=== PATIENT | female | born 1945 | race Caucasian/White ===

== ENCOUNTER 2017-12-04 16:09 | Emergency (ER) | payer MEDICARE, SELFPAY ==
[2017-12-04] VITALS (23 sets, daily range): BP systolic 139–156; BP diastolic 75–78; PULSE 90–109; RESP 12–30; TEMP 37–37.4; O2SAT 91–100
--- NOTE | 2017-12-04 16:24 | DI.RAD_ITS ---
SYMPTOM/DIAGNOSIS: DECREASED BREATH SOUNDS, SOB FRONTAL AND LATERAL CHEST: Comparison is made with 09/12/17. Heart size and pulmonary vasculature are within normal limits. No infiltrates or effusions are seen. The lungs are hyperinflated suggesting underlying COPD. There is a question of a 1 cm. nodule overlying the anterior aspect of the right sixth rib. This may be a superimposition of shadows or possibly represent the nipple. A pulmonary nodule cannot be excluded. Degenerative changes are seen in the spine. IMPRESSION; 1. No acute pulmonary process. 2. Question of a 1 cm. nodule in the right lower lung field. Pulmonary nodule cannot be excluded. A non emergency CT scan of the chest should be considered for further evaluation.
--- NOTE | 2017-12-04 18:06 | DI.VRAD_ITS ---
EXAM: XR Chest, 2 Views EXAM DATE/TIME: 12/04/2017 4:26 PM CLINICAL HISTORY: 72 years old, female; Pain; Chest pain and other: Dec. Breath sounds, SOB TECHNIQUE: XR of the chest, 2 views. COMPARISON: CR PORTABLE CHEST ONE VIEW 09/12/2017 1:20 PM FINDINGS: Lungs: Hyperaerated an appearance consistent with the patient's history of COPD. No focal consolidation. Image 1 demonstrates a 9 mm nodular density overlying the right sixth anterior rib. The pulmonary nodule is not excluded. Pleural space: Unremarkable. No pleural effusion. No pneumothorax. Heart/Mediastinum: Unchanged. Bones/joints: Skeletal degenerative changes. Other: Surgical clips in the upper abdomen. IMPRESSION: 1. No focal consolidation or pneumothorax. 2. 9 mm nodular density overlying the right anterior sixth rib. Pulmonary nodule is not excluded. If indicated, this can be further evaluated with nonemergent CT scan of the chest. Other findings as above. Dictated and Authenticated by: Verona Figueroa MD. Ordering:FRANCHESKA GODFREY MD
[2017-12-04 18:51] LABS: HCO3 (Venous) 30 mmol/L (22-28); O2 Sat (Venous) 76 % (70-80); TCO2 (Venous) 27 mmol/L (22-29); pCO2 (Venous) 45 mm/Hg (34-47); pH (Venous) 7.43 (7.32-7.43); pO2 (Venous) 40 mm/Hg (28-44)
[2017-12-04 18:53] LABS: ALT 21 U/L (12-78); AST 26 U/L (15-37); Albumin 3.3 g/dL (3.4-5.0); Alkaline Phosphatase 66 U/L (46-116); Anion Gap 8.4 mmol/L (3-11); BUN 9 mg/dL (7-18); Bilirubin, Total 0.4 mg/dL (0.2-1.0); CO2 31.6 mmol/L (21.0-32.0); CREATININE 0.99 mg/dL (0.55-1.02); Calcium 9.3 mg/dL (8.5-10.1); Chloride 105 mmol/L (98-107); Estimated GFR 54.98 (mL/min/1.73m2); Glucose 101 mg/dL (70-100); Potassium 4.1 mmol/L (3.5-5.1); Sodium 145 mmol/L (136-145); Total Protein 7.4 g/dL (6.4-8.2)
[2017-12-04 19:00] LABS: Troponin I < 0.02 ng/mL (0.00-0.06)
[2017-12-04 19:06] LABS: Absolute Basophil Count 0.04 k/cumm (0.0-0.2); Absolute Eosinophil Count 0.21 k/cumm (0.0-0.7); Absolute Lymphocyte Count 0.86 k/cumm (1.2-3.4); Absolute Monocyte Count 0.36 k/cumm (0.11-0.7); Absolute Neutrophil Count 4.17 k/cumm (1.2-6.7); Basophils % 0.7; Eosinophils % 3.7; HGB 14.2 g/dL (12.0-15.5); Lymphocytes % 15.2; Mean Corpuscular Hemoglobin 29.6 pg (27.0-33.0); Mean Corpuscular Volume 89.8 fL (80-95); Mean Platelet Volume 11.3 fL (8.0-11.0); Monocytes % 6.4; Platelet Count 274 x1000/uL (130-400); RBC 4.79 m/cumm (4.00-5.20); RBC Distribution Width 13.1 % (11.7-14.6); White Blood Cell Count 5.64 k/cumm (4.4-10.8)
[2017-12-04] MEDS: methylPREDNISolone SUCC 125 MG VIAL IVP (19:27)
[2017-12-04] MEDS: Albuterol/Ipratropium 3 ML UPD VIAL 9 ML UPD (19:31)
[2017-12-04 20:52] LABS: Troponin I < 0.02 ng/mL (0.00-0.06)
--- NOTE | 2017-12-05 10:21 | W.ED.GENAD ---
Discharge Plan Disposition Patient Disposition: HOME Condition: Good Discharge Details Chief Complaint: RespSymp Clinical Impression: COPD with exacerbation, Incidental pulmonary nodule Primary Care Provider: Adria Ellis ED Provider: Lev Mendiola Home Meds and New Rx's Prescriptions: New prednisone 50 MG tablet 50 mg PO DAILY Qty: 5 RF: 0 No Action prednisone 20 mg tablet 40 mg PO DAILY Qty: 20 RF: 0 ipratropium-albuterol [Combivent Respimat] 4 GM mist 1 puff Inhalation QID Qty: 3 RF: 3 fluticasone-salmeterol [Advair Diskus] 1 EACH blister with device 1 puff Inhalation BID Qty: 3 RF: 4 amlodipine 5 MG tablet 5 mg PO DAILY Qty: 90 RF: 3 furosemide [Lasix] 20 MG tablet 20 mg PO DAILY Qty: 90 RF: 3 Metoprolol Succinate 50 MG TAB.ER.24H 50 mg PO DAILY Qty: 90 RF: 3 albuterol sulfate 2.5 MG/3 ML solution for nebulization 1 ea Inhalation Q4H PRN30 Days Qty: 200 RF: 5 lorazepam 0.5 MG tablet 0.5 - 1 tab PO BID PRN 30 Days Qty: 60 RF: 11 lidocain-me.kjhxwjr-ipzh-sugrb [Terocin (with lidocaine)] 120 ML lotion 120 ml Topical Q12H Qty: 1 RF: 0 Discharge Instructions Instructions: Chronic Bronchitis (ED) Additional Instructions: Please take the steroid as directed. Please continue to take your albuterol nebulize solution every 4-6 hours. Please follow-up with your primary care provider about the pulmonary nodule noted on the x-ray. If you notice any worsening of your symptoms, or any new symptoms such as vomiting, diarrhea, fever, chills, shortness of breath, chest pain, numbness, weakness, or fainting , please return immediately to the emergency department for reevaluation. Please follow up with your primary care provider as soon as possible for reassessment and reevaluation. As always, it was a pleasure participating in your medical care today. Referrals: Adria Ellis [Primary Care Provider] - Discharge Data Discharge Date/Time-TO BE ENTERED AT DEPARTURE: 12/04/17 21:51 Medical Decision Making This is a 72-year-old female with a past medical history of COPD, as well as mild anxiety who presents today for shortness of breath, as well as concern for a slightly elevated heart rate. Oximetry in the 90s. On initial evaluation the patient did demonstrate mild wheezes throughout. She states that her symptoms have been improved with her nebulizer treatments at home. She denies any significant cough. She denies any shoulder or arm or neck pain. She denies any pleuritic chest pain. She denies any recent fevers or chills. She denies any history of blood clot or pulmonary embolism. The patient shows no signs of significant hypoxemia but as noted she does have the wheezes that are present. She is slightly increased in her respiratory rate. Heart rate oscillates between mid 90s, to low 100s. No other significant abnormalities were noted on physical exam. Laboratory workup demonstrated normal white count, VBG demonstrates no evidence of CO2 retention. PH is normal, electrolytes, creatinine, and troponin are normal. Per virtual radiology chest x-ray demonstrated no focal consolidation or pneumothorax. 9 mm nodular density overlying the right anterior sixth rib. Pulmonary nodules not excluded. EKG showed no significant abnormality. There was a notable delay in getting the patient's initial blood work secondary to search that was occurring in the emergency department. Patient was given breathing treatments and steroids here in the ED. After breathing treatments the patient was feeling much better. We did get her up and ambulate her around the emergency department and pulse oximetry remained above 92% during the entire episode. No significant tachycardia with ambulation. With notable wheezes that were improved with breathing treatments, no signs of hypoxemia, normal VBG, and improvement of symptomatology after breathing treatments I feel that her signs and symptoms are consistent with COPD exacerbation at this time. With a resolution of her tachycardia, no history of pulmonary embolism, no history of chest pain or significant cardiac disease, in conjunction with her known COPD I do feel that she can be safely discharged with close PCP follow-up. Diagnosis COPD exacerbation. We will give steroids for home use, encourage use of her home nebulizer for which she states she still has plenty of medications and refills, and encourage close follow-up. We discussed red flags which to return the patient understands. I have extensively reviewed the treatment plan and discharge instructions with the patient. I have addressed all patient concerns at this time. The patient was made aware of what symptoms to monitor for that would warrant a return to the emergency department. Discussed the plan with the patient, they demonstrate verbal understanding and agreement with our assessment and plan at this time. Additionally the patient's chest x-ray did show evidence of pulmonary nodule. I discussed these findings with the patient and recommended close follow-up with her PCP in regards to this. EKG 16: 20 rate 115, TX 192, QTc 437, QRS 82, sinus tachycardia, no significant ST depressions or elevations, inverted T waves in V1. Occasional PVC. No other significant abnormalities. HPI General Date/Time Provider Initiated Documentation: 12/04/17 16:24. HPI Narrative: This is a 72-year-old female with a past medical history of COPD, hypertension, anxiety who presents today for shortness of breath, and an increased heart rate in the 90s at home on her home pulse oximetry. She was concerned about this, states that she became very nervous, became more short of breath then came in for evaluation. The patient does have a home nebulizer, and she states that she has been using this regularly and it has significantly helped with her shortness of breath, but because of the increased heart rate in the 90s she was concerned and came in for evaluation. The patient denies any pleuritic chest pain, cough, fever, chills, arm pain neck pain or shoulder pain. She denies any swelling or tenderness in her calves. She denies any recent long trips, surgeries or procedures. She denies any exogenous estrogen use. She denies any history of pulmonary embolism. She denies any significant previous cardiac disease. Of note she was treated for bronchitis and COPD exacerbation roughly 1 month ago. She was given steroids at that time. She has no other complaints at this time. Related Data Home Medications Medication Instructions Recorded Confirmed ipratropium-albuterol [Combivent 1 puff INHALATION QID #3 inhaler 12/06/16 11/23/17 Respimat] fluticasone-salmeterol [Advair 1 puff INHALATION BID #3 puff 04/10/17 11/23/17 Diskus] lidocain-me.ujvqnsu-kmru-ajvtn 120 ml TOPICAL Q12H #1 lotion 06/07/17 11/23/17 [Terocin (with lidocaine)] amlodipine 5 mg PO DAILY #90 tab-cap 08/08/17 11/23/17 furosemide [Lasix] 20 mg PO DAILY #90 tab-cap 08/08/17 11/23/17 albuterol sulfate 1 ea INHALATION Q4H PRN 30 Days 09/26/17 11/23/17 #200 inhaler lorazepam 0.5 - 1 tab PO BID PRN 30 Days #60 10/26/17 11/23/17 tab-cap prednisone 20 mg tablet 40 mg PO DAILY #20 tab 11/16/17 11/23/17 prednisone 50 mg PO DAILY #5 tab 12/04/17 Previous Rx's Medication Instructions Recorded ipratropium-albuterol [Combivent 1 puff INHALATION QID #3 inhaler 12/06/16 Respimat] fluticasone-salmeterol [Advair 1 puff INHALATION BID #3 puff 04/10/17 Diskus] lidocain-me.hiokdpo-oheb-txrzh 120 ml TOPICAL Q12H #1 lotion 06/07/17 [Terocin (with lidocaine)] amlodipine 5 mg PO DAILY #90 tab-cap 08/08/17 furosemide [Lasix] 20 mg PO DAILY #90 tab-cap 08/08/17 lorazepam 0.5 - 1 tab PO BID PRN 30 Days #60 10/26/17 tab-cap prednisone 20 mg tablet 40 mg PO DAILY #20 tab 11/16/17 prednisone 50 mg PO DAILY #5 tab 12/04/17 Allergies Allergy/AdvReac Type Severity Reaction Status Date / Time lisinopril Allergy CAN'T Unverified 11/23/17 13:50 REMEMBER Sulfa (Sulfonamide Allergy ? RASH Unverified 11/19/17 13:33 Antibiotics) tiotropium bromide AdvReac Intermediate Chest Unverified 11/23/17 13:50 [From Spiriva with tightness HandiHaler] and shakiness anastrozole AdvReac COUGH Unverified 11/23/17 13:50 losartan AdvReac TACHYCARDIA Unverified 11/23/17 13:50 Penicillins AdvReac Unverified 11/23/17 13:50 General Stated Complaint: RespSymp FELIBERTO: 3 Review of Systems Review of Systems All systems reviewed & are unremarkable except as noted in HPI and below PFSH Medical History Anxiety COPD (chronic obstructive pulmonary disease) Essential hypertension Neoplasm of breast Oxygen dependent Social History Smoking/Tobacco Use Status: Former Tobacco Use Surgical History Biopsy of breast Breast, Lumpectomy Cholecystectomy (~05/2010) Colonoscopy - MAC (11/05/12) Colonoscopy - MAC (02/07/17) Colonoscopy - MAC (04/11/17) Exam Narrative Exam Narrative: 1.Const: Well-nourished, Well-developed, appearing stated age 2.Eyes: PERRL, no conjunctival injection, and symmetrical lids. 3.ENT: Atraumatic external nose and ears. Moist MM. Neck: Symmetric, trachea midline, No thyromegaly. 4.CVS: +S1/S2, No murmurs or gallops. Peripheral pulses 2+ and equal in all extremities. Brisk capillary refill in all extremities. 5.RESP: Unlabored respiratory effort. Mild wheezes throughout, no rales or rhonchi. No accessory muscle use. No signs of significant respiratory distress. 6.GI: Soft, Nontender/Nondistended, No hepatosplenomegaly. No guarding or rebound. 7.MSK: Normocephalic/Atraumatic, Extremities w/o deformity or ttp No cyanosis or clubbing, Normal movement of all extremities, no unilateral calf swelling or tenderness. Minimal reproducible musculoskeletal tenderness on palpation of the right upper paraspinal muscles just medial to the scapula. No other abnormalities. 8.Skin: Warm, Dry. No rashes or lesions. 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 Sensation grossly intact, no focal neurologic deficits. 10.Psych: (AAO) x3. Appropriate mood and affect Course Vital Signs Temperature 37.4 C 12/04/17 16:23 Pulse 109 H 12/04/17 16:23 Respiratory Rate 30 H 12/04/17 16:23 Blood Pressure 139/77 12/04/17 16:23 Pulse Oximetry 96 12/04/17 16:23 Temperature 37 C 12/04/17 21:46 Temperature Source Temporal Artery Scan 12/04/17 16:23 Pulse 98 H 12/04/17 21:34 Pulse 96 H 12/04/17 17:20 Respiratory Rate 17 12/04/17 17:20 Respiratory Effort 12/04/17 20:29 Respiratory Depth Normal 12/04/17 20:29 Blood Pressure 155/78 H 12/04/17 21:34 Blood Pressure Mean 97 10/09/18 21:34 Pulse Oximetry 93 L 12/04/17 21:30 Oxygen Delivery Method Nasal Cannula 12/04/17 16:23 Oxygen Flow Rate 2 12/04/17 16:23 Pain Level 2 12/04/17 16:23 Lab/Test Results Lab/Test Results: Laboratory Tests Range/Units 12/04/17 12/04/17 12/04/17 17:53 17:53 17:53 WBC (4.4-10.8) k/cumm 5.64 RBC (4.00-5.20) m/cumm 4.79 Hgb (12.0-15.5) g/dL 14.2 Hct (36.0-46.0) % 43.0 MCV (80-95) fL 89.8 MCH (27.0-33.0) pg 29.6 MCHC (32.0-36.0) g/dL 33.0 RDW (11.7-14.6) % 13.1 Plt Count (130-400) x1000/uL 274 MPV (8.0-11.0) fL 11.3 H Immature Gran % 0.0 Neutrophils % 74.0 Lymphocytes % 15.2 Monocytes % 6.4 Eosinophils % 3.7 Basophils % 0.7 Absolute Neutrophils (1.2-6.7) k/cumm 4.17 Absolute Lymphocytes (1.2-3.4) k/cumm 0.86 L Absolute Monocytes (0.11-0.7) k/cumm 0.36 Absolute Eosinophils (0.0-0.7) k/cumm 0.21 Absolute Basophils (0.0-0.2) k/cumm 0.04 VBG pH (7.32-7.43) VBG pCO2 (34-47) mm/Hg VBG pO2 (28-44) mm/Hg VBG HCO3 (22-28) mmol/L VBG Total CO2 (22-29) mmol/L VBG O2 Saturation (70-80) % VBG Base Excess (-3-3) mmol/L Sodium (136-145) mmol/L 145 Potassium (3.5-5.1) mmol/L 4.1 Chloride (98-107) mmol/L 105 Carbon Dioxide (21.0-32.0) mmol/L 31.6 Anion Gap (3-11) mmol/L 8.4 BUN (7-18) mg/dL 9 Creatinine (0.55-1.02) mg/dL 0.99 Estimated GFR/1.73 m2 (mL/min/1.73m2) 54.98 Glucose (70-100) mg/dL 101 H Calcium (8.5-10.1) mg/dL 9.3 Total Bilirubin (0.2-1.0) mg/dL 0.4 AST (15-37) U/L 26 ALT (12-78) U/L 21 Alkaline Phosphatase (46-116) U/L 66 Troponin I (0.00-0.06) ng/mL < 0.02 Total Protein (6.4-8.2) g/dL 7.4 Albumin (3.4-5.0) g/dL 3.3 L Range/Units 12/04/17 12/04/17 18:50 20:00 WBC (4.4-10.8) k/cumm RBC (4.00-5.20) m/cumm Hgb (12.0-15.5) g/dL Hct (36.0-46.0) % MCV (80-95) fL MCH (27.0-33.0) pg MCHC (32.0-36.0) g/dL RDW (11.7-14.6) % Plt Count (130-400) x1000/uL MPV (8.0-11.0) fL Immature Gran % Neutrophils % Lymphocytes % Monocytes % Eosinophils % Basophils % Absolute Neutrophils (1.2-6.7) k/cumm Absolute Lymphocytes (1.2-3.4) k/cumm Absolute Monocytes (0.11-0.7) k/cumm Absolute Eosinophils (0.0-0.7) k/cumm Absolute Basophils (0.0-0.2) k/cumm VBG pH (7.32-7.43) 7.43 VBG pCO2 (34-47) mm/Hg 45 VBG pO2 (28-44) mm/Hg 40 VBG HCO3 (22-28) mmol/L 30 H VBG Total CO2 (22-29) mmol/L 27 VBG O2 Saturation (70-80) % 76 VBG Base Excess (-3-3) mmol/L 6.0 H Sodium (136-145) mmol/L Potassium (3.5-5.1) mmol/L Chloride (98-107) mmol/L Carbon Dioxide (21.0-32.0) mmol/L Anion Gap (3-11) mmol/L BUN (7-18) mg/dL Creatinine (0.55-1.02) mg/dL Estimated GFR/1.73 m2 (mL/min/1.73m2) Glucose (70-100) mg/dL Calcium (8.5-10.1) mg/dL Total Bilirubin (0.2-1.0) mg/dL AST (15-37) U/L ALT (12-78) U/L Alkaline Phosphatase (46-116) U/L Troponin I (0.00-0.06) ng/mL < 0.02 Total Protein (6.4-8.2) g/dL Albumin (3.4-5.0) g/dL
== END 2017-12-04 21:51 | disposition home or self-care (01) ==
PROVIDERS: Emergency Provider Student in an Organized Health Care Education/Training Program; PCP Family Medicine
DX: J44.1 Chronic obstructive pulmonary disease with (acute) exacerbation (principal); Z87.891 Personal history of nicotine dependence; R91.1 Solitary pulmonary nodule; I10 Essential (primary) hypertension
CPT/HCPCS: 36415; 80053; 82805; 93005; 94640; 96374; 99285; 71046; 84484; 85025; 93010; J2930; J7620

== ENCOUNTER 2017-12-10 00:59 | Outpatient (CLI) | payer MEDICARE, SELFPAY ==
--- NOTE | 2017-12-10 12:52 | DI.CT_ITS ---
SYMPTOMS/DIAGNOSIS: SOLITARY PULMONARY NODULE, R91.[address]: CT examination of the chest was performed with a bolus infusion of 100 cc's of Omnipaque 350. Images obtained through the upper abdomen show unremarkable appearance of the spleen and the right and left adrenal glands as well as visualized portions of the pancreas. There is an apparent large left renal cyst which is incompletely imaged. There is hepatic steatosis and there has been a prior cholecystectomy. There is an apparent hiatal hernia. The lungs are clear with no pulmonary nodule identified. There are diffuse emphysematous changes most prominent in the lung apices but involving all pulmonary lobes. No mediastinal or hilar adenopathy seen. No pleural effusion or pleural based mass. No evidence of pulmonary embolic disease. No thoracic aortic aneurysm or dissection. The tracheobronchial tree appears intact. CONCLUSION: Marked pulmonary emphysematous changes. No intrapulmonary nodule identified.
[2017-12-10] MEDS: Omnipaque 350 MG/ML 100 ML BTL IV (13:48)
== END 2017-12-10 01:19 ==
PROVIDERS: PCP Family Medicine; Visit Provider Family Medicine
DX: R91.1 Solitary pulmonary nodule (principal); J43.9 Emphysema, unspecified; K76.0 Fatty (change of) liver, not elsewhere classified; Z90.49 Acquired absence of other specified parts of digestive tract
CPT/HCPCS: 71260; J3490

== ENCOUNTER 2018-08-18 09:42 | Emergency (ER) | payer MEDICARE, SELFPAY ==
[2018-08-18] VITALS (30 sets, daily range): BP systolic 117–160; BP diastolic 52–82; PULSE 99–133; RESP 4–34; TEMP 37; O2SAT 86–99
--- NOTE | 2018-08-18 09:47 | DI.RAD_ITS ---
SYMPTOM/DIAGNOSIS: SHORTNESS OF BREATH PORTABLE CHEST: Comparison is made with 04 December 2017. The heart size is normal. Oxygen tubing and leads overlie the chest. There is prominent calcified costal cartilage. No infiltrate, effusion or pulmonary edema is seen. IMPRESSION: No acute abnormality.
[2018-08-18] MEDS: Albuterol/Ipratropium 3 ML UPD VIAL UPD ×3 (10:07→10:14)
[2018-08-18] MEDS: Normal Saline Flush 10 ML SYR IVP (10:10)
[2018-08-18] MEDS: methylPREDNISolone SUCC 125 MG VIAL IVP (10:10)
--- NOTE | 2018-08-18 10:12 | ED.GENADUL_ITS ---
Discharge Plan Disposition Patient Disposition: HOME Discharge Details Chief Complaint: RespSymp Clinical Impression: COPD with acute exacerbation, Hypokalemia Primary Care Provider: Adria Ellis ED Provider: Nahum Aparicio Home Meds and New Rx's Prescriptions: New prednisone 20 mg tablet 40 mg PO DAILY Qty: 8 RF: 0 doxycycline hyclate 100 mg tablet 100 mg PO BID Qty: 13 RF: 0 Continued mometasone 0.1 % cream 1 applic TP DAILY PRN (Reason: rash) Qty: 45 RF: 1 lorazepam 0.5 MG tablet 0.5 - 1 tab PO BID PRN 30 Days Qty: 60 RF: 11 Combivent Respimat 20-100 mcg/actuation mist 1 puff Inhalation QID Qty: 4 RF: 11 albuterol sulfate [Ventolin HFA] 90 mcg/actuation HFA aerosol inhaler 2 puff IH Q4H PRN (Reason: shortness of breath or wheezing) Qty: 8.5 RF: 11 fluticasone propion-salmeterol [Advair Diskus] 250-50 mcg/dose blister with device 1 inh Inhalation BID Qty: 60 RF: 11 albuterol sulfate 2.5 mg /3 mL (0.083 %) solution for nebulization 2.5 mg Inhalation Q4H PRN (Reason: shortness of breath or wheezing) 30 Days Qty: 200 RF: 3 amlodipine 5 mg tablet 5 mg PO DAILY Qty: 90 RF: 3 furosemide [Lasix] 20 mg tablet 20 mg PO DAILY Qty: 90 RF: 3 prednisone 20 mg tablet 40 mg PO DAILY Qty: 10 RF: 1 metoprolol succinate 50 mg tablet extended release 24 hr 50 mg PO DAILY Qty: 90 RF: 3 Discharge Instructions Instructions: Hypokalemia (ED), COPD (Chronic Obstructive Pulmonary Disease) (ED) Additional Instructions: Please take full course of antibiotic as prescribed. Your next dose is tonight. Use your albuterol neb treatments as prescribed. Take full course of prednisone - your next dose is tomorrow. Follow-up with your doctor. Call tomorrow. Return to the ER for any worsening or new concerning symptoms. Referrals: Adria Ellis [Primary Care Provider] - Discharge Data Discharge Date/Time-TO BE ENTERED AT DEPARTURE: 08/18/18 12:23 Medical Decision Making 9:55--patient was seen immediately on arrival. Patient arrives in critical condition. 73-year-old female with history of COPD, here with increased shortness of breath and difficulty breathing over the past 2 days. Suspect acute COPD exacerbation. ECG was reviewed and interpreted by me: Sinus tachycardia 125 bpm, normal axis, some artifact, no STEMI, nondiagnostic. Respiratory therapy consulted. Plan to obtain chest x-ray. I will give Solu- Medrol 125 mg IV and initiate DuoNeb treatment. 10:20 -- Patient being seen by respiratory therapy. Patient is on her third DuoNeb treatment. Respiratory therapy notes that patient coughed up a large sputum plug and is now feeling better. -- labs reviewed and nondiagnostic. Patient given NS 500mL IVF bolus. cxr interpreted by radiology: IMPRESSION: 1. COPD. 2. Bibasilar opacities, likely atelectasis, and/or scar. A basilar pneumonia cannot be excluded. Correlate clinically. Plan to cover with doxycycline. 11:58 -- Patient reassessed: feels much better. requesting discharge. HR elevated 2/2 albuterol. Patient will need close outpatient followup this week. Usual gastric discharge instructions were provided. HPI General Mode of arrival: ambulatory . Date/Time Provider Initiated Documentation: 08/18/18 09:47 . Limitations to Documentation: no limitations . Information obtained by: patient . HPI Narrative: 73-year-old female with history of COPD, here with chief complaint of shortness of breath. Patient notes over the past 2 days she has had progressively worsening shortness of breath. Symptoms are worse with exertion. Patient is prescribed oxygen which he uses intermittently and has had increased oxygen requirement over the past couple days. Patient states she is been using her neb treatments as prescribed. She is not currently on prednisone but was treated with prednisone earlier this month, last dose was on 08/11/2018. Symptoms are currently severe. Patient notes chronic cough that is unchanged. No fever. No chest pain. No leg swelling or calf pain. Related Data Home Medications Medication Instructions Recorded Confirmed lorazepam 0.5 - 1 tab PO BID PRN 30 Days #60 10/26/17 08/18/18 tab-cap mometasone 0.1 % topical cream 1 applic TP DAILY PRN #45 gm 12/28/17 08/18/18 ipratropium 20 mcg-albuterol 100 1 puff INHALATION QID #4 gm 02/27/18 08/18/18 mcg/actuation mist for inhalation albuterol sulfate HFA 90 2 puff IH Q4H PRN #8.5 gm 03/19/18 08/18/18 mcg/actuation aerosol inhaler fluticasone 250 mcg-salmeterol 50 1 inh INHALATION BID #60 puff 04/25/18 08/18/18 mcg/dose blistr powdr for inhalation albuterol sulfate 2.5 mg/3 mL 2.5 mg INHALATION Q4H PRN 30 Days 05/30/18 08/18/18 (0.083 %) solution for nebulization #200 ml amlodipine 5 mg tablet 5 mg PO DAILY #90 tab-cap 07/25/18 08/18/18 furosemide 20 mg tablet 20 mg PO DAILY #90 tab-cap 07/25/18 08/18/18 prednisone 20 mg tablet 40 mg PO DAILY #10 tab 07/25/18 metoprolol succinate ER 50 mg 50 mg PO DAILY #90 tab 07/29/18 08/18/18 tablet,extended release 24 hr doxycycline hyclate 100 mg PO BID #13 tab 08/18/18 prednisone 40 mg PO DAILY #8 tab 08/18/18 Previous Rx's Medication Instructions Recorded lorazepam 0.5 - 1 tab PO BID PRN 30 Days #60 10/26/17 tab-cap mometasone 0.1 % topical cream 1 applic TP DAILY PRN #45 gm 12/28/17 ipratropium 20 mcg-albuterol 100 1 puff INHALATION QID #4 gm 02/27/18 mcg/actuation mist for inhalation albuterol sulfate HFA 90 2 puff IH Q4H PRN #8.5 gm 03/19/18 mcg/actuation aerosol inhaler fluticasone 250 mcg-salmeterol 50 1 inh INHALATION BID #60 puff 04/25/18 mcg/dose blistr powdr for inhalation albuterol sulfate 2.5 mg/3 mL 2.5 mg INHALATION Q4H PRN 30 Days 05/30/18 (0.083 %) solution for nebulization #200 ml amlodipine 5 mg tablet 5 mg PO DAILY #90 tab-cap 07/25/18 furosemide 20 mg tablet 20 mg PO DAILY #90 tab-cap 07/25/18 prednisone 20 mg tablet 40 mg PO DAILY #10 tab 07/25/18 metoprolol succinate ER 50 mg 50 mg PO DAILY #90 tab 07/29/18 tablet,extended release 24 hr doxycycline hyclate 100 mg PO BID #13 tab 08/18/18 prednisone 40 mg PO DAILY #8 tab 08/18/18 Allergies Allergy/AdvReac Type Severity Reaction Status Date / Time lisinopril Allergy CAN'T Verified 08/18/18 10:28 REMEMBER Sulfa (Sulfonamide Allergy ? RASH Verified 08/18/18 10:28 Antibiotics) tiotropium bromide AdvReac Intermediate Chest Verified 08/18/18 10:28 [From Spiriva with tightness HandiHaler] and shakiness anastrozole AdvReac COUGH Verified 08/18/18 10:28 losartan AdvReac TACHYCARDIA Verified 08/18/18 10:28 Penicillins AdvReac Verified 08/18/18 10:28 General Stated Complaint: RespSymp FELIBERTO: 3 Review of Systems Review of Systems All systems reviewed & are unremarkable except as noted in HPI and below Cardiovascular Denies chest pain, Denies edema and Reports dyspnea Respiratory Reports as per HPI, Reports cough and Reports dyspnea PFSH Medical History Anxiety COPD (chronic obstructive pulmonary disease) Essential hypertension Neoplasm of breast Oxygen dependent Surgical History Biopsy of breast Breast, Lumpectomy Cholecystectomy (~05/2010) Colonoscopy - MAC (11/05/12) Colonoscopy - MAC (02/07/17) Colonoscopy - MAC (04/11/17) Social History Smoking/Tobacco Use Status: Former Tobacco Use Alcohol Intake: never Drug use: Never Substance use type: does not use Do you feel safe at home: Yes Do you feel safe in your relationship?: Yes Exam Const General: cooperative and no acute distress HENMT Head: normocephalic and atraumatic Mouth: moist mucous membranes Eyes Conjunctivae: normal conjunctivae Sclera: normal sclerae Neck Neck: trachea midline and supple Resp Effort & Inspection: not able to speak in complete sentences, labored, respiratory distress, no stridor, tachypneic, uses accessory muscles and prolonged expiratory phase Auscultation: diminished lung sounds bilaterally, no rales, no rhonchi and wheezes expiratory wheezes Cardio Jugular venous pressure: no JVD Rate: tachycardic Rhythm: regular rhythm GI Palpation: soft, not firm, no guarding, no masses, not rigid and nontender Skin General skin exam: no rashes or lesions noted Neuro General: alert, awake and tone normal Extrem General: no calf tenderness bilaterally and no edema Psych Appearance: grossly normal Course Vital Signs Temperature 37.0 C 08/18/18 09:52 Pulse 125 H 08/18/18 09:52 Respiratory Rate 22 08/18/18 09:52 Blood Pressure 148/72 H 08/18/18 09:52 Pulse Oximetry 93 L 08/18/18 09:52 Temperature 37.0 C 08/18/18 09:52 Temperature Source Temporal Artery Scan 08/18/18 09:52 Pulse 125 H 08/18/18 09:52 Respiratory Rate 22 08/18/18 09:52 Respiratory Effort Non-Labored 08/18/18 09:56 Respiratory Depth Normal 08/18/18 09:56 Blood Pressure 148/72 H 08/18/18 09:52 Blood Pressure Position Sitting 08/18/18 09:52 Pulse Oximetry 93 L 08/18/18 09:52 Oxygen Delivery Method Nasal Cannula 08/18/18 09:52 Oxygen Flow Rate 5 08/18/18 09:52 Pain Level 0 08/18/18 09:52
[2018-08-18 10:18] LABS: Abs Immature Grans 0.04 k/cumm (0.0-0.09); Absolute Basophil Count 0.06 k/cumm (0.0-0.2); Absolute Monocyte Count 0.91 k/cumm (0.11-0.7); Absolute Neutrophil Count 8.21 k/cumm (1.2-6.7); Basophils % 0.6; HGB 14.1 g/dL (12.0-15.5); Immature Grans % 0.4; Lymphocytes % 9.7; Mean Corp. HGB Concentration 33.6 g/dL (32.0-36.0); Mean Corpuscular Hemoglobin 29.6 pg (27.0-33.0); Mean Corpuscular Volume 88.2 fL (80-95); Monocytes % 8.8; Neutrophils % 79.5; Platelet Count 275 x1000/uL (130-400); RBC 4.76 m/cumm (4.00-5.20); RBC Distribution Width 13.2 % (11.7-14.6); White Blood Cell Count 10.32 k/cumm (4.4-10.8)
[2018-08-18 10:39] LABS: ALT 17 U/L (12-78); AST 20 U/L (15-37); Alkaline Phosphatase 69 U/L (46-116); Anion Gap 10.6 mmol/L (3-11); BUN 12 mg/dL (7-18); CO2 28.4 mmol/L (21.0-32.0); CREATININE 1.11 mg/dL (0.55-1.02); Chloride 99 mmol/L (98-107); Estimated GFR 48.05 (mL/min/1.73m2); Glucose 106 mg/dL (70-100); Magnesium 2.1 mg/dL (1.8-2.4); NT-proBNP 112 pg/mL; Potassium 3.3 mmol/L (3.5-5.1); Sodium 138 mmol/L (136-145); Total Protein 7.4 g/dL (6.4-8.2)
[2018-08-18 10:41] LABS: Troponin I < 0.05 ng/mL (0.00-0.06)
--- NOTE | 2018-08-18 10:48 | DI.VRAD_ITS ---
EXAM: XR Chest, 1 View EXAM DATE/TIME: 08/18/2018 10:30 AM CLINICAL HISTORY: 73 years old, female; Shortness of breath TECHNIQUE: Imaging protocol: XR of the chest, 1 view. COMPARISON: SC XR CHEST 2V PA LATERAL 12/04/2017 5:22 PM FINDINGS: Lungs: There are changes of COPD. There are minimal bibasilar opacities, likely atelectasis, and/or scar. A small basilar pneumonia cannot be excluded. Pleural space: No pleural effusion or pneumothorax. Heart/Mediastinum: The cardiomediastinal silhouette and pulmonary vessels are within normal limits. Bones/joints: Unremarkable. IMPRESSION: 1. COPD. 2. Bibasilar opacities, likely atelectasis, and/or scar. A basilar pneumonia cannot be excluded. Correlate clinically. Dictated and Authenticated by: Luke Pineda MD. Ordering:MARISSA Sidhu MD
[2018-08-18] MEDS: Potassium Chloride 10 MEQ TABCR 20 MEQ PO (10:53)
[2018-08-18] MEDS: Doxycycline Hyclate 100 MG CAP PO (11:36)
--- NOTE | 2018-08-18 12:13 | NUR.NOTE ---
Nursing Note: MD Aparicio aware of heart rate. Clears patient for discharge
== END 2018-08-18 12:23 | disposition home or self-care (01) ==
PROVIDERS: Emergency Provider Student in an Organized Health Care Education/Training Program; PCP Family Medicine
DX: J44.1 Chronic obstructive pulmonary disease with (acute) exacerbation (principal); E87.6 Hypokalemia; R00.0 Tachycardia, unspecified; I10 Essential (primary) hypertension; F17.210 Nicotine dependence, cigarettes, uncomplicated
CPT/HCPCS: 36415; 80053; 93005; 96374; 99285; 71045; 83735; 83880; 84484; 85025; 93010; J2930; J7620

== ENCOUNTER 2018-10-16 18:22 | Emergency (ER) | payer MEDICARE, SELFPAY ==
[2018-10-16 18:25] VITALS: BP 175/89; PULSE 100; RESP 24; TEMP 36.8; O2SAT 92
[2018-10-16 18:30] VITALS: O2SAT 92
[2018-10-16 18:33] VITALS: RESP 22
--- NOTE | 2018-10-16 18:54 | ED.GENADUL_ITS ---
Discharge Plan Disposition Patient Disposition: HOME Discharge Details Chief Complaint: SOB Clinical Impression: Asthma exacerbation in COPD Primary Care Provider: Adria Ellis ED Provider: Nahum Aparicio Home Meds and New Rx's Prescriptions: New prednisone 20 mg tablet 40 mg PO DAILY Qty: 8 RF: 0 doxycycline hyclate 100 mg tablet 100 mg PO BID Qty: 13 RF: 0 Continued mometasone 0.1 % cream 1 applic TP DAILY PRN (Reason: rash) Qty: 45 RF: 1 lorazepam 0.5 mg tablet 0.5 - 1 mg PO BID PRN 30 Days Qty: 60 RF: 5 Combivent Respimat 20-100 mcg/actuation mist 1 puff Inhalation QID Qty: 4 RF: 11 albuterol sulfate [Ventolin HFA] 90 mcg/actuation HFA aerosol inhaler 2 puff IH Q4H PRN (Reason: shortness of breath or wheezing) Qty: 8.5 RF: 11 amlodipine 5 mg tablet 5 mg PO DAILY Qty: 90 RF: 3 furosemide [Lasix] 20 mg tablet 20 mg PO DAILY Qty: 90 RF: 3 metoprolol succinate 50 mg tablet extended release 24 hr 50 mg PO DAILY Qty: 90 RF: 3 albuterol sulfate 2.5 mg /3 mL (0.083 %) solution for nebulization 2.5 mg Inhalation Q4H PRN (Reason: shortness of breath or wheezing) 30 Days Qty: 200 RF: 3 fluticasone propion-salmeterol [Advair Diskus] 250-50 mcg/dose Blister With Device 1 inh INHALATION BID RF: 0 Discharge Instructions Instructions: COPD (Chronic Obstructive Pulmonary Disease) (ED) Additional Instructions: Please take antibiotic as prescribed. Take prednisone as prescribed. Take albuterol as prescribed. Please follow-up with respiratory therapy, pulmonology, and your primary care physician. Return to the ER for any worsening or new concerning symptoms. Referrals: Adria Ellis [Primary Care Provider] - Debra Dc MD [ NON-[facility] STAFF PHYSICIAN] - Medical Decision Making 18:55 --73-year-old female with history of COPD here with severe shortness of breath and nonproductive cough. Patient is saturating well on nasal cannula oxygen. ECG reviewed and interpreted by me: Sinus tachycardia 102 bpm, normal axis, great combined atrial enlargement, nondiagnostic. Suspect acute COPD exacerbation. Plan to give duo nebs, Solu-Medrol. Consider PNA. Will check labs and cxr. --Labs reviewed and nondiagnostic. Patient has no leukocytosis. She has normal troponin and BNP. Chest x-ray reviewed and interpreted by radiology: No acute findings. COPD. Patient was given 2 DuoNeb's and Solu-Medrol and was seen by respiratory therapy. On reassessment, she noted significant improvement, saturating well in no respiratory distress. Plan will be to discharge on prednisone burst, doxycycline, and follow-up with respiratory therapy COPD clinic as well as with pulmonology. Disposition decision was made weighing the risks and benefits of hospitalization versus outpatient treatment, the risk for further decompensation, and the patient's wishes. The patient was stable and requested discharge. Prior to discharge, my usual and customary return precautions were reviewed with her - this included follow- up instructions and reason to return to the emergency department if condition worsens, does not improve as expected, or other new concerns arise. HPI General Mode of arrival: ambulatory . Date/Time Provider Initiated Documentation: 10/16/18 18:28 . Limitations to Documentation: no limitations . Information obtained by: patient . HPI Narrative: 73-year-old female with history of COPD and hypertension, intermittently uses oxygen, here with chief complaint of shortness of breath. Patient notes worsening shortness of breath over the past couple days. Symptoms are now severe. She last used albuterol around 310 this afternoon. She last had a course of prednisone about 10 days ago. She has no associated chest pain. She does have associated cough that is not productive. No fever. Patient is depressed about recent of her daughter. Related Data Home Medications Medication Instructions Recorded Confirmed mometasone 0.1 % topical cream 1 applic TP DAILY PRN #45 gm 12/28/17 10/09/18 ipratropium 20 mcg-albuterol 100 1 puff INHALATION QID #4 gm 02/27/18 10/16/18 mcg/actuation mist for inhalation albuterol sulfate 90 mcg/actuation 2 puff IH Q4H PRN #8.5 gm 03/19/18 10/16/18 aerosol inhaler amlodipine 5 mg tablet 5 mg PO DAILY #90 tab-cap 07/25/18 10/16/18 furosemide 20 mg tablet 20 mg PO DAILY #90 tab-cap 07/25/18 10/16/18 metoprolol succinate 50 mg 50 mg PO DAILY #90 tab 07/29/18 10/16/18 tablet,extended release 24 hr lorazepam 0.5 mg tablet 0.5 - 1 mg PO BID PRN 30 Days #60 08/28/18 10/16/18 tab-cap albuterol sulfate 2.5 mg INHALATION Q4H PRN 30 Days 09/19/18 10/16/18 #200 ml doxycycline hyclate 100 mg PO BID #13 tab 10/16/18 fluticasone propion-salmeterol 1 inh INHALATION BID 10/16/18 10/16/18 [Advair Diskus] prednisone 40 mg PO DAILY #8 tab 10/16/18 Previous Rx's Medication Instructions Recorded mometasone 0.1 % topical cream 1 applic TP DAILY PRN #45 gm 12/28/17 ipratropium 20 mcg-albuterol 100 1 puff INHALATION QID #4 gm 02/27/18 mcg/actuation mist for inhalation albuterol sulfate 90 mcg/actuation 2 puff IH Q4H PRN #8.5 gm 03/19/18 aerosol inhaler amlodipine 5 mg tablet 5 mg PO DAILY #90 tab-cap 07/25/18 furosemide 20 mg tablet 20 mg PO DAILY #90 tab-cap 07/25/18 metoprolol succinate 50 mg 50 mg PO DAILY #90 tab 07/29/18 tablet,extended release 24 hr lorazepam 0.5 mg tablet 0.5 - 1 mg PO BID PRN 30 Days #60 08/28/18 tab-cap albuterol sulfate 2.5 mg INHALATION Q4H PRN 30 Days 09/19/18 #200 ml doxycycline hyclate 100 mg PO BID #13 tab 10/16/18 prednisone 40 mg PO DAILY #8 tab 10/16/18 Allergies Allergy/AdvReac Type Severity Reaction Status Date / Time lisinopril Allergy CAN'T Verified 10/16/18 19:03 REMEMBER Sulfa (Sulfonamide Allergy ? RASH Verified 10/16/18 19:03 Antibiotics) tiotropium bromide AdvReac Intermediate Chest Verified 10/16/18 19:03 [From Spiriva with tightness HandiHaler] and shakiness anastrozole AdvReac COUGH Verified 10/16/18 19:03 losartan AdvReac TACHYCARDIA Verified 10/16/18 19:03 Penicillins AdvReac Verified 10/16/18 19:03 General Stated Complaint: SOB FELIBERTO: 2 Review of Systems Review of Systems All systems reviewed & are unremarkable except as noted in HPI and below Constitutional Denies fever(s) Cardiovascular Denies chest pain and Reports dyspnea Respiratory Reports as per HPI, Reports cough and Reports dyspnea PFSH Medical History Anxiety COPD (chronic obstructive pulmonary disease) Essential hypertension Neoplasm of breast Oxygen dependent Surgical History Biopsy of breast Breast, Lumpectomy Cholecystectomy (~05/2010) Colonoscopy - MAC (11/05/12) Colonoscopy - MAC (02/07/17) Colonoscopy - MAC (04/11/17) Social History Smoking/Tobacco Use Status: Former Tobacco Use Alcohol Intake: never Drug use: Never Substance use type: does not use Do you feel safe at home: Yes Do you feel safe in your relationship?: Yes Exam Const General: cooperative and no acute distress HENMT Mouth: moist mucous membranes Eyes Conjunctivae: normal conjunctivae Sclera: normal sclerae Neck Neck: trachea midline, supple and no JVD Resp Effort & Inspection: cough and labored Auscultation: diminished lung sounds bilaterally and no rhonchi Cardio Jugular venous pressure: no JVD Rate: regular rate and not tachycardic Rhythm: regular rhythm GI Palpation: soft, not firm, no guarding, no masses, not rigid and nontender Skin General skin exam: no rashes or lesions noted Neuro General: alert, awake, oriented x3 and tone normal Extrem General: no calf tenderness and no edema Psych Appearance: grossly normal Mental Status: mental status grossly normal Mood: dysthymic mood Course Vital Signs Temperature 36.8 C 10/16/18 18:25 Pulse 100 H 10/16/18 18:25 Respiratory Rate 24 10/16/18 18:25 Blood Pressure 175/89 H 10/16/18 18:25 Pulse Oximetry 92 L 10/16/18 18:25 Temperature 36.8 C 10/16/18 18:25 Temperature Source Temporal Artery Scan 10/16/18 18:25 Pulse 100 H 10/16/18 18:25 Respiratory Rate 22 10/16/18 18:33 Respiratory Effort 10/16/18 18:33 Respiratory Depth Normal 10/16/18 18:33 Blood Pressure 175/89 H 10/16/18 18:25 Pulse Oximetry 92 L 10/16/18 18:25 Oxygen Delivery Method Nasal Cannula 10/16/18 18:25 Oxygen Flow Rate 2 10/16/18 18:25
[2018-10-16] MEDS: methylPREDNISolone SUCC 125 MG VIAL IVP (19:03)
[2018-10-16] MEDS: Albuterol/Ipratropium 3 ML UPD VIAL UPD ×2 (19:03→19:14)
[2018-10-16 19:23] LABS: Abs Immature Grans 0.04 k/cumm (0.0-0.09); Absolute Basophil Count 0.04 k/cumm (0.0-0.2); Absolute Eosinophil Count 0.16 k/cumm (0.0-0.7); Absolute Lymphocyte Count 1.25 k/cumm (1.2-3.4); Absolute Monocyte Count 0.45 k/cumm (0.11-0.7); Absolute Neutrophil Count 5.17 k/cumm (1.2-6.7); Basophils % 0.6; Eosinophils % 2.3; HCT 48.3 % (36.0-46.0); HGB 15.7 g/dL (12.0-15.5); Immature Grans % 0.6; Lymphocytes % 17.6; Mean Corp. HGB Concentration 32.5 g/dL (32.0-36.0); Mean Corpuscular Hemoglobin 28.6 pg (27.0-33.0); Mean Corpuscular Volume 88.1 fL (80-95); Mean Platelet Volume 11.2 fL (8.0-11.0); Monocytes % 6.3; Neutrophils % 72.6; Platelet Count 314 x1000/uL (130-400); RBC 5.48 m/cumm (4.00-5.20); RBC Distribution Width 13.6 % (11.7-14.6); White Blood Cell Count 7.11 k/cumm (4.4-10.8)
[2018-10-16 19:33] VITALS: RESP 1
[2018-10-16 19:39] LABS: ALT 22 U/L (12-78); AST 21 U/L (15-37); Alkaline Phosphatase 73 U/L (46-116); Anion Gap 12.3 mmol/L (3-11); BUN 12 mg/dL (7-18); Bilirubin, Total 0.6 mg/dL (0.2-1.0); CO2 27.7 mmol/L (21.0-32.0); Calcium 9.4 mg/dL (8.5-10.1); Chloride 105 mmol/L (98-107); Estimated GFR 48.55 (mL/min/1.73m2); Glucose 109 mg/dL (70-100); Magnesium 2.1 mg/dL (1.8-2.4); NT-proBNP 104 pg/mL; Potassium 3.8 mmol/L (3.5-5.1); Sodium 145 mmol/L (136-145)
[2018-10-16 19:41] LABS: Troponin I < 0.05 ng/mL (0.00-0.06)
--- NOTE | 2018-10-16 19:43 | DI.RAD_ITS ---
SYMPTOM/DIAGNOSIS: COUGH, COPD EXACERBATION, SOB CHEST X-RAY: PA and lateral. Comparison 08/18/18 Heart size and pulmonary vasculature are within normal limits. The lungs are hyperinflated with flattened diaphragms suggesting underlying COPD. No focal infiltrates, effusions or pneumothoraces are identified. Age appropriate degenerative changes are seen in the spine. IMPRESSION: No acute pulmonary process.
[2018-10-16 19:44] VITALS: RESP 1
--- NOTE | 2018-10-16 20:10 | DI.VRAD_ITS ---
EXAM: XR Chest, 2 Views EXAM DATE/TIME: 10/16/2018 6:54 PM CLINICAL HISTORY: 73 years old, female; Cough and other: Copd, exacerbation, SOB TECHNIQUE: Imaging protocol: XR of the chest, 2 views. COMPARISON: SC XR PORTABLE CHEST AP 18/08/2018 10:22 FINDINGS: Lungs: Large lung volumes with flattening of the hemidiaphragms consistent with COPD. Pleural space: Unremarkable. No pleural effusion. No pneumothorax. Heart/Mediastinum: Unremarkable. No cardiomegaly. Bones/joints: Multilevel degenerative changes of the thoracic spine. IMPRESSION: No acute findings. COPD. Dictated and Authenticated by: Maryan Head MD. Ordering:MARISSA Sidhu MD
[2018-10-16 20:11] VITALS: BP 164/94; PULSE 100; RESP 16; O2SAT 95
[2018-10-16] MEDS: Doxycycline Hyclate 100 MG CAP PO (21:00)
--- NOTE | 2018-10-18 13:49 | RESPIRATORY ---
10/16/18-Went over Pt's home MDI and UPD's regimen. Pt states she has an Advair 250 and an Advair 500 at home and has not initiated the 500 as she's too nervous that she may experience side effects from usage.I reassured Pt this is a safe advancement per Dr. Gracai's recommendation. I wrote down MDI and UPD regimen to help ease the pt with her anxiety f when to take her meds. I was able to acquire Pulm Rehab and PFT referrals from Dr. Aparicio. I will f/u with pt. tomorrow am via phone.
--- NOTE | 2018-10-18 14:02 | RESPIRATORY ---
10/17/18- Reached out to Pt via phone for a check in. Pt was confused about her MDI/UPD regimen. I reiterated what I wrote down for her the previous night She also was able to take the Advair 500 while I was on the phone with her. I contacted Dorene (Dr. Gracia's RN)at [facility] to go over the UPD/MDI regimen. We also discussed the possibility of usage f a duoneb instead of albuterol.
--- NOTE | 2018-10-18 14:06 | RESPIRATORY ---
10/18/18-Contacted Pt to book her PFT for 10/22/18 1300. Pt is anxious about not being able to take her bronchodilators 4 hours before test as it's protocol . I areassured Pt I would be here for test and she could bring her home meds and could take them as soon as test is complete. Pt seemed reassured by this.
== END 2018-10-16 21:36 | disposition home or self-care (01) ==
PROVIDERS: Emergency Provider Student in an Organized Health Care Education/Training Program; PCP Family Medicine
DX: J44.1 Chronic obstructive pulmonary disease with (acute) exacerbation (principal); J45.909 Unspecified asthma, uncomplicated; Z99.81 Dependence on supplemental oxygen; I10 Essential (primary) hypertension; Z87.891 Personal history of nicotine dependence
CPT/HCPCS: 36415; 80053; 93005; 94640; 96374; 99285; 71046; 83735; 83880; 84484; 85025; 93010; J2930; J7620

== ENCOUNTER 2018-10-22 01:28 | Outpatient (CLI) | payer MEDICARE, SELFPAY ==
--- NOTE | 2018-10-22 | PFT_ITS ---
PULMONARY FUNCTION TEST REPORT Patient - Daily Pineda DATE OF SERVICE October 22, 2018 REQUESTING PROVIDER Adria Ellis M.D. INTERPRETATION OF STUDY Spirometry shows very severe obstructive airways disease with no significant bronchodilator response. LUNG VOLUMES - Lung volumes show no evidence of restriction. There is moderate hyperinflation and air trapping. DIFFUSION CAPACITY- Slightly suboptimal patient effort, but shows severe diffusion defect, which is moderately severe when corrected to alveolar volume. AIRWAY RESISTANCE - Markedly elevated IMPRESSION Very severe obstructive airways disease with no significant bronchodilator response. This is associated with moderate hyperinflation and air trapping and severe diffusion defect, as well as markedly elevated airways resistance. Clinical correlation recommended. When this study was compared to previous one from 11/29/07, the patient has a total of 260 cc decline in FVC, FEV1 has declined by 230 cc. Debra Dc M.D. [place]/ T-10/24/2018
[2018-10-22] MEDS: Inhaler, Assist Device 1 EACH MC (13:27)
[2018-10-22] MEDS: Albuterol HFA 18 GM 200 PUFF INH IH (13:27)
== END 2018-10-22 01:48 ==
PROVIDERS: PCP Family Medicine; Visit Provider Family Medicine
DX: J44.9 Chronic obstructive pulmonary disease, unspecified (principal); R06.09 Other forms of dyspnea; Z87.891 Personal history of nicotine dependence
CPT/HCPCS: 94060; 94150; 94726; 94729

== ENCOUNTER 2018-10-31 13:16 | Outpatient (RCR) | payer MEDICARE, SELFPAY | END 2018-11-25 23:59 | disposition home or self-care (01) | LOC: PRC 13:16 | PROVIDERS: PCP Family Medicine; Visit Provider Family Medicine | DX: Z51.89 Encounter for other specified aftercare (principal) ==

== ENCOUNTER 2018-11-14 13:34 | Outpatient (RCR) | payer MEDICARE, SELFPAY | END 2018-11-25 23:59 | disposition home or self-care (01) | LOC: PRC 13:34 | PROVIDERS: PCP Family Medicine; Visit Provider Family Medicine | DX: J44.9 Chronic obstructive pulmonary disease, unspecified (principal); Z51.89 Encounter for other specified aftercare ==

== ENCOUNTER 2018-12-04 00:43 | Outpatient (CLI) | payer MEDICARE, SELFPAY ==
--- NOTE | 2018-12-04 14:38 | DI.CTLCSR_ITS ---
EXAM: CT CHEST LUNG CANCER SCREEN CLINICAL HISTORY: Z87.891 PERSONAL HX NICOTINE DEPENDENCE. TECHNIQUE: Examination was carried out according to the usual protocol. COMPARISON: No exams were available for comparison FINDINGS: Central lobular emphysematous changes are most pronounced in the upper lobes. No pulmonary nodules a re identified; however, there is a soft area of increased density adjacent to the posterior pleura in the right lower lobe, which could represent a small lesion. There is no pleural effusion. There is, allowing for the absence of contrast material, no evidence of hilar or mediastinal adenopathy. The heart is not enlarged. There is no evidence of an aortic aneurysm. IMPRESSION: COPD, small region of pleural-based abnormality in the right lower lobe. Follow-up chest CT in 6 igor hs is suggested for further review. Lung RADS Cat 3 - Probably Benign: Probably benign finding(s) - short term follow-up suggested; inclu de nodules with a low likelihood of becoming a clinically active cancer.
== END 2018-12-04 01:03 ==
PROVIDERS: PCP Family Medicine; Visit Provider Internal Medicine
DX: Z12.2 Encounter for screening for malignant neoplasm of respiratory organs (principal); J44.9 Chronic obstructive pulmonary disease, unspecified; J98.4 Other disorders of lung; Z87.891 Personal history of nicotine dependence
CPT/HCPCS: G0297

== ENCOUNTER 2019-08-22 03:20 | Outpatient (CLI) | payer MEDICARE, SELFPAY ==
--- NOTE | 2019-08-22 | DI.CT_ITS ---
EXAM: CT CHEST WO CLINICAL HISTORY: CHRONIC OBSTRUCTIVE PULMONARY DISEASE,J44.9,F/U RLL DENSITY TECHNIQUE: COMPARISON: CT CT chest w from 12/10/[address] CHEST LUNG CANCER SCREEN from 12/04/2018 FINDINGS: CT examination chest was performed contrast administration. Images obtained through the upper abdome n show hepatic steatosis, grossly unremarkable appearance of the spleen. No mediastinal or hilar adenopathy seen. There are diffuse predominantly central lobular pulmonary e mphysematous changes most marked in the lung apices. Previously described region of poorly defined g round-glass and reticular opacity the posterior aspect of the right lower lobe is again noted, this c ontains a 2 millimeter nodule which was not present on prior study. There is been overall some mild progressive increase in radiopacity in this region since the prior studies of November 2018 and 2017. the areas of ground-glass opacity now measure up to about 3 cm in diameter but are poorly def ined and irregular. Overall mild increase in radiodensity also noted, minimal consolidative or nodul ar components may be present. No additional significant change seen in the pulmonary parenchyma of either lung. A 2-3 millimeter p leural-based nodular density is noted at the left lung base, unchanged from prior studies. IMPRESSION: Severe emphysema, predominantly central lobular, Indeterminate predominantly ground-glass radiodensities with slight consolidative and/or nodular comp onent, right lower lobe posteriorly. Findings are nonspecific, no gross mass seen but neoplastic dis ease including adenocarcinoma is not excluded. Appropriate follow-up imaging recommended, lung biops y could be considered.
== END 2019-08-22 03:40 ==
PROVIDERS: PCP Family Medicine; Visit Provider Internal Medicine
DX: J44.9 Chronic obstructive pulmonary disease, unspecified (principal); J43.8 Other emphysema; J98.4 Other disorders of lung
CPT/HCPCS: 71250

== ENCOUNTER 2019-10-31 11:08 | Outpatient (CLI) | payer MEDICARE, SELFPAY ==
[2019-10-31 12:53] LABS: HCT 47.1 % (36.0-46.0); HGB 15.5 g/dL (11.2-15.7); MCH 29.1 pg (27.0-33.0); MCHC 32.9 % (32.0-36.0); MCV 88.4 fL (80-95); MPV 11.2 fL (8.0-11.0); Platelet Count 345 10^3/uL (130-400); RBC 5.33 10^6/uL (3.93-5.22); WBC 5.36 10^3/uL (4.4-10.8)
[2019-10-31 13:11] LABS: ALT 25 U/L (14-59); AST 25 U/L (15-37); Albumin 4.2 g/dL (3.4-5.0); Alkaline Phosphatase 77 U/L (46-116); Anion Gap 7.7 mmol/L (3-11); BUN 11 mg/dL (7-18); Bilirubin, Total 0.7 mg/dL (0.2-1.0); CO2 31.3 mmol/L (21.0-32.0); Calcium 9.6 mg/dL (8.5-10.1); Chloride 105 mmol/L (98-107); Estimated GFR 48.42 (mL/min/1.73m2); Glucose 100 mg/dL (74-106); Potassium 3.7 mmol/L (3.5-5.1); Sodium 144 mmol/L (136-145); Total Protein 7.5 g/dL (6.4-8.2)
== END 2019-10-31 11:28 ==
PROVIDERS: PCP Family Medicine; Visit Provider Family Medicine
DX: I10 Essential (primary) hypertension (principal)
CPT/HCPCS: 36415; 80053; 85027

== ENCOUNTER 2020-05-13 16:14 | Outpatient (REF) | payer MEDICARE, SELFPAY ==
[2020-05-14 13:11] LABS: COVID-19 RT-PCR UVMMC Result Negative (Negative)
== END 2020-05-13 16:15 | disposition home or self-care (01) ==
LOC: LBN 16:14
PROVIDERS: PCP Family Medicine; Visit Provider Family Medicine
DX: Z20.822 Contact with and (suspected) exposure to COVID-19 (principal); J20.9 Acute bronchitis, unspecified
CPT/HCPCS: U0003; U0005

== ENCOUNTER 2020-06-30 12:27 | Emergency (ER) | payer MEDICARE, SELFPAY ==
[2020-06-30] VITALS (15 sets, daily range): BP systolic 134–181; BP diastolic 67–84; PULSE 82–109; RESP 17–27; TEMP 36.6–37.1; O2SAT 96–100
--- NOTE | 2020-06-30 13:00 | RT.EKG_ITS ---
APPROVED REPORT Exam: Resting ECG Reason for Exam: SOB Patient Location: E HR:82 bpm ECG Measurements Heart Rate 82 AXIS TN 173 P 77 QRSd 77 QRS 58 QT 367 T 71 QTc 429 Conclusion Sinus rhythm...normal P axis, V-rate 60- 99
--- NOTE | 2020-06-30 13:05 | ED.GENADUL_ITS ---
Discharge Plan Disposition Patient Disposition: HOME Condition: Improving Discharge Details Clinical Impression: Acute bronchitis with bronchospasm Primary Care Provider: Adria Ellis ED Provider: Ganesh Gifford Home Meds and New Rx's Prescriptions: New doxycycline hyclate 100 mg capsule 100 mg PO BID 9 Days Qty: 18 RF: 0 prednisone 10 mg tablet 10 mg PO DAILY Qty: 45 RF: 0 Continued furosemide [Lasix] 20 mg tablet 20 mg PO DAILY Qty: 90 RF: 3 mometasone 0.1 % cream 1 applic TP DAILY PRN (Reason: rash) Qty: 45 RF: 1 lorazepam 0.5 mg tablet 0.5 - 1 mg PO BID PRN 30 Days Qty: 60 RF: 5 fluticasone propion-salmeterol [Advair Diskus] 250-50 mcg/dose blister with device 1 inh INHALATION BID Qty: 60 RF: 11 metoprolol succinate 50 mg tablet extended release 24 hr 50 mg PO DAILY Qty: 90 RF: 3 Combivent Respimat 20-100 mcg/actuation mist 1 puff IH QID PRN (Reason: COPD) Qty: 4 RF: 3 ipratropium-albuterol 0.5 mg-3 mg(2.5 mg base)/3 mL solution for nebulization 3 ml IH QID Qty: 720 RF: 5 amlodipine 5 mg tablet 5 mg PO DAILY RF: 0 Discharge Instructions Instructions: Acute Bronchitis (ED) Additional Instructions: Home to rest today. Begin prednisone tomorrow. Take as instructed until finished. Doxycycline as prescribed twice daily until finished. Follow-up with regular doctor if not improving in 5 days time. Return to the ER for any acute concerns. Please followup your COVID-19 test that was performed at the urgent care prior to being seen in the ER Medical Decision Making 74-year-old female referred from urgent care visit. She has had 2 weeks of shortness of breath, chronic cough with production of white sputum. She was treated with a steroid taper 60 mg tapering to 20 mg every 3 days which she finished 2 days ago. No recent antibiotics. She arrives to the ER on home level 2 L oxygen, pulse approximately 100, slight hypertension, oxygenating 98% on 2 L while at rest. Differential diagnosis includes pneumonia, bronchitis, COPD exacerbation, pneumonitis. Patient had a COVID-19 test at the referring urgent care prior to arrival. She had IV access established, screening labs obtained, referred for chest x-ray. Patient was given parenteral steroids, DuoNeb updraft. Labs: White count 10, hematocrit 48, platelets 218. Chemistries reassuring, troponin negative, BNP 117. Chest x-ray without acute disease. Patient improved with above interventions. Most consistent with acute bronchitis with a component of bronchospasm. She will require further steroid and I will place her on a taper and as well place her on a course of doxycycline for atypical microorganisms. She is stable and improved, appropriate discharge to home. Do not feel she requires repeat troponin. HPI General Mode of arrival: ambulatory . Date/Time Provider Initiated Documentation: 06/30/20 12:29 . Limitations to Documentation: no limitations . Information obtained by: patient . History of Present Illness 74 year old F presents to the emergency department with the chief complaint of Shortness of breath, described as moderate and similar to prior episodes, and is localized to the chest. Patient reports no radiation. Patient started experiencing this day(s) and it has been intermittent. No relieving factors improve symptom(s), and Rest improves symptom(s), Movement worsens symptoms . Patient notes cough and shortness of breath; denies chest pain and fever/chills. Patient did receive the following treatments prior to arrival, other (Finished steroid taper) Related Data Home Medications Medication Instructions Recorded Confirmed mometasone 0.1 % topical cream 1 applic TP DAILY PRN #45 gm 12/28/17 06/30/20 furosemide 20 mg tablet 20 mg PO DAILY #90 tab-cap 06/25/19 06/30/20 lorazepam 0.5 mg tablet 0.5 - 1 mg PO BID PRN 30 Days #60 01/14/20 06/30/20 tab-cap fluticasone 250 mcg-salmeterol 50 1 inh INHALATION BID #60 each 02/09/20 06/30/20 mcg/dose blistr powdr for inhalation metoprolol succinate 50 mg 50 mg PO DAILY #90 tab 03/31/20 06/30/20 tablet,extended release 24 hr ipratropium 20 mcg-albuterol 100 1 puff IH QID PRN #4 g 05/19/20 06/30/20 mcg/actuation mist for inhalation ipratropium 0.5 mg-albuterol 3 mg 3 ml IH QID #720 ml 06/14/20 06/30/20 (2.5 mg base)/3 mL nebulization soln amlodipine 5 mg PO DAILY 06/30/20 06/30/20 doxycycline hyclate 100 mg PO BID 9 Days #18 cap 06/30/20 prednisone 10 mg PO DAILY #45 tab 06/30/20 Previous Rx's Medication Instructions Recorded mometasone 0.1 % topical cream 1 applic TP DAILY PRN #45 gm 12/28/17 furosemide 20 mg tablet 20 mg PO DAILY #90 tab-cap 06/25/19 lorazepam 0.5 mg tablet 0.5 - 1 mg PO BID PRN 30 Days #60 01/14/20 tab-cap fluticasone 250 mcg-salmeterol 50 1 inh INHALATION BID #60 each 02/09/20 mcg/dose blistr powdr for inhalation metoprolol succinate 50 mg 50 mg PO DAILY #90 tab 03/31/20 tablet,extended release 24 hr ipratropium 20 mcg-albuterol 100 1 puff IH QID PRN #4 g 05/19/20 mcg/actuation mist for inhalation ipratropium 0.5 mg-albuterol 3 mg 3 ml IH QID #720 ml 06/14/20 (2.5 mg base)/3 mL nebulization soln doxycycline hyclate 100 mg PO BID 9 Days #18 cap 06/30/20 prednisone 10 mg PO DAILY #45 tab 06/30/20 Allergies Allergy/AdvReac Type Severity Reaction Status Date / Time lisinopril Allergy CAN'T Verified 06/30/20 12:49 REMEMBER Sulfa (Sulfonamide Allergy ? RASH Verified 06/30/20 12:49 Antibiotics) tiotropium bromide AdvReac Intermediate Chest Verified 06/30/20 12:49 [From Spiriva with tightness HandiHaler] and shakiness anastrozole AdvReac COUGH Verified 06/30/20 12:49 losartan AdvReac TACHYCARDIA Verified 06/30/20 12:49 Penicillins AdvReac Verified 06/30/20 12:49 General Stated Complaint: RespSymp FELIBERTO: 2 Review of Systems Narrative: 6 systems reviewed and otherwise negative. Had Covid test prior to hospital. No known sick contacts. No chest pain. [facility] Medical History (Updated 06/30/20 @ 14:36 by Ganesh Gifford MD) Anxiety COPD (chronic obstructive pulmonary disease) Essential hypertension Neoplasm of breast Oxygen dependent Surgical History Biopsy of breast RIGHT X 2 Breast, Lumpectomy left breast lumpectomy and radiation Cholecystectomy (~05/2010) Colonoscopy - MAC (11/05/12) Colonoscopy - MAC (02/07/17) Colonoscopy - MAC (04/11/17) Social History Smoking/Tobacco Use Status: Former Tobacco Use Smoking risk assessment performed?: Yes Alcohol Intake: never Drug use: Never Substance use type: does not use Do you feel safe at home: Yes Do you feel safe in your relationship?: Yes Exam Narrative Exam Narrative: GEN: awake, alert, oriented 3. Pleasant, well groomed, interactive. HEAD: Normocephalic, atraumatic ENT: Mucous membranes moist, External ear exam unremarkable EYES: PERRL, EOMI NECK: Full ROM, no LISET, no menigismus CHEST/RESP: Nontender, diminished throughout CARDIOVASCULAR: RRR, no murmur, rub parag. 2+ Rad pulse bilateral ABDOMEN: Soft, nontender, no mass. +Bowel sounds EXT: Full ROM, 2+ edema, no rash Neuro: Grossly normal neurologic exam, conversant, interactive. Psych: Speech fluent, thoughts congruent, affect normal Course Vital Signs Vital signs: Vital Signs Temperature 37.1 C 06/30/20 12:45 Pulse 105 H 06/30/20 12:45 Respiratory Rate 24 06/30/20 12:45 Blood Pressure 181/84 H 06/30/20 12:45 Pulse Oximetry 98 06/30/20 12:45 Temperature 37.1 C 06/30/20 12:45 Temperature Source Skin 06/30/20 12:45 Pulse 109 H 06/30/20 12:46 Respiratory Rate 24 06/30/20 12:45 Respiratory Effort Labored 06/30/20 12:52 Respiratory Depth Deep 06/30/20 12:52 Blood Pressure 181/84 H 06/30/20 12:46 Blood Pressure Mean 107 06/30/20 12:46 Blood Pressure Position Sitting 06/30/20 12:45 Pulse Oximetry 99 06/30/20 12:50 Oxygen Delivery Method Nasal Cannula 06/30/20 12:45 Oxygen Flow Rate 2 06/30/20 12:45 Pain Level 0 06/30/20 12:45
[2020-06-30 13:17] LABS: Abs Immature Grans 0.12 10^3/uL (0.0-0.06); Absolute Basophil Count 0.07 10^3/uL (0.0-0.2); Absolute Eosinophil Count 0.24 10^3/uL (0.0-0.7); Absolute Lymphocyte Count 1.34 10^3/uL (1.2-3.4); Absolute Monocyte Count 0.63 10^3/uL (0.1-0.8); Absolute Neutrophil Count 7.99 10^3/uL (1.2-6.7); Basophils % 0.7; Eosinophils % 2.3; HCT 48.1 % (36.0-46.0); HGB 15.9 g/dL (11.2-15.7); Immature Grans % 1.2; Lymphocytes % 12.9; MCH 29.8 pg (27.0-33.0); MCHC 33.1 % (32.0-36.0); MCV 90.2 fL (80-95); MPV 10.6 fL (8.0-11.0); Monocytes % 6.1; Neutrophils % 76.8; Nucleated RBC 0 %; Platelet Count 218 10^3/uL (130-400); RBC 5.33 10^6/uL (3.93-5.22); RDW 13.1 % (11.7-14.6); RDW-SD 43.2 fL; WBC 10.39 10^3/uL (4.4-10.8)
[2020-06-30] MEDS: methylPREDNISolone SUCC 125 MG VIAL IVP (13:28)
--- NOTE | 2020-06-30 13:35 | DI.RAD_ITS ---
Exam(s) XR PORTABLE CHEST AP EXAM: XR PORTABLE CHEST AP CLINICAL HISTORY: SOB TECHNIQUE: 2D digital imaging was performed. COMPARISON: CR XR PORTABLE CHEST AP from 08/18/2018 FINDINGS: MEDIASTINUM: Normal. HEART: Normal. PULMONARY VASCULATURE: Normal. LUNGS: Clear. The lungs appear hyperinflated suspicious for underlying COPD. No focal consolidating infiltrates. PLEURAL SPACE: No pleural effusion or pneumothorax. BONE:Within normal limits for the patient's age. OTHER FINDINGS:Normal. IMPRESSION: No acute pulmonary findings. DATA REPOSITORY: RADIATION DOSE DELIVERED:
[2020-06-30 13:36] LABS: ALT 32 U/L (14-59); AST 26 U/L (15-37); Albumin 4.1 g/dL (3.4-5.0); Alkaline Phosphatase 69 U/L (46-116); BUN 14 mg/dL (7-18); Bilirubin, Total 0.7 mg/dL (0.2-1.0); Calcium 9.4 mg/dL (8.5-10.1); Chloride 102 mmol/L (98-107); Estimated GFR 54.05 (mL/min/1.73m2); Glucose 113 mg/dL (74-106); Potassium 3.5 mmol/L (3.5-5.1); Sodium 142 mmol/L (136-145); Total Protein 7.7 g/dL (6.4-8.2)
[2020-06-30 13:39] LABS: NT-proBNP 117 pg/mL (<300)
[2020-06-30 13:40] LABS: Troponin I < 0.05 ng/mL (<0.06)
[2020-06-30] MEDS: Albuterol/Ipratropium 3 ML UPD VIAL UPD (13:47)
[2020-06-30] MEDS: Doxycycline Hyclate 100 MG CAP PO (14:48)
[2020-07-01 11:51] LABS: COVID-19 RT-PCR UVMMC Result Negative (Negative)
--- NOTE | 2020-07-01 13:08 | NUR.NOTE ---
talked to pt via phone, informed that covid test is negative.Nursing Note:
== END 2020-06-30 15:05 | disposition home or self-care (01) ==
PROVIDERS: Nurse Practitioner Family; Emergency Provider Emergency Medicine; PCP Family Medicine
DX: J20.9 Acute bronchitis, unspecified; R06.02 Shortness of breath; J02.9 Acute pharyngitis, unspecified
CPT/HCPCS: 80053; 93005; 94640; 96374; 99284; U0003; U0005; 71045; 83880; 84484; 85025; 93010; 99283; J2930; J7620

== ENCOUNTER 2020-08-04 10:59 | Emergency (ER) | payer MEDICARE, SELFPAY ==
--- OUTSIDE RECORDS SUMMARY | 2020-08-04 11:06 | XMS_ITS ---
:1945 Author Care Team Providers Name Role Phone YOMI GARRISON MD Primary Care Provider [phone] [facility] MEDICAL RECORDS Primary Care Provider [phone] Allergies Code Code System Name Reaction Severity Status Onset 00098 RxNorm Anastrozole ? ? Active ? 30021 RxNorm Lisinopril ? ? Active ? 88063 RxNorm Losartan ? ? Active ? Penicillins ? ? Active ? Sulfa ? ? Active ? (Sulfonamide Antibiotics) 17107 RxNorm Tiotropium ? ? Active ? Medications Name Status Start Date Stop Date ? ? Advair Diskus 250 mcg-50 mcg/dose Active ? Not available powder for inhalation Advair Diskus 500 mcg-50 mcg/dose Completed ? 01/10/2019 powder for inhalation albuterol sulfate 2.5 mg/3 mL (0.083 %) solution for nebulizatio n Completed ? 08/27/2019 Inhale 3 mL every 4 hours by nebulization route as needed. amlodipine 5 mg tablet Active ? Not avail able Combivent Respimat Active ? Not available 1 puff four times day Combivent Respimat 20 mcg-100 Active ? No t available mcg/actuation solution for inhalation Daliresp 500 mcg tablet Completed ? 02/16/20 18 doxycycline hyclate 100 mg capsule Completed ? 02/15/2018 doxycycline hyclate 100 mg tablet Completed ? 08/27/2019 doxycycline monohydrate 100 mg tablet Completed ? 02/15/2018 furosemide 20 mg tablet Active ? Not avai lable lorazepam 0.5 mg tablet Active ? Not avai lable metoprolol succinate ER 50 mg capsule sprinkle, ext. release 24 hr Completed ? 02/15/2018 Take 1 capsule every day by oral route. metoprolol succinate ER 50 mg Active ? No t available tablet,extended release 24 hr mometasone 0.1 % topical cream Active ? N ot available polyethylene glycol 3350 17 gram/dose Completed ? 08/27/2019 oral powder prednisone 20 mg tablet Active ? Not avai lable prednisone 50 mg tablet Completed ? 02/16/20 18 Terocin (lidocaine-menthol) Completed ? 02/2019 1 thin layer Q12hrs PRN Trelegy Ellipta 100 mcg-62.5 mcg-25 mcg powder for inhalation Co mpleted ? 01/10/2019 Inhale 1 puff every day by inhalation route. Ventolin HFA 90 mcg/actuation aerosol Completed ? 01/10/2019 inhaler Zithromax Z-Remy 250 mg tablet Completed ? TAKE 2 TABLETS (500 MG) BY ORAL ROUTE O NCE DAILY FOR 1 DAY THEN 1 TABLET (250 MG) BY ORAL ROUTE ONCE DAILY FOR 4 DAYS Problems Name Status Onset Date Source ? Malignant Neoplasm of Female Breast Active 02/12/2018 ? Polyp of Colon Active 02/12/2018 ? Tubular Adenoma Active 02/12/2018 ? Anxiety Active 02/12/2018 ? Smoker Active 02/12/2018 ? Depressive Disorder Active 02/12/2018 ? Essential Hypertension Active 02/12/2018 ? Chronic Obstructive Lung Disease Active 02/12/2018 ? Gastroesophageal Reflux Disease Active 02/12/2018 ? 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 Family History of Cancer of Colon Active 02/12/2018 ? Social Isolation Active 02/12/2018 ? 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 Procedures Date Name Performed by ? 02/15/2018 LDCT, Chest, for Lung Cancer Xray [facility] [address] [place], [place] [address] ([address]) 01/10/2019 CT, Chest, W/o Contrast Xray [facility] [place], [place] [address] (Work [address]) 08/27/2019 LDCT, Chest, for Lung Cancer Xray [facility] [address] [place], [place] [address] (Work [address]) Results Lab Results None recorded. Past Encounters 08/27/2019 Chronic Obstructive Lung Disease; Ex-smo kristi Dc MD: [address] [place] [address] [address], [place] [address], Ph. Social History Tobacco Smoking Status Former Smoker Notes: june Vaccine List Vaccine Type influenza, intradermal, quadrivalent, pr eservative free 12/27/2016 pneumococcal polysaccharide PPV23 02/13/2012 Plan of Care Reminders Provider Appointments None ? ? recorded. Lab None ? ? recorded. Referral None ? ? recorded. Procedures None ? ? recorded. Surgeries None ? ? recorded. Imaging None ? ? recorded. Vitals 08/27/2019 09:45AM Office 15 Height Weight BMI Blood Pressure 160.02 cm 62.4 kg 24.4 kg/m2 138/72 mm[Hg] 01/10/2019 11:30AM Office 30 Height Weight BMI Blood Pressure 160.02 cm 60.45 kg 23.6 kg/m2 140/78 mm[Hg] 02/15/2018 02:00PM New Patient 45 Height Weight BMI Blood Pressure 160.02 cm 63.2 kg 24.7 kg/m2 142/80 mm[Hg]
[2020-08-04 11:23] VITALS: BP 158/79; PULSE 101; RESP 20; TEMP 37; O2SAT 97
[2020-08-04 11:25] VITALS: BP 158/79; PULSE 101; PULSE 99; RESP 20; O2SAT 97
[2020-08-04 11:30] VITALS: BP 128/71; PULSE 97; RESP 22; O2SAT 97
--- NOTE | 2020-08-04 11:30 | DI.RAD_ITS ---
Exam(s) XR CHEST 2V PA LATERAL EXAM: XR CHEST 2V PA LATERAL CLINICAL HISTORY: SOB TECHNIQUE: 2D digital imaging was performed. COMPARISON: CR XR PORTABLE CHEST AP from 08/18/2018 CR XR PORTABLE CHEST AP from 08/18/2018 CR XR CHEST 2V PA LATERAL from 10/16/[address] CHEST WO from 08/22/[address] CHEST WO from 08/22/2019 CR XR PORTABLE CHEST AP from 06/30/2020 CR XR PORTABLE CHEST AP from 06/30/2020 FINDINGS: MEDIASTINUM: Normal. HEART: Normal. PULMONARY VASCULATURE: Normal. LUNGS: COPD. No focal consolidating infiltrates. PLEURAL SPACE: No pleural effusion or pneumothorax. BONE:Within normal limits for the patient's age. OTHER FINDINGS:Normal. IMPRESSION: No acute pulmonary findings. DATA REPOSITORY: RADIATION DOSE DELIVERED:
--- NOTE | 2020-08-04 11:44 | ED.GENADUL_ITS ---
Discharge Plan Disposition Patient Disposition: HOME Condition: Stable Discharge Details Clinical Impression: COPD with exacerbation Primary Care Provider: Sapna Jackson ED Provider: Anna Brown Home Meds and New Rx's Prescriptions: New prednisone 20 mg tablet 20 mg PO DAILY 7 Days Qty: 7 RF: 0 No Action mometasone 0.1 % cream 1 applic TP DAILY PRN (Reason: rash) Qty: 45 RF: 1 lorazepam 0.5 mg tablet 0.5 - 1 mg PO BID PRN 30 Days Qty: 60 RF: 5 fluticasone propion-salmeterol [Advair Diskus] 250-50 mcg/dose blister with device 1 inh INHALATION BID Qty: 60 RF: 11 metoprolol succinate 50 mg tablet extended release 24 hr 50 mg PO DAILY Qty: 90 RF: 3 Combivent Respimat 20-100 mcg/actuation mist 1 puff IH QID PRN (Reason: COPD) Qty: 4 RF: 3 ipratropium-albuterol 0.5 mg-3 mg(2.5 mg base)/3 mL solution for nebulization 3 ml IH QID Qty: 720 RF: 5 furosemide [Lasix] 20 mg tablet 20 mg PO DAILY Qty: 90 RF: 3 amlodipine 5 mg tablet 5 mg PO DAILY RF: 0 Discharge Instructions Instructions: COPD (Chronic Obstructive Pulmonary Disease) (ED) Additional Instructions: Follow up with primary care provider in 3-5 days. Return to ED sooner if any worsening or concerns. Increase oral fluids. Take the prednisone as prescribed. Return to the ED for any worsening shortness of breath not relieved by inhalers., Fever, chest pain or any concerns. Referrals: Sapna Jackson MD, [place] [Primary Care Provider] - 5 days Discharge Data Discharge Date/Time-TO BE ENTERED AT DEPARTURE: 08/04/20 14:34 Medical Decision Making 75-year-old female presents to the ER with COPD exacerbation. States prior to arrival she did 2 [id number] duo nebs which did little to nothing to help her symptoms. She reports recently being on doxycycline and a tapered steroid pack which she finished on 14 July. At this time DuoNeb Solu-Medrol chest x-ray ordered rule out pneumonia. High suspicion for COPD exacerbation. Labs are largely within normal limits creatinine is 1.1, this is patient's baseline, BNP is 101 troponin within normal limits. 1408: Patient is resting in bed, breathing eupneic and in no acute distress. She states that she feels better after the nebulizer treatment and volume Medrol. She is ambulatory up to the bathroom without difficulty. Discussed follow-up care with PCP Dr. Jackson. Discussed x-ray results and lab results patient verbalized understanding. No evidence of pneumonia at this time. Plan to discharge home on a prednisone taper with strict return instructions. Patient remained hemodynamically stable throughout stay discharged with strict return instructions and follow-up care. This text was generated using Entigoation system, please disregard any oddities of phrase or misspellings. HPI General Mode of arrival: wheelchair . Date/Time Provider Initiated Documentation: 08/04/20 11:30 . Limitations to Documentation: no limitations . Information obtained by: patient, RN notes reviewed and old records reviewed . HPI Narrative: 75 year old female presents to ED with Chief c/o SOB, worsening over the last few days, Hx Copd. She reports cough congested unable to produce any sputum. Denies any fever. She prednisone taper and doxycycline at the end of June. She does have a history of left breast cancer. She is a former smoker, quit 3 to 4 years ago. Upon initial exam she is satting 97% on room air begin full sentences, she is diminished on lung sounds. Denies any chest pain. Related Data Home Medications Medication Instructions Recorded Confirmed mometasone 0.1 % topical cream 1 applic TP DAILY PRN #45 gm 12/28/17 08/04/20 lorazepam 0.5 mg tablet 0.5 - 1 mg PO BID PRN 30 Days #60 01/14/20 08/04/20 tab-cap fluticasone 250 mcg-salmeterol 50 1 inh INHALATION BID #60 each 02/09/20 08/04/20 mcg/dose blistr powdr for inhalation metoprolol succinate 50 mg 50 mg PO DAILY #90 tab 03/31/20 08/04/20 tablet,extended release 24 hr ipratropium 20 mcg-albuterol 100 1 puff IH QID PRN #4 g 05/19/20 08/04/20 mcg/actuation mist for inhalation ipratropium 0.5 mg-albuterol 3 mg 3 ml IH QID #720 ml 06/14/20 08/04/20 (2.5 mg base)/3 mL nebulization soln amlodipine 5 mg PO DAILY 06/30/20 08/04/20 furosemide 20 mg tablet 20 mg PO DAILY #90 tab-cap 07/09/20 08/04/20 prednisone 20 mg PO DAILY 7 Days #7 tab 08/04/20 Previous Rx's Medication Instructions Recorded mometasone 0.1 % topical cream 1 applic TP DAILY PRN #45 gm 12/28/17 lorazepam 0.5 mg tablet 0.5 - 1 mg PO BID PRN 30 Days #60 01/14/20 tab-cap fluticasone 250 mcg-salmeterol 50 1 inh INHALATION BID #60 each 02/09/20 mcg/dose blistr powdr for inhalation metoprolol succinate 50 mg 50 mg PO DAILY #90 tab 03/31/20 tablet,extended release 24 hr ipratropium 20 mcg-albuterol 100 1 puff IH QID PRN #4 g 05/19/20 mcg/actuation mist for inhalation ipratropium 0.5 mg-albuterol 3 mg 3 ml IH QID #720 ml 06/14/20 (2.5 mg base)/3 mL nebulization soln furosemide 20 mg tablet 20 mg PO DAILY #90 tab-cap 07/09/20 prednisone 20 mg PO DAILY 7 Days #7 tab 08/04/20 Allergies Allergy/AdvReac Type Severity Reaction Status Date / Time lisinopril Allergy CAN'T Verified 08/04/20 11:42 REMEMBER Sulfa (Sulfonamide Allergy ? RASH Verified 08/04/20 11:42 Antibiotics) tiotropium bromide AdvReac Intermediate Chest Verified 08/04/20 11:42 [From Spiriva with tightness HandiHaler] and shakiness anastrozole AdvReac COUGH Verified 08/04/20 11:42 losartan AdvReac TACHYCARDIA Verified 08/04/20 11:42 Penicillins AdvReac Verified 08/04/20 11:42 General Stated Complaint: SOB FELIBERTO: 3 Review of Systems Narrative: Mobile prescribed constitutional: Negative for weight loss, alert and oriented, well groomed, normal body habitus, appears comfortable. HEENT: Denies trauma, headaches, blurry vision, nasal discharge, sore throat, trouble swallowing. Chest: Denies chest pain, palpitations, irregular rhythm, hypertension. Respiratory: positive shortness of breath, cough, denies hemoptysis. GI: Denies abdominal pain, nausea, vomiting, diarrhea, constipation. : Denies dysuria, hematuria, flank pain, rectal bleeding. Neuro: Denies dizziness, blurry vision, weakness, syncope, headache or facial numbness. Hematologic: Denies easy bruising, intolerance to heat or cold, hair loss. [facility] Medical History (Updated 08/04/20 @ 14:16 by Anna Brown) Anxiety COPD (chronic obstructive pulmonary disease) Essential hypertension Neoplasm of breast Oxygen dependent Surgical History Biopsy of breast RIGHT X 2 Breast, Lumpectomy left breast lumpectomy and radiation Cholecystectomy (~05/2010) Colonoscopy - MAC (11/05/12) Colonoscopy - MAC (02/07/17) Colonoscopy - MAC (04/11/17) Social History Smoking/Tobacco Use Status: Former Tobacco Use Smoking risk assessment performed?: Yes Alcohol Intake: never Drug use: Never Substance use type: does not use Do you feel safe at home: Yes Do you feel safe in your relationship?: Yes Exam Narrative Exam Narrative: Constitutional: Alert and oriented x3. Appears frail. thin body habitus. Head: Normocephalic, no trauma. Eyes: Pupils PERRLA, Red reflex noted, EOM's intact. Eyelids symmetrical without lesions, discharge, or swelling. ENT: Bilateral TM's WNL, External ear normal to inspection, no mastoid TTP, swelling, or erythema, Nasal turbinates WNL, no nasal discharge. Normal dentition, Posterior pharynx WNL, no exudate. Chest: RRR, Normal S1, S2, distal pulses intact. Resp: Diminished to auscultation lower lobes. Reports increased shortness of breath. Musculoskeletal: Normal gait, 5/5 strength to all four extremities. 2+ pitting edema worse on the left than the right. Skin: No suspicious rashes or lesions. Capillary refill less than 2 sec. Neurologic: Cranial nerves II-XII intact. Alert and oriented x 3. DTR's intact. Hematologic/Lymphatic: No ecchymosis, no lymphadenopathy. Course Vital Signs Vital signs: Vital Signs Temperature 37.0 C 08/04/20 11:23 Pulse 101 H 08/04/20 11:23 Respiratory Rate 20 08/04/20 11:23 Blood Pressure 158/79 H 08/04/20 11:23 Pulse Oximetry 97 08/04/20 11:23 Temperature 37.0 C 08/04/20 11:23 Temperature Source Skin 08/04/20 11:23 Pulse 101 H 08/04/20 11:23 Respiratory Rate 20 08/04/20 11:23 Blood Pressure 158/79 H 08/04/20 11:23 Pulse Oximetry 97 08/04/20 11:23 Oxygen Delivery Method Nasal Cannula 08/04/20 11:23 Oxygen Flow Rate 2 08/04/20 11:23 Pain Level 0 08/04/20 11:23
[2020-08-04 11:52] LABS: Abs Immature Grans 0.05 10^3/uL (0.0-0.06); Absolute Basophil Count 0.06 10^3/uL (0.0-0.2); Absolute Eosinophil Count 0.12 10^3/uL (0.0-0.7); Absolute Lymphocyte Count 1.23 10^3/uL (1.2-3.4); Absolute Monocyte Count 0.63 10^3/uL (0.1-0.8); Absolute Neutrophil Count 4.99 10^3/uL (1.2-6.7); Basophils % 0.8; Eosinophils % 1.7; HCT 44.9 % (36.0-46.0); Immature Grans % 0.7; Lymphocytes % 17.4; MCH 29.5 pg (27.0-33.0); MCHC 33.4 % (32.0-36.0); MCV 88.4 fL (80-95); MPV 10.7 fL (8.0-11.0); Monocytes % 8.9; Neutrophils % 70.5; Nucleated RBC 0 %; Platelet Count 333 10^3/uL (130-400); RBC 5.08 10^6/uL (3.93-5.22); RDW 12.6 % (11.7-14.6); RDW-SD 40.8 fL; WBC 7.08 10^3/uL (4.4-10.8)
[2020-08-04] MEDS: methylPREDNISolone SUCC 125 MG VIAL IVP (11:56)
[2020-08-04] MEDS: Albuterol/Ipratropium 3 ML UPD VIAL UPD (11:57)
[2020-08-04 12:00] VITALS: BP 128/61; PULSE 90; RESP 14; RESP 16; O2SAT 99
[2020-08-04 12:50] LABS: ALT 20 U/L (14-59); AST 23 U/L (15-37); Alkaline Phosphatase 83 U/L (46-116); Anion Gap 7.7 mmol/L (3-11); BUN 15 mg/dL (7-18); Bilirubin, Total 0.7 mg/dL (0.2-1.0); CO2 30.3 mmol/L (21.0-32.0); CREATININE 1.1 mg/dL (0.55-1.02); Calcium 9.7 mg/dL (8.5-10.1); Chloride 105 mmol/L (98-107); Estimated GFR 48.29 (mL/min/1.73m2); Glucose 116 mg/dL (74-106); Magnesium 2.3 mg/dL (1.8-2.4); NT-proBNP 101 pg/mL (<300); Potassium 3.7 mmol/L (3.5-5.1); Sodium 143 mmol/L (136-145); Total Protein 7.8 g/dL (6.4-8.2); Troponin I < 0.05 ng/mL (<0.06)
[2020-08-04 13:28] LABS: COVID-19 PCR Negative (Negative)
== END 2020-08-04 14:34 | disposition home or self-care (01) ==
PROVIDERS: Emergency Provider Registered Nurse Emergency; PCP Family Medicine
DX: J44.1 Chronic obstructive pulmonary disease with (acute) exacerbation (principal)
CPT/HCPCS: 36415; 80053; 87635; 94640; 96374; 99283; 71046; 83735; 83880; 84484; 85025; J2930; J7620

== ENCOUNTER 2020-08-19 09:28 | Emergency (ER) | payer MEDICARE, SELFPAY ==
[2020-08-19] VITALS (45 sets, daily range): BP systolic 119–185; BP diastolic 68–90; PULSE 82–123; RESP 15–29; TEMP 36.8; O2SAT 93–99
--- NOTE | 2020-08-19 09:30 | RT.EKG_ITS ---
APPROVED REPORT Exam: Resting ECG Reason for Exam: SOB Patient Location: E HR:118 bpm ECG Measurements Heart Rate 118 AXIS MD 192 P 85 QRSd 75 QRS 73 QT 307 T 59 QTc 431 Conclusion Sinus tachycardia...rate> 99 Ventricular premature complex...V complex w/ short R-R interval Probable left atrial enlargement...P >50mS, <-0.10mV V1 Repol abnrm, prob ischemia, anterolateral lds...ST dep, T neg, I aVL V2-V6. Artifact. PVCs. No STEMI. I have reviewed and interpreted ECG and agree with software generated interpretation.
--- NOTE | 2020-08-19 09:40 | W.ED.GENAD ---
Discharge Plan Disposition Patient Disposition: HOME Condition: Stable Discharge Details Clinical Impression: COPD (chronic obstructive pulmonary disease), Right lower lobe pulmonary infiltrate Primary Care Provider: Sapna Jackson ED Provider: Anna Brown Home Meds and New Rx's Prescriptions: New doxycycline hyclate 100 mg capsule 100 mg PO BID 7 Days Qty: 14 RF: 0 prednisone 20 mg tablet 60 mg PO DAILY 5 Days Qty: 15 RF: 0 No Action mometasone 0.1 % cream 1 applic TP DAILY PRN (Reason: rash) Qty: 45 RF: 1 lorazepam 0.5 mg tablet 0.5 - 1 mg PO BID PRN 30 Days Qty: 60 RF: 5 fluticasone propion-salmeterol [Advair Diskus] 250-50 mcg/dose blister with device 1 inh INHALATION BID Qty: 60 RF: 11 metoprolol succinate 50 mg tablet extended release 24 hr 50 mg PO DAILY Qty: 90 RF: 3 Combivent Respimat 20-100 mcg/actuation mist 1 puff IH QID PRN (Reason: COPD) Qty: 4 RF: 3 ipratropium-albuterol 0.5 mg-3 mg(2.5 mg base)/3 mL solution for nebulization 3 ml IH QID Qty: 720 RF: 5 furosemide [Lasix] 20 mg tablet 20 mg PO DAILY Qty: 90 RF: 3 amlodipine 5 mg tablet 5 mg PO DAILY RF: 0 Discharge Instructions Instructions: COPD (Chronic Obstructive Pulmonary Disease) (ED), Pneumonia (ED) Additional Instructions: Follow up with primary care provider in 3-5 days. Return to ED sooner if any worsening or concerns. Increase oral fluids. Use your inhalers as directed by your PCP. Take the prednisone 3 tablets a day x5 days.. Use oxygen at home if needed. You may take the lorazepam half tablet twice daily as needed for anxiety and trouble breathing. Take the rest of your daily medications as Referrals: Sapna Jackson MD, [place] [Primary Care Provider] - Discharge Data Discharge Date/Time-TO BE ENTERED AT DEPARTURE: 08/19/20 14:58 Medical Decision Making 75-year-old female presents to the ER with chief complaint of shortness of breath which has worsened over the last 2 to 3 days. She did take all her normal daily medications today. She reports sleeping on the couch for pillows, wet cough nonproductive. She reports being able to walk approximately 20 feet with a personal pneumonia. She has been wearing 2 L nasal cannula at home not normally on oxygen. Patient has a history of COPD CHF breast cancer. She did use her Combivent handheld inhaler and a DuoNeb this morning prior to arrival. At this time she is satting 93 to 94% on nasal cannula, dyspneic with pursed lip breathing. She does have 1+ pitting edema noted to her bilateral lower extremities with patient states she is at her baseline. Denies any chest pain, no fever chills, no nausea vomiting diarrhea, no problems urinating. EKG was reviewed by Yulissa Lugo DO ER attending, please see her official review and report. Sinus tachycardia at a rate of 118 with some artifact noted, At this time will make patient PUI due to no vaccination status and high risk, cardiac work-up ordered including serial troponin, chest CT rule out pneumonia versus CHF versus COPD exacerbation. Solu-Medrol 125 mg ordered, Covid swab, 1100: Patient on way to CT appears anxious about exam, offered vaccination for COVID-19 patient declined at this time. CT chest shows no PE, chronic appearing right lower lobe infiltrate. Presumed pneumonia will prescribe doxycycline twice daily x7 days and prednisone 60 mg tablets x5 days. Patient reevaluation, she is sleeping O2 sat is 96% on 2 L nasal cannula, breathing eupneic appears improved and in no acute distress. Patient has on her med list lorazepam as needed anxiety. Will instruct patient to take that if needed Patient discharged home remained hemodynamically stable. Did discuss care with her son Scotty. He verbalizes understanding and is in agreement with plan for discharge. HPI General Mode of arrival: wheelchair. Date/Time Provider Initiated Documentation: 08/19/20 09:32. Limitations to Documentation: no limitations. Information obtained by: patient, RN notes reviewed and old records reviewed. HPI Narrative: 75-year-old female presents to the ER with chief complaint of shortness of breath which has worsened over the last 2 to 3 days. She did take all her normal daily medications today. She reports sleeping on the couch for pillows, wet cough nonproductive. She reports being able to walk approximately 20 feet with a personal pneumonia. She has been wearing 2 L nasal cannula at home not normally on oxygen. Patient has a history of COPD CHF breast cancer. She did use her Combivent handheld inhaler and a DuoNeb this morning prior to arrival. At this time she is satting 93 to 94% on nasal cannula, dyspneic with pursed lip breathing. She does have 1+ pitting edema noted to her bilateral lower extremities with patient states she is at her baseline. Denies any chest pain, no fever chills, no nausea vomiting diarrhea, no problems urinating. Related Data Home Medications Medication Instructions Recorded Confirmed mometasone 0.1 % topical cream 1 applic TP DAILY PRN #45 gm 12/28/17 08/19/20 lorazepam 0.5 mg tablet 0.5 - 1 mg PO BID PRN 30 Days #60 01/14/20 08/19/20 tab-cap fluticasone 250 mcg-salmeterol 50 1 inh INHALATION BID #60 each 02/09/20 08/19/20 mcg/dose blistr powdr for inhalation metoprolol succinate 50 mg 50 mg PO DAILY #90 tab 03/31/20 08/19/20 tablet,extended release 24 hr ipratropium 20 mcg-albuterol 100 1 puff IH QID PRN #4 g 05/19/20 08/19/20 mcg/actuation mist for inhalation ipratropium 0.5 mg-albuterol 3 mg 3 ml IH QID #720 ml 06/14/20 08/19/20 (2.5 mg base)/3 mL nebulization soln amlodipine 5 mg PO DAILY 06/30/20 08/19/20 furosemide 20 mg tablet 20 mg PO DAILY #90 tab-cap 07/09/20 08/19/20 doxycycline hyclate 100 mg PO BID 7 Days #14 cap 08/19/20 prednisone 60 mg PO DAILY 5 Days #15 tab 08/19/20 Previous Rx's Medication Instructions Recorded mometasone 0.1 % topical cream 1 applic TP DAILY PRN #45 gm 12/28/17 lorazepam 0.5 mg tablet 0.5 - 1 mg PO BID PRN 30 Days #60 01/14/20 tab-cap fluticasone 250 mcg-salmeterol 50 1 inh INHALATION BID #60 each 02/09/20 mcg/dose blistr powdr for inhalation metoprolol succinate 50 mg 50 mg PO DAILY #90 tab 03/31/20 tablet,extended release 24 hr ipratropium 20 mcg-albuterol 100 1 puff IH QID PRN #4 g 05/19/20 mcg/actuation mist for inhalation ipratropium 0.5 mg-albuterol 3 mg 3 ml IH QID #720 ml 06/14/20 (2.5 mg base)/3 mL nebulization soln furosemide 20 mg tablet 20 mg PO DAILY #90 tab-cap 07/09/20 doxycycline hyclate 100 mg PO BID 7 Days #14 cap 08/19/20 prednisone 60 mg PO DAILY 5 Days #15 tab 08/19/20 Allergies Allergy/AdvReac Type Severity Reaction Status Date / Time lisinopril Allergy CAN'T Verified 08/19/20 09:43 REMEMBER Sulfa (Sulfonamide Allergy ? RASH Verified 08/19/20 09:43 Antibiotics) tiotropium bromide AdvReac Intermediate Chest Verified 08/19/20 09:43 [From Spiriva with tightness HandiHaler] and shakiness anastrozole AdvReac COUGH Verified 08/19/20 09:43 losartan AdvReac TACHYCARDIA Verified 08/19/20 09:43 Penicillins AdvReac Verified 08/19/20 09:43 General FELIBERTO: 3 Review of Systems Narrative: Constitutional: Negative for weight loss, alert and oriented, well groomed, normal body habitus, appears uncomfortable, increased work of breathing, pursed lip breathing.. HEENT: Denies trauma, headaches, blurry vision, nasal discharge, sore throat, trouble swallowing. Chest: Denies chest pain, palpitations, irregular rhythm, hypertension. Respiratory: Denies hemoptysis. Positive shortness of breath. slight congested cough. GI: Denies abdominal pain, nausea, vomiting, diarrhea, constipation. : Denies dysuria, hematuria, flank pain, rectal bleeding. Neuro: Denies dizziness, blurry vision, weakness, syncope, headache or facial numbness. Hematologic: Denies easy bruising, intolerance to heat or cold, hair loss. [facility] Medical History Anxiety COPD (chronic obstructive pulmonary disease) COPD with exacerbation Dermatitis, unspecified (11/17/15) Essential hypertension Family history of colon cancer sister-in her 60's Neoplasm of breast Oxygen dependent Surgical History Biopsy of breast RIGHT X 2 Breast, Lumpectomy left breast lumpectomy and radiation Cholecystectomy (~05/2010) Colonoscopy - MAC (11/05/12) Colonoscopy - MAC (02/07/17) Colonoscopy - MAC (04/11/17) Status post breast biopsy Status post breast lumpectomy Status post cholecystectomy Social History Smoking/Tobacco Use Status: Former Tobacco Use Smoking risk assessment performed?: Yes Alcohol Intake: never Drug use: Never Substance use type: does not use Do you feel safe at home: Yes Do you feel safe in your relationship?: Yes Exam Narrative Exam Narrative: Constitutional: Alert and oriented x3. Appears stated age. Normal body habitus. Head: Normocephalic, no trauma. Eyes: Pupils PERRLA, Red reflex noted, EOM's intact. Eyelids symmetrical without lesions, discharge, or swelling. ENT: Bilateral TM's WNL, External ear normal to inspection, no mastoid TTP, swelling, or erythema, Nasal turbinates WNL, no nasal discharge. Normal dentition, Posterior pharynx WNL, no exudate. Chest: Sinus tachycardic at 110?120. normal S1, S2, distal pulses intact. Resp: Lungs expiratory wheezes noted on the right, diminished on the left and in the bases, no rales, or rhonchi auscultated. Abdomen: Soft, nondistended nontender to palpation all 4 quadrants. Musculoskeletal: Unable to assess gait 5/5 strength to all four extremities. Trace edema noted to bilateral lower extremities no erythema no warmth. Skin: No suspicious rashes or lesions. Capillary refill less than 2 sec. Neurologic: Cranial nerves II-XII intact. Alert and oriented x 3. DTR's intact. Hematologic/Lymphatic: No ecchymosis, no lymphadenopathy.
[2020-08-19] MEDS: methylPREDNISolone SUCC 125 MG VIAL IVP (10:14)
[2020-08-19] MEDS: Normal Saline Flush 10 ML SYR IVP (10:15)
[2020-08-19 10:17] LABS: Abs Immature Grans 0.03 10^3/uL (0.0-0.06); Absolute Basophil Count 0.09 10^3/uL (0.0-0.2); Absolute Eosinophil Count 0.48 10^3/uL (0.0-0.7); Absolute Lymphocyte Count 1.19 10^3/uL (1.2-3.4); Absolute Monocyte Count 0.55 10^3/uL (0.1-0.8); Absolute Neutrophil Count 6.05 10^3/uL (1.2-6.7); Basophils % 1.1; Eosinophils % 5.7; HCT 45.7 % (36.0-46.0); HGB 15.4 g/dL (11.2-15.7); Immature Grans % 0.4; Lymphocytes % 14.2; MCH 30.4 pg (27.0-33.0); MCHC 33.7 % (32.0-36.0); MCV 90.1 fL (80-95); MPV 11.5 fL (8.0-11.0); Monocytes % 6.6; Nucleated RBC 0 %; RBC 5.07 10^6/uL (3.93-5.22); RDW 12.8 % (11.7-14.6); RDW-SD 41.6 fL; WBC 8.39 10^3/uL (4.4-10.8)
[2020-08-19 10:26] LABS: Source Nasal/Nares
[2020-08-19 10:33] LABS: ALT 28 U/L (14-59); AST 39 U/L (15-37); Albumin 3.8 g/dL (3.4-5.0); Alkaline Phosphatase 64 U/L (46-116); Anion Gap 9.4 mmol/L (3-11); BUN 9 mg/dL (7-18); Bilirubin, Total 0.8 mg/dL (0.2-1.0); CO2 29.6 mmol/L (21.0-32.0); Calcium 9.9 mg/dL (8.5-10.1); Chloride 105 mmol/L (98-107); Estimated GFR 53.91 (mL/min/1.73m2); Glucose 118 mg/dL (74-106); Sodium 144 mmol/L (136-145)
[2020-08-19 10:39] LABS: Magnesium 2.2 mg/dL (1.8-2.4); NT-proBNP 128 pg/mL (<300)
[2020-08-19 10:40] LABS: Troponin I < 0.05 ng/mL (<0.06)
--- NOTE | 2020-08-19 10:45 | RT.EKG_ITS ---
APPROVED REPORT Exam: Resting ECG Reason for Exam: Chest Pain, Repeat Patient Location: E HR:102 bpm ECG Measurements Heart Rate 102 AXIS WY 226 P 0 QRSd 74 QRS 65 QT 340 T 83 QTc 443 Conclusion Sinus tachycardia...rate> 99 Ventricular premature complex...V complex w/ short R-R interval Prolonged WY interval...WY >215, V-rate 91-120 Probable left atrial enlargement...P >50mS, <-0.10mV V1 Nonspecific repol abnormality, lateral leads...ST dep, T neg, I aVL V5 V6 Sinus. PVCs. No STEMI. I have reviewed and interpreted ECG and agree with software generated interpretation.
[2020-08-19 10:51] LABS: Platelet Count 231 10^3/uL (130-400)
[2020-08-19] MEDS: Normal Saline - Diluent 50 ML VIAL IV (11:06)
[2020-08-19] MEDS: Omnipaque 350 MG/ML 100 ML BTL IJ (11:07)
[2020-08-19] MEDS: LORazepam 2 MG/ML VIAL 0.5 MG IVP (11:12)
--- NOTE | 2020-08-19 11:20 | DI.CT_ITS ---
Exam(s) CT CHEST PE CTA EXAM: CT CHEST PE CTA CLINICAL HISTORY: SOB, COPD. TECHNIQUE: Imaging Protocol: CT angiography of the chest was performed using pulmonary embolus ruy col. Multi planar reconstructions were performed. CONTRAST MATERIAL: Intravenous: Omnipaque 350 Contrast volume: 100 cc COMPARISON: CT CT CHEST WO from 08/22/[address] CHEST WO from 08/22/2019 CR XR CHEST 2V PA LATERAL from 08/04/2020 CR XR CHEST 2V PA LATERAL from 08/04/2020 FINDINGS: CHEST: PULMONARY ARTERIES: There are no intraluminal filling defects to suggest acute pulmonary emboli. LUNGS: There is infiltrate in the right lower lobe posterior basal segment which is slightly more pre prominent than prior CT scan 1 year ago. No other infiltrates. There is also pleural-based 5 walker meter nodule posterior in the left lower lobe more evident than previous. Another small nodule media lly in the left lower lobe is unchanged. No pleural effusions on either side. No obvious findings i n the trachea and mainstem bronchi. Findings above are superimposed upon COPD findings in both lung swanson.. There are no pleural effusions. MEDIASTINUM: There is no hilar nor mediastinal adenopathy. Visualized thyroid unremarkable. CARDIAC: Heart size is upper normal. There is no pericardial effusion.Caliber of the thoracic aorta is within normal limits. Coronary artery calcification is noted. There is no significant shift of th e interventricular septum. PARTIALLY VISUALIZED UPPERMOST ABDOMEN: Hepatic steatosis. Gallbladder surgically absent. No adrena l masses. No splenomegaly. OSSEOUS: No significant osseous lesions.. IMPRESSION: 1. No evidence of acute pulmonary emboli. No evidence of pulmonary infarction.No pleural effusions. 2. However, there is significant infiltrate in the right lower lobe which has slightly increased when compared to the CT scan 1 year ago. No obvious adenopathy. This requires CT scan follow-up to reso lution rule out underlying malignancy, despite absence of pleural effusion and despite absence of shila nopathy. 3. Recommend follow-up CT scan in 3 months. RADIATION DOSE DELIVERED: 282.96mGy.cm Total DLP DATA REPOSITORY: All CT scans at this facility are submitted to the National Radiology Data Registry (NRDR) Dose Index Registry (DIR) with the [employer] (ACR). RADIATION OPTIMIZATION: All CT scans at this facility use at least one of these dose optimization te chniques: automated exposure control; mA and/or kV adjustment per patient size (includes targeted exa ms where dose is matched to clinical indication); or iterative reconstruction.
[2020-08-19 11:32] LABS: COVID-19 PCR Negative (Negative)
[2020-08-19 11:52] LABS: BE (Venous) 4 mmol/L (-2-3); HCO3 (Venous) 30 mmol/L (23-28); O2 Sat (Venous) 81 %; TCO2 (Venous) 27 mmol/L (24-29); pCO2 (Venous) 56 mmHg (41-51); pH (Venous) 7.34 (7.31-7.41); pO2 (Venous) 48 mmHg
[2020-08-19] MEDS: Normal Saline 500 ML IV (12:30)
[2020-08-19 13:02] LABS: Troponin I < 0.05 ng/mL (<0.06)
== END 2020-08-19 14:58 | disposition home or self-care (01) ==
PROVIDERS: Emergency Provider Registered Nurse Emergency; PCP Family Medicine
DX: J44.9 Chronic obstructive pulmonary disease, unspecified (principal); R91.8 Other nonspecific abnormal finding of lung field; Z20.822 Contact with and (suspected) exposure to COVID-19
CPT/HCPCS: 36415; 71275; 80053; 82805; 87635; 93005; 96361; 96374; 96375; 99285; 83735; 83880; 84484; 85025; 93010; 99284; J2060; J2930; J3490

== ENCOUNTER 2021-03-01 18:49 | Outpatient (REF) | payer MEDICARE, SELFPAY ==
[2021-03-03 13:19] LABS: COVID-19 RT-PCR UVMMC Result Negative (Negative)
== END 2021-03-01 18:50 | disposition home or self-care (01) ==
LOC: LBN 18:49
PROVIDERS: PCP Family Medicine; Visit Provider Family Medicine
DX: J02.9 Acute pharyngitis, unspecified (principal); Z20.822 Contact with and (suspected) exposure to COVID-19
CPT/HCPCS: U0003; U0005; 87070

== ENCOUNTER → 2021-06-03 00:40 | Outpatient (CLI) | payer MEDICARE, SELFPAY ==
--- NOTE | 2021-06-03 10:46 | DI.US_ITS ---
APPROVED REPORT EXAM: Comprehensive 2D, Doppler, and color-flow Echocardiogram Patient Location: Out-Patient Medical Biller: Eleanor Pop RDCS (AE) Indications: Recurrent leg edema, orthopnea, HTN Other Information Study Quality: Adequate Conclusion Normal left ventricular wall thickness and chamber size. Estimated ejection fraction is 55 to 60%. Wall motion is normal Normal right ventricular size and systolic function Both atria are normal in size There is no structural or hemodynamically significant valvular disease Wall motion Left Ventricle The left ventricle is normal size. The left ventricular systolic function is normal. The left ventric ular ejection fraction is within the normal range. There is normal left ventricular wall thickness. T here is normal LV segmental wall motion. There is no ventricular septal defect visualized. LVEF is 55 -60%. Right Ventricle The right ventricle is normal size. The right ventricular systolic function is normal. The RVSP is 30 .9mmHg. Atria The left atrium size is normal. The right atrium size is normal. The interatrial septum is intact wit h no evidence for an atrial septal defect. Aortic Valve The aortic valve is normal in structure. Aortic valve is trileaflet. There is no aortic valvular sten osis. No aortic regurgitation is present. Mitral Valve The mitral valve is normal in structure. No evidence of mitral valve stenosis. Trace mitral regurgita tion. Tricuspid Valve The tricuspid valve is normal in structure. There is no tricuspid valve stenosis. Mild tricuspid regu rgitation. Pulmonic Valve Pulmonic valve is not well visualized. There is no pulmonic valvular stenosis. There is no pulmonic v alvular regurgitation. Great Vessels The aortic root is normal in size. Ascending aorta is not well visualized. IVC is normal in size and collapses >50% with inspiration. Pericardium There is no pericardial effusion. 2D Dimensions IVSD d PLAX 0.87 cm F: 0.6-1.0 LV Vol A2C d MOD 56.4 mL LVPW d PLAX 0.88 cm F: 0.6 - 1.0 LV Vol A4C d MOD 60.9 mL LVID d PLAX 4.00 cm F: 3.8 - 5.2 LA vol/ BSA A2C s A-L 14.3 mL/m2 LVDs 2.75 cm F: 2.2 - 3.5 LA vol/ BSA A4C s A-L 14.7 mL/m2 Ao Root d 2.99 cm F: 2.7 - 3.3 LA Vol/ BSA Biplane s A-L 15.0 mL/m2 RA Area A4C 8.42 cm2 LA Area A4C s MOD 10.66 cm2 RA Vol/ BSA A4C s A-L 10.8 mL/m2 LA Area A2C s MOD 10.17 cm2 LV EF Teichholz 59.3 % LV EF A4C MOD 55.7 % LVEF (Asntiago's) 53.90 % F: 54 - 74 LV EF A2C MOD 55.4 % LV Volume 48.18 mL F: 46 - 106 LV EF Biplane MOD 53.9 % LV Volume Index 30.11 mL/m2 F: 29 - 61 SV 32.00 mL LV Vol Biplane MOD 59.4 mL SV Index 19.94 mL/m2 FS 31.00 % M-Mode TAPSE 1.79 cm (M/F) >1.7 LV Diastology MV E' medial 0.077 (>0.07 m/s) E/A Ratio 0.7 LV E/e MED 8.95 (<14) MV E Vmax 0.69 (0.4-1.3 m/s) MV E' lateral 0.114 (>0.1 m/s) MV A Vmax 1.05 (0.4-1.3 m/s) LV E/e LAT 6.00 (<14) MV E/A Ratio 0.64 MV E/E' medial 8.95 MV E/E' lateral 6.04 Aortic Valve LVOT Area 2.90 cm2 AoV Area Vmax 2.63 cm2 LVOT Vmax 0.95 m/s AoV Area/ BSA (Vmax) 1.64 cm2/m2 LVOT Mean Driss. 0.66 m/s [place] Mean Driss. 2.34 cm2 LVOT Peak Grad 3.6 mmHg [place] Mean Driss. Index 1.46 cm2/m2 LVOT Mean Grad 1.9 mmHg LVOT VTI 0.190 m LVOT Diam s 1.90 cm AoV Vmax 1.04 m/s Velocity Ratio 0.91 AoV Mean Driss. 0.82 m/s AoV Peak Grad 4.4 mmHg LVOT SV 55.06 mL AoV Mean Grad 2.8 mmHg AoV VTI 0.208 m AoV Area VTI 2.65 cm2 AoV Area/ BSA (VTI) 1.65 cm/m2 Mitral Valve MV DT 543 (160-240 msec) MV PHT 157 msec MV Area PHT 1.40 cm2 MV VTI 0.232 m MV Area VTI 2.37 (4.0-6.0 cm2) Pulmonary Valve PV Vmax 1.00 (0.5-1.5 m/s) RVOT Peak Gr. 2.92 mmHg PV Peak Grad 4.0 mmHg RVOT Mean Gr. 1.30 mmHg PV Mean Grad 2.0 mmHg RVOT VTI 0.157 m PV VTI 0.177 m RVOT Vmax 0.85 m/s Tricuspid Valve TR Peak Grad 27.8 mmHg TR Vmax 2.64 m/s RA Pressure 3.00 mmHg RVSP (TR) 30.9 mmHg
== END ==
PROVIDERS: PCP Family Medicine; Visit Provider Family Medicine
DX: I10 Essential (primary) hypertension (principal); R60.0 Localized edema; R06.01 Orthopnea
CPT/HCPCS: 93306

== ENCOUNTER 2021-11-08 03:55 | Outpatient (CLI) | payer MEDICARE, SELFPAY ==
[2021-11-08 12:52] LABS: Hemoglobin A1C 5.8 % (<5.7)
[2021-11-08 12:55] LABS: ALT 21 U/L (14-59); AST 33 U/L (15-37); Alkaline Phosphatase 75 U/L (46-116); Anion Gap 10.5 mmol/L (3-11); BUN 11 mg/dL (7-18); Bilirubin, Total 0.7 mg/dL (0.2-1.0); CO2 26.5 mmol/L (21.0-32.0); CREATININE 1.1 mg/dL (0.55-1.02); Calcium 9.6 mg/dL (8.5-10.1); Calculated LDL 86 mg/dL (<100); Chloride 103 mmol/L (98-107); Cholesterol 156 mg/dL (<200); Estimated GFR 51.75 (mL/min/1.73m2); Glucose 99 mg/dL (74-106); HDL Cholesterol 50 mg/dL (40-60); Potassium 3.6 mmol/L (3.5-5.1); Sodium 140 mmol/L (136-145); Total Protein 8.4 g/dL (6.4-8.2); Triglyceride 104 mg/dL (<150)
== END 2021-11-08 03:56 | disposition home or self-care (01) ==
LOC: LOS 03:56
PROVIDERS: PCP Family Medicine; Visit Provider Family Medicine
DX: I10 Essential (primary) hypertension (principal); R60.0 Localized edema; R73.9 Hyperglycemia, unspecified
CPT/HCPCS: 36415; 80053; 80061; 83036

== ENCOUNTER 2021-11-14 11:13 | Outpatient (REF) | payer MEDICARE, SELFPAY ==
--- NOTE | 2021-11-14 11:35 | BOWEL_PTH ---
PATIENT: Daily Pineda LOC: [facility] U#:[id number] AGE/SX: 76/F ROOM: RE11/14/[address]: Kelsea Rios : 1945 BED: DIS: 11/14/2021 SPEC #: [id number] RECD: 11/14/21 17:00 STATUS: PATRICIA FLORIAN #: [id number] DEEPTHI: 11/14/21 11:[address]: Kelsea Rios DEPT: Surgical Specimen RECD BY: Gwen Tolentino ENTERED: 11/14/21 17:01 SP TYPE: Bowel OTHR DR: Roverto Ashby MD Tissues: 1 - BIOPSY BOWEL Procedures: GROSS AND MICRO LEVEL 4 IMMUNOPEROXIDASE STAIN Comments: [id number]
== END 2021-11-14 11:14 | disposition home or self-care (01) ==
LOC: LBN 11:13
PROVIDERS: PCP Family Medicine; Visit Provider Surgery
DX: D37.5 Neoplasm of uncertain behavior of rectum; Z86.010 Personal history of colon polyps
CPT/HCPCS: 88305; 88361

== ENCOUNTER 2021-11-14 12:33 | Outpatient (CLI) | payer MEDICARE, SELFPAY ==
[2021-11-14 12:46] LABS: Abs Immature Grans 0.01 10^3/uL (0.0-0.06); Absolute Basophil Count 0.08 10^3/uL (0.0-0.2); Absolute Eosinophil Count 0.62 10^3/uL (0.0-0.7); Absolute Lymphocyte Count 1.28 10^3/uL (1.2-3.4); Absolute Monocyte Count 0.49 10^3/uL (0.1-0.8); Absolute Neutrophil Count 5.62 10^3/uL (1.2-6.7); Eosinophils % 7.7; HCT 47.3 % (36.0-46.0); HGB 15.8 g/dL (11.2-15.7); Immature Grans % 0.1; Lymphocytes % 15.8; MCH 29.5 pg (27.0-33.0); MCHC 33.4 % (32.0-36.0); MCV 88 fL (80-95); MPV 10.6 fL (8.0-11.0); Neutrophils % 69.4; Platelet Count 323 10^3/uL (130-400); RBC 5.36 10^6/uL (3.93-5.22); RDW 12.7 % (11.7-14.6)
[2021-11-14 22:45] LABS: CEA 3.3 ng/mL (See Note)
== END 2021-11-14 12:34 | disposition home or self-care (01) ==
LOC: LBO 12:34
PROVIDERS: PCP Family Medicine; Visit Provider Surgery
DX: C50.912 Malignant neoplasm of unspecified site of left female breast (principal); F17.200 Nicotine dependence, unspecified, uncomplicated; I10 Essential (primary) hypertension; J44.9 Chronic obstructive pulmonary disease, unspecified; K62.5 Hemorrhage of anus and rectum; K63.5 Polyp of colon; K64.4 Residual hemorrhoidal skin tags; C20 Malignant neoplasm of rectum
CPT/HCPCS: 99215; 82378; 85025

== ENCOUNTER → 2021-11-24 11:32 | Outpatient (BNVA) | payer MEDICARE, SELFPAY | PROVIDERS: PCP Family Medicine; Referring Provider Family Medicine; Visit Provider Surgery | DX: K62.89 Other specified diseases of anus and rectum (principal); C20 Malignant neoplasm of rectum; K63.5 Polyp of colon; I10 Essential (primary) hypertension; J44.9 Chronic obstructive pulmonary disease, unspecified | CPT/HCPCS: 99213 ==

== ENCOUNTER 2021-11-25 12:03 | Day surgery (SDC) | payer MEDICARE, SELFPAY ==
[2021-11-25 12:23] VITALS: BP 153/80; PULSE 98; RESP 20; TEMP 36.6; O2SAT 96
--- NOTE | 2021-11-25 12:47 | ANES.PREOP_ITS ---
General Info Date of Service Date Performed: 11/25/21 Height: 5 ft 4 in Weight: 60.2 kg Body Mass Index (BMI): 22.8 Surgical Procedure: Operation Date: 11/25/21 12:10 Proposed Procedure Side Surgeon p Anal Exam & Biopsy possible Flexible Sigmoidoscope Kelsea Rios, DO Meds Allergies and Home Medications Allergies Allergy/AdvReac Type Severity Reaction Status Date / Time lisinopril Allergy CAN'T Verified 11/25/21 12:17 REMEMBER Sulfa (Sulfonamide Allergy ? RASH Verified 11/25/21 12:17 Antibiotics) tiotropium bromide AdvReac Intermediate Chest Verified 11/25/21 12:17 [From Spiriva with tightness HandiHaler] and shakiness anastrozole AdvReac COUGH Verified 11/25/21 12:17 losartan AdvReac TACHYCARDIA Verified 11/25/21 12:17 Penicillins AdvReac Verified 11/25/21 12:17 Home Medication Medication Instructions Recorded furosemide 20 mg tablet (Lasix) 20 mg PO DAILY #90 tab-caps 03/28/21 amlodipine 10 mg tablet 10 mg PO DAILY #90 tabs 04/05/21 metoprolol succinate 50 mg 50 mg PO DAILY #90 tabs 04/15/21 tablet,extended release 24 hr ipratropium 20 mcg-albuterol 100 1 puff inhalation QID PRN COPD #4 05/19/21 mcg/actuation mist for inhalation grams (Combivent Respimat) lorazepam 0.5 mg tablet 0.5 mg PO BID PRN 30 days #60 05/19/21 tab-caps ipratropium 0.5 mg-albuterol 3 mg 3 ml inhalation QID wheezing/ 06/15/21 (2.5 mg base)/3 mL nebulization J44.9 #720 mL soln fluticasone 500 mcg-salmeterol 50 1 inh inhalation BID #180 ea 11/08/21 mcg/dose blistr powdr for inhalation (Advair Diskus) Oxygen 11/14/21 emol.53-ewater 96.53 %-sodmagfls 3 See Rx Instructions topical 11/24/21 %-s.ph 0.4 %-sod chlor top .COMPLEX PRN gel,foam (HPR Plus-MB HydroGel) Current Visit Medications: Current Medications Generic Name Dose Route Start Last Admin Trade Name Freq PRN Reason Stop Dose Admin Hyoscyamine Sulfate 0.125 mg 11/24/21 22:53 Hyoscyamine 0.125 Mg Sl/Oral/Chew SL DIRECTED PRN Ondansetron HCl 4 mg 11/24/21 22:53 Ondansetron 4 Mg/2 Ml Vial IVP Q4H PRN PRN Nausea / Vomiting Sodium Biphosphate/Sodium Phosphate 133 ml 11/25/21 06:00 Na Phosphate Enema 133 Ml Btl [place] 11/25/21 16:00 PREOP [facility] PFS Active Problems Active Problems: Problem Status Onset Code Rectal mass K62.89 Rectal cancer C20 Polyp of colon K63.5 Essential hypertension 12/26/12 I10 Chronic obstructive lung disease J44.9 Medical History Medical History Abnormal CT scan, chest 2018, persistent right lower lobe infiltrate 2020-persistent infiltrate nodule in right lower lobe. 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 Patient advised not to drive Surgical History Surgical History Biopsy of breast RIGHT X 2 Breast, Lumpectomy left breast lumpectomy and radiation Cholecystectomy (~05/2010) Colonoscopy - MAC (11/05/12) Colonoscopy - MAC (02/07/17) Colonoscopy - MAC (04/11/17) Status post breast biopsy Status post breast lumpectomy Status post cholecystectomy Tobacco Smoking/Tobacco Use Status: Former Tobacco Use Passive smoking exposure: No Alcohol Alcohol Intake: never Substance Use Substance use: Never Substance use type: does not use Vital Signs and Lab Results Vital Signs Most Recent Vital Signs in EMR: Most Recent Vital Signs Temp Pulse Resp BP Pulse Ox 36.6 C 98 H 20 153/80 H 96 11/25/21 12:23 11/25/21 12:23 11/25/21 12:23 11/25/21 12:23 11/25/21 12:23 Lab Results Blood Type / Crossmatch: No Data to Display Complete Blood Count: White Blood Count 8.10 10^3/uL (4.4-10.8) 11/14/21 12:32 Red Blood Count 5.36 10^6/uL (3.93-5.22) H 11/14/21 12:32 Hemoglobin 15.8 g/dL (11.2-15.7) H 11/14/21 12:32 Hematocrit 47.3 % (36.0-46.0) H 11/14/21 12:32 Platelet Count 323 10^3/uL (130-400) 11/14/21 12:32 Complete Metabolic Panel: Sodium Level 140 mmol/L (136-145) 11/08/21 10:28 Potassium Level 3.6 mmol/L (3.5-5.1) 11/08/21 10:28 Chloride Level 103 mmol/L (98-107) 11/08/21 10:28 Carbon Dioxide Level 26.5 mmol/L (21.0-32.0) 11/08/21 10:28 Blood Urea Nitrogen 11 mg/dL (7-18) 11/08/21 10:28 Creatinine 1.1 mg/dL (0.55-1.02) H 11/08/21 10:28 Calcium Level 9.6 mg/dL (8.5-10.1) 11/08/21 10:28 Albumin 4.0 g/dL (3.4-5.0) 11/08/21 10:28 Glucose Level 99 mg/dL (74-106) 11/08/21 10:28 Hemoglobin A1c 5.8 % (<5.7) H 11/08/21 10:28 Liver Function Panel: Alanine Aminotransferase (ALT/SGPT) 21 U/L (14-59) 11/08/21 10: 28 Aspartate Amino Transf (AST/SGOT) 33 U/L (15-37) 09/13/22 10:28 Coagulation Panel: No Data to Display Cardiac Panel: No Data to Display Arterial Blood Gas: No Data to Display Venous Blood Gas: No Data to Display Pancreas Panel: No Data to Display Thyroid Panel: No Data to Display Infectious Disease: No Data to Display Blood Cultures: No Data to Display Toxicology Panel: No Data to Display Anesthesia Assessment and Plan Anesthesia History Personal History: No History of Anesthesia Complications Family History: No Family History of Anesthesia Complications Exercise Tolerance Exercise Tolerance: Metabolic Equivalents<4 Pertinent Negatives Pertinent Negatives: No Symptoms of GERD Cardiac & Pulmonary Exam Cardiac Exam: Normal S1/S2 Heart Sounds Pulmonary Exam: Other (Diminished) Cardiac and Pulmonary Comment:: Diminished Implantable Cardiac Device Does patient have a Pacemaker or an ICD?: No Airway Exam Known Difficult Airway: No Mallampati Class: 2 Mouth Opening: Normal (> 3cm) Thyromental Distance: Greater than 3 cm Neck Range of Motion: Full ROM Neck Circumference: Normal Teeth Condition: Removable Dentures/Plates Upper ASA Classification ASA Score: ASA 3 Emergency Case?: No NPO Status NPO Status: NPO Clears >2 hours, Solids >8 hours Anesthesia Plan Resuscitation Status: Full Code Anesthesia Technique: MAC Anesthesia Airway Planned: Natural Airway Monitors Used: Standard Monitors Preoperative Comments:: Plan forMKO for anxiolysis only.
[2021-11-25 12:49] VITALS: BMI 22.8
--- NOTE | 2021-11-25 14:00 | BOWEL_PTH ---
PATIENT: Daily Pineda LOC: [facility] U#:[id number] AGE/SX: 76/F ROOM: RE11/25/[address]: Kelsea Rios : 1945 BED: DIS: 11/25/2021 SPEC #: [id number] RECD: 11/25/21 17:26 STATUS: PATRICIA REQ #: [id number] DEEPTHI: 11/25/21 14:[address]: Kelsea Rios DEPT: Surgical Specimen RECD BY: Gwen Tolentino ENTERED: 11/25/21 17:27 SP TYPE: Bowel OTHR DR: Roverto Ashby MD Tissues: 1 - BIOPSY BOWEL Procedures: GROSS AND MICRO LEVEL 4 IMMUNOPEROXIDASE STAIN Comments: [id number]
[2021-11-25 14:11] VITALS: BP 97/56; PULSE 87; RESP 16; TEMP 36.8; O2SAT 97
--- NOTE | 2021-11-25 14:19 | W.ANESPOSTOP ---
Postoperative Evaluation Date, Time and Location Date Performed: 11/25/21 Time Performed: 14:20 Patient Location: Day Surgery Unit Vital Signs Most Recent Imported Vital Signs: Most Recent Vital Signs Temp Pulse Resp BP Pulse Ox 36.8 C 87 16 97/56 L 97 11/25/21 14:11 11/25/21 14:11 11/25/21 14:11 11/25/21 14:11 11/25/21 14:11 Pain Score Most Recent Pain Score: Most Recent Pain Score Pain Level 0 11/25/21 14:11 Assessment Mental Status: Awake (Alert & Oriented to Patient Baseline) Airway and Respiratory Function: Patent airway with normal (patient baseline) respiratory exam Cardiovascular Function: Hemodynamically Stable Hydration Status: Adequately Hydrated Nausea & Vomiting: No Nausea or Vomiting Pain: Pt. Denies Any Pain Peripheral Nerve Block: Patient did not receive a nerve block
--- NOTE | 2021-11-25 14:31 | PDOC.DSDIS_ITS ---
Discharge Plan Disposition Patient Disposition: HOME Other Facility: rectal cancer Condition: Good Discharge Details Attending Provider: Kelsea Rios Primary Care Provider: Roverto Ashby Home Meds and New Rx's Prescriptions: No Action (DME) Oxygen Tank See Rx Instructions .Route Rx Instructions: As directed fluticasone propion-salmeterol [Advair Diskus] 500-50 mcg/dose blister with device 1 inh inhalation BID Qty: 180 3RF furosemide [Lasix] 20 mg tablet 20 mg PO DAILY Qty: 90 3RF amlodipine 10 mg tablet 10 mg PO DAILY Qty: 90 3RF metoprolol succinate 50 mg tablet extended release 24 hr 50 mg PO DAILY Qty: 90 3RF Combivent Respimat 20-100 mcg/actuation mist 1 puff IH QID PRN (Reason: COPD) Qty: 4 3RF lorazepam 0.5 mg tablet 0.5 mg PO BID PRN 30 Days Qty: 60 2RF ipratropium-albuterol 0.5 mg-3 mg(2.5 mg base)/3 mL solution for nebulization 3 ml IH QID Qty: 720 5RF HPR Plus-MB HydroGel 96.53-3-0.4 -0.066 % combo pack,gel and foam See Rx Instructions topical .COMPLEX PRN Rx Instructions: topically; Discharge Instructions Additional Instructions: DSU Colonoscopy Post- Op Instructions Instructions for Everyone who is given Anesthesia: For your safety, please do the following for the next twenty-four (24) hours: *Do Not operate a motor vehicle (car, truck, motorcycle, etc.) *Do Not drink alcoholic beverages or use any recreational drugs for the first 24 hours or while taking pain medications. The medications in your body may have a reaction that can be dangerous. *Do Not make any important decisions or sign any important papers. Findings: rectal mass no asa/nsaid's. Tylenol is OK. Use dibucaine ointment as needed for pain. Expect to have rectal bleeding w/ BM and some drianage. Follow up: Dr. Rios in office 12/01 at 9:30am 1. No lifting over 20 pounds or strenuous activity for the first 24 hours after your procedure. After 24 hours there are no restrictions on your activity but you may feel fatigued for a few days. 2. After you arrive home you may have a light meal and return to your normal diet as you can tolerate it without feeling sick to your stomach. 3. You may have a bloated, gaseous feeling in your belly (abdomen) after a colonoscopy. Passing gas and belching will help. Walking or lying down on your left side with your knees flexed may relieve the discomfort. Call the office at [phone] (Office) or [phone] (Hospital) right away if you notice any of the following: a.Vomiting of blood or ?coffee ground stools?. b.Rectal bleeding 1Tbsp, blood clots or continuous bleeding. c.Severe belly (abdominal) pain. d.A hard distended belly (abdomen) and an inability to pass gas. 4. Please don?t expect to have a normal BM (bowel movement) for 2-3 days after your procedure. 5. If there are questions regarding the findings of your procedure, please contact your doctor 6. If you are unable to contact your doctor with a problem, contact the hospital at [phone]. 7. Continue all your regular medications unless directed otherwise. I understand the above instructions and have no questions. Signature of Patient or Adult Escort Name of Responsible Adult Escort Signature of Nurse Date/Time Discharge Orders Discharge Orders: Discharge Order (Routine); Ordered 11/24/21 Ordered By: Kelsea Rios
[2021-11-25 14:43] VITALS: BP 118/69; PULSE 81; RESP 16; TEMP 36.8; O2SAT 96
--- NOTE | 2021-11-25 22:03 | W.COLOREPORT ---
Colonoscopy Report Date of procedure: 11/25/21 Pre-op diagnosis general: bleeding rectal mass Post-op diagnosis procedure note: same Procedure: flexible anoscopy and bx Surgeon: Kelsea Rios Anesthesia Type: MAC Estimated blood loss (mL): 3 Pathology: other Complications: None Disposition: no change Prep: Other (none) Procedure Description: After informed consent was obtained the patient was taken to the procedure room and placed in a left decubitous position. Monitors were applied and a time out was done. The patients name, date of , procedure, allergies to medications and metal in their body was reviewed. The patient was then sedated. Once sedated and comfortable a rectal exam was done. External exam was normal. Internal exam revealed a normal sphincter tone and palpable masses. The scope was then introduced and retrofelexed. the mass is about 4x2 cm. Mult. Bx are taken. The scope is removed. gel foam impregnated w/ dibucaine is palced in the rectum. The patient was taken back to Same day surgery in stable condition. The patient tolerated the procedure well and there were no immediate complications. Follow up: The patient should follow up in clinic in 1 wks time.
== END 2021-11-25 15:08 | disposition home or self-care (01) ==
PROVIDERS: PCP Family Medicine; Visit Provider Surgery
PROC: (CPT 45380; principal; 2021-11-25 12:00)
DX: K62.89 Other specified diseases of anus and rectum (principal); K62.5 Hemorrhage of anus and rectum; C20 Malignant neoplasm of rectum
CPT/HCPCS: 45380; 88305; 88361

== ENCOUNTER → 2021-12-01 09:26 | Outpatient (BNVA) | payer MEDICARE, SELFPAY | PROVIDERS: PCP Family Medicine; Referring Provider Family Medicine; Visit Provider Surgery | DX: Z48.815 Encounter for surgical aftercare following surgery on the digestive system (principal) | CPT/HCPCS: 99213 ==

== ENCOUNTER 2022-02-03 01:33 | Outpatient (CLI) | payer MEDICARE, SELFPAY ==
[2022-02-03 09:40] LABS: Abs Immature Grans 0.03 10^3/uL (0.0-0.06); Absolute Basophil Count 0.04 10^3/uL (0.0-0.2); Absolute Lymphocyte Count 0.71 10^3/uL (1.2-3.4); Absolute Monocyte Count 0.43 10^3/uL (0.1-0.8); Absolute Neutrophil Count 2.91 10^3/uL (1.2-6.7); Basophils % 0.9; Eosinophils % 8.8; HCT 38.5 % (36.0-46.0); HGB 13.2 g/dL (11.2-15.7); Immature Grans % 0.7; Lymphocytes % 15.7; MCH 29.5 pg (27.0-33.0); MCHC 34.3 % (32.0-36.0); MCV 86 fL (80-95); MPV 10.4 fL (8.0-11.0); Monocytes % 9.5; Neutrophils % 64.4; Platelet Count 295 10^3/uL (130-400); RBC 4.47 10^6/uL (3.93-5.22); RDW 12.4 % (11.7-14.6); RDW-SD 38.8 fL; WBC 4.52 10^3/uL (4.4-10.8)
[2022-02-03 10:09] LABS: ALT 11 U/L (14-59); AST 15 U/L (15-37); Albumin 3.3 g/dL (3.4-5.0); Alkaline Phosphatase 61 U/L (46-116); Anion Gap 7.2 mmol/L (3-11); BUN 17 mg/dL (7-18); Bilirubin, Total 0.5 mg/dL (0.2-1.0); CO2 30.8 mmol/L (21.0-32.0); CREATININE 1.1 mg/dL (0.55-1.02); Calcium 9.2 mg/dL (8.5-10.1); Chloride 99 mmol/L (98-107); Estimated GFR 51.75 (mL/min/1.73m2); Glucose 128 mg/dL (74-106); Sodium 137 mmol/L (136-145); Total Protein 7.5 g/dL (6.4-8.2)
== END 2022-02-03 01:34 | disposition home or self-care (01) ==
LOC: LBO 01:34
PROVIDERS: PCP Family Medicine; Visit Provider Internal Medicine Hematology & Oncology
DX: C20 Malignant neoplasm of rectum (principal)
CPT/HCPCS: 36415; 80053; 85025

== ENCOUNTER 2022-02-10 01:04 | Outpatient (CLI) | payer MEDICARE, SELFPAY ==
[2022-02-10 12:54] LABS: Abs Immature Grans 0.02 10^3/uL (0.0-0.06); Absolute Basophil Count 0.01 10^3/uL (0.0-0.2); Absolute Eosinophil Count 0.01 10^3/uL (0.0-0.7); Absolute Lymphocyte Count 0.18 10^3/uL (1.2-3.4); Absolute Monocyte Count 0.16 10^3/uL (0.1-0.8); Absolute Neutrophil Count 2.83 10^3/uL (1.2-6.7); Basophils % 0.3; Eosinophils % 0.3; HCT 43.5 % (36.0-46.0); HGB 14.3 g/dL (11.2-15.7); Immature Grans % 0.6; Lymphocytes % 5.6; MCH 29.1 pg (27.0-33.0); MCHC 32.9 % (32.0-36.0); MCV 88 fL (80-95); MPV 10.4 fL (8.0-11.0); Neutrophils % 88.2; Platelet Count 405 10^3/uL (130-400); RBC 4.92 10^6/uL (3.93-5.22); RDW 12.9 % (11.7-14.6); RDW-SD 40.5 fL; WBC 3.21 10^3/uL (4.4-10.8)
[2022-02-10 13:10] LABS: ALT 19 U/L (14-59); AST 28 U/L (15-37); Albumin 3.7 g/dL (3.4-5.0); Alkaline Phosphatase 61 U/L (46-116); Anion Gap 7.4 mmol/L (3-11); BUN 36 mg/dL (7-18); Bilirubin, Total 0.5 mg/dL (0.2-1.0); CO2 30.6 mmol/L (21.0-32.0); CREATININE 1.3 mg/dL (0.55-1.02); Calcium 9.5 mg/dL (8.5-10.1); Chloride 100 mmol/L (98-107); Estimated GFR 42.35 (mL/min/1.73m2); Glucose 147 mg/dL (74-106); Potassium 3.7 mmol/L (3.5-5.1); Sodium 138 mmol/L (136-145); Total Protein 7.7 g/dL (6.4-8.2)
== END 2022-02-10 01:05 | disposition home or self-care (01) ==
LOC: LBO 01:05
PROVIDERS: PCP Family Medicine; Visit Provider Internal Medicine Hematology & Oncology
DX: C20 Malignant neoplasm of rectum (principal)
CPT/HCPCS: 36415; 80053; 85025

== ENCOUNTER 2022-02-17 01:35 | Outpatient (CLI) | payer MEDICARE, SELFPAY ==
[2022-02-17 15:11] LABS: Abs Immature Grans 0.04 10^3/uL (0.0-0.06); Absolute Basophil Count 0.03 10^3/uL (0.0-0.2); Absolute Eosinophil Count 0.39 10^3/uL (0.0-0.7); Absolute Lymphocyte Count 0.22 10^3/uL (1.2-3.4); Absolute Monocyte Count 0.65 10^3/uL (0.1-0.8); Absolute Neutrophil Count 3.66 10^3/uL (1.2-6.7); Basophils % 0.6; Eosinophils % 7.8; HCT 37.5 % (36.0-46.0); HGB 12.7 g/dL (11.2-15.7); Immature Grans % 0.8; Lymphocytes % 4.4; MCH 29.6 pg (27.0-33.0); MCHC 33.9 % (32.0-36.0); MCV 87 fL (80-95); MPV 10.8 fL (8.0-11.0); Neutrophils % 73.4; Platelet Count 140 10^3/uL (130-400); RBC 4.29 10^6/uL (3.93-5.22); RDW 13.4 % (11.7-14.6); RDW-SD 40.2 fL; WBC 4.99 10^3/uL (4.4-10.8)
[2022-02-17 15:24] LABS: ALT 18 U/L (14-59); AST 21 U/L (15-37); Albumin 2.9 g/dL (3.4-5.0); Alkaline Phosphatase 60 U/L (46-116); Anion Gap 8.7 mmol/L (3-11); BUN 13 mg/dL (7-18); Bilirubin, Total 1.2 mg/dL (0.2-1.0); CO2 29.3 mmol/L (21.0-32.0); Calcium 8.7 mg/dL (8.5-10.1); Chloride 95 mmol/L (98-107); Estimated GFR 58.02 (mL/min/1.73m2); Glucose 95 mg/dL (74-106); Sodium 133 mmol/L (136-145); Total Protein 6.9 g/dL (6.4-8.2)
== END 2022-02-17 01:36 | disposition home or self-care (01) ==
LOC: LBO 01:36
PROVIDERS: PCP Family Medicine; Visit Provider Internal Medicine Hematology & Oncology
DX: C20 Malignant neoplasm of rectum (principal)
CPT/HCPCS: 36415; 80053; 85025

== ENCOUNTER 2022-02-23 02:24 | Outpatient (CLI) | payer MEDICARE, SELFPAY ==
[2022-02-23 16:12] LABS: Abs Immature Grans 0.04 10^3/uL (0.0-0.06); Absolute Basophil Count 0.02 10^3/uL (0.0-0.2); Absolute Eosinophil Count 0.63 10^3/uL (0.0-0.7); Absolute Lymphocyte Count 0.19 10^3/uL (1.2-3.4); Absolute Monocyte Count 0.29 10^3/uL (0.1-0.8); Absolute Neutrophil Count 3.97 10^3/uL (1.2-6.7); Basophils % 0.4; Eosinophils % 12.3; HCT 39.1 % (36.0-46.0); HGB 13.2 g/dL (11.2-15.7); Immature Grans % 0.8; Lymphocytes % 3.7; MCH 29.4 pg (27.0-33.0); MCHC 33.8 % (32.0-36.0); MCV 87 fL (80-95); MPV 10.6 fL (8.0-11.0); Monocytes % 5.6; Neutrophils % 77.2; Platelet Count 228 10^3/uL (130-400); RBC 4.49 10^6/uL (3.93-5.22); RDW 14.4 % (11.7-14.6); RDW-SD 43.1 fL; WBC 5.14 10^3/uL (4.4-10.8)
[2022-02-23 16:28] LABS: ALT 20 U/L (14-59); AST 35 U/L (15-37); Alkaline Phosphatase 67 U/L (46-116); Anion Gap 9.4 mmol/L (3-11); BUN 11 mg/dL (7-18); Bilirubin, Total 1.2 mg/dL (0.2-1.0); CO2 29.6 mmol/L (21.0-32.0); CREATININE 0.9 mg/dL (0.55-1.02); Chloride 91 mmol/L (98-107); Estimated GFR 65.84 (mL/min/1.73m2); Glucose 99 mg/dL (74-106); Potassium 3.2 mmol/L (3.5-5.1); Sodium 130 mmol/L (136-145); Total Protein 7.4 g/dL (6.4-8.2)
== END 2022-02-23 02:25 | disposition home or self-care (01) ==
LOC: LBO 02:24
PROVIDERS: PCP Family Medicine; Visit Provider Internal Medicine Hematology & Oncology
DX: C20 Malignant neoplasm of rectum (principal)
CPT/HCPCS: 36415; 80053; 85025

== ENCOUNTER 2022-03-02 02:34 | Outpatient (CLI) | payer MEDICARE, SELFPAY ==
[2022-03-02 15:37] LABS: Abs Immature Grans 0.05 10^3/uL (0.0-0.06); Absolute Basophil Count 0.03 10^3/uL (0.0-0.2); Absolute Eosinophil Count 0.47 10^3/uL (0.0-0.7); Absolute Lymphocyte Count 0.22 10^3/uL (1.2-3.4); Absolute Monocyte Count 0.69 10^3/uL (0.1-0.8); Absolute Neutrophil Count 2.29 10^3/uL (1.2-6.7); Basophils % 0.8; Eosinophils % 12.5; HCT 41.7 % (36.0-46.0); HGB 13.7 g/dL (11.2-15.7); Immature Grans % 1.3; Lymphocytes % 5.9; MCH 29.5 pg (27.0-33.0); MCHC 32.9 % (32.0-36.0); MCV 90 fL (80-95); MPV 10.2 fL (8.0-11.0); Monocytes % 18.4; Neutrophils % 61.1; Platelet Count 330 10^3/uL (130-400); RBC 4.65 10^6/uL (3.93-5.22); RDW 15.9 % (11.7-14.6); RDW-SD 50.2 fL; WBC 3.75 10^3/uL (4.4-10.8)
[2022-03-02 16:47] LABS: ALT 13 U/L (14-59); AST 23 U/L (15-37); Alkaline Phosphatase 81 U/L (46-116); Anion Gap 9.7 mmol/L (3-11); BUN 12 mg/dL (7-18); Bilirubin, Total 1.1 mg/dL (0.2-1.0); CO2 28.3 mmol/L (21.0-32.0); Calcium 9.2 mg/dL (8.5-10.1); Chloride 97 mmol/L (98-107); Estimated GFR 58.02 (mL/min/1.73m2); Glucose 112 mg/dL (74-106); Sodium 135 mmol/L (136-145); Total Protein 7.1 g/dL (6.4-8.2)
== END 2022-03-02 02:35 | disposition home or self-care (01) ==
LOC: LBO 02:34
PROVIDERS: PCP Family Medicine; Visit Provider Internal Medicine Hematology & Oncology
DX: C20 Malignant neoplasm of rectum (principal)
CPT/HCPCS: 36415; 80053; 85025

== ENCOUNTER 2022-03-10 01:22 | Outpatient (CLI) | payer MEDICARE, SELFPAY ==
[2022-03-10 12:13] LABS: Abs Immature Grans 0.03 10^3/uL (0.0-0.06); Absolute Basophil Count 0.04 10^3/uL (0.0-0.2); Absolute Eosinophil Count 0.39 10^3/uL (0.0-0.7); Absolute Lymphocyte Count 0.37 10^3/uL (1.2-3.4); Absolute Monocyte Count 0.54 10^3/uL (0.1-0.8); Absolute Neutrophil Count 2.55 10^3/uL (1.2-6.7); Eosinophils % 9.9; HCT 38.6 % (36.0-46.0); HGB 12.8 g/dL (11.2-15.7); Immature Grans % 0.8; Lymphocytes % 9.4; MCH 30.2 pg (27.0-33.0); MCHC 33.2 % (32.0-36.0); MCV 91 fL (80-95); MPV 9.9 fL (8.0-11.0); Monocytes % 13.8; Neutrophils % 65.1; Platelet Count 299 10^3/uL (130-400); RBC 4.24 10^6/uL (3.93-5.22); RDW 16.2 % (11.7-14.6); RDW-SD 53.6 fL; WBC 3.92 10^3/uL (4.4-10.8)
[2022-03-10 12:31] LABS: ALT 10 U/L (14-59); AST 17 U/L (15-37); Albumin 2.9 g/dL (3.4-5.0); Alkaline Phosphatase 83 U/L (46-116); Anion Gap 6.2 mmol/L (3-11); BUN 9 mg/dL (7-18); CO2 30.8 mmol/L (21.0-32.0); CREATININE 0.9 mg/dL (0.55-1.02); Calcium 9.3 mg/dL (8.5-10.1); Chloride 101 mmol/L (98-107); Estimated GFR 65.84 (mL/min/1.73m2); Glucose 112 mg/dL (74-106); Potassium 3.6 mmol/L (3.5-5.1); Sodium 138 mmol/L (136-145); Total Protein 7.1 g/dL (6.4-8.2)
== END 2022-03-10 01:23 | disposition home or self-care (01) ==
LOC: LBO 01:23
PROVIDERS: PCP Family Medicine; Visit Provider Internal Medicine Hematology & Oncology
DX: C20 Malignant neoplasm of rectum (principal)
CPT/HCPCS: 36415; 80053; 85025

== ENCOUNTER 2022-04-06 00:56 | Outpatient (CLI) | payer MEDICARE, SELFPAY ==
--- NOTE | 2022-04-06 13:00 | DI.CT_ITS ---
Exam(s) CT CHEST WO EXAM: CT CHEST WO CLINICAL HISTORY: COPD,J44.9,F/U ABNL CHEST CT,R93.89. TECHNIQUE: Multi planar reconstructions were performed. CONTRAST MATERIAL: None COMPARISON: CT CT CHEST PE CTA from 08/19/2020 FINDINGS: CHEST: LUNGS: Again noted is bilateral hyperinflation and COPD changes. The previously described infiltrate in the right lower lobe has increased in size from July 2020. It now also involves the medial basal segment of the left lower lobe as well as the posterior basal segment. There is no associated pleur al effusion. There is no overlying rib destruction. No infiltrate evident in the right upper lobe b ut there are mild increased markings now evident in the right middle lobe, not previously present. I n the opposite-left lung there are no significant focal findings in the lower lobe. However, there i s now some mild infiltrate evident in the lingular segment of the left lung. No pleural effusion. MEDIASTINUM: There is no obvious hilar nor mediastinal adenopathy. No subcarinal adenopathy evident.N o obvious axillary adenopathy. No supraclavicular adenopathy. Visualized thyroid unremarkable. CARDIAC: Heart size is normal. There is no pericardial effusion.Caliber of the thoracic aorta is wit hin normal limits. VISUALIZED UPPER ABDOMEN:Gallbladder surgically absent. No adrenal masses seen. There is a partiall y included large cyst evident in the left kidney which measures approximately 6 x 6 cm. The entire k idneys not included in the field of view. OSSEOUS: No significant osseous lesions.No fractures. IMPRESSION: 1. Compared to the prior CT scan of 08/19/2020 the size of the previously described right lower lobe infiltrate has significantly further increased, as described above. Although there is no obvious lym phadenopathy in the ipsilateral hilum and subcarinal region, cannot exclude element of malignancy her e. There is no overlying rib destruction. There is no pleural effusion. 2. There is also some increasing infiltrate in the right middle lobe as well as in the lingular segme nt of the opposite-left lung. RADIATION DOSE DELIVERED: 450.18mGy.cm Total DLP DATA REPOSITORY: All CT scans at this facility are submitted to the National Radiology Data Registry (NRDR) Dose Index Registry (DIR) with the [employer] (ACR). RADIATION OPTIMIZATION: All CT scans at this facility use at least one of these dose optimization te chniques: automated exposure control; mA and/or kV adjustment per patient size (includes targeted exa ms where dose is matched to clinical indication); or iterative reconstruction.
== END 2022-04-06 01:16 ==
PROVIDERS: PCP Family Medicine; Visit Provider Internal Medicine Critical Care Medicine
DX: R93.89 Abnormal findings on diagnostic imaging of other specified body structures (principal); J44.9 Chronic obstructive pulmonary disease, unspecified; R91.8 Other nonspecific abnormal finding of lung field
CPT/HCPCS: 71250

== ENCOUNTER 2022-04-06 12:19 | Emergency (ER) | payer MEDICARE, SELFPAY ==
[2022-04-06 12:24] VITALS: BP 132/68; PULSE 99; RESP 20; TEMP 36.5; O2SAT 95
--- NOTE | 2022-04-06 12:30 | DI.RAD_ITS ---
Exam(s) XR ANKLE RT COMPLETE EXAM: XR ANKLE RT COMPLETE CLINICAL HISTORY: pain. TECHNIQUE: 2D digital imaging was performed. COMPARISON: No exams were available for comparison FINDINGS: 3 views There is abundant soft tissue swelling. No evidence of acute fracture or widening of the ankle morti se. Talar dome unremarkable. Base of the 5th metatarsal unremarkable. Anterior process calcaneus u nremarkable. IMPRESSION: Soft tissue swelling but no fractures evident. DATA REPOSITORY: RADIATION DOSE DELIVERED:
--- NOTE | 2022-04-06 12:30 | DI.RAD_ITS ---
Exam(s) XR FOOT RT COMPLETE EXAM: XR FOOT RT COMPLETE CLINICAL HISTORY: pain. TECHNIQUE: 2D digital imaging was performed. COMPARISON: No exams were available for comparison FINDINGS: 3 views There is no evidence of acute fracture or diastasis of the Sherri daquan joint. Hallux valgus is noted. The metatarsal - phalangeal joint of the great toe does not exhibit significant narrowing nor osteop hytes. Bone density is age-appropriate. No osseous lesions. No pes planus. IMPRESSION: No fractures. Hallux valgus noted. DATA REPOSITORY: RADIATION DOSE DELIVERED:
--- NOTE | 2022-04-06 12:42 | W.ED.GENAD ---
Discharge Plan Disposition Patient Disposition: Home Discharge Details Clinical Impression: Right ankle sprain, Right foot sprain Primary Care Provider: Roverto Ashby ED Provider: Дмитрий Ortega Home Meds and New Rx's Prescriptions: Continued (DME) Oxygen Tank See Rx Instructions .Route Rx Instructions: As directed budesonide 0.5 mg/2 mL suspension for nebulization 0.5 mg inhalation QAM Yupelri 175 mcg/3 mL solution for nebulization 175 mcg inhalation QAM arformoterol 15 mcg/2 mL solution for nebulization 2 ml inhalation QAM amlodipine 10 mg tablet 10 mg PO DAILY Qty: 90 3RF metoprolol succinate 50 mg tablet extended release 24 hr 50 mg PO DAILY Qty: 90 3RF furosemide [Lasix] 20 mg tablet 20 mg PO DAILY Qty: 90 3RF lorazepam [Ativan] 1 mg tablet 1 mg PO BID PRN (Reason: anxiety) Qty: 30 0RF Combivent Respimat 20-100 mcg/actuation mist 1 puff IH QID PRN (Reason: COPD) Qty: 4 3RF ipratropium-albuterol 0.5 mg-3 mg(2.5 mg base)/3 mL solution for nebulization 3 ml IH QID Qty: 720 5RF fluticasone propion-salmeterol [Advair Diskus] 250-50 mcg/dose blister with device 1 inh INHALATION BID Qty: 180 3RF Discharge Instructions Instructions: Ankle Sprain (ED) Additional Instructions: your xrays did not show a broken bone follow up with your primary care provider within 1 week if pain is not improving if you feel more ill, have severe worsening pain return to the emergency department Medical Decision Making 76 yo female comes in with right ankle and foot pain since Sunday when she got out of bed and stepped on her foot and twisted the ankle. denies falling or other injuries, has been able to walk but with some pain so came here, denies fevers, chills or rashes. She arrives stable and in no distress. She localizes the pain to the right lateral ankle and lateral mid foot. Mild swelling of the lateral malleolus and has intact sensation and pulses, is tender to palpation to the lateral malleolus and right mid foot without palpable deformity. Full rom of the ankle. Suspect sprain but will obtain xrays to evaluate for fracture. No findings on exam to suggest infectious etiology. No pain or swelling of the rest of her leg. imaging unremarkable for fracture, has soft tissue swelling, suspect sprain of the ankle, exam unchanged. Will provide short walking boot to use and advised to f/u with pcp if not improving in a week to see pcp, return precautions given Differential Diagnosis Differential Diagnosis: sprain, strain, arthritis Medical Records Medical records reviewed: Yes I reviewed the patient's medical records. Imaging Data Radiologic Study: Attestation: I personally reviewed and interpreted this imaging study as follows: Imaging: X-Ray Radiologist's impression: no acute findings foot xray Radiologic Study #2: Attestation: I personally reviewed and interpreted this imaging study as follows: Imaging: X-Ray Radiologist's impression: no acute findings ankle xray HPI General Mode of arrival: ambulatory. Date/Time Provider Initiated Documentation: 04/06/22 12:20. Limitations to Documentation: no limitations. Information obtained by: patient. History of Present Illness 76 year old F presents to the emergency department with the chief complaint of right ankle/foot pain, described as mild, Quality is described as aching, and is localized to the right and lower extremity. Patient reports no radiation. Patient started experiencing this day(s) (4) and it has been constant. Rest improves symptom(s), Movement worsens symptoms . Patient notes no other symptoms.. Patient did receive the following treatments prior to arrival, none Related Data Home Medications Medication Instructions Recorded Confirmed ipratropium 20 mcg-albuterol 100 1 puff inhalation QID PRN COPD #4 05/19/21 04/06/22 mcg/actuation mist for inhalation grams (Combivent Respimat) ipratropium 0.5 mg-albuterol 3 mg 3 ml inhalation QID wheezing/ 06/15/21 04/06/22 (2.5 mg base)/3 mL nebulization J44.9 #720 mL soln Oxygen 11/14/21 04/06/22 fluticasone 250 mcg-salmeterol 50 1 inh inhalation BID #180 ea 12/05/21 04/06/22 mcg/dose blistr powdr for inhalation (Advair Diskus) amlodipine 10 mg tablet 10 mg PO DAILY #90 tabs 03/22/22 04/06/22 arformoterol 15 mcg/2 mL solution 2 ml inhalation QAM 03/22/22 04/06/22 for nebulization budesonide 0.5 mg/2 mL suspension 0.5 mg inhalation QAM 03/22/22 04/06/22 for nebulization furosemide 20 mg tablet (Lasix) 20 mg PO DAILY #90 tab-caps 03/22/22 04/06/22 lorazepam 1 mg tablet (Ativan) 1 mg PO BID PRN anxiety #30 tabs 03/22/22 04/06/22 metoprolol succinate 50 mg 50 mg PO DAILY #90 tabs 03/22/22 04/06/22 tablet,extended release 24 hr revefenacin 175 mcg/3 mL solution 175 mcg inhalation QAM 03/22/22 04/06/22 for nebulization ([place]) Previous Rx's Medication Instructions Recorded ipratropium 20 mcg-albuterol 100 1 puff inhalation QID PRN COPD #4 05/19/21 mcg/actuation mist for inhalation grams (Combivent Respimat) ipratropium 0.5 mg-albuterol 3 mg 3 ml inhalation QID wheezing/ 06/15/21 (2.5 mg base)/3 mL nebulization J44.9 #720 mL soln fluticasone 250 mcg-salmeterol 50 1 inh inhalation BID #180 ea 12/05/21 mcg/dose blistr powdr for inhalation (Advair Diskus) amlodipine 10 mg tablet 10 mg PO DAILY #90 tabs 03/22/22 furosemide 20 mg tablet (Lasix) 20 mg PO DAILY #90 tab-caps 03/22/22 lorazepam 1 mg tablet (Ativan) 1 mg PO BID PRN anxiety #30 tabs 03/22/22 metoprolol succinate 50 mg 50 mg PO DAILY #90 tabs 03/22/22 tablet,extended release 24 hr Allergies Allergy/AdvReac Type Severity Reaction Status Date / Time lisinopril Allergy CAN'T Verified 04/06/22 12:28 REMEMBER Sulfa (Sulfonamide Allergy ? RASH Verified 04/06/22 12:28 Antibiotics) tiotropium bromide AdvReac Intermediate Chest Verified 04/06/22 12:28 [From Spiriva with tightness HandiHaler] and shakiness anastrozole AdvReac COUGH Verified 04/06/22 12:28 losartan AdvReac TACHYCARDIA Verified 04/06/22 12:28 Penicillins AdvReac Verified 04/06/22 12:28 General Stated Complaint: Orthopedic FELIBERTO: 4 Review of Systems All systems reviewed & are unremarkable except as noted in HPI and below Constitutional Constitutional: Denies chills, Denies fever(s) and Denies weakness Cardiovascular Cardiovascular: Denies chest pain and Denies dyspnea Respiratory Respiratory: Denies cough and Denies dyspnea Gastrointestinal Gastrointestinal: Denies abdominal pain, Denies nausea and Denies vomiting Integumentary/Breasts Skin/Breast: Denies rash Neurologic Neurologic: Denies weakness PFSH All Active Problems (Updated 04/06/22 @ 13:40 by Дмитрий Ortega MD) Right ankle sprain (Acute) Right foot sprain (Acute) Abnormal weight loss (Acute) Tremor (Acute) Hearing decreased (Acute) Rectal mass (Acute) Rectal cancer (Acute) Polyp of colon (Acute) 11/05/12 tubovillous 10/04; adenoma 11/0802/07/17: 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 As of 01/2021 patient declines follow-up or repeat CT Anxiety Anxiety and depression Calcific tendinitis of shoulder (12/23/12) COPD with exacerbation Depressive disorder Dermatitis, unspecified (11/17/15) Essential hypertension Family history of colon cancer sister-in her 60's Gastroesophageal reflux disease Hyperglycemia Malignant neoplasm of female breast (07/26/11) Stage 1 left breast: invasive ductal cancer ([facility] [place] [place]) S/P lumpectomy and radiation, no hormonal tx Neoplasm of breast Oxygen dependent Pedal edema Smoker Quit about 2014, about a 47-dfoo-utew history of smoking Social isolation (07/13/16) Tubular adenoma (04/11/17) Vision loss 12/2020, poor vision both eyes-20-200 bilaterally MyChart. Patient advised not to drive Surgical History Biopsy of breast RIGHT X 2 Breast, Lumpectomy left breast lumpectomy and radiation Cholecystectomy (~05/2010) Colonoscopy - MAC (11/05/12) Colonoscopy - MAC (02/07/17) Colonoscopy - MAC (04/11/17) Status post breast biopsy Status post breast lumpectomy Status post cholecystectomy Social History Smoking/Tobacco Use Status: Former Tobacco Use Smoking risk assessment performed?: Yes Alcohol Intake: never Drug use: Never Substance use type: does not use Do you feel safe at home: Yes Do you feel safe in your relationship?: Yes Additional Social history: lives alone Exam Const General: no acute distress Orientation: alert HENMT Head: normal to inspection Ears: external ears normal General nose exam: external nose normal Mouth: moist mucous membranes Eyes General: appearance normal, both eyes and all related structures Neck Neck: normal visual inspection Resp Effort & Inspection: normal respiratory effort and able to speak in complete sentences Cardio Rate: regular rate Skin General skin exam: no rashes or lesions noted Neuro General: patient alert and patient oriented x3 Extrem General: full ROM and capillary refill normal Psych Mental Status: mental status grossly normal Course Vital Signs Vital signs: Vital Signs Temperature 36.5 C 04/06/22 12:24 Pulse 99 H 04/06/22 12:24 Respiratory Rate 20 04/06/22 12:24 Blood Pressure 132/68 04/06/22 12:24 Pulse Oximetry 95 04/06/22 12:24 Temperature 36.5 C 04/06/22 12:24 Temperature Source Temporal Artery Scan 04/06/22 12:24 Pulse 99 H 04/06/22 12:24 Respiratory Rate 20 04/06/22 12:24 Respiratory Effort Normal, Non-Labored 04/06/22 12:28 Blood Pressure 132/68 04/06/22 12:24 Blood Pressure Position Supine 04/06/22 12:24 Pulse Oximetry 95 04/06/22 12:24 Oxygen Delivery Method Room Air 04/06/22 12:24 Oxygen Flow Rate 0 04/06/22 12:24
[2022-04-06 13:15] VITALS: BP 114/67; PULSE 86; RESP 19; TEMP 37; O2SAT 92
--- NOTE | 2022-04-13 07:36 | NUR.NOTE ---
Nursing Note: Accessed chart for [facility] billing purposes.
== END 2022-04-06 14:08 | disposition home or self-care (01) ==
PROVIDERS: Emergency Provider Emergency Medicine; PCP Family Medicine
DX: S93.401A Sprain of unspecified ligament of right ankle, initial encounter (principal); S93.601A Unspecified sprain of right foot, initial encounter; I10 Essential (primary) hypertension; J45.901 Unspecified asthma with (acute) exacerbation; Z79.51 Long term (current) use of inhaled steroids; X50.1XXA Overexertion from prolonged static or awkward postures, initial encounter; Y93.89 Activity, other specified
CPT/HCPCS: 71250; 99284; 73610; 73630; 99282

== ENCOUNTER 2022-04-12 00:09 | Outpatient (CLI) | payer MEDICARE, SELFPAY ==
--- NOTE | 2022-04-12 | DI.CT_ITS ---
Exam(s) CT ABDOMEN PELVIS W EXAM: CT ABDOMEN PELVIS W CLINICAL HISTORY: RECTA CEDRICK,S/P RX,RESTAGING EXAM,C20. TECHNIQUE: Imaging Protocol: Axial computed tomography images with coronal and sagittal reformatted images were created and reviewed CONTRAST MATERIAL: Intravenous: Omnipaque 350 Contrast volume:100 ml Oral: yes / no COMPARISON: CT CT CHEST PE CTA from 08/19/[address] CHEST ABDOMEN PELVIS W CONTRAST (GENERIC) from 12/26/[address] CHEST WO from 04/06/2022 FINDINGS: ABDOMEN: Lung Bases: No change in dense area of consolidation at the right lung base. Liver: Fatty infiltration of the liver. No measurable mass. Gallbladder and biliary tract: Status post cholecystectomy. No radiodense calculus or dilation. Pancreas: Normal density, no abnormal calcifications or inflammatory process. Spleen: Normal. Kidneys: Normal size, contour and axis. No radiodense stones or obstructive uropathy. Left renal cys t no suspicious masses seen. Adrenal glands: No masses seen. 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 Small amou nt of mural thrombus. Stable from prior. Iliac arteries show severe atherosclerotic changes with some luminal narrowing. PELVIS: Bladder: No gross wall thickening. No calculi.No focal mass. Bowel: No visible rectal mass. No obstruction . Minimal diverticulosis. Appendix normal. No gastric o r small bowel dilatation or wall thickening. Peritoneal cavity: No ascites, collection or mesenteric inflammatory response. Bones: Stable small sclerotic foci in the sacrum, left ilium and left side of the L5 vertebral body, likely bone islands. Reproductive organs: Within normal limits. Lymph nodes: Unremarkable. Impression: No evidence metastatic disease in the abdomen or pelvis. No visible rectal mass on the current exam. Stable appearance of right lower lobe infiltrate. RADIATION DOSE DELIVERED: 400.82 mGy.cm Total DLP DATA REPOSITORY: All CT scans at this facility are submitted to the National Radiology Data Registry (NRDR) Dose Index Registry (DIR) with the [employer] (ACR). RADIATION OPTIMIZATION: All CT scans at this facility use at least one of these dose optimization te chniques: automated exposure control; mA and/or kV adjustment per patient size (includes targeted exa ms where dose is matched to clinical indication); or iterative reconstruction.
[2022-04-12] MEDS: Barium Sulfate 2% W/V-Berry Smoothie 450 ML BTL 900 ML PO (11:06)
[2022-04-12 11:37] LABS: Abs Immature Grans 0.03 10^3/uL (0.0-0.06); Absolute Basophil Count 0.05 10^3/uL (0.0-0.2); Absolute Eosinophil Count 0.42 10^3/uL (0.0-0.7); Absolute Lymphocyte Count 0.57 10^3/uL (1.2-3.4); Absolute Monocyte Count 0.47 10^3/uL (0.1-0.8); Absolute Neutrophil Count 3.32 10^3/uL (1.2-6.7); Eosinophils % 8.6; HCT 41.4 % (36.0-46.0); HGB 13.4 g/dL (11.2-15.7); Immature Grans % 0.6; Lymphocytes % 11.7; MCH 29.6 pg (27.0-33.0); MCHC 32.4 % (32.0-36.0); MCV 91 fL (80-95); MPV 10.1 fL (8.0-11.0); Monocytes % 9.7; Neutrophils % 68.4; Platelet Count 323 10^3/uL (130-400); RBC 4.53 10^6/uL (3.93-5.22); RDW 15.4 % (11.7-14.6); RDW-SD 52.2 fL; WBC 4.86 10^3/uL (4.4-10.8)
[2022-04-12 11:52] LABS: ALT 12 U/L (14-59); AST 22 U/L (15-37); Albumin 3.5 g/dL (3.4-5.0); Alkaline Phosphatase 80 U/L (46-116); BUN 12 mg/dL (7-18); Bilirubin, Total 0.7 mg/dL (0.2-1.0); CREATININE 0.9 mg/dL (0.55-1.02); Calcium 9.7 mg/dL (8.5-10.1); Chloride 102 mmol/L (98-107); Estimated GFR 65.84 (mL/min/1.73m2); Glucose 105 mg/dL (74-106); Potassium 3.3 mmol/L (3.5-5.1); Sodium 142 mmol/L (136-145); Total Protein 7.3 g/dL (6.4-8.2)
[2022-04-12] MEDS: Omnipaque 350 MG/ML 100 ML BTL IJ (14:15)
== END 2022-04-12 00:29 ==
PROVIDERS: PCP Family Medicine; Visit Provider Internal Medicine Hematology & Oncology
DX: C20 Malignant neoplasm of rectum (principal)
CPT/HCPCS: 80053; 74177; 85025; J3490

== ENCOUNTER 2022-05-19 02:43 | Outpatient (CLI) | payer MEDICARE, SELFPAY ==
[2022-05-19 13:49] LABS: Abs Immature Grans 0.02 10^3/uL (0.0-0.06); Absolute Basophil Count 0.08 10^3/uL (0.0-0.2); Absolute Eosinophil Count 0.57 10^3/uL (0.0-0.7); Absolute Lymphocyte Count 0.76 10^3/uL (1.2-3.4); Absolute Monocyte Count 0.51 10^3/uL (0.1-0.8); Basophils % 1.2; Eosinophils % 8.5; HCT 48.1 % (36.0-46.0); HGB 15.8 g/dL (11.2-15.7); Immature Grans % 0.3; Lymphocytes % 11.3; MCH 29.9 pg (27.0-33.0); MCHC 32.8 % (32.0-36.0); MCV 91 fL (80-95); Monocytes % 7.6; Neutrophils % 71.1; Platelet Count 293 10^3/uL (130-400); RBC 5.29 10^6/uL (3.93-5.22); RDW 13.1 % (11.7-14.6); RDW-SD 43.9 fL; WBC 6.74 10^3/uL (4.4-10.8)
[2022-05-19 14:10] LABS: ALT 15 U/L (14-59); AST 20 U/L (15-37); Albumin 4.1 g/dL (3.4-5.0); Alkaline Phosphatase 94 U/L (46-116); Anion Gap 9.6 mmol/L (3-11); BUN 15 mg/dL (7-18); Bilirubin, Total 0.6 mg/dL (0.2-1.0); CO2 32.4 mmol/L (21.0-32.0); Chloride 103 mmol/L (98-107); Estimated GFR 58.02 (mL/min/1.73m2); Glucose 104 mg/dL (74-106); Potassium 3.6 mmol/L (3.5-5.1); Sodium 145 mmol/L (136-145); Total Protein 8.4 g/dL (6.4-8.2)
== END 2022-05-19 02:44 | disposition home or self-care (01) ==
LOC: LBO 02:43
PROVIDERS: PCP Family Medicine; Visit Provider Internal Medicine Hematology & Oncology
DX: C20 Malignant neoplasm of rectum (principal)
CPT/HCPCS: 36415; 80053; 85025

== ENCOUNTER 2022-06-13 02:04 | Outpatient (RCR) | payer MEDICARE, SELFPAY ==
[2022-06-13] MEDS: Normal Saline Flush 10 ML SYR IVP (09:37)
[2022-06-13 09:55] LABS: Abs Immature Grans 0.08 10^3/uL (0.0-0.06); Absolute Basophil Count 0.06 10^3/uL (0.0-0.2); Absolute Eosinophil Count 0.09 10^3/uL (0.0-0.7); Absolute Lymphocyte Count 1.17 10^3/uL (1.2-3.4); Absolute Monocyte Count 0.77 10^3/uL (0.1-0.8); Basophils % 0.7; Eosinophils % 1.1; HCT 42.8 % (36.0-46.0); HGB 14.7 g/dL (11.2-15.7); Immature Grans % 0.9; Lymphocytes % 13.8; MCH 30.4 pg (27.0-33.0); MCHC 34.3 % (32.0-36.0); MCV 88 fL (80-95); MPV 10.6 fL (8.0-11.0); Monocytes % 9.1; Neutrophils % 74.4; Platelet Count 295 10^3/uL (130-400); RBC 4.84 10^6/uL (3.93-5.22); RDW 12.7 % (11.7-14.6); RDW-SD 40.7 fL; WBC 8.47 10^3/uL (4.4-10.8)
[2022-06-13 10:08] LABS: ALT 14 U/L (14-59); AST 13 U/L (15-37); Albumin 3.8 g/dL (3.4-5.0); Alkaline Phosphatase 75 U/L (46-116); Anion Gap 6.7 mmol/L (3-11); BUN 29 mg/dL (7-18); Bilirubin, Total 0.4 mg/dL (0.2-1.0); CO2 30.3 mmol/L (21.0-32.0); CREATININE 1.1 mg/dL (0.55-1.02); Calcium 9.7 mg/dL (8.5-10.1); Chloride 103 mmol/L (98-107); Estimated GFR 51.75 (mL/min/1.73m2); Glucose 95 mg/dL (74-106); Potassium 3.4 mmol/L (3.5-5.1); Sodium 140 mmol/L (136-145); Total Protein 7.8 g/dL (6.4-8.2)
== END 2022-06-25 23:59 | disposition home or self-care (01) ==
LOC: INF 02:04
PROVIDERS: PCP Family Medicine; Visit Provider Internal Medicine Hematology & Oncology
DX: C20 Malignant neoplasm of rectum (principal); Z45.2 Encounter for adjustment and management of vascular access device
CPT/HCPCS: 36591; 80053; 82378; 85025

== ENCOUNTER 2022-07-16 00:50 | Outpatient (RCR) | payer MEDICARE, SELFPAY ==
[2022-06-30] MEDS: Normal Saline Flush 10 ML SYR IVP (07:59)
[2022-06-30 08:51] LABS: Abs Immature Grans 0.01 10^3/uL (0.0-0.06); Absolute Basophil Count 0.05 10^3/uL (0.0-0.2); Absolute Eosinophil Count 0.36 10^3/uL (0.0-0.7); Absolute Lymphocyte Count 0.82 10^3/uL (1.2-3.4); Basophils % 1.3; Eosinophils % 9.1; HCT 42.4 % (36.0-46.0); HGB 14.4 g/dL (11.2-15.7); Immature Grans % 0.3; Lymphocytes % 20.7; MCH 30.3 pg (27.0-33.0); MCV 89 fL (80-95); MPV 11.4 fL (8.0-11.0); Monocytes % 12.6; Platelet Count 253 10^3/uL (130-400); RBC 4.75 10^6/uL (3.93-5.22); RDW-SD 42.1 fL; WBC 3.97 10^3/uL (4.4-10.8)
[2022-06-30 08:53] LABS: Absolute Neutrophil Count 2.22 10^3/uL (1.2-6.7)
[2022-06-30 09:03] LABS: ALT 13 U/L (14-59); AST 16 U/L (15-37); Albumin 3.7 g/dL (3.4-5.0); Alkaline Phosphatase 80 U/L (46-116); Anion Gap 8.6 mmol/L (3-11); BUN 12 mg/dL (7-18); Bilirubin, Total 0.6 mg/dL (0.2-1.0); CO2 28.4 mmol/L (21.0-32.0); Calcium 9.8 mg/dL (8.5-10.1); Chloride 105 mmol/L (98-107); Estimated GFR 58.02 (mL/min/1.73m2); Glucose 110 mg/dL (74-106); Potassium 3.3 mmol/L (3.5-5.1); Sodium 142 mmol/L (136-145); Total Protein 7.6 g/dL (6.4-8.2)
[2022-06-30 21:05] LABS: CEA 1.7 ng/mL (See Note)
[2022-07-02] MEDS: Heparin 500 UNITS/5 ML SYRINGE IV (09:58)
[2022-07-02] MEDS: Normal Saline Flush 10 ML SYR IVP (09:59)
[2022-07-14] MEDS: Normal Saline Flush 10 ML SYR IVP (08:49)
[2022-07-14 08:57] LABS: Abs Immature Grans 0.03 10^3/uL (0.0-0.06); Absolute Basophil Count 0.08 10^3/uL (0.0-0.2); Absolute Eosinophil Count 0.36 10^3/uL (0.0-0.7); Absolute Lymphocyte Count 0.96 10^3/uL (1.2-3.4); Absolute Neutrophil Count 4.37 10^3/uL (1.2-6.7); Basophils % 1.2; Eosinophils % 5.5; HGB 13.8 g/dL (11.2-15.7); Immature Grans % 0.5; Lymphocytes % 14.8; MCH 29.8 pg (27.0-33.0); MCHC 33.7 % (32.0-36.0); MCV 89 fL (80-95); MPV 9.9 fL (8.0-11.0); Monocytes % 10.8; Neutrophils % 67.2; Platelet Count 223 10^3/uL (130-400); RBC 4.63 10^6/uL (3.93-5.22); RDW 13.2 % (11.7-14.6); RDW-SD 42.1 fL
[2022-07-14 09:11] LABS: ALT 10 U/L (14-59); AST 16 U/L (15-37); Albumin 3.6 g/dL (3.4-5.0); Alkaline Phosphatase 80 U/L (46-116); BUN 17 mg/dL (7-18); Bilirubin, Total 0.4 mg/dL (0.2-1.0); CREATININE 1.1 mg/dL (0.55-1.02); Calcium 9.5 mg/dL (8.5-10.1); Chloride 104 mmol/L (98-107); Estimated GFR 51.43 (mL/min/1.73m2); Glucose 103 mg/dL (74-106); Potassium 3.3 mmol/L (3.5-5.1); Sodium 144 mmol/L (136-145); Total Protein 7.6 g/dL (6.4-8.2)
[2022-07-14 19:17] LABS: CEA 2.4 ng/mL (See Note)
[2022-07-16 11:34] VITALS: BP 138/71; PULSE 79; RESP 20; TEMP 36.7; O2SAT 95
[2022-07-16] MEDS: Normal Saline Flush 10 ML SYR IVP (11:34)
[2022-07-16] MEDS: Heparin 500 UNITS/5 ML SYRINGE IV (11:34)
== END 2022-07-26 23:59 | disposition home or self-care (01) ==
LOC: INF 00:50
PROVIDERS: PCP Family Medicine; Visit Provider Internal Medicine Hematology & Oncology
DX: C20 Malignant neoplasm of rectum (principal); Z45.2 Encounter for adjustment and management of vascular access device
CPT/HCPCS: 36591; 80053; 96523; 82378; 85025

== ENCOUNTER 2022-08-23 02:20 | Outpatient (RCR) | payer MEDICARE, SELFPAY ==
[2022-07-27 00:06] VITALS: BP 138/71; PULSE 79; RESP 20; TEMP 36.7
[2022-07-27] MEDS: Normal Saline Flush 10 ML SYR IVP (08:42)
[2022-07-27 08:51] LABS: Abs Immature Grans 0.02 10^3/uL (0.0-0.06); Absolute Basophil Count 0.05 10^3/uL (0.0-0.2); Absolute Eosinophil Count 0.03 10^3/uL (0.0-0.7); Absolute Monocyte Count 0.59 10^3/uL (0.1-0.8); Absolute Neutrophil Count 5.09 10^3/uL (1.2-6.7); Basophils % 0.8; Eosinophils % 0.5; HCT 39.6 % (36.0-46.0); HGB 13.7 g/dL (11.2-15.7); Immature Grans % 0.3; Lymphocytes % 10.8; MCH 30.5 pg (27.0-33.0); MCHC 34.6 % (32.0-36.0); MCV 88 fL (80-95); MPV 10.7 fL (8.0-11.0); Monocytes % 9.1; Neutrophils % 78.5; Platelet Count 180 10^3/uL (130-400); RBC 4.49 10^6/uL (3.93-5.22); RDW 14.4 % (11.7-14.6); RDW-SD 43.8 fL; WBC 6.48 10^3/uL (4.4-10.8)
[2022-07-27 09:08] LABS: ALT 15 U/L (14-59); AST 15 U/L (15-37); Albumin 3.6 g/dL (3.4-5.0); Alkaline Phosphatase 79 U/L (46-116); BUN 14 mg/dL (7-18); Bilirubin, Total 0.9 mg/dL (0.2-1.0); CREATININE 1.1 mg/dL (0.55-1.02); Calcium 9.4 mg/dL (8.5-10.1); Chloride 104 mmol/L (98-107); Estimated GFR 51.43 (mL/min/1.73m2); Glucose 157 mg/dL (74-106); Potassium 3.5 mmol/L (3.5-5.1); Sodium 140 mmol/L (136-145); Total Protein 7.4 g/dL (6.4-8.2)
[2022-08-08] MEDS: Normal Saline Flush 10 ML SYR IVP (08:40)
[2022-08-08 09:26] LABS: Abs Immature Grans 0.08 10^3/uL (0.0-0.06); Absolute Basophil Count 0.06 10^3/uL (0.0-0.2); Absolute Eosinophil Count 0.34 10^3/uL (0.0-0.7); Absolute Lymphocyte Count 0.84 10^3/uL (1.2-3.4); Absolute Monocyte Count 0.85 10^3/uL (0.1-0.8); Basophils % 0.9; Eosinophils % 5.3; HCT 40.1 % (36.0-46.0); HGB 13.6 g/dL (11.2-15.7); Immature Grans % 1.2; MCH 30.8 pg (27.0-33.0); MCHC 33.9 % (32.0-36.0); MCV 91 fL (80-95); MPV 11.1 fL (8.0-11.0); Monocytes % 13.1; Neutrophils % 66.5; Platelet Count 153 10^3/uL (130-400); RBC 4.41 10^6/uL (3.93-5.22); RDW 14.9 % (11.7-14.6); RDW-SD 49.8 fL; WBC 6.47 10^3/uL (4.4-10.8)
[2022-08-08 09:48] LABS: ALT 14 U/L (14-59); AST 15 U/L (15-37); Albumin 3.6 g/dL (3.4-5.0); Alkaline Phosphatase 73 U/L (46-116); Anion Gap 5.1 mmol/L (3-11); BUN 12 mg/dL (7-18); Bilirubin, Total 0.7 mg/dL (0.2-1.0); CO2 32.9 mmol/L (21.0-32.0); Calcium 9.6 mg/dL (8.5-10.1); Chloride 104 mmol/L (98-107); Estimated GFR 57.66 (mL/min/1.73m2); Glucose 105 mg/dL (74-106); Sodium 142 mmol/L (136-145); Total Protein 7.2 g/dL (6.4-8.2)
[2022-08-08 09:59] LABS: Potassium 2.9 mmol/L (3.5-5.1)
[2022-08-23] MEDS: Normal Saline Flush 10 ML SYR IVP (10:01)
[2022-08-23 10:27] LABS: Abs Immature Grans 0.02 10^3/uL (0.0-0.06); Absolute Basophil Count 0.04 10^3/uL (0.0-0.2); Absolute Eosinophil Count 0.26 10^3/uL (0.0-0.7); Absolute Lymphocyte Count 0.67 10^3/uL (1.2-3.4); Absolute Monocyte Count 0.48 10^3/uL (0.1-0.8); Absolute Neutrophil Count 1.92 10^3/uL (1.2-6.7); Basophils % 1.2; Eosinophils % 7.7; HCT 40.2 % (36.0-46.0); HGB 13.7 g/dL (11.2-15.7); Immature Grans % 0.6; Lymphocytes % 19.8; MCH 31.2 pg (27.0-33.0); MCHC 34.1 % (32.0-36.0); MCV 92 fL (80-95); MPV 10.4 fL (8.0-11.0); Monocytes % 14.2; Neutrophils % 56.5; Platelet Count 270 10^3/uL (130-400); RBC 4.39 10^6/uL (3.93-5.22); RDW 14.4 % (11.7-14.6); RDW-SD 47.7 fL; WBC 3.39 10^3/uL (4.4-10.8)
[2022-08-23 10:48] LABS: ALT 13 U/L (14-59); AST 17 U/L (15-37); Albumin 3.7 g/dL (3.4-5.0); Alkaline Phosphatase 82 U/L (46-116); Anion Gap 10.4 mmol/L (3-11); BUN 14 mg/dL (7-18); Bilirubin, Total 0.5 mg/dL (0.2-1.0); CO2 28.6 mmol/L (21.0-32.0); CREATININE 0.9 mg/dL (0.55-1.02); Calcium 9.6 mg/dL (8.5-10.1); Chloride 103 mmol/L (98-107); Estimated GFR 65.44 (mL/min/1.73m2); Glucose 102 mg/dL (74-106); Potassium 3.5 mmol/L (3.5-5.1); Sodium 142 mmol/L (136-145); Total Protein 7.8 g/dL (6.4-8.2)
[2022-08-23 18:50] LABS: CEA 2.5 ng/mL (See Note)
== END 2022-08-25 23:59 | disposition home or self-care (01) ==
LOC: INF 02:20
PROVIDERS: PCP Family Medicine; Visit Provider Internal Medicine Hematology & Oncology
DX: C20 Malignant neoplasm of rectum (principal); Z45.2 Encounter for adjustment and management of vascular access device
CPT/HCPCS: 36591; 80053; 82378; 83874; 85025

== ENCOUNTER 2022-09-17 00:11 | Outpatient (RCR) | payer MEDICARE, SELFPAY ==
[2022-08-26 00:04] VITALS: BP 138/71; PULSE 79; RESP 20; TEMP 36.7
[2022-09-05] MEDS: Normal Saline Flush 10 ML SYR IVP (08:34)
[2022-09-05 09:01] LABS: Abs Immature Grans 0.02 10^3/uL (0.0-0.06); Absolute Basophil Count 0.05 10^3/uL (0.0-0.2); Absolute Eosinophil Count 0.27 10^3/uL (0.0-0.7); Absolute Lymphocyte Count 0.63 10^3/uL (1.2-3.4); Absolute Monocyte Count 0.48 10^3/uL (0.1-0.8); Absolute Neutrophil Count 4.15 10^3/uL (1.2-6.7); Basophils % 0.9; Eosinophils % 4.8; HCT 38.7 % (36.0-46.0); HGB 13.1 g/dL (11.2-15.7); Immature Grans % 0.4; Lymphocytes % 11.3; MCH 31.1 pg (27.0-33.0); MCHC 33.9 % (32.0-36.0); MCV 92 fL (80-95); MPV 10.5 fL (8.0-11.0); Monocytes % 8.6; Platelet Count 147 10^3/uL (130-400); RBC 4.21 10^6/uL (3.93-5.22); RDW 15.1 % (11.7-14.6); RDW-SD 49.5 fL
[2022-09-05 09:16] LABS: ALT 14 U/L (14-59); AST 23 U/L (15-37); Albumin 3.6 g/dL (3.4-5.0); Alkaline Phosphatase 88 U/L (46-116); Anion Gap 8.1 mmol/L (3-11); BUN 11 mg/dL (7-18); Bilirubin, Total 0.8 mg/dL (0.2-1.0); CO2 30.9 mmol/L (21.0-32.0); Calcium 9.5 mg/dL (8.5-10.1); Chloride 105 mmol/L (98-107); Estimated GFR 57.66 (mL/min/1.73m2); Glucose 123 mg/dL (74-106); Potassium 3.3 mmol/L (3.5-5.1); Sodium 144 mmol/L (136-145); Total Protein 7.1 g/dL (6.4-8.2)
[2022-09-06 10:01] LABS: CEA 2.3 ng/mL (See Note)
[2022-09-15] MEDS: Normal Saline Flush 10 ML SYR IVP (10:40)
[2022-09-15 11:23] LABS: Absolute Basophil Count 0.06 10^3/uL (0.0-0.2); Absolute Eosinophil Count 0.23 10^3/uL (0.0-0.7); Absolute Lymphocyte Count 0.71 10^3/uL (1.2-3.4); Absolute Monocyte Count 0.73 10^3/uL (0.1-0.8); Absolute Neutrophil Count 3.42 10^3/uL (1.2-6.7); Basophils % 1.1; Eosinophils % 4.4; HCT 40.9 % (36.0-46.0); Immature Grans % 1.9; Lymphocytes % 13.5; MCH 31.7 pg (27.0-33.0); MCHC 34.2 % (32.0-36.0); MCV 93 fL (80-95); MPV 11.3 fL (8.0-11.0); Monocytes % 13.9; Neutrophils % 65.2; Platelet Count 193 10^3/uL (130-400); RBC 4.41 10^6/uL (3.93-5.22); RDW 15.1 % (11.7-14.6); RDW-SD 52.4 fL; WBC 5.25 10^3/uL (4.4-10.8)
[2022-09-15 11:36] LABS: ALT 13 U/L (14-59); AST 17 U/L (15-37); Albumin 3.7 g/dL (3.4-5.0); Alkaline Phosphatase 79 U/L (46-116); Anion Gap 6.9 mmol/L (3-11); BUN 13 mg/dL (7-18); Bilirubin, Total 0.7 mg/dL (0.2-1.0); CO2 32.1 mmol/L (21.0-32.0); CREATININE 0.9 mg/dL (0.55-1.02); Calcium 9.3 mg/dL (8.5-10.1); Chloride 105 mmol/L (98-107); Estimated GFR 65.44 (mL/min/1.73m2); Glucose 106 mg/dL (74-106); Potassium 3.1 mmol/L (3.5-5.1); Sodium 144 mmol/L (136-145); Total Protein 7.1 g/dL (6.4-8.2)
[2022-09-15 23:25] LABS: CEA 2.2 ng/mL (See Note)
[2022-09-17] MEDS: Normal Saline Flush 10 ML SYR IVP (12:55)
[2022-09-17] MEDS: Heparin 500 UNITS/5 ML SYRINGE IV (12:55)
== END 2022-09-25 23:59 | disposition home or self-care (01) ==
LOC: INF 00:11
PROVIDERS: PCP Family Medicine; Visit Provider Internal Medicine Hematology & Oncology
DX: C20 Malignant neoplasm of rectum (principal); Z45.2 Encounter for adjustment and management of vascular access device
CPT/HCPCS: 36591; 80053; 96523; 82378; 85025

== ENCOUNTER 2022-10-24 02:32 | Outpatient (RCR) | payer MEDICARE, SELFPAY ==
[2022-09-26 00:11] VITALS: BP 138/71; PULSE 79; RESP 20; TEMP 36.7
[2022-10-04] MEDS: Normal Saline Flush 10 ML SYR IVP (08:22)
[2022-10-04 08:37] LABS: Abs Immature Grans 0.01 10^3/uL (0.0-0.06); Absolute Basophil Count 0.05 10^3/uL (0.0-0.2); Absolute Eosinophil Count 0.29 10^3/uL (0.0-0.7); Absolute Lymphocyte Count 0.71 10^3/uL (1.2-3.4); Absolute Monocyte Count 0.58 10^3/uL (0.1-0.8); Absolute Neutrophil Count 0.74 10^3/uL (1.2-6.7); Basophils % 2.1; Eosinophils % 12.2; HCT 39.2 % (36.0-46.0); HGB 13.4 g/dL (11.2-15.7); Immature Grans % 0.4; Lymphocytes % 29.8; MCHC 34.2 % (32.0-36.0); MCV 94 fL (80-95); MPV 10.5 fL (8.0-11.0); Monocytes % 24.4; Neutrophils % 31.1; Platelet Count 200 10^3/uL (130-400); RBC 4.19 10^6/uL (3.93-5.22); RDW 14.3 % (11.7-14.6); WBC 2.38 10^3/uL (4.4-10.8)
[2022-10-04 08:52] LABS: ALT 15 U/L (14-59); AST 22 U/L (15-37); Albumin 3.6 g/dL (3.4-5.0); Alkaline Phosphatase 83 U/L (46-116); Anion Gap 7.8 mmol/L (3-11); BUN 12 mg/dL (7-18); Bilirubin, Total 0.4 mg/dL (0.2-1.0); CO2 28.2 mmol/L (21.0-32.0); Calcium 9.4 mg/dL (8.5-10.1); Chloride 110 mmol/L (98-107); Estimated GFR 57.66 (mL/min/1.73m2); Glucose 117 mg/dL (74-106); Potassium 3.4 mmol/L (3.5-5.1); Sodium 146 mmol/L (136-145); Total Protein 6.9 g/dL (6.4-8.2)
[2022-10-04 08:54] LABS: Diff Comment Diff Reviewed; RBC Morphology Normal
[2022-10-11] MEDS: Normal Saline Flush 10 ML SYR IVP (07:35)
[2022-10-11 08:16] LABS: Abs Immature Grans 0.03 10^3/uL (0.0-0.06); Absolute Basophil Count 0.05 10^3/uL (0.0-0.2); Absolute Eosinophil Count 0.17 10^3/uL (0.0-0.7); Absolute Lymphocyte Count 0.92 10^3/uL (1.2-3.4); Absolute Monocyte Count 0.64 10^3/uL (0.1-0.8); Absolute Neutrophil Count 2.05 10^3/uL (1.2-6.7); Basophils % 1.3; Eosinophils % 4.4; HCT 40.8 % (36.0-46.0); HGB 13.7 g/dL (11.2-15.7); Immature Grans % 0.8; Lymphocytes % 23.8; MCH 31.6 pg (27.0-33.0); MCHC 33.6 % (32.0-36.0); MCV 94 fL (80-95); MPV 11.1 fL (8.0-11.0); Monocytes % 16.6; Neutrophils % 53.1; Platelet Count 197 10^3/uL (130-400); RBC 4.34 10^6/uL (3.93-5.22); RDW 13.5 % (11.7-14.6); RDW-SD 47.3 fL; WBC 3.86 10^3/uL (4.4-10.8)
[2022-10-11 08:39] LABS: ALT 12 U/L (14-59); AST 19 U/L (15-37); Albumin 3.8 g/dL (3.4-5.0); Alkaline Phosphatase 84 U/L (46-116); Anion Gap 11.1 mmol/L (3-11); BUN 16 mg/dL (7-18); Bilirubin, Total 0.5 mg/dL (0.2-1.0); CO2 26.9 mmol/L (21.0-32.0); CREATININE 1.1 mg/dL (0.55-1.02); Chloride 105 mmol/L (98-107); Estimated GFR 51.43 (mL/min/1.73m2); Glucose 126 mg/dL (74-106); Potassium 3.6 mmol/L (3.5-5.1); Sodium 143 mmol/L (136-145); Total Protein 7.2 g/dL (6.4-8.2)
[2022-10-11 19:12] LABS: CEA 1.9 ng/mL (See Note)
[2022-10-24] MEDS: Normal Saline Flush 10 ML SYR IVP (07:44)
[2022-10-24 08:03] LABS: Abs Immature Grans 0.01 10^3/uL (0.0-0.06); Absolute Basophil Count 0.03 10^3/uL (0.0-0.2); Absolute Eosinophil Count 0.26 10^3/uL (0.0-0.7); Absolute Lymphocyte Count 0.69 10^3/uL (1.2-3.4); Absolute Monocyte Count 0.43 10^3/uL (0.1-0.8); Absolute Neutrophil Count 3.14 10^3/uL (1.2-6.7); Basophils % 0.7; Eosinophils % 5.7; HCT 37.8 % (36.0-46.0); HGB 12.8 g/dL (11.2-15.7); Immature Grans % 0.2; Lymphocytes % 15.1; MCH 31.4 pg (27.0-33.0); MCHC 33.9 % (32.0-36.0); MCV 93 fL (80-95); MPV 10.8 fL (8.0-11.0); Monocytes % 9.4; Neutrophils % 68.9; Platelet Count 150 10^3/uL (130-400); RBC 4.07 10^6/uL (3.93-5.22); RDW 13.5 % (11.7-14.6); WBC 4.56 10^3/uL (4.4-10.8)
[2022-10-24 08:22] LABS: ALT 11 U/L (14-59); AST 17 U/L (15-37); Albumin 3.4 g/dL (3.4-5.0); Alkaline Phosphatase 77 U/L (46-116); Anion Gap 7.9 mmol/L (3-11); BUN 14 mg/dL (7-18); Bilirubin, Total 0.7 mg/dL (0.2-1.0); CO2 28.1 mmol/L (21.0-32.0); CREATININE 1.2 mg/dL (0.55-1.02); Calcium 9.2 mg/dL (8.5-10.1); Chloride 105 mmol/L (98-107); Estimated GFR 46.33 (mL/min/1.73m2); Glucose 116 mg/dL (74-106); Potassium 3.3 mmol/L (3.5-5.1); Sodium 141 mmol/L (136-145); Total Protein 6.8 g/dL (6.4-8.2)
== END 2022-10-26 23:59 | disposition home or self-care (01) ==
LOC: INF 02:32
PROVIDERS: PCP Family Medicine; Visit Provider Internal Medicine Hematology & Oncology
DX: C20 Malignant neoplasm of rectum (principal); Z45.2 Encounter for adjustment and management of vascular access device
CPT/HCPCS: 36591; 80053; 82378; 85025

== ENCOUNTER → 2022-10-27 13:32 | Outpatient (CLI) | payer MEDICARE, SELFPAY ==
--- NOTE | 2022-10-27 14:04 | DI.RAD_ITS ---
Exam(s) XR CHEST 2V PA LATERAL EXAM: XR CHEST 2V PA LATERAL CLINICAL HISTORY: SOB R06.02 TECHNIQUE: 2D digital imaging was performed. COMPARISON: CR XR CHEST 2V PA LATERAL from 08/04/[address] CHEST WO from 04/06/[address] ABDOMEN PELVIS W from 04/12/2022 FINDINGS: Clear. A port is again noted. HEART: Normal size. Aorta: Not dilated. PULMONARY VASCULATURE: Normal. LUNGS: When compared with prior CT, there is a question of increasing infiltrate in the right lower l obe there is difficult to directly compare given differences in modality. The left lung remains PLEURAL SPACE: Small right pleural effusion, not seen on prior CT. No pneumothorax. BONE:Unremarkable for age. IMPRESSION: Worsening of right lower lobe infiltrate. New small right pleural effusion. DATA REPOSITORY: RADIATION DOSE DELIVERED:
== END ==
PROVIDERS: PCP Family Medicine; Visit Provider Internal Medicine Critical Care Medicine
DX: R06.02 Shortness of breath (principal); R91.8 Other nonspecific abnormal finding of lung field
CPT/HCPCS: 71046

== ENCOUNTER 2022-11-09 09:15 | Outpatient (RCR) | payer MEDICARE, SELFPAY ==
[2022-10-27 00:18] VITALS: BP 138/71; PULSE 79; RESP 20; TEMP 36.7
[2022-11-02] MEDS: Normal Saline Flush 10 ML SYR IVP (09:40)
[2022-11-02 09:51] LABS: HCT 39.6 % (36.0-46.0); HGB 13.6 g/dL (11.2-15.7); MCH 31.2 pg (27.0-33.0); MCHC 34.3 % (32.0-36.0); MCV 91 fL (80-95); MPV 9.6 fL (8.0-11.0); Platelet Count 304 10^3/uL (130-400); RBC 4.36 10^6/uL (3.93-5.22); RDW-SD 43.2 fL; WBC 8.43 10^3/uL (4.4-10.8)
[2022-11-02 10:12] LABS: ALT 13 U/L (14-59); AST 17 U/L (15-37); Albumin 3.8 g/dL (3.4-5.0); Alkaline Phosphatase 74 U/L (46-116); Anion Gap 8.6 mmol/L (3-11); BUN 23 mg/dL (7-18); Bilirubin, Total 0.5 mg/dL (0.2-1.0); CO2 30.4 mmol/L (21.0-32.0); CREATININE 0.9 mg/dL (0.55-1.02); Calcium 9.9 mg/dL (8.5-10.1); Chloride 102 mmol/L (98-107); Estimated GFR 65.44 (mL/min/1.73m2); Glucose 93 mg/dL (74-106); Potassium 3.3 mmol/L (3.5-5.1); Sodium 141 mmol/L (136-145); Total Protein 7.5 g/dL (6.4-8.2)
[2022-11-02 10:19] LABS: Absolute Lymphocyte Count 1.26 10^3/uL (1.2-3.4); Absolute Neutrophil Count 6.15 10^3/uL (1.2-6.7); Bands % 2
[2022-11-02 10:20] LABS: Absolute Monocyte Count 0.76 10^3/uL (0.1-0.8); Diff Comment Manual Differential; Metamyelocytes % 2; Myelocytes % 1; RBC Morphology Normal
[2022-11-02 19:51] LABS: CEA 1.9 ng/mL (See Note)
[2022-11-09] MEDS: Normal Saline Flush 10 ML SYR IVP (09:22)
[2022-11-09 10:00] LABS: Abs Immature Grans 0.16 10^3/uL (0.0-0.06); Absolute Basophil Count 0.04 10^3/uL (0.0-0.2); Absolute Eosinophil Count 0.02 10^3/uL (0.0-0.7); Absolute Lymphocyte Count 0.95 10^3/uL (1.2-3.4); Absolute Neutrophil Count 9.91 10^3/uL (1.2-6.7); Basophils % 0.3; Eosinophils % 0.2; HCT 40.7 % (36.0-46.0); HGB 13.6 g/dL (11.2-15.7); Immature Grans % 1.3; Lymphocytes % 7.9; MCH 31.1 pg (27.0-33.0); MCHC 33.4 % (32.0-36.0); MCV 93 fL (80-95); MPV 11.1 fL (8.0-11.0); Monocytes % 8.3; Platelet Count 235 10^3/uL (130-400); RBC 4.38 10^6/uL (3.93-5.22); RDW-SD 44.6 fL; WBC 12.08 10^3/uL (4.4-10.8)
[2022-11-09 10:27] LABS: ALT 15 U/L (14-59); AST 14 U/L (15-37); Albumin 3.8 g/dL (3.4-5.0); Alkaline Phosphatase 72 U/L (46-116); Anion Gap 11.8 mmol/L (3-11); BUN 33 mg/dL (7-18); Bilirubin, Total 0.5 mg/dL (0.2-1.0); CO2 26.2 mmol/L (21.0-32.0); CREATININE 1.1 mg/dL (0.55-1.02); Chloride 101 mmol/L (98-107); Estimated GFR 51.43 (mL/min/1.73m2); Glucose 95 mg/dL (74-106); Potassium 3.8 mmol/L (3.5-5.1); Sodium 139 mmol/L (136-145); Total Protein 7.7 g/dL (6.4-8.2)
[2022-11-09 19:37] LABS: CEA 1.9 ng/mL (See Note)
== END 2022-11-25 23:59 | disposition home or self-care (01) ==
LOC: INF 09:15
PROVIDERS: PCP Family Medicine; Visit Provider Internal Medicine Hematology & Oncology
DX: C20 Malignant neoplasm of rectum (principal); Z45.2 Encounter for adjustment and management of vascular access device
CPT/HCPCS: 36591; 80053; 82378; 85025

== ENCOUNTER 2023-01-03 10:47 | Emergency (ER) | payer MEDICARE, SELFPAY ==
[2023-01-03] VITALS (19 sets, daily range): BP systolic 102–158; BP diastolic 46–95; PULSE 85–120; RESP 9–30; TEMP 36.6; O2SAT 95
--- NOTE | 2023-01-03 10:45 | RT.EKG_ITS ---
APPROVED REPORT Exam: Resting ECG Reason for Exam: Dyspnea Patient Location: E HR:101 bpm ECG Measurements Heart Rate 101 AXIS TX [id number] P [id number] QRSd 77 QRS 77 QT 339 T 81 QTc 439 Conclusion sinus tachycardia
--- NOTE | 2023-01-03 10:45 | DI.CT_ITS ---
Exam(s) CT CHEST PE CTA EXAM: CT CHEST PE CTA CLINICAL HISTORY: short of breath, lung cancer. TECHNIQUE: Imaging Protocol: Axial CT angiography was performed with multi-slice acquisition and mu lti-planar and/or 3D reconstructions. CONTRAST MATERIAL: Intravenous: Omnipaque 350 contrast volume:100 mL COMPARISON: CT CT chest w from 12/10/[address] CHEST WO from 04/06/[address] ABDOMEN PELVIS W from 04/12/2022 CR XR CHEST 2V PA LATERAL from 10/27/2022 FINDINGS: Tracheobronchial tree: Patent where visualized. Pulmonary parenchyma: Marked centrilobular emphysematous changes are present. There is increased [place] in the right lower lobe compared CT scans of the chest from 04/12/2022 and 04/06/2022 and the chest x-ray from 10/27/2022. The lungs are otherwise clear. Pulmonary Arteries: No evidence of filling defect to suggest pulmonary emboli. Mediastinum and Nallely: No dominant adenopathy or fluid collection. The esophagus is unremarkable. Visualized thyroid gland: Unremarkable. Pleura: No effusion or pneumothorax. Heart: The heart is not dilated. Coronary artery calcifications are present. No pericardial effusion . Aorta: Thoracic aorta non-dilated. No evidence of dissection. Atherosclerosis. Upper abdomen: Fatty infiltration of the liver. Stable left renal cyst. No follow-up is recommende d. Status post cholecystectomy. Tubes, Catheters, and Lines: There is a right Fegezu-D-Qpub catheter present. Soft tissues: Unremarkable. Bones: Within normal limits for the patient's age.No aggressive osseous lesions. IMPRESSION: 1. No evidence of pulmonary embolism, thoracic aortic dissection or aneurysm. 2. There is dense consolidation in the right lower lobe. Differential considerations include pneumon ia and neoplasm. 3. Marked centrilobular emphysematous changes. 4. Incidental finding seen in the upper abdomen as described above. RADIATION DOSE DELIVERED: Total DLP DATA REPOSITORY: All CT scans at this facility are submitted to the National Radiology Data Registry (NRDR) Dose Index Registry (DIR) with the [employer] (ACR). RADIATION OPTIMIZATION: All CT scans at this facility use at least one of these dose optimization te chniques: automated exposure control; mA and/or kV adjustment per patient size (includes targeted exa ms where dose is matched to clinical indication); or iterative reconstruction.
--- NOTE | 2023-01-03 11:17 | W.ED.GENAD ---
Discharge Plan Disposition Patient Disposition: Home Condition: Good Discharge Details Clinical Impression: Breath shortness Primary Care Provider: Roverto Ashby ED Provider: Verona Orellana Home Meds and New Rx's Prescriptions: No Action (DME) Oxygen Tank See Rx Instructions .Route Rx Instructions: As directed lorazepam [Ativan] 1 mg tablet 1 mg PO BID PRN (Reason: anxiety) Qty: 30 0RF budesonide 0.5 mg/2 mL suspension for nebulization 0.5 mg inhalation QAM arformoterol 15 mcg/2 mL solution for nebulization 2 ml inhalation QAM amlodipine 10 mg tablet 10 mg PO DAILY Qty: 90 3RF metoprolol succinate 50 mg tablet extended release 24 hr 50 mg PO DAILY Qty: 90 3RF furosemide [Lasix] 20 mg tablet 20 mg PO DAILY Qty: 90 3RF prednisone 20 mg tablet 40 mg PO DAILY Qty: 10 0RF Rx Instructions: 2 tablets daily for 5 days ipratropium-albuterol 0.5 mg-3 mg(2.5 mg base)/3 mL solution for nebulization 3 ml IH QID Qty: 720 5RF Yupelri 175 mcg/3 mL solution for nebulization 175 mcg inhalation QAM Qty: 270 3RF levofloxacin 500 mg tablet 500 mg PO DAILY Qty: 3 0RF lorazepam 1 mg tablet 1 mg PO ONCE PRN Discharge Instructions Instructions: Dyspnea (ED) Additional Instructions: Use your oxygen at home as needed. Call your oncologist and your primary care doctor today to schedule appointments to follow up on your visit today. Return to the emergency department for new or worsening symptoms including chest pain, worsening shortness of breath, feeling like you are going to pass out, or if you have any other concerns. Referrals: Roverto Ashby MD [Primary Care Provider] - Discharge Data Discharge Date/Time-TO BE ENTERED AT DEPARTURE: 01/03/23 13:00 Medical Decision Making 77yo F with hx colorectal cancer, lung cancer, COPD, presenting for worsening dyspnea on exertion for several weeks. Presented to infusion center for chemotherapy today where she mentioned this and was advised to present to the ED for evaluation. Has oxygen prn at home. Slightly tachycariac to low 100's on arrival (patient reports this is baseline for her), vital signs otherwise reassuring. Satting 98% on room air. Lungs CTAB. Exam not particularly consistent with COPD exacerbation; will trial albuterol here and see if it improves symptoms. Would not do steroids or antibiotics unless workup suggests primary infectious process. Not overtly septic. EKG sinus tachycardia in low 100's, no concerning changes compared to prior 08/19/20. Labs reviewed as below, CBC with slight leukopenia (normal ANC), CMP with no significant abnormalities, troponin and BNP normal. Would not further workup for ACS with repeat labs or echocardiogram. Given risk factors, proceeded with CTA for PE. Independently reviewed, no large pulmonary embolus on my view, does have RLL mass; agree with radiology read below. Ambulated in the department steadily and safely with NC O2. Worsening dyspnea likely 2/t progressive chronic disease processes; advised using O2 at home when ambulating. Instructed to followup closely with PCP and oncology. Discharged home; discharge instructions including return precautions were reviewed with patient who verbalized understanding. All questions were answered and they are in full agreement with the plan. Medical Records Medical records reviewed: Yes I reviewed the patient's medical records. Medical records narrative: [facility] oncology consult note Imaging Data Radiologic Study: Imaging: CT Scan Radiologist's impression: IMPRESSION: 1. No evidence of pulmonary embolism, thoracic aortic dissection or aneurysm. 2. There is dense consolidation in the right lower lobe. Differential considerations include pneumonia and neoplasm. 3. Marked centrilobular emphysematous changes. 4. Incidental finding seen in the upper abdomen as described above. Lab Data Lab results reviewed: Yes I reviewed the patient's lab results. Labs: Laboratory Tests Range/Units 01/03/23 01/03/23 11:20 13:55 WBC (4.4-10.8) 10^3/uL 3.90 L RBC (3.93-5.22) 10^6/uL 4.70 Hgb (11.2-15.7) g/dL 14.3 Hct (36.0-46.0) % 42.8 MCV (80-95) fL 91 MCH (27.0-33.0) pg 30.4 MCHC (32.0-36.0) % 33.4 RDW (11.7-14.6) % 13.0 Plt Count (130-400) 10^3/uL 186 MPV (8.0-11.0) fL 10.3 Immature Gran % 0.8 Neutrophils % 63.8 Lymphocytes % 14.6 Monocytes % 12.6 Eosinophils % 6.9 Basophils % 1.3 Nucleated RBC % (0.0-0.3) % 0.0 Absolute Neutrophils (1.2-6.7) 10^3/uL 2.49 Absolute Lymphocytes (1.2-3.4) 10^3/uL 0.57 L Absolute Monocytes (0.1-0.8) 10^3/uL 0.49 Absolute Eosinophils (0.0-0.7) 10^3/uL 0.27 Absolute Basophils (0.0-0.2) 10^3/uL 0.05 PT (9.1-11.1) sec 9.8 INR (0.9-1.1) 1.0 APTT (23.6-32.8) sec 25.4 Sodium (136-145) mmol/L 142 Potassium (3.5-5.1) mmol/L 3.6 Chloride (98-107) mmol/L 104 Carbon Dioxide (21.0-32.0) mmol/L 28.8 Anion Gap (3-11) mmol/L 9.2 BUN (7-18) mg/dL 18 Creatinine (0.55-1.02) mg/dL 1.1 H Est GFR (CKD-EPI 2020) (mL/min/1.73m2) 51.43 Glucose (74-106) mg/dL 135 H Calcium (8.5-10.1) mg/dL 9.8 Magnesium (1.8-2.4) mg/dL 2.2 Total Bilirubin (0.2-1.0) mg/dL 0.8 AST (15-37) U/L 18 ALT (14-59) U/L 17 Alkaline Phosphatase (46-116) U/L 66 Troponin I (<or=60) ng/L < 50 Cancelled NT-Pro-B Natriuret Pep (<300) pg/mL 158 Total Protein (6.4-8.2) g/dL 7.3 Albumin (3.4-5.0) g/dL 3.8 HPI General Mode of arrival: ambulatory. Date/Time Provider Initiated Documentation: 01/03/23 10:48. Limitations to Documentation: no limitations. Information obtained by: patient and old records reviewed. HPI Narrative: 77yo F with hx colorectal cancer, lung cancer, COPD, presenting for worsening dyspnea on exertion for several weeks. Presented to [facility] for chemotherapy today where she mentioned this and was advised to present to the ED for evaluation. She has oxygen available at home but does not typically need it. Over the past 3-4 weeks she has felt more short of breath when ambulating, as well as general fatigue. No shortness of breath at rest. No orthopnea or new LE edema. No chest pain or lightheadedness. She has a chronic cough productive of thin clear sputum which is unchanged. She is otherwise in her usual state of health with no fevers, chills, rash, nausea, vomiting, focal weakness, or other concerns. Related Data Home Medications Medication Instructions Recorded Confirmed ipratropium 0.5 mg-albuterol 3 mg 3 ml inhalation QID / 06/15/21 12/15/22 (2.5 mg base)/3 mL nebulization J44.9 #720 mL soln Oxygen 11/14/21 12/15/22 amlodipine 10 mg tablet 10 mg PO DAILY #90 tabs 03/22/22 12/15/22 arformoterol 15 mcg/2 mL solution 2 ml inhalation QAM 03/22/22 12/15/22 for nebulization budesonide 0.5 mg/2 mL suspension 0.5 mg inhalation QAM 03/22/22 12/15/22 for nebulization furosemide 20 mg tablet (Lasix) 20 mg PO DAILY #90 tab-caps 03/22/22 12/15/22 metoprolol succinate 50 mg 50 mg PO DAILY #90 tabs 03/22/22 12/15/22 tablet,extended release 24 hr revefenacin 175 mcg/3 mL solution 175 mcg (3 mL) inhalation QAM #270 05/03/22 12/15/22 for nebulization (Yupelri) mL levofloxacin 500 mg tablet 500 mg PO DAILY #3 tabs 09/09/22 12/15/22 lorazepam 1 mg tablet (Ativan) 1 mg PO BID PRN anxiety #30 tabs 12/06/22 12/15/22 prednisone 20 mg tablet 40 mg (2 x 20 mg) PO DAILY #10 tabs 12/15/22 12/15/22 lorazepam 1 mg tablet 1 mg PO ONCE PRN 01/03/23 01/03/23 Previous Rx's Medication Instructions Recorded ipratropium 0.5 mg-albuterol 3 mg 3 ml inhalation QID wheezing/ 06/15/21 (2.5 mg base)/3 mL nebulization J44.9 #720 mL soln amlodipine 10 mg tablet 10 mg PO DAILY #90 tabs 03/22/22 furosemide 20 mg tablet (Lasix) 20 mg PO DAILY #90 tab-caps 03/22/22 metoprolol succinate 50 mg 50 mg PO DAILY #90 tabs 03/22/22 tablet,extended release 24 hr revefenacin 175 mcg/3 mL solution 175 mcg (3 mL) inhalation QAM #270 05/03/22 for nebulization (Yupelri) mL levofloxacin 500 mg tablet 500 mg PO DAILY #3 tabs 09/09/22 lorazepam 1 mg tablet (Ativan) 1 mg PO BID PRN anxiety #30 tabs 12/06/22 prednisone 20 mg tablet 40 mg (2 x 20 mg) PO DAILY #10 tabs 12/15/22 Allergies Allergy/AdvReac Type Severity Reaction Status Date / Time lisinopril Allergy CAN'T Verified 12/06/22 11:08 REMEMBER Sulfa (Sulfonamide Allergy ? RASH Verified 12/06/22 11:08 Antibiotics) tiotropium bromide AdvReac Intermediate Chest Verified 12/06/22 11:08 [From Spiriva with tightness HandiHaler] and shakiness anastrozole AdvReac COUGH Verified 12/06/22 11:08 losartan AdvReac TACHYCARDIA Verified 12/06/22 11:08 Penicillins AdvReac Verified 12/06/22 11:08 General Stated Complaint: SOB FELIBERTO: 3 Review of Systems Narrative: see HPI PFSH All Active Problems (Updated 01/03/23 @ 12:43 by Verona Orellana MD) Breath shortness (Acute) Hypokalemia (Acute) COPD exacerbation (Acute) Chronic obstructive lung disease (Acute) severe; PFT's 12/2020-PRN use of oxygen-2 L/min Essential hypertension (Acute 12/26/12) Polyp of colon (Acute) 11/05/12 tubovillous 10/04; adenoma 11/0802/07/17: Villous Adenoma 04/11/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 Patient advised not to drive Abnormal CT scan, chest 2018, persistent right lower lobe infiltrate 2020-persistent infiltrate nodule in right lower lobe. As of 01/2021 patient declines follow-up or repeat CT Pedal edema Gastroesophageal reflux disease Smoker Quit about 2014, about a 51-[id number]-aqva history of smoking Tubular adenoma (04/11/17) Social isolation (07/13/16) Malignant neoplasm of female breast (07/26/11) Stage 1 left breast: invasive ductal cancer ([facility]) S/P lumpectomy and radiation, no hormonal tx Family history of colon cancer sister-in her 60's Dermatitis, unspecified (11/17/15) Depressive disorder Calcific tendinitis of shoulder (12/23/12) Anxiety and depression Neoplasm of breast Oxygen dependent Anxiety Essential hypertension COPD with exacerbation Surgical History Status post breast biopsy Status post breast lumpectomy Status post cholecystectomy Colonoscopy - MAC (04/11/17) Colonoscopy - MAC (02/07/17) Colonoscopy - MAC (11/05/12) Cholecystectomy (~05/2010) Breast, Lumpectomy left breast lumpectomy and radiation Biopsy of breast RIGHT X 2 Social History Smoking/Tobacco Use Status: Former Tobacco Use Smoking risk assessment performed?: Yes Alcohol Intake: never Drug use: Never Substance use type: does not use Housing: house Do you feel safe at home: Yes Do you feel safe in your relationship?: Yes Additional Social history: lives alone Exam Narrative Exam Narrative: General: Alert, cachectic, in no acute distress. Head: Normocephalic, atraumatic Neck: Trachea midline, Neck supple. ENT: MMM. No oropharygeal lesions or exudate. Cardiac: HR in 90's-100;s, regular, no murmurs appreciated Resp: No respiratory distress. CTAB. Abd: Soft, non-distended, nontender : No suprapubic tenderness. Extremities: No deformities. No peripheral edema. Neurologic: GCS 15. Moves all extremities freely against gravity Course Vital Signs Vital signs: Vital Signs Temperature 36.6 C 01/03/23 10:50 Pulse 105 H 01/03/23 10:50 Respiratory Rate 24 01/03/23 10:50 Blood Pressure 158/95 H 01/03/23 10:50 Pulse Oximetry 95 01/03/23 10:50 Temperature 36.6 C 01/03/23 10:50 Temperature Source Temporal Artery Scan 01/03/23 10:50 Pulse 105 H 01/03/23 10:50 Respiratory Rate 24 01/03/23 10:50 Respiratory Effort Short of Breath 01/03/23 10:54 Blood Pressure 158/95 H 01/03/23 10:50 Blood Pressure Position Supine 01/03/23 10:50 Pulse Oximetry 95 01/03/23 10:50 Oxygen Delivery Method Nasal Cannula 01/03/23 10:50 Oxygen Flow Rate 2 01/03/23 10:50 Pain Level 0 01/03/23 10:50
[2023-01-03] MEDS: Albuterol 2.5 MG/3 ML INH SOLN VIAL UPD (11:20)
[2023-01-03 11:29] LABS: Abs Immature Grans 0.03 10^3/uL (0.0-0.06); Absolute Basophil Count 0.05 10^3/uL (0.0-0.2); Absolute Eosinophil Count 0.27 10^3/uL (0.0-0.7); Absolute Lymphocyte Count 0.57 10^3/uL (1.2-3.4); Absolute Monocyte Count 0.49 10^3/uL (0.1-0.8); Absolute Neutrophil Count 2.49 10^3/uL (1.2-6.7); Basophils % 1.3; Eosinophils % 6.9; HCT 42.8 % (36.0-46.0); HGB 14.3 g/dL (11.2-15.7); Immature Grans % 0.8; Lymphocytes % 14.6; MCH 30.4 pg (27.0-33.0); MCHC 33.4 % (32.0-36.0); MCV 91 fL (80-95); MPV 10.3 fL (8.0-11.0); Monocytes % 12.6; Neutrophils % 63.8; Platelet Count 186 10^3/uL (130-400); RDW-SD 43.9 fL
[2023-01-03 11:42] LABS: PTT Activated 25.4 sec (23.6-32.8); Prothrombin Time 9.8 sec (9.1-11.1)
[2023-01-03] MEDS: Normal Saline - Diluent 50 ML VIAL IJ (11:44)
[2023-01-03] MEDS: Omnipaque 350 MG/ML 500 ML BTL-Imaging package IJ (11:45)
[2023-01-03] MEDS: Normal Saline Flush 10 ML SYR IVP (11:47)
[2023-01-03 11:51] LABS: ALT 17 U/L (14-59); AST 18 U/L (15-37); Albumin 3.8 g/dL (3.4-5.0); Alkaline Phosphatase 66 U/L (46-116); Anion Gap 9.2 mmol/L (3-11); BUN 18 mg/dL (7-18); Bilirubin, Total 0.8 mg/dL (0.2-1.0); CO2 28.8 mmol/L (21.0-32.0); CREATININE 1.1 mg/dL (0.55-1.02); Calcium 9.8 mg/dL (8.5-10.1); Chloride 104 mmol/L (98-107); Estimated GFR 51.43 (mL/min/1.73m2); Glucose 135 mg/dL (74-106); Magnesium 2.2 mg/dL (1.8-2.4); NT-proBNP 158 pg/mL (<300); Potassium 3.6 mmol/L (3.5-5.1); Sodium 142 mmol/L (136-145); Total Protein 7.3 g/dL (6.4-8.2); Troponin I < 50 ng/L (<or=60)
[2023-01-03] MEDS: Heparin 500 UNITS/5 ML SYRINGE (13:00)
== END 2023-01-03 13:00 | disposition home or self-care (01) ==
PROVIDERS: Emergency Provider Student in an Organized Health Care Education/Training Program; PCP Family Medicine
DX: R06.02 Shortness of breath (principal); C34.90 Malignant neoplasm of unspecified part of unspecified bronchus or lung; J44.9 Chronic obstructive pulmonary disease, unspecified; I10 Essential (primary) hypertension; R00.0 Tachycardia, unspecified; Z99.81 Dependence on supplemental oxygen
CPT/HCPCS: 71275; 80053; 87426; 93005; 94640; 99285; 83735; 83880; 84484; 85025; 85610; 85730; 93010; 99284; J7613

== ENCOUNTER 2023-01-10 02:02 | Outpatient (RCR) | payer MEDICARE, SELFPAY ==
[2022-11-26 00:16] VITALS: BP 138/71; PULSE 79; RESP 20; TEMP 36.7
[2023-01-03 10:40] VITALS: BP 137/77; PULSE 101; RESP 20; TEMP 36.7; O2SAT 100
[2023-01-03] MEDS: Normal Saline Flush 10 ML SYR IVP (10:46)
[2023-01-03 11:01] LABS: Abs Immature Grans 0.02 10^3/uL (0.0-0.06); Absolute Basophil Count 0.04 10^3/uL (0.0-0.2); Absolute Eosinophil Count 0.32 10^3/uL (0.0-0.7); Absolute Monocyte Count 0.48 10^3/uL (0.1-0.8); Absolute Neutrophil Count 2.74 10^3/uL (1.2-6.7); Eosinophils % 7.6; HCT 42.9 % (36.0-46.0); HGB 14.6 g/dL (11.2-15.7); Immature Grans % 0.5; Lymphocytes % 14.3; MCV 91 fL (80-95); MPV 11.1 fL (8.0-11.0); Monocytes % 11.4; Neutrophils % 65.2; Platelet Count 205 10^3/uL (130-400); RBC 4.71 10^6/uL (3.93-5.22); RDW 13.1 % (11.7-14.6); RDW-SD 44.3 fL
[2023-01-03 11:27] LABS: ALT 18 U/L (14-59); AST 21 U/L (15-37); Albumin 3.9 g/dL (3.4-5.0); Alkaline Phosphatase 67 U/L (46-116); Anion Gap 7.7 mmol/L (3-11); BUN 19 mg/dL (7-18); Bilirubin, Total 0.8 mg/dL (0.2-1.0); CO2 30.3 mmol/L (21.0-32.0); Chloride 103 mmol/L (98-107); Estimated GFR 57.66 (mL/min/1.73m2); FREE T4 1.31 ng/dL (0.76-1.46); Glucose 144 mg/dL (74-106); Potassium 3.6 mmol/L (3.5-5.1); Sodium 141 mmol/L (136-145); TSH 4.65 uIU/mL (0.36-3.74); Total Protein 7.5 g/dL (6.4-8.2)
[2023-01-10] MEDS: Normal Saline Flush 10 ML SYR IVP (09:31)
[2023-01-10 09:45] LABS: Abs Immature Grans 0.02 10^3/uL (0.0-0.06); Absolute Basophil Count 0.04 10^3/uL (0.0-0.2); Absolute Eosinophil Count 0.29 10^3/uL (0.0-0.7); Absolute Monocyte Count 0.54 10^3/uL (0.1-0.8); Absolute Neutrophil Count 2.61 10^3/uL (1.2-6.7); Basophils % 0.9; Eosinophils % 6.6; HCT 41.7 % (36.0-46.0); Immature Grans % 0.5; Lymphocytes % 20.5; MCH 30.2 pg (27.0-33.0); MCHC 33.6 % (32.0-36.0); MCV 90 fL (80-95); Monocytes % 12.3; Neutrophils % 59.2; Platelet Count 214 10^3/uL (130-400); RBC 4.64 10^6/uL (3.93-5.22); RDW 13.2 % (11.7-14.6); RDW-SD 43.3 fL
[2023-01-10 10:12] LABS: ALT 13 U/L (14-59); AST 18 U/L (15-37); Albumin 3.3 g/dL (3.4-5.0); Alkaline Phosphatase 67 U/L (46-116); BUN 15 mg/dL (7-18); Bilirubin, Total 0.7 mg/dL (0.2-1.0); Calcium 9.7 mg/dL (8.5-10.1); Chloride 106 mmol/L (98-107); Estimated GFR 57.66 (mL/min/1.73m2); FREE T4 1.22 ng/dL (0.76-1.46); Glucose 119 mg/dL (74-106); Potassium 3.2 mmol/L (3.5-5.1); Sodium 141 mmol/L (136-145); TSH 6.28 uIU/mL (0.36-3.74); Total Protein 7.4 g/dL (6.4-8.2)
== END 2023-01-25 23:59 | disposition home or self-care (01) ==
LOC: INF 02:02
PROVIDERS: PCP Family Medicine; Visit Provider Internal Medicine Hematology & Oncology
DX: C34.31 Malignant neoplasm of lower lobe, right bronchus or lung (principal); Z79.899 Other long term (current) drug therapy; C20 Malignant neoplasm of rectum; Z45.2 Encounter for adjustment and management of vascular access device
CPT/HCPCS: 36591; 80053; 84439; 84443; 85025

== ENCOUNTER 2023-01-24 10:07 | Inpatient (IN) | payer MEDICARE, SELFPAY ==
[2023-01-24] VITALS (41 sets, daily range): BP systolic 116–162; BP diastolic 46–122; PULSE 86–126; RESP 8–32; TEMP 36.7–36.9; O2SAT 90–100
--- NOTE | 2023-01-24 10:15 | RT.EKG_ITS ---
APPROVED REPORT Exam: Resting ECG Reason for Exam: SOB Patient Location: E HR:112 bpm ECG Measurements Heart Rate 112 AXIS ID 187 P 77 QRSd 84 QRS 51 QT 321 T 69 QTc 440 Conclusion Sinus tachycardia...rate> [address] depression, lateral leads...ST <-0.07mV, I aVL V5 V6 Physician: no stemi, unchanged from prior ekg on 01/03/23
--- NOTE | 2023-01-24 10:23 | W.ED.GENAD ---
Discharge Plan Disposition Patient Disposition: Admit to [facility] Discharge Details Clinical Impression: Acute hypoxic respiratory failure, Suspected pulmonary embolism, Neutropenia Primary Care Provider: Roverto Ashby ED Provider: Lev North Home Meds and New Rx's Prescriptions: No Action (DME) Oxygen Tank See Rx Instructions .Route Rx Instructions: As directed lorazepam [Ativan] 1 mg tablet 1 mg PO BID PRN (Reason: anxiety) Qty: 30 0RF budesonide 0.5 mg/2 mL suspension for nebulization 0.5 mg inhalation QAM arformoterol 15 mcg/2 mL solution for nebulization 2 ml inhalation QAM amlodipine 10 mg tablet 10 mg PO DAILY Qty: 90 3RF metoprolol succinate 50 mg tablet extended release 24 hr 50 mg PO DAILY Qty: 90 3RF furosemide [Lasix] 20 mg tablet 20 mg PO DAILY Qty: 90 3RF ipratropium-albuterol 0.5 mg-3 mg(2.5 mg base)/3 mL solution for nebulization 3 ml IH QID Qty: 720 5RF Yupelri 175 mcg/3 mL solution for nebulization 175 mcg inhalation QAM Qty: 270 3RF lorazepam 1 mg tablet 1 mg PO ONCE PRN Medical Decision Making This dictation utilizes [id number] dictation software and may contain unedited grammatical errors. 77 y/o F presents to ED today with a chief complaint of shortness of breath, cough, chills/body aches, active lung CA treatment with last chemo two weeks ago. Onset and characteristics include day 3 of respiratory illness, states a lot of post-nasal drip and chest tightness developing. Patients' medical history: Lung cancer, smoking history, GERD, oxygen dependence, hypertension, COPD, status postcholecystectomy, hx of malignant breast lesion. Family and social history: [ ]. Pertinent exam findings / vital signs include labored respirations hypoxic to the mid 80s on 2 L on arrival with significant tachypnea of 32 breaths/min and tachycardia up to 122 bpm, appears very frail and weak, mild epigastric tenderness, mentating normally. Differential / pathologies of concern include pneumonia, sepsis, neutropenic fever, hypoxemic respiratory failure, PE. Diagnostic studies of: -CBC, CMP, Lactate, Procalcitonin, Blood Cx's, Lipase, UA, D-dimer, Mg++, EKG, Trop I. Contrast studies are currently down for the rest of the day at [facility], unable to perform CTA. -WBCs 1.4 with an ANC of 750 -Lactate & Procalcitonin negative -D-dimer positive to 1100, likely due to her ongoing respiratory illness- but was tachycardic and tachypneic with hypoxia on arrival- no ability to CTA or V:Q scan until the morning -EKG / trop negative -Lipase WNL -Mg++ WNL -CXR shows infiltrate but shows improvement- patient still symptomatic Interventions of: -IV Cefepime, IV Vancomycin, placed on neutropenic precautions. ED Course: Patient with active lung cancer undergoing chemotherapy presents with postnasal drip, rhinitis, productive cough, chest x-ray has infiltrate but improving since prior study, has acute neutropenia with an ANC of 750. Elevated dimer but contrast studies are down at this time for maintenance, VQ scan is unavailable till tomorrow morning. Patient likely needs to be admitted for there infection and neutropenia with continued IV antibiotics, +/- heparinize overnight for CTA pending hospitalist consult with Dr. Cali. Patient desaturated immediately with cessation of oxygen to 89% without any ambulation whatsoever and does not use oxygen at home regularly or 18/09. Consulted with Hospitalist Dr. Cali, started heparin drip, will get CTA tomorrow. Continue IV ABX. Admitted to [facility] Disposition of Acute Hypoxemic Respiratory Failure, Neutropenia, Suspected Pulmonary Embolism. Patient & son verbalized understanding of the plan and return to ED criteria and engaged in shared decision making. Medical Records Medical records reviewed: Yes I reviewed the patient's medical records. Imaging Data Radiologic Study: Imaging: X-Ray Radiologist's impression: EXAM: XR CHEST 2V PA LATERAL CLINICAL HISTORY: cough TECHNIQUE: 2D digital imaging was performed of the chest. Two images were obtained. PA and lateral views were obtained. COMPARISON: CR XR CHEST 2V PA LATERAL from 08/04/2020 CR XR CHEST 2V PA LATERAL from 10/27/2022 FINDINGS: MEDIASTINUM: Normal. HEART: Normal. PULMONARY VASCULATURE: Normal. LUNGS: The lungs are hyperinflated consistent with underlying COPD. There is a persistent but slightly improved infiltrate in the right lower lobe. The left lung is clear. PLEURAL SPACE: The right pleural effusion has resolved. No left pleural effusion. There is no pneumothorax. BONE:Within normal limits for the patient's age. OTHER FINDINGS:The indwelling central venous catheter is stable in position. IMPRESSION: Slight improvement of the right lower lobe infiltrate and resolution of the right pleural effusion. Lab Data Labs: 01/24/23 12:12 Blood Blood Culture - Pending 01/24/23 11:36 Blood Blood Culture - Pending Laboratory Tests Range/Units 01/24/23 01/24/23 01/24/23 10:32 10:40 10:52 WBC (4.4-10.8) 10^3/uL 1.45 L* Cancelled RBC (3.93-5.22) 10^6/uL 4.24 Cancelled Hgb (11.2-15.7) g/dL 12.9 Cancelled Hct (36.0-46.0) % 37.4 Cancelled MCV (80-95) fL 88 Cancelled MCH (27.0-33.0) pg 30.4 Cancelled MCHC (32.0-36.0) % 34.5 Cancelled RDW (11.7-14.6) % 12.6 Cancelled Plt Count (130-400) 10^3/uL 135 Cancelled MPV (8.0-11.0) fL 10.7 Cancelled Immature Gran % 0.7 Cancelled Neutrophils % 51.1 Cancelled Band Neutrophils % Cancelled Lymphocytes % 24.1 Cancelled Atypical Lymphs % Cancelled Monocytes % 13.1 Cancelled Eosinophils % 10.3 Cancelled Basophils % 0.7 Cancelled Metamyelocytes % Cancelled Myelocytes % Cancelled Promyelocytes % Cancelled Other Cells % Cancelled Nucleated RBC % (0.0-0.3) % 0.0 Cancelled Absolute Neutrophils (1.2-6.7) 10^3/uL 0.74 L Cancelled Absolute Lymphocytes (1.2-3.4) 10^3/uL 0.35 L Cancelled Absolute Monocytes (0.1-0.8) 10^3/uL 0.19 Cancelled Absolute Eosinophils (0.0-0.7) 10^3/uL 0.15 Cancelled Absolute Basophils (0.0-0.2) 10^3/uL 0.01 Cancelled RBC Morphology Normal Cancelled Polychromasia Cancelled Hypochromasia Cancelled Poikilocytosis Cancelled Basophilic Stippling Cancelled Anisocytosis Cancelled Microcytosis Cancelled Macrocytosis Cancelled Spherocytes Cancelled Tear Drop Cells Cancelled Ovalocytes Cancelled Stomatocytes Cancelled Gregg[place] Bodies Cancelled Henderson Cells/Echinocytes Cancelled Acanthocytes (Spur) Cancelled Schistocytes Cancelled D-Dimer (<500) ng/mlFEU 1140 H VBG Lactate (0.6-1.4) mmol/L 1.3 Sodium (136-145) mmol/L 143 Cancelled Potassium (3.5-5.1) mmol/L 3.3 L Cancelled Chloride (98-107) mmol/L 105 Cancelled Carbon Dioxide (21.0-32.0) mmol/L 28.9 Cancelled Anion Gap (3-11) mmol/L 9.1 Cancelled BUN (7-18) mg/dL 15 Cancelled Creatinine (0.55-1.02) mg/dL 1.0 Cancelled Est GFR (CKD-EPI 2020) (mL/min/1.73m2) 57.66 Cancelled Glucose (74-106) mg/dL 114 H Cancelled Calcium (8.5-10.1) mg/dL 9.7 Cancelled Magnesium (1.8-2.4) mg/dL 1.9 Cancelled Total Bilirubin (0.2-1.0) mg/dL 0.5 Cancelled AST (15-37) U/L 25 Cancelled ALT (14-59) U/L 19 Cancelled Alkaline Phosphatase (46-116) U/L 93 Cancelled Troponin I (<or=60) ng/L < 50 Cancelled NT-Pro-B Natriuret Pep (<300) pg/mL 245 Total Protein (6.4-8.2) g/dL 7.5 Cancelled Albumin (3.4-5.0) g/dL 3.7 Cancelled Lipase (16-77) U/L 34 Procalcitonin ng/mL 0.1 Urine Color (Yellow) Urine Clarity (Clear) Urine pH (5-8) Ur Specific Brush (1.005-1.025) Urine Protein (Negative) mg/dL Urine Ketones (Negative) mg/dL Urine Blood (Negative) Urine Nitrite (Negative) Urine Bilirubin (Negative) Urine Urobilinogen (Up to 0.2) mg/dL Ur Leukocyte Esterase (Negative) Urine Glucose (Negative) mg/dL COVID-19 Source Nasopharynx SARS-CoV-2 (PCR) (Negative) Negative Influenza Type A (PCR) (Negative) Negative Influenza Type B (PCR) (Negative) Negative RSV (PCR) (Negative) Negative Range/Units 01/24/23 01/24/23 11:40 13:52 WBC (4.4-10.8) 10^3/uL RBC (3.93-5.22) 10^6/uL Hgb (11.2-15.7) g/dL Hct (36.0-46.0) % MCV (80-95) fL MCH (27.0-33.0) pg MCHC (32.0-36.0) % RDW (11.7-14.6) % Plt Count (130-400) 10^3/uL MPV (8.0-11.0) fL Immature Gran % Neutrophils % Band Neutrophils % Lymphocytes % Atypical Lymphs % Monocytes % Eosinophils % Basophils % Metamyelocytes % Myelocytes % Promyelocytes % Other Cells % Nucleated RBC % (0.0-0.3) % Absolute Neutrophils (1.2-6.7) 10^3/uL Absolute Lymphocytes (1.2-3.4) 10^3/uL Absolute Monocytes (0.1-0.8) 10^3/uL Absolute Eosinophils (0.0-0.7) 10^3/uL Absolute Basophils (0.0-0.2) 10^3/uL RBC Morphology Polychromasia Hypochromasia Poikilocytosis Basophilic Stippling Anisocytosis Microcytosis Macrocytosis Spherocytes Tear Drop Cells Ovalocytes Stomatocytes [place] Bodies Henderson Cells/Echinocytes Acanthocytes (Spur) Schistocytes D-Dimer (<500) ng/mlFEU VBG Lactate (0.6-1.4) mmol/L Sodium (136-145) mmol/L Potassium (3.5-5.1) mmol/L Chloride (98-107) mmol/L Carbon Dioxide (21.0-32.0) mmol/L Anion Gap (3-11) mmol/L BUN (7-18) mg/dL Creatinine (0.55-1.02) mg/dL Est GFR (CKD-EPI 2020) (mL/min/1.73m2) Glucose (74-106) mg/dL Calcium (8.5-10.1) mg/dL Magnesium (1.8-2.4) mg/dL Total Bilirubin (0.2-1.0) mg/dL AST (15-37) U/L ALT (14-59) U/L Alkaline Phosphatase (46-116) U/L Troponin I (<or=60) ng/L Cancelled NT-Pro-B Natriuret Pep (<300) pg/mL Total Protein (6.4-8.2) g/dL Albumin (3.4-5.0) g/dL Lipase (16-77) U/L Procalcitonin ng/mL Urine Color (Yellow) Yellow Urine Clarity (Clear) Clear Urine pH (5-8) 5.5 Ur Specific Brush (1.005-1.025) 1.010 Urine Protein (Negative) mg/dL Negative Urine Ketones (Negative) mg/dL Negative Urine Blood (Negative) Negative Urine Nitrite (Negative) Negative Urine Bilirubin (Negative) Negative Urine Urobilinogen (Up to 0.2) mg/dL 0.2 Ur Leukocyte Esterase (Negative) Negative Urine Glucose (Negative) mg/dL Negative COVID-19 Source SARS-CoV-2 (PCR) (Negative) Influenza Type A (PCR) (Negative) Influenza Type B (PCR) (Negative) RSV (PCR) (Negative) HPI General Date/Time Provider Initiated Documentation: 01/24/23 10:23. HPI Narrative: 77 year-old female, undergoing active chemo for lung CA, presents to ED today by POV/ambulating with her son with a chief complaint of productive cough, shortness of breath, hypoxic at 80%'s on 2L on arrival, last chemo two weeks ago, with onset starting Sunday (day 3). Quality described as coughing, body aches, no radiation to fever, nausea/vomiting, endorses feeling weak, endorses chills without overt fever, endorses chest tightness. Severity is described as 6-7/10. Palliating factors include has home-O2 PRN, doesn't use it at baseline, but son states she probably should be on O2 24/7. Provoking factors include nothing specific. Events leading up to the incident/Associated Symptoms: [ ]. Patient not anticoagulated. Related Data Home Medications Medication Instructions Recorded Confirmed ipratropium 0.5 mg-albuterol 3 mg 3 ml inhalation QID wheezing/ 06/15/21 01/24/23 (2.5 mg base)/3 mL nebulization J44.9 #720 mL soln Oxygen 11/14/21 01/24/23 amlodipine 10 mg tablet 10 mg PO DAILY #90 tabs 03/22/22 01/24/23 arformoterol 15 mcg/2 mL solution 2 ml inhalation QAM 03/22/22 01/24/23 for nebulization budesonide 0.5 mg/2 mL suspension 0.5 mg inhalation QAM 03/22/22 01/24/23 for nebulization furosemide 20 mg tablet (Lasix) 20 mg PO DAILY #90 tab-caps 03/22/22 01/24/23 metoprolol succinate 50 mg 50 mg PO DAILY #90 tabs 03/22/22 01/24/23 tablet,extended release 24 hr revefenacin 175 mcg/3 mL solution 175 mcg (3 mL) inhalation QAM #270 05/03/22 01/24/23 for nebulization (Yupelri) mL lorazepam 1 mg tablet (Ativan) 1 mg PO BID PRN anxiety #30 tabs 12/06/22 01/04/23 lorazepam 1 mg tablet 1 mg PO ONCE PRN 01/03/23 01/24/23 Previous Rx's Medication Instructions Recorded ipratropium 0.5 mg-albuterol 3 mg 3 ml inhalation QID wheezing/ 06/15/21 (2.5 mg base)/3 mL nebulization J44.9 #720 mL soln amlodipine 10 mg tablet 10 mg PO DAILY #90 tabs 03/22/22 furosemide 20 mg tablet (Lasix) 20 mg PO DAILY #90 tab-caps 03/22/22 metoprolol succinate 50 mg 50 mg PO DAILY #90 tabs 03/22/22 tablet,extended release 24 hr revefenacin 175 mcg/3 mL solution 175 mcg (3 mL) inhalation QAM #270 05/03/22 for nebulization (Yupelri) mL lorazepam 1 mg tablet (Ativan) 1 mg PO BID PRN anxiety #30 tabs 12/06/22 Allergies Allergy/AdvReac Type Severity Reaction Status Date / Time lisinopril Allergy CAN'T Verified 01/24/23 10:19 REMEMBER Sulfa (Sulfonamide Allergy ? RASH Verified 01/24/23 10:19 Antibiotics) tiotropium bromide AdvReac Intermediate Chest Verified 01/24/23 10:19 [From Spiriva with tightness HandiHaler] and shakiness anastrozole AdvReac COUGH Verified 01/24/23 10:19 losartan AdvReac TACHYCARDIA Verified 01/24/23 10:19 Penicillins AdvReac Verified 01/24/23 10:19 General Stated Complaint: SOB FELIBERTO: 3 Review of Systems All systems reviewed & are unremarkable except as noted in HPI and below PFSH All Active Problems (Updated 01/24/23 @ 15:05 by OMAR Foreman) Neutropenia (Acute) Suspected pulmonary embolism (Acute) Acute hypoxic respiratory failure (Acute) Breath shortness (Acute) Hypokalemia (Acute) COPD exacerbation (Acute) Chronic obstructive lung disease (Acute) severe; PFT's 12/2020-PRN use of oxygen-2 L/min Essential hypertension (Acute 12/26/12) Polyp of colon (Acute) 11/05/12 tubovillous 10/04; adenoma 11/0802/07/17: 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 Patient advised not to drive Abnormal CT scan, chest 2018, persistent right lower lobe infiltrate 2020-persistent infiltrate nodule in right lower lobe. 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 ([facility] [place]) S/P lumpectomy and radiation, no hormonal tx Family history of colon cancer sister-in her 60's Dermatitis, unspecified (11/17/15) Depressive disorder Calcific tendinitis of shoulder (12/23/12) Anxiety and depression Neoplasm of breast Oxygen dependent Anxiety Essential hypertension COPD with exacerbation Surgical History Status post breast biopsy Status post breast lumpectomy Status post cholecystectomy Colonoscopy - MAC (04/11/17) Colonoscopy - MAC (02/07/17) Colonoscopy - MAC (11/05/12) Cholecystectomy (~05/2010) Breast, Lumpectomy left breast lumpectomy and radiation Biopsy of breast RIGHT X 2 Social History Smoking/Tobacco Use Status: Former Tobacco Use Smoking risk assessment performed?: Yes Alcohol Intake: never Drug use: Never Substance use type: does not use Housing: house Do you feel safe at home: Yes Do you feel safe in your relationship?: Yes Additional Social history: lives alone Exam Narrative Exam Narrative: GENERAL APPEARANCE: Mal-nourished, toxic, awake and alert, atraumatic, mild acute distress. SKIN: Warm, pale, dry, intact, without rashes/lesions/ulcerations. HEAD: Normocephalic, atraumatic, normal hair distribution for gender/age. EYES: Pupils PERRLA, EOMs intact without nystagmus, normal conjunctiva, no exudates on lids/lashes. ENT: Nares patent, no circumoral cyanosis, no facial swelling NECK: Supple, trachea midline, painless cervical ROM. LUNGS/CHEST: Lungs auscultated coarse rhonchi, poor air movement in bases, labored respirations, normal A/P diameter, symmetrical expansion, no chest wall deformity HEART (CV/PV): Regular rate and rhythm without murmur, no peripheral edema, no JVD. ABDOMEN: Soft, non-distended, no guarding, mild epigastric tenderness without peritoneal signs. MSK: Normal ROM, no swelling/deformity to bilateral UEs or LEs, moving all extremities without weakness, no cyanosis, spine midline without tenderness, normal curvature. NEURO: Mental Status AAOx4 - alert to person, place, time, events No facial droop, no forehead involvement. Motor: No focal weakness - strength 5/5 in bilateral UEs and LEs, proximal and distal, symmetric. Sensory: sensation intact to light touch globally. Gait normal: patient ambulated without ataxia into ED room. PSYCH: euthymic, cooperative, pleasant, appropriate speech Course Vital Signs Vital signs: Vital Signs Temperature 36.7 C 01/24/23 10:12 Pulse 122 H 01/24/23 10:12 Respiratory Rate 22 01/24/23 10:12 Blood Pressure 152/122 H 01/24/23 10:12 Pulse Oximetry 91 L 01/24/23 10:12 Temperature 36.7 C 01/24/23 10:12 Pulse 122 H 01/24/23 10:12 Respiratory Rate 22 01/24/23 10:17 Respiratory Effort Short of Breath 01/24/23 10:17 Respiratory Depth Shallow 01/24/23 10:17 Respiratory Pattern Normal 01/24/23 10:17 Blood Pressure 152/122 H 01/24/23 10:12 Blood Pressure Position Sitting 01/24/23 10:12 Pulse Oximetry 91 L 01/24/23 10:12 Oxygen Delivery Method Nasal Cannula 01/24/23 10:12 Oxygen Flow Rate 3 01/24/23 10:12
[2023-01-24 10:56] LABS: Lactate 1.3 mmol/L (0.6-1.4)
[2023-01-24 11:00] LABS: Abs Immature Grans 0.01 10^3/uL (0.0-0.06); Absolute Basophil Count 0.01 10^3/uL (0.0-0.2); Absolute Eosinophil Count 0.15 10^3/uL (0.0-0.7); Absolute Lymphocyte Count 0.35 10^3/uL (1.2-3.4); Absolute Monocyte Count 0.19 10^3/uL (0.1-0.8); Absolute Neutrophil Count 0.74 10^3/uL (1.2-6.7); Basophils % 0.7; Eosinophils % 10.3; HCT 37.4 % (36.0-46.0); HGB 12.9 g/dL (11.2-15.7); Immature Grans % 0.7; Lymphocytes % 24.1; MCH 30.4 pg (27.0-33.0); MCHC 34.5 % (32.0-36.0); MCV 88 fL (80-95); MPV 10.7 fL (8.0-11.0); Monocytes % 13.1; Neutrophils % 51.1; Platelet Count 135 10^3/uL (130-400); RBC 4.24 10^6/uL (3.93-5.22); RDW 12.6 % (11.7-14.6); RDW-SD 39.8 fL
[2023-01-24 11:05] LABS: WBC 1.45 10^3/uL (4.4-10.8)
[2023-01-24] MEDS: CEFEPIME 1 GM in Normal Saline 50 ML IVPB ×2 (11:09→21:55)
[2023-01-24 11:17] LABS: COVID-19 PCR Negative (Negative); Influenza A PCR Negative (Negative); Influenza B PCR Negative (Negative); RSV PCR Negative (Negative)
[2023-01-24 11:18] LABS: Source Nasopharynx
[2023-01-24 11:21] LABS: Diff Comment Agrees w/ Instrument; RBC Morphology Normal
[2023-01-24 11:30] LABS: ALT 19 U/L (14-59); AST 25 U/L (15-37); Albumin 3.7 g/dL (3.4-5.0); Alkaline Phosphatase 93 U/L (46-116); Anion Gap 9.1 mmol/L (3-11); BUN 15 mg/dL (7-18); Bilirubin, Total 0.5 mg/dL (0.2-1.0); CO2 28.9 mmol/L (21.0-32.0); Calcium 9.7 mg/dL (8.5-10.1); Chloride 105 mmol/L (98-107); Estimated GFR 57.66 (mL/min/1.73m2); Glucose 114 mg/dL (74-106); Magnesium 1.9 mg/dL (1.8-2.4); NT-proBNP 245 pg/mL (<300); Potassium 3.3 mmol/L (3.5-5.1); Sodium 143 mmol/L (136-145); Total Protein 7.5 g/dL (6.4-8.2); Troponin I < 50 ng/L (<or=60)
[2023-01-24] MEDS: VANCOMYCIN/WATER (PEG) 1 GM/200 ML BAG IV (11:34)
[2023-01-24] MEDS: Albuterol/Ipratropium 3 ML UPD VIAL UPD (11:34)
[2023-01-24 11:39] LABS: Procalcitonin 0.1 ng/mL
[2023-01-24 11:47] LABS: Bilirubin Negative (Negative); Blood Negative (Negative); Clarity Clear (Clear); Glucose Negative (Negative); Ketones Negative (Negative); Leukocyte Esterase Negative (Negative); Nitrite Negative (Negative); Urobilinogen 0.2 mg/dL (Up to 0.2); pH 5.5 (5-8)
[2023-01-24 11:56] LABS: Lipase 34 U/L (16-77)
[2023-01-24 12:21] LABS: D-Dimer 1140 ng/mlFEU (<500)
--- NOTE | 2023-01-24 13:30 | DI.RAD_ITS ---
Exam(s) XR CHEST 2V PA LATERAL EXAM: XR CHEST 2V PA LATERAL CLINICAL HISTORY: cough TECHNIQUE: 2D digital imaging was performed of the chest. Two images were obtained. PA and lateral views were obtained. COMPARISON: CR XR CHEST 2V PA LATERAL from 08/04/2020 CR XR CHEST 2V PA LATERAL from 10/27/2022 FINDINGS: MEDIASTINUM: Normal. HEART: Normal. PULMONARY VASCULATURE: Normal. LUNGS: The lungs are hyperinflated consistent with underlying COPD. There is a persistent but slight ly improved infiltrate in the right lower lobe. The left lung is clear. PLEURAL SPACE: The right pleural effusion has resolved. No left pleural effusion. There is no pneum othorax. BONE:Within normal limits for the patient's age. OTHER FINDINGS:The indwelling central venous catheter is stable in position. IMPRESSION: Slight improvement of the right lower lobe infiltrate and resolution of the right pleural effusion. DATA REPOSITORY: RADIATION DOSE DELIVERED:
--- NOTE | 2023-01-24 15:03 | HPE_ITS ---
Date of service: 01/24/23 Time of Service: 15:03 Assessment and Plan Assessment and plan (1) Acute hypoxic respiratory failure: Status: Acute Assessment and plan: - Patient normally requires intermittent oxygen at home usually after exertion -Has required up to 3 L nasal cannula in the emergency department, currently requiring 2 L -This is likely secondary to nodule combination of pneumonia and suspected PE -Wean O2 as tolerated (2) Suspected pulmonary embolism: Status: Acute Assessment and plan: - Given the patient's sudden onset of shortness of breath, new persistent hypoxia requiring supplemental oxygen, and tachycardia, she suspected that she has a pulmonary embolus -D-dimer was not done given that it is likely elevated in the setting of the patient's neutropenia and cancer -Additionally, contrasted CT studies are unavailable at this facility at this time -Therefore, patient has been started on heparin drip for presumed PE -If CT machine is fixed during patient's hospitalization will obtain PE in order to determine whether or not patient will require anticoagulation at discharge (3) Neutropenia: Status: Acute Assessment and plan: - White blood cell count 1.4 with ANC of 0.74 -Neutropenic precautions -Follow-up a.m. CBC (4) Essential hypertension: Status: Acute Assessment and plan: - Holding home amlodipine, Lasix, Toprol-XL as patient's blood pressure is low normal (5) Chronic obstructive lung disease: Status: Acute Assessment and plan: - Without acute exacerbation as patient does not sound wheezy -We will continue home regimen of daily inhalers and as needed albuterol Qualifiers: COPD type: unspecified COPD Qualified Code(s): J44.9 - Chronic obstructive pulmonary disease, unspecified (6) Rectal cancer: Status: Acute (7) Lung cancer: Status: Chronic History of Present Illness History of Present Illness Chief Complaint: Shortness of breath Narrative: 78-year-old female with past medical history of T3c, N0, M0 rectal cancer and adenocarcinoma of the right lower lobe, COPD, hypertension, presents emergency department with shortness of breath, cough, chills and body aches. Patient states that over the last 3 days she has had a respiratory illness including a postnasal drip chest tightness with shortness of breath. She states that she had her last chemo treatment 2 weeks ago. She denies any lightheadedness, dizziness, nausea, vomiting, shortness of breath. In the emergency department she was noted to be tachycardic with heart rate of 113, blood pressure was 141/54, respiratory rate of 23, and a pulse ox of 90% on 2 L nasal cannula. CBC showed a white blood cell count of 1.45 with an ANC of 0.74. CMP and UA were unremarkable. Chest x-ray was performed and showed slight improvement of the right lower lobe infiltrate and resolution of the right pleural effusion. However, while PE was considered, contrasted CT studies are not currently available at this facility. At which time emergency room PA paged hospitalist for admission for patient with acute hypoxic respiratory failure, neutropenia, and presumed PE requiring heparin drip. Review of Systems All systems reviewed & are unremarkable except as noted in HPI and below PFSH All Active Problems (Updated 01/24/23 @ 16:00 by Gallo Cali MD) Lung cancer (Chronic) Neutropenia (Acute) Suspected pulmonary embolism (Acute) Acute hypoxic respiratory failure (Acute) Breath shortness (Acute) Hypokalemia (Acute) COPD exacerbation (Acute) Chronic obstructive lung disease (Acute) severe; PFT's 12/2020-PRN use of oxygen-2 L/min Essential hypertension (Acute 12/26/12) Polyp of colon (Acute) 11/05/12 tubovillous 10/04; adenoma 11/0802/07/17: Villous Adenoma 04/11/17: mixed tubulovillous adenoma/traditional serrated adenoma, CDanielson Rectal cancer (Acute) Rectal mass (Acute) Hearing decreased (Acute) Tremor (Acute) Abnormal weight loss (Acute) Medical History (Updated 01/24/23 @ 16:00 by Gallo Cali MD) Hyperglycemia Vision loss 12/2020, poor vision both eyes-20-200 bilaterally MyChart. Patient advised not to drive Abnormal CT scan, chest 2018, persistent right lower lobe infiltrate 2020-persistent infiltrate nodule in right lower lobe. As of 01/2021 patient declines follow-up or repeat CT Pedal edema Gastroesophageal reflux disease Smoker Quit about 2014, about a [id number] history of smoking Tubular adenoma (04/11/17) Social isolation (07/13/16) Malignant neoplasm of female breast (07/26/11) Stage 1 left breast: invasive [place] [place] S/P lumpectomy and radiation, no hormonal tx Family history of colon cancer sister-in her 60's Dermatitis, unspecified (11/17/15) Depressive disorder Calcific tendinitis of shoulder (12/23/12) Anxiety and depression Neoplasm of breast Oxygen dependent Anxiety Essential hypertension COPD with exacerbation Surgical History Status post breast biopsy Status post breast lumpectomy Status post cholecystectomy Colonoscopy - MAC (04/11/17) Colonoscopy - MAC (02/07/17) Colonoscopy - MAC (11/05/12) Cholecystectomy (~05/2010) Breast, Lumpectomy left breast lumpectomy and radiation Biopsy of breast RIGHT X 2 Social History Smoking/Tobacco Use Status: Former Tobacco Use Smoking risk assessment performed?: Yes Alcohol Intake: never Drug use: Never Substance use type: does not use Housing: house Do you feel safe at home: Yes Do you feel safe in your relationship?: Yes Additional Social history: lives alone Meds Allergies and Home Medications Allergies Allergy/AdvReac Type Severity Reaction Status Date / Time lisinopril Allergy CAN'T Verified 01/24/23 10:19 REMEMBER Sulfa (Sulfonamide Allergy ? RASH Verified 01/24/23 10:19 Antibiotics) tiotropium bromide AdvReac Intermediate Chest Verified 01/24/23 10:19 [From Spiriva with tightness HandiHaler] and shakiness anastrozole AdvReac COUGH Verified 01/24/23 10:19 losartan AdvReac TACHYCARDIA Verified 01/24/23 10:19 Penicillins AdvReac Verified 01/24/23 10:19 Home Medications Medication Instructions Recorded Confirmed Type ipratropium 0.5 mg-albuterol 3 mg 3 ml inhalation QID wheezing/ 06/15/21 01/24/23 Rx (2.5 mg base)/3 mL nebulization J44.9 #720 mL soln Oxygen 11/14/21 01/24/23 History amlodipine 10 mg tablet 10 mg PO DAILY #90 tabs 03/22/22 01/24/23 Rx arformoterol 15 mcg/2 mL solution 2 ml inhalation QAM 03/22/22 01/24/23 History for nebulization budesonide 0.5 mg/2 mL suspension 0.5 mg inhalation QAM 03/22/22 01/24/23 History for nebulization furosemide 20 mg tablet (Lasix) 20 mg PO DAILY #90 tab-caps 03/22/22 01/24/23 Rx metoprolol succinate 50 mg 50 mg PO DAILY #90 tabs 03/22/22 01/24/23 Rx tablet,extended release 24 hr revefenacin 175 mcg/3 mL solution 175 mcg (3 mL) inhalation QAM #270 05/03/22 01/24/23 Rx for nebulization (Yupelri) mL lorazepam 1 mg tablet (Ativan) 1 mg PO BID PRN anxiety #30 tabs 12/06/22 01/04/23 Rx lorazepam 1 mg tablet 1 mg PO ONCE PRN 01/03/23 01/24/23 History Exam Narrative Exam Narrative: Elderly female laying in bed, and mild respiratory distress and needed a breathing treatment, A&Ox4, heart regular rate and rhythm, lungs minimal diffuse expiratory wheezing, abdomen soft, nontender nondistended Results Labs 01/24/23 10:40 01/24/23 10:40 Labs: Laboratory Results - last 24 hr 01/24/23 01/24/23 01/24/23 10:32 10:40 10:52 WBC 1.45 L* Cancelled RBC 4.24 Cancelled Hgb 12.9 Cancelled Hct 37.4 Cancelled MCV 88 Cancelled MCH 30.4 Cancelled MCHC 34.5 Cancelled RDW 12.6 Cancelled Plt Count 135 Cancelled MPV 10.7 Cancelled Immature Gran % 0.7 Cancelled Neutrophils % 51.1 Cancelled Band Neutrophils % Cancelled Lymphocytes % 24.1 Cancelled Atypical Lymphs % Cancelled Monocytes % 13.1 Cancelled Eosinophils % 10.3 Cancelled Basophils % 0.7 Cancelled Metamyelocytes % Cancelled Myelocytes % Cancelled Promyelocytes % Cancelled Other Cells % Cancelled Nucleated RBC % 0.0 Cancelled Absolute Neutrophils 0.74 L Cancelled Absolute Lymphocytes 0.35 L Cancelled Absolute Monocytes 0.19 Cancelled Absolute Eosinophils 0.15 Cancelled Absolute Basophils 0.01 Cancelled RBC Morphology Normal Cancelled Polychromasia Cancelled Hypochromasia Cancelled Poikilocytosis Cancelled Basophilic Stippling Cancelled Anisocytosis Cancelled Microcytosis Cancelled Macrocytosis Cancelled Spherocytes Cancelled Tear Drop Cells Cancelled Ovalocytes Cancelled Stomatocytes Cancelled [place]gg[place] Horse Bodies Cancelled [place] Cells/Echinocytes Cancelled Acanthocytes (Spur) Cancelled Schistocytes Cancelled D-Dimer 1140 H VBG Lactate 1.3 Sodium 143 Cancelled Potassium 3.3 L Cancelled Chloride 105 Cancelled Carbon Dioxide 28.9 Cancelled Anion Gap 9.1 Cancelled BUN 15 Cancelled Creatinine 1.0 Cancelled Est GFR (CKD-EPI 2020) 57.66 Cancelled Glucose 114 H Cancelled Calcium 9.7 Cancelled Magnesium 1.9 Cancelled Total Bilirubin 0.5 Cancelled AST 25 Cancelled ALT 19 Cancelled Alkaline Phosphatase 93 Cancelled Troponin I < 50 Cancelled NT-Pro-B Natriuret Pep 245 Total Protein 7.5 Cancelled Albumin 3.7 Cancelled Lipase 34 Procalcitonin 0.1 Urine Color Urine Clarity Urine pH Ur Specific [place] Urine Protein Urine Ketones Urine Blood Urine Nitrite Urine Bilirubin Urine Urobilinogen Ur Leukocyte Esterase Urine Glucose COVID-19 Source Nasopharynx SARS-CoV-2 (PCR) Negative Influenza Type A (PCR) Negative Influenza Type B (PCR) Negative RSV (PCR) Negative 01/24/23 01/24/23 11:40 13:52 WBC RBC Hgb Hct MCV MCH MCHC RDW Plt Count MPV Immature Gran % Neutrophils % Band Neutrophils % Lymphocytes % Atypical Lymphs % Monocytes % Eosinophils % Basophils % Metamyelocytes % Myelocytes % Promyelocytes % Other Cells % Nucleated RBC % Absolute Neutrophils Absolute Lymphocytes Absolute Monocytes Absolute Eosinophils Absolute Basophils RBC Morphology Polychromasia Hypochromasia Poikilocytosis Basophilic Stippling Anisocytosis Microcytosis Macrocytosis Spherocytes Tear Drop Cells Ovalocytes Stomatocytes Gregg-Hungry Horse Bodies Sara Cells/Echinocytes Acanthocytes (Spur) Schistocytes D-Dimer VBG Lactate Sodium Potassium Chloride Carbon Dioxide Anion Gap BUN Creatinine Est GFR (CKD-EPI 2020) Glucose Calcium Magnesium Total Bilirubin AST ALT Alkaline Phosphatase Troponin I Cancelled NT-Pro-B Natriuret Pep Total Protein Albumin Lipase Procalcitonin Urine Color Yellow Urine Clarity Clear Urine pH 5.5 Ur Specific [place] 1.010 Urine Protein Negative Urine Ketones Negative Urine Blood Negative Urine Nitrite Negative Urine Bilirubin Negative Urine Urobilinogen 0.2 Ur Leukocyte Esterase Negative Urine Glucose Negative COVID-19 Source SARS-CoV-2 (PCR) Influenza Type A (PCR) Influenza Type B (PCR) RSV (PCR) Last Vital Signs Temp 98.0 F 01/24/23 10:12 Pulse 89 01/24/23 14:31 Resp 23 01/24/23 14:40 BP 118/65 01/24/23 14:31 Pulse Ox 96 01/24/23 14:40 Time Spent Time spent with Patient: >75 minutes Time was spent: preparing to see the patient(eg.review tests), obtaining and/or reviewing separately otained hiistory, referring, communicating with other health point of care specialist, indepentently interpreting results, counseling the patient and care coordination
[2023-01-24] MEDS: Heparin in 0.45% NaCl 25,000 UNIT/250 ML BAG 10 UNIT IV ×2 (15:18→18:56)
[2023-01-24 15:26] LABS: PTT Activated 25.4 sec (23.6-32.8); Prothrombin Time 9.9 sec (9.1-11.1)
[2023-01-24] MEDS: Albuterol 2.5 MG/3 ML INH SOLN VIAL UPD ×2 (19:02→21:54)
[2023-01-24] MEDS: LORazepam 1 MG TAB PO (20:30)
[2023-01-24 21:46] LABS: Lactate 1.4 mmol/L (0.6-1.4)
[2023-01-24 22:12] LABS: PTT Activated 82.7 sec (23.6-32.8)
[2023-01-25] VITALS (13 sets, daily range): BP systolic 114–133; BP diastolic 8–78; PULSE 95–108; RESP 5–24; TEMP 36.4–36.9; O2SAT 90–97
[2023-01-25] MEDS: Albuterol 2.5 MG/3 ML INH SOLN VIAL UPD ×3 (01:56→04:13)
[2023-01-25] MEDS: VANCOMYCIN/WATER (PEG) 750 MG/150 ML BAG 150 MG IV (04:35)
[2023-01-25 05:28] LABS: HGB 11.2 g/dL (11.2-15.7); MCH 30.3 pg (27.0-33.0); MCHC 33.9 % (32.0-36.0); MCV 89 fL (80-95); MPV 10.6 fL (8.0-11.0); Platelet Count 131 10^3/uL (130-400); RDW 12.8 % (11.7-14.6); RDW-SD 40.9 fL
[2023-01-25 05:38] LABS: Anion Gap 7.6 mmol/L (3-11); BUN 10 mg/dL (7-18); CO2 29.4 mmol/L (21.0-32.0); CREATININE 0.8 mg/dL (0.55-1.02); Calcium 8.8 mg/dL (8.5-10.1); Chloride 108 mmol/L (98-107); Estimated GFR 75.37 (mL/min/1.73m2); Glucose 99 mg/dL (74-106); Magnesium 1.7 mg/dL (1.8-2.4); Potassium 3.1 mmol/L (3.5-5.1); Sodium 145 mmol/L (136-145)
[2023-01-25 05:40] LABS: WBC 1.04 10^3/uL (4.4-10.8)
[2023-01-25 05:45] LABS: PTT Activated 81.3 sec (23.6-32.8)
[2023-01-25] MEDS: CEFEPIME 1 GM in Normal Saline 50 ML IVPB ×3 (06:41→22:01)
[2023-01-25 07:50] LABS: Lab Add On Test DONE
[2023-01-25] MEDS: Budesonide 0.5 MG/2 ML UPD VIAL IH (07:59)
[2023-01-25 08:04] LABS: Neutrophils % 43.7
[2023-01-25 08:05] LABS: Absolute Basophil Count 0.01 10^3/uL (0.0-0.2); Absolute Monocyte Count 0.17 10^3/uL (0.1-0.8); Lymphocytes % 29.1; Monocytes % 16.5
[2023-01-25 08:06] LABS: Absolute Eosinophil Count 0.09 10^3/uL (0.0-0.7); Eosinophils % 8.7
[2023-01-25 08:07] LABS: Absolute Neutrophil Count 0.45 10^3/uL (1.2-6.7); Diff Comment Diff Reviewed; RBC Morphology Normal
[2023-01-25] MEDS: Omnipaque 350 MG/ML 500 ML BTL-Imaging package 60 ML IJ (08:32)
[2023-01-25] MEDS: Normal Saline - Diluent 50 ML VIAL IJ (08:34)
--- NOTE | 2023-01-25 08:40 | DI.CT_ITS ---
Exam(s) CT CHEST PE CTA EXAM: CT CHEST PE CTA CLINICAL HISTORY: CA, sudden SOB, hypoxic, on heparin. TECHNIQUE: Imaging Protocol: CT angiography of the chest was performed using pulmonary embolus ruy col. Multi planar reconstructions were performed. CONTRAST MATERIAL: Intravenous: Omnipaque 350 Contrast volume: 100 cc COMPARISON: CT CT CHEST PE CTA from 08/19/[address] ABDOMEN PELVIS W from 04/12/[address] CHEST PE CTA from 01/03/2023 CR XR CHEST 2V PA LATERAL from 01/24/2023 FINDINGS: CHEST: Distal tip of the right-sided Port-A-Cath is in the right atrium. PULMONARY ARTERIES: There are no intraluminal filling defects in the right lung to suggest acute pulm onary emboli.On the left side there is abnormal appearing vasculature in the lower lobe pulmonary art eries abnormal tapering and intraluminal filling defects, consistent with pulmonary emboli but possib ly not acute. However, somewhat more visible than on the prior recent study of 01/03/2023. LUNGS: COPD findings again noted. There is no evidence of infiltrate nor infarct in the left lower l obe a given the above findings in left lower lobe pulmonary arteries.. There is a large infiltrate i nvolving all segments of the right lower lobe but without intraluminal filling defects. No improveme nt in the size of this infiltrate when compared to 01/03/2023. No associated pleural effusion. Righ t upper and right middle lobes remain clear. MEDIASTINUM: There is no hilar nor mediastinal adenopathy. No subcarinal adenopathy. CARDIAC: Heart size is upper normal. There is no pericardial effusion.Diameter of the thoracic aorta is upper normal. No dissection. There is no significant shift of the interventricular septum. PARTIALLY VISUALIZED UPPERMOST ABDOMEN: Previous cholecystectomy. Hepatic steatosis. Partially incl uded benign-appearing left kidney cysts which is not require follow-up. OSSEOUS: No significant osseous lesions.No fractures.. IMPRESSION: 1. There is no improvement in the right lower lobe infiltrate.. There is no associated pleural effus ion. No adenopathy. 2. There is no evidence of pulmonary embolus on the right side. However, there are abnormal appearin g left lower lobe pulmonary arteries which appear abnormally tapered and contain intraluminal filling defects suspicious for pulmonary emboli, possibly not acute. There is no evidence of infarct, infil trate, or pleural effusion on the left side. 3. No evidence of obvious right heart strain. 4. No evidence of aortic dissection nor pericardial effusion. RADIATION DOSE DELIVERED: Total DLP DATA REPOSITORY: All CT scans at this facility are submitted to the National Radiology Data Registry (NRDR) Dose Index Registry (DIR) with the [employer] (ACR). RADIATION OPTIMIZATION: All CT scans at this facility use at least one of these dose optimization te chniques: automated exposure control; mA and/or kV adjustment per patient size (includes targeted exa ms where dose is matched to clinical indication); or iterative reconstruction.
[2023-01-25] MEDS: LORazepam 1 MG TAB PO (09:18)
[2023-01-25] MEDS: Normal Saline Flush 10 ML SYR IVP ×2 (09:18→11:08)
[2023-01-25] MEDS: methylPREDNISolone SUCC 125 MG VIAL IVP (11:09)
--- NOTE | 2023-01-25 11:27 | W.PM.PROGNOT ---
Date of Service Date of service: 01/25/23 Time of Service: 11:27 Assessment and Plan Assessment and plan (1) Acute hypoxic respiratory failure: Status: Acute Assessment and plan: - Patient normally requires intermittent oxygen at home usually after exertion -Has required up to 3 L nasal cannula in the emergency department, currently requiring 2 L -This is likely secondary to nodule combination of pneumonia and suspected PE, and now COPD exacerbation as noted below -Wean O2 as tolerated (2) Suspected pulmonary embolism: Status: Acute Assessment and plan: - Given the patient's sudden onset of shortness of breath, new persistent hypoxia requiring supplemental oxygen, and tachycardia, she suspected that she has a pulmonary embolus -D-dimer was not done given that it is likely elevated in the setting of the patient's neutropenia and cancer -Additionally, contrasted CT studies are unavailable at this facility at this time -Therefore, patient has been started on heparin drip for presumed PE -CTA today showed small filling defect in left lower lobe suspicious for PE, though cannot tell if it is acute or chronic -We will continue heparin drip for 48 hours and transition to DOAC (3) Neutropenia: Status: Acute Assessment and plan: - White blood cell count 1.4 with ANC of 0.74 on admission, down to about 400 today -Neutropenic precautions -Follow-up a.m. CBC (4) Essential hypertension: Status: Acute Assessment and plan: - Holding home amlodipine, Lasix, Toprol-XL as patient's blood pressure is low normal (5) Chronic obstructive lung disease: Status: Acute Assessment and plan: -Now with acute exacerbation, patient has been given 125 mg methylprednisolone this morning and will start 40 mg daily prednisone tomorrow -We will continue home regimen of daily inhalers and as needed albuterol Qualifiers: COPD type: unspecified COPD Qualified Code(s): J44.9 - Chronic obstructive pulmonary disease, unspecified (6) Rectal cancer: Status: Acute (7) Lung cancer: Status: Chronic Subjective Subjective Interval history since last seen: Patient states that she really feels a little better as compared to yesterday, though that she feels a little tight and wheezy as far as her breathing. She also states that she feels anxious about that her as needed Ativan has been helping. Exam Narrative Exam Narrative: Elderly female laying in bed, and mild respiratory distress and needed a breathing treatment, A&Ox4, heart regular rate and rhythm, lungs with increased diffuse expiratory wheezing as compared to previous day, abdomen soft, nontender nondistended Objective Last Vital Signs Temp 98.4 F 01/25/23 11:13 Pulse 102 H 01/25/23 11:13 Resp 20 01/25/23 11:13 BP 128/8 L 01/25/23 11:13 Pulse Ox 94 01/25/23 11:13 Laboratory Results - last 24 hr 01/24/23 01/24/23 01/24/23 10:40 11:40 21:15 WBC RBC Hgb Hct MCV MCH MCHC RDW Plt Count MPV Immature Gran % Neutrophils % Lymphocytes % Monocytes % Eosinophils % Basophils % Absolute Neutrophils Absolute Lymphocytes Absolute Monocytes Absolute Eosinophils Absolute Basophils RBC Morphology PT 9.9 INR 1.0 APTT 25.4 82.7 H* D-Dimer 1140 H VBG Lactate Sodium 143 Potassium 3.3 L Chloride 105 Carbon Dioxide 28.9 Anion Gap 9.1 BUN 15 Creatinine 1.0 Est GFR (CKD-EPI 2020) 57.66 Glucose 114 H Calcium 9.7 Magnesium 1.9 Total Bilirubin 0.5 AST 25 ALT 19 Alkaline Phosphatase 93 Troponin I < 50 NT-Pro-B Natriuret Pep 245 Total Protein 7.5 Albumin 3.7 Lipase 34 Procalcitonin 0.1 Urine Color Yellow Urine Clarity Clear Urine pH 5.5 Ur Specific [place] 1.010 Urine Protein Negative Urine Ketones Negative Urine Blood Negative Urine Nitrite Negative Urine Bilirubin Negative Urine Urobilinogen 0.2 Ur Leukocyte Esterase Negative Urine Glucose Negative Add-On Test Request 01/24/23 01/25/23 01/25/23 21:35 04:45 Unknown WBC 1.04 L* RBC 3.70 L Hgb 11.2 Hct 33.0 L MCV 89 MCH 30.3 MCHC 33.9 RDW 12.8 Plt Count 131 MPV 10.6 Immature Gran % 1.0 Neutrophils % 43.7 Lymphocytes % 29.1 Monocytes % 16.5 Eosinophils % 8.7 Basophils % 1.0 Absolute Neutrophils 0.45 L* Absolute Lymphocytes 0.30 L Absolute Monocytes 0.17 Absolute Eosinophils 0.09 Absolute Basophils 0.01 RBC Morphology Normal PT INR APTT 81.3 H* D-Dimer VBG Lactate 1.4 Sodium 145 Potassium 3.1 L Chloride 108 H Carbon Dioxide 29.4 Anion Gap 7.6 BUN 10 Creatinine 0.8 Est GFR (CKD-EPI 2020) 75.37 Glucose 99 Calcium 8.8 Magnesium 1.7 L Total Bilirubin AST ALT Alkaline Phosphatase Troponin I NT-Pro-B Natriuret Pep Total Protein Albumin Lipase Procalcitonin Urine Color Urine Clarity Urine pH Ur Specific [place] Urine Protein Urine Ketones Urine Blood Urine Nitrite Urine Bilirubin Urine Urobilinogen Ur Leukocyte Esterase Urine Glucose Add-On Test Request DONE Time Spent with Patient Time Spent with Patient: >50 minutes Time was spent: preparing to see the patient(eg.review tests), obtaining and/or reviewing separately otained hiistory, ordering medications,tests, procedures, referring, communicating with other health career center director, indepentently interpreting results, counseling the patient and care coordination
[2023-01-25] MEDS: Heparin in 0.45% NaCl 25,000 UNIT/250 ML BAG 10 UNIT IV (13:19)
[2023-01-25] MEDS: VANCOMYCIN/WATER (PEG) 1.25 GM/250 ML BAG IV (16:42)
--- NOTE | 2023-01-25 16:52 | CHAPLAIN ---
Daily was sitting up in bed, waiting for a respiratory treatment when I stopped in. Her son visited earlier in the day and may be back after work. Daily said she didn't sleep much and is hoping to see the doctor soon to talk about her medications. I will continue to visit.
--- NOTE | 2023-01-25 16:54 | INITIAL_ITS ---
Date of service: 01/25/23 Time of Service: 16:54 Care Management Initial Assmt Initial Assessment REASON FOR HOSPITALIZATION:: acute hypoxic respiratory failure PREVIOUS FUNCTIONAL STATUS/SOCIAL/FAMILY SUPPORTS:: Daily lives in [place], alone. Her son, Scotty, lives nearby and is supportive. She is independent at baseline. CURRENT FUNCTIONAL STATUS:: Daily was sleeping when CM met with her. Per RN, she had recently taken medication for her anxiety, which has also helped her get some rest. Per report, she is on a heparin drip for a PE, which will be changed to oral medication after 48hrs. Per report, she has lung cancer, and requires intermittent O2 at home. She is currently on 2LO2, nasal cannula. CM will continue to follow. ADVANCE DIRECTIVES:: [facility] on file; Scotty (son) listed as HCA. Has patient been provided with info about the portal/API?: Yes Did the patient sign up for the portal?: No CODE STATUS:: Full Code INSURANCE COVERAGE / FINANCIAL ISSUES:: MCR. Financial assistance 85%. CURRENT HOME/COMMUNITY SERVICES/EQUIPMENT:: None. PRIMARY CARE PHYSICIAN:: Roverto Ashby POTENTIAL DISCHARGE NEEDS:: Evaluations for further needs, follow up appointments. PATIENT/FAMILY EDUCATION NEEDS:: Review discharge instructions and limitations, discussion of self care needs including ask me three. ANTICIPATED BARRIERS TO DISCHARGE:: None identified. TRANSPORTATION:: Via private vehicle by family. PLAN:: Anticipate Daily will return home once medically cleared. Her son will drive her home via private vehicle. She will follow up with her PCP and discharge plan of care. CM will continue to follow. PFSH All Active Problems (Updated 01/24/23 @ 16:00 by Gallo Cali MD) Lung cancer (Chronic) Neutropenia (Acute) Suspected pulmonary embolism (Acute) Acute hypoxic respiratory failure (Acute) Breath shortness (Acute) Hypokalemia (Acute) COPD exacerbation (Acute) Chronic obstructive lung disease (Acute) severe; PFT's 12/2020-PRN use of oxygen-2 L/min Essential hypertension (Acute 12/26/12) Polyp of colon (Acute) 11/05/12 tubovillous 10/04; adenoma 11/08 02/07/: Villous Adenoma 04/11/17: mixed tubulovillous adenoma/traditional serrated adenoma, CDanielson Rectal cancer (Acute) Rectal mass (Acute) Hearing decreased (Acute) Tremor (Acute) Abnormal weight loss (Acute) Medical History (Updated 01/24/23 @ 16:00 by Gallo Cali MD) Hyperglycemia Vision loss 12/2020, poor vision both eyes-20-200 bilaterally MyChart. Patient advised not to drive Abnormal CT scan, chest 2018, persistent right lower lobe infiltrate 2020-persistent infiltrate nodule in right lower lobe. As of 01/2021 patient declines follow-up or repeat CT Pedal edema Gastroesophageal reflux disease Smoker Quit about 2014, about a [id number] history of smoking Tubular adenoma (04/11/17) Social isolation (07/13/16) Malignant neoplasm of female breast (07/26/11) Stage 1 left breast: invasive ductal cancer ([facility] [place]) S/P lumpectomy and radiation, no hormonal tx Family history of colon cancer sister-in her 60's Dermatitis, unspecified (11/17/15) Depressive disorder Calcific tendinitis of shoulder (12/23/12) Anxiety and depression Neoplasm of breast Oxygen dependent Anxiety Essential hypertension COPD with exacerbation Surgical History Status post breast biopsy Status post breast lumpectomy Status post cholecystectomy Colonoscopy - MAC (04/11/17) Colonoscopy - MAC (02/07/17) Colonoscopy - MAC (11/05/12) Cholecystectomy (~05/2010) Breast, Lumpectomy left breast lumpectomy and radiation Biopsy of breast RIGHT X 2 Social History Smoking/Tobacco Use Status: Former Tobacco Use Smoking risk assessment performed?: Yes Alcohol Intake: never Drug use: Never Substance use type: does not use Housing: house Do you feel safe at home: Yes Do you feel safe in your relationship?: Yes Additional Social history: lives alone
[2023-01-25] MEDS: Normal Saline 500 ML 10 ML IV (22:01)
[2023-01-26] VITALS (9 sets, daily range): BP systolic 133–152; BP diastolic 63–74; PULSE 85–110; RESP 16–20; TEMP 36–36.8; O2SAT 96–99
[2023-01-26] MEDS: CEFEPIME 1 GM in Normal Saline 50 ML IVPB ×3 (05:49→23:36)
[2023-01-26 05:53] LABS: HCT 30.1 % (36.0-46.0); HGB 10.2 g/dL (11.2-15.7); MCH 29.8 pg (27.0-33.0); MCHC 33.9 % (32.0-36.0); MCV 88 fL (80-95); Platelet Count 153 10^3/uL (130-400); RBC 3.42 10^6/uL (3.93-5.22); RDW 12.8 % (11.7-14.6); RDW-SD 39.8 fL
[2023-01-26 06:12] LABS: Vancomycin, Random 18.6 ug/mL
[2023-01-26 06:59] LABS: PTT Activated 89.3 sec (23.6-32.8)
[2023-01-26] MEDS: predniSONE 20 MG TAB 40 MG PO (07:45)
[2023-01-26 08:57] LABS: Abs Immature Grans 0.01 10^3/uL (0.0-0.06); Absolute Lymphocyte Count 0.23 10^3/uL (1.2-3.4); Absolute Monocyte Count 0.13 10^3/uL (0.1-0.8); Absolute Neutrophil Count 0.67 10^3/uL (1.2-6.7); Lymphocytes % 22.1; Monocytes % 12.5; Neutrophils % 64.4
[2023-01-26 09:20] LABS: Diff Comment Diff Reviewed; RBC Morphology Normal
--- NOTE | 2023-01-26 09:57 | PDOC.CMPRO ---
Date of service: 01/26/23 Time of Service: 09:57 Care Management Progress Note Progress Note Text Progress Note Text: S/O: Daily was sitting up on the edge of her bed when CM met with her. She stated that she is feeling a lot better today. She reported that per MD, she may be ready for discharge as early as tomorrow. She is happy about the plan to return home, although she feels she would benefit from HH nursing. She reported that her son is a good source of support for her, and brings her to and from all of her appointments. She discussed the passing of her daughter, about four years ago, which she is still grieving from. CM empathized with her, and stated that there is no timeline for grief. She talked lovingly about her grandchildren, whom her daughter had adopted before her passing. Her son Sage and his now have custody of the two children. She is very close with them and stated that she is sad thinking about leaving them behind when she passes. CM asked Daily if she has someone to talk to in the community about these things; she stated that she used to talk to someone but hasn't for a while. CM offered to provide a list of therapists in the community. CM will continue to follow. A: Daily is a 77 year old female admitted to [facility] on 01/24/23 for acute hypoxic respiratory failure. P: Anticipate Daily will return home once medically cleared. She will benefit from HH RN upon discharge. Her son will drive her home via private vehicle. She will follow up with her PCP and discharge plan of care. CM will continue to follow.
[2023-01-26] MEDS: Albuterol 2.5 MG/3 ML INH SOLN VIAL UPD ×2 (10:03→20:48)
[2023-01-26] MEDS: Budesonide 0.5 MG/2 ML UPD VIAL IH (10:03)
[2023-01-26] MEDS: Potassium Chloride 20 MEQ TABCR 40 MEQ PO (10:39)
[2023-01-26] MEDS: Apixaban 5 MG TAB 10 MG PO ×2 (10:39→20:47)
[2023-01-26] MEDS: Magnesium Lactate-SR 84 MG TABCR PO (10:40)
--- NOTE | 2023-01-26 11:24 | W.PM.PROGNOT ---
Date of Service Date of service: 01/26/23 Time of Service: 11:24 Assessment and Plan Assessment and plan (1) Acute hypoxic respiratory failure: Status: Acute Assessment and plan: - Patient normally requires intermittent oxygen at home usually after exertion -Has required up to 3 L nasal cannula in the emergency department, currently on room air -This is likely secondary to nodule combination of pneumonia and suspected PE, and now COPD exacerbation as noted below -Wean O2 as tolerated (2) Suspected pulmonary embolism: Status: Acute Assessment and plan: - Given the patient's sudden onset of shortness of breath, new persistent hypoxia requiring supplemental oxygen, and tachycardia, she suspected that she has a pulmonary embolus -D-dimer was not done given that it is likely elevated in the setting of the patient's neutropenia and cancer -Additionally, contrasted CT studies are unavailable at this facility at this time -Therefore, patient has been started on heparin drip for presumed PE -CTA today showed small filling defect in left lower lobe suspicious for PE, though cannot tell if it is acute or chronic -We will continue heparin drip for 48 hours and transition to DOAC (3) Neutropenia: Status: Acute Assessment and plan: - White blood cell count 1.4 with ANC of 0.74 on admission, down to about 400 on 01/25/2023 and back up to 658 on 01/26 -Neutropenic precautions -Follow-up a.m. CBC (4) Essential hypertension: Status: Acute Assessment and plan: - Holding home amlodipine, Lasix, Toprol-XL as patient's blood pressure is low normal (5) Chronic obstructive lung disease: Status: Acute Assessment and plan: -Now with acute exacerbation, patient has been given 125 mg methylprednisolone this morning and will start 40 mg daily prednisone tomorrow -We will continue home regimen of daily inhalers and as needed albuterol Qualifiers: COPD type: unspecified COPD Qualified Code(s): J44.9 - Chronic obstructive pulmonary disease, unspecified (6) Rectal cancer: Status: Acute (7) Lung cancer: Status: Chronic Subjective Subjective Interval history since last seen: Patient states that she feels significantly better as compared to previous days. During our conversation her supplemental oxygen was turned off and she maintain oxygen saturations greater than 92%. She has no other complaints or concerns at this time. Exam Narrative Exam Narrative: Elderly female sitting up on the edge of the bed in no acute distress, nasal cannula has been removed, A&Ox4, heart regular rate and rhythm, lungs with increased diffuse expiratory wheezing as compared to previous day, abdomen soft, nontender nondistended Objective Last Vital Signs Temp 98.1 F 01/26/23 10:47 Pulse 110 H 01/26/23 10:47 Resp 18 01/26/23 10:47 BP 146/70 H 01/26/23 10:47 Pulse Ox 99 01/26/23 10:47 Laboratory Results - last 24 hr 01/26/23 01/26/23 01/26/23 05:44 05:55 13:30 WBC 1.10 L* RBC 3.42 L Hgb 10.2 L Hct 30.1 L MCV 88 MCH 29.8 MCHC 33.9 RDW 12.8 Plt Count 153 MPV 10.0 Immature Gran % 1.0 Cancelled Neutrophils % 64.4 Cancelled Band Neutrophils % Cancelled Lymphocytes % 22.1 Cancelled Atypical Lymphs % Cancelled Monocytes % 12.5 Cancelled Eosinophils % 0.0 Cancelled Basophils % 0.0 Cancelled Metamyelocytes % Cancelled Myelocytes % Cancelled Promyelocytes % Cancelled Other Cells % Cancelled Absolute Neutrophils 0.67 L Cancelled Absolute Lymphocytes 0.23 L Cancelled Absolute Monocytes 0.13 Cancelled Absolute Eosinophils 0.00 Cancelled Absolute Basophils 0.00 Cancelled RBC Morphology Normal Cancelled Polychromasia Cancelled Hypochromasia Cancelled Poikilocytosis Cancelled Basophilic Stippling Cancelled Anisocytosis Cancelled Microcytosis Cancelled Macrocytosis Cancelled Spherocytes Cancelled Tear Drop Cells Cancelled Ovalocytes Cancelled Stomatocytes Cancelled [place] Bodies Cancelled Jean Cells/Echinocytes Cancelled Acanthocytes (Spur) Cancelled Schistocytes Cancelled APTT 89.3 H* Cancelled Random Vancomycin 18.6 Add-On Test Request Cancelled Time Spent with Patient Time Spent with Patient: >50 minutes Time was spent: preparing to see the patient(eg.review tests), obtaining and/or reviewing separately otained hiistory, ordering medications,tests, procedures, referring, communicating with other health field care manager, indepentently interpreting results, counseling the patient and care coordination
[2023-01-26] MEDS: Normal Saline Flush 10 ML SYR IVP (13:59)
[2023-01-26] MEDS: amLODIPine 10 MG TAB PO (16:15)
[2023-01-26] MEDS: VANCOMYCIN/WATER (PEG) 1.25 GM/250 ML BAG IV (16:15)
[2023-01-26] MEDS: Furosemide 20 MG TAB PO (16:15)
[2023-01-27] VITALS (8 sets, daily range): BP systolic 121–172; BP diastolic 63–78; PULSE 77–105; RESP 18–20; TEMP 36.3–36.9; O2SAT 79–98
[2023-01-27] MEDS: LORazepam 1 MG TAB PO (00:28)
[2023-01-27 06:12] LABS: Abs Immature Grans 0.04 10^3/uL (0.0-0.06); Absolute Basophil Count 0.02 10^3/uL (0.0-0.2); Absolute Eosinophil Count 0.04 10^3/uL (0.0-0.7); Absolute Lymphocyte Count 0.48 10^3/uL (1.2-3.4); Absolute Monocyte Count 0.29 10^3/uL (0.1-0.8); Absolute Neutrophil Count 1.04 10^3/uL (1.2-6.7); Eosinophils % 2.1; HCT 31.1 % (36.0-46.0); HGB 10.6 g/dL (11.2-15.7); Immature Grans % 2.1; Lymphocytes % 25.1; MCH 30.2 pg (27.0-33.0); MCHC 34.1 % (32.0-36.0); MCV 89 fL (80-95); MPV 10.6 fL (8.0-11.0); Monocytes % 15.2; Neutrophils % 54.5; Platelet Count 187 10^3/uL (130-400); RBC 3.51 10^6/uL (3.93-5.22); RDW 13.2 % (11.7-14.6); RDW-SD 40.2 fL
[2023-01-27 06:21] LABS: PTT Activated 26.3 sec (23.6-32.8)
[2023-01-27] MEDS: CEFEPIME 1 GM in Normal Saline 50 ML IVPB ×3 (06:22→22:38)
[2023-01-27 06:26] LABS: WBC 1.91 10^3/uL (4.4-10.8)
[2023-01-27 06:55] LABS: Diff Comment Agrees w/ Instrument; RBC Morphology Normal
[2023-01-27] MEDS: amLODIPine 10 MG TAB PO (07:59)
[2023-01-27] MEDS: predniSONE 20 MG TAB 40 MG PO (07:59)
[2023-01-27] MEDS: Apixaban 5 MG TAB 10 MG PO ×2 (07:59→20:19)
[2023-01-27] MEDS: Furosemide 20 MG TAB PO (07:59)
[2023-01-27] MEDS: Budesonide 0.5 MG/2 ML UPD VIAL IH (09:00)
[2023-01-27] MEDS: Albuterol 2.5 MG/3 ML INH SOLN VIAL UPD (14:47)
[2023-01-27 15:07] LABS: Vancomycin, Random 16.5 ug/mL
[2023-01-27] MEDS: VANCOMYCIN/WATER (PEG) 1.25 GM/250 ML BAG IV (15:18)
[2023-01-28] VITALS (7 sets, daily range): BP systolic 143–149; BP diastolic 74–83; PULSE 82–123; RESP 18–22; TEMP 36.6–36.8; O2SAT 89–96
[2023-01-28] MEDS: Normal Saline Flush 10 ML SYR IVP ×2 (06:10→15:23)
[2023-01-28] MEDS: CEFEPIME 1 GM in Normal Saline 50 ML IVPB ×2 (06:10→14:10)
[2023-01-28] MEDS: Albuterol 2.5 MG/3 ML INH SOLN VIAL UPD ×3 (06:11→14:48)
[2023-01-28] MEDS: Apixaban 5 MG TAB 10 MG PO (08:39)
[2023-01-28] MEDS: predniSONE 20 MG TAB 40 MG PO (08:40)
[2023-01-28] MEDS: Furosemide 20 MG TAB PO (08:40)
[2023-01-28] MEDS: amLODIPine 10 MG TAB PO (08:40)
[2023-01-28] MEDS: Budesonide 0.5 MG/2 ML UPD VIAL IH (08:42)
[2023-01-28] MEDS: LORazepam 1 MG TAB PO (14:20)
--- NOTE | 2023-01-28 14:23 | W.PM.DS.N ---
Date of service: 01/28/23 Time of Service: 14:23 DS: Diagnosis Discharge Diagnosis (1) COPD exacerbation: Status: Acute (2) Acute hypoxic respiratory failure: Status: Resolved (3) Suspected pulmonary embolism: Status: Acute (4) Neutropenia: Status: Acute (5) Essential hypertension: Status: Acute (6) Rectal cancer: Status: Acute (7) Lung cancer: Status: Chronic (8) Hypomagnesemia: Status: Acute (9) Hypokalemia: Status: Acute (10) Anxiety: Discharge Plan Disposition Patient Disposition: Home Condition: Improving Discharge Details Reason For Visit: Acute hypoxic respiratory failure, neautropenia, Admit Date/Time: 01/24/23 15:02 Admit Provider: Gallo Cali Attending Provider: Gallo Cali Primary Care Provider: Roverto Ashby Hospital Course Hospital Course: Ms Pineda is a 77 year old female with PMHx of oxygen-dependent COPD (on O2 prn at home), as well as chronic hypoxic respiratory failure, h/o rectal can and primary lung cancer on chemo, HTN, who was a patient on [facility] hospitalist service from 01/24/23 until 01/28/23 for Acute on chronic hypoxic respiratory failure due to an acute exacerbation of COPD in addition to a suspected acute PE per CTA of the chest. This was complicated by the patient's neutropenia. The patient was treated with broad spectrum abx (vancomycin + cefepime) as well as steroids and nebulizer treatments with significant improvement of her symptoms. While she was intitially requiring 3L of O2 by NE to saturate 91% (80s on 2L; RA sats not recorded), we were able to wean the oxygen off entirely by today with exercise oximetry showing only room air requirements. She was initiated on apixaban for her suspected PE of the LLL. She will need to have an outpatient ultrasound of her legs to ensure she does not have a DVT. She does have +1 edema in her BLEs which is symmetric. Her hypokalemia and hypomagnesemia are being repleted on discharge, and she will need to have bloodwork done in 1 week to ensure that the repletion is adequate. The patient is medically stable for discharge home today with three more days of antibiotics (levofloxacin) as well as a short prednisone taper. Care for patient as well as completion of her discharge summary took 60 minutes on the day of discharge. Home Meds and New Rx's Prescriptions: New Eliquis 5 mg Tablet See Rx Instructions .ROUTE .COMPLEX Qty: 70 0RF Rx Instructions: 10 mg (2 tabs) PO BID x 9 more doses, then 5 mg PO BID. prednisone 20 mg Tablet See Rx Instructions .ROUTE .COMPLEX Qty: 7 0RF Rx Instructions: Take 2 tabs (40 mg) PO daily x 2 days, then Take 1 tab (20 mg) daily x 2 days, then take 0.5 tab (10 mg) daily x 2 days, then stop. omeprazole 20 mg capsule,delayed release(DR/EC) 20 mg PO DAILY Qty: 30 0RF levofloxacin 750 mg tablet 750 mg PO QPM Qty: 3 0RF Rx Instructions: First dose tonight potassium chloride [K-Tab] 20 mEq tablet extended release 20 meq PO BID Qty: 10 0RF magnesium oxide 500 mg tablet 500 mg PO BID Qty: 10 0RF Continued (DME) Oxygen Tank See Rx Instructions .Route Rx Instructions: As directed lorazepam [Ativan] 1 mg tablet 1 mg PO BID PRN (Reason: anxiety) Qty: 30 0RF budesonide 0.5 mg/2 mL suspension for nebulization 0.5 mg inhalation QAM arformoterol 15 mcg/2 mL solution for nebulization 2 ml inhalation QAM amlodipine 10 mg tablet 10 mg PO DAILY Qty: 90 3RF metoprolol succinate 50 mg tablet extended release 24 hr 50 mg PO DAILY Qty: 90 3RF furosemide [Lasix] 20 mg tablet 20 mg PO DAILY Qty: 90 3RF Yupelri 175 mcg/3 mL solution for nebulization 175 mcg inhalation QAM Qty: 270 3RF lorazepam 1 mg tablet 1 mg PO ONCE PRN Changed ipratropium-albuterol 0.5 mg-3 mg(2.5 mg base)/3 mL solution for nebulization 3 ml IH QID PRN PRN (Reason: shortness of breath or wheezing) Qty: 180 0RF Discharge Instructions Instructions: Prednisone (By mouth), Omeprazole (By mouth), Levofloxacin (By mouth), Apixaban (By mouth), Pulmonary Embolism (DC), COPD (Chronic Obstructive Pulmonary Disease) (DC), GERD (Gastroesophageal Reflux Disease) (DC) Additional Instructions: Finish your antibiotics (levofloxacin) and prednisone as prescribed. Return to the hospital with any fever, bleeding, chest pain, or worsening shortness of breath. Follow up with your PCP and with pulmonology in 1-2 weeks. Bloodwork in 1 week. Follow up for your ultrasound of the legs as outpatient (to make sure you don't have blood clots in your legs). Stand Alone Forms: Nursing Discharge Form [place] [place] - (Please call on Sunday to make a follow up. ) Roverto Ashby MD [Primary Care Provider] - (Please call on Sunday to make a follow up. ) Activity:: Activity as Tolerated Equipment/Supplies:: No Equipment Needed Diet:: As Tolerated Discharge Orders Discharge Orders: Discharge Order (Routine); Ordered 01/28/23 Ordered By: Bryanna Chicas Other Ambulatory Orders: Basic Metabolic Panel (Routine) Timeframe: 20230202 Location: Determined by Patient Ordered By: Bryanna Chicas Complete Blood Count w/Diff (Routine) Timeframe: 20230202 Location: Determined by Patient Ordered By: Bryanna Chicas US extremity venous BI (Routine) Timeframe: 20230129 Facility: [facility] - Location: DIAGNOSTIC IMAGING Ordered By: Bryanna Chicas Magnesium (Routine) Timeframe: 20230202 Location: Determined by Patient Ordered By: Bryanna Chicas DS: Summary Time Spent with Patient providing and/or coordinating discharge services: Greater than 30 minutes Status at Discharge Functional status at discharge: independent ambulation Overall status at discharge: patient is progressing back to baseline Mental Status: mental status grossly normal Speech and Movement: speech and movement normal Mood: congruent mood Affect: normal affect Exam Narrative Exam Narrative: General: Pleasant anxious elderly female who is A&Ox3, sitting comfortably at the side of the bed, no dyspnea/tachypnea/cyanosis HEENT: EOMI, MMM Heart: RRR, mildly tachycardic Lungs: expiratory wheezing B Abdomen: soft, nontender, nondistended Extremities: +1 pedal pulses B Psych Mental Status: mental status grossly normal Speech and Movement: speech and movement normal Mood: congruent mood Affect: normal affect DS: Data Vitals/I&O Vitals and I&O: Vital Signs Temperature 36.7 C 01/28/23 11:45 Temperature Source Tympanic 01/28/23 11:45 Pulse 108 H 01/28/23 11:45 Pulse Rhythm Irregular 01/28/23 09:01 Pulse 86 01/24/23 14:40 Respiratory Rate 18 01/28/23 11:45 Respiratory Effort Normal, Non-Labored 01/28/23 09:01 Respiratory Depth Normal 01/28/23 09:01 Respiratory Pattern Normal 01/28/23 09:01 Blood Pressure 147/83 H 01/28/23 11:45 Blood Pressure Mean 83 01/24/23 14:31 Blood Pressure Position Sitting 01/24/23 10:12 Pulse Oximetry 94 01/28/23 11:45 Oxygen Delivery Method Room Air 01/28/23 11:45 Oxygen Flow Rate 0 01/28/23 11:45 Pain Level 0 01/28/23 11:45 Comment Nurse notified about BP. 01/28/23 08:08 Intake & Output 01/27/23 01/28/23 01/28/23 23:59 11:59 23:59 Intake Total 390 / 861.167 50 / 290 240 / 290 Output Total 550 / 1500 800 / 1000 200 / 1000 Balance -160 / -638.833 -750 / -710 40 / -710 Intake: IV 390 / 741.167 50 / 50 Oral 240 / 240 Output: Urine 550 / 1500 800 / 1000 200 / 1000 Other: Urine Color Yellow Yellow Yellow Urine Appearance Clear Clear Clear Urine Odor Normal Normal Stool Size Moderate Small Small Stool Characteristics Formed Formed Formed Brown Brown Bloody Voiding Methods Bedside Commode Bedside Commode Bedside Commode Data Completed and Pending Completed studies during hospitalization [Text1]: CXR 01/24/23: Slight improvement of the right lower lobe infiltrate and resolution of the right pleural effusion. CTA chest 01/25/23: 1. There is no improvement in the right lower lobe infiltrate.. There is no associated pleural effusion. No adenopathy. 2. There is no evidence of pulmonary embolus on the right side. However, there are abnormal appearing left lower lobe pulmonary arteries which appear abnormally tapered and contain intraluminal filling defects suspicious for pulmonary emboli, possibly not acute. There is no evidence of infarct, infiltrate, or pleural effusion on the left side. 3. No evidence of obvious right heart strain. 4. No evidence of aortic dissection nor pericardial effusion. Labs on day of discharge: Labs from last 24 hours 01/27/23 14:40 Random Vancomycin 16.5 Preliminary micro results at discharge 01/24/23 12:12 Blood Culture - Preliminary Blood NO GROWTH 96 HOURS 01/24/23 11:36 Blood Culture - Preliminary Blood NO GROWTH 96 HOURS PFSH All Active Problems (Updated 01/28/23 @ 15:15 by Bryanna Chicas MD) Hypomagnesemia (Acute) Lung cancer (Chronic) Neutropenia (Acute) Suspected pulmonary embolism (Acute) Breath shortness (Acute) Hypokalemia (Acute) COPD exacerbation (Acute) Chronic obstructive lung disease (Acute) severe; PFT's 12/2020-PRN use of oxygen-2 L/min Essential hypertension (Acute 12/26/12) Polyp of colon (Acute) 11/05/12 tubovillous 10/04; adenoma 11/0802/07/17: Villous Adenoma 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 Patient advised not to drive Abnormal CT scan, chest 2018, persistent right lower lobe infiltrate 2020-persistent infiltrate nodule in right lower lobe. As of 01/2021 patient declines follow-up or repeat CT Pedal edema Gastroesophageal reflux disease Smoker Quit about 2014, about a [id number] history of smoking Tubular adenoma (04/11/17) Social isolation (07/13/16) Malignant neoplasm of female breast (07/26/11) Stage 1 left breast: [place] [place]/P lumpectomy and radiation, no hormonal tx Family history of colon cancer sister-in her 60's Dermatitis, unspecified (11/17/15) Depressive disorder Calcific tendinitis of shoulder (12/23/12) Anxiety and depression Neoplasm of breast Oxygen dependent Anxiety Essential hypertension COPD with exacerbation Surgical History Status post breast biopsy Status post breast lumpectomy Status post cholecystectomy Colonoscopy - MAC (04/11/17) Colonoscopy - MAC (02/07/17) Colonoscopy - MAC (11/05/12) Cholecystectomy (~05/2010) Breast, Lumpectomy left breast lumpectomy and radiation Biopsy of breast RIGHT X 2 Social History Smoking/Tobacco Use Status: Former Tobacco Use Smoking risk assessment performed?: Yes Alcohol Intake: never Drug use: Never Substance use type: does not use Housing: house Do you feel safe at home: Yes Do you feel safe in your relationship?: Yes Additional Social history: lives alone Time Spent with Patient Time Spent with Patient: 45-69 minutes Time was spent: preparing to see the patient(eg.review tests), obtaining and/or reviewing separately otained hiistory, ordering medications,tests, procedures, referring, communicating with other health care mgr, indepentently interpreting results, counseling the patient and care coordination
[2023-01-28] MEDS: Heparin 500 UNITS/5 ML SYRINGE (15:23)
--- NOTE | 2023-01-28 16:56 | PDOC.CMDIS ---
Date of service: 01/28/23 Time of Service: 16:56 LACE Index Scoring Tool Questions: Length of Stay (in days): 4 - 6 Was the patient admitted via the E.D.?: Yes Comorbidities: Chronic Pulmonary Disease and Any Tumor E.D. Visits: 2 Answers: Total Score: 14 Risk of Readmission: High Risk Care Management Discharge Plan Reason for Hospitalization: acute hypoxic respiratory failure Discharge Plan: Daily will return home with no new services. Her son will drive her home via private vehicle. She will follow up with her PCP and discharge plan of care. Patient/Family Education Needs: Review discharge instructions and limitations, discussion of self care needs including ask me three.
== END 2023-01-28 16:15 | disposition home or self-care (01) | DRG 175 ==
LOC: ER 15:35 → MS 16:30
PROVIDERS: Admitting Provider Family Medicine; Emergency Provider Physician Assistant; PCP Family Medicine; Visit Provider Family Medicine
DX: I26.99 Other pulmonary embolism without acute cor pulmonale (principal); J18.9 Pneumonia, unspecified organism; J96.21 Acute and chronic respiratory failure with hypoxia; J44.0 Chronic obstructive pulmonary disease with (acute) lower respiratory infection; C34.31 Malignant neoplasm of lower lobe, right bronchus or lung; J44.1 Chronic obstructive pulmonary disease with (acute) exacerbation; I10 Essential (primary) hypertension; E83.42 Hypomagnesemia; E87.6 Hypokalemia; F41.9 Anxiety disorder, unspecified; Z79.899 Other long term (current) drug therapy; Z85.048 Personal history of other malignant neoplasm of rectum, rectosigmoid junction, and anus; K21.9 Gastro-esophageal reflux disease without esophagitis; Z87.891 Personal history of nicotine dependence; Z85.3 Personal history of malignant neoplasm of breast; D70.9 Neutropenia, unspecified; H91.90 Unspecified hearing loss, unspecified ear; H54.7 Unspecified visual loss; G25.0 Essential tremor; R63.4 Abnormal weight loss; Z68.23 Body mass index [BMI] 23.0-23.9, adult
CPT/HCPCS: 00123; 36415; 71275; 80048; 80053; 83690; 84145; 85027; 87040; 87637; 93005; 94618; 94640; 96365; 96367; 99285; 71046; 80202; 81003; 83605; 83735; 83880; 84484; 85007; 85025; 85379; 85610; 85730; 93010; 94760; 99223; 99233; 99239; J2930; J7512; J7613; J7620; J7626

== ENCOUNTER 2023-02-02 01:04 | Outpatient (RCR) | payer MEDICARE, SELFPAY ==
[2023-01-26 00:01] VITALS: BP 138/71; PULSE 79; RESP 20; TEMP 36.7
[2023-02-02] MEDS: Heparin 500 UNITS/5 ML SYRINGE IV (10:43)
[2023-02-02] MEDS: Normal Saline Flush 10 ML SYR IVP (10:43)
[2023-02-02 11:09] LABS: HCT 38.3 % (36.0-46.0); HGB 12.7 g/dL (11.2-15.7); MCH 30.2 pg (27.0-33.0); MCHC 33.2 % (32.0-36.0); MCV 91 fL (80-95); MPV 10.8 fL (8.0-11.0); Platelet Count 274 10^3/uL (130-400); RDW 14.8 % (11.7-14.6); RDW-SD 46.4 fL; WBC 8.69 10^3/uL (4.4-10.8)
[2023-02-02 11:29] LABS: Absolute Basophil Count 0.09 10^3/uL (0.0-0.2); Absolute Eosinophil Count 0.09 10^3/uL (0.0-0.7); Absolute Lymphocyte Count 0.26 10^3/uL (1.2-3.4); Absolute Monocyte Count 0.87 10^3/uL (0.1-0.8); Absolute Neutrophil Count 7.13 10^3/uL (1.2-6.7); Bands % 6; Diff Comment Manual Differential; Metamyelocytes % 3; RBC Morphology Normal
[2023-02-02 11:39] LABS: ALT 28 U/L (14-59); AST 29 U/L (15-37); Albumin 3.8 g/dL (3.4-5.0); Alkaline Phosphatase 70 U/L (46-116); Anion Gap 8.2 mmol/L (3-11); BUN 23 mg/dL (7-18); Bilirubin, Total 0.3 mg/dL (0.2-1.0); CO2 30.8 mmol/L (21.0-32.0); Calcium 9.9 mg/dL (8.5-10.1); Chloride 102 mmol/L (98-107); Estimated GFR 57.66 (mL/min/1.73m2); FREE T4 1.11 ng/dL (0.76-1.46); Glucose 107 mg/dL (74-106); Potassium 3.6 mmol/L (3.5-5.1); Sodium 141 mmol/L (136-145); TSH 5.12 uIU/mL (0.36-3.74); Total Protein 7.1 g/dL (6.4-8.2)
[2023-02-02 12:48] LABS: Magnesium 2.2 mg/dL (1.8-2.4)
[2023-02-02 19:59] LABS: CEA 2.2 ng/mL (See Note)
== END 2023-02-25 23:59 | disposition home or self-care (01) ==
LOC: INF 01:04
PROVIDERS: PCP Family Medicine; Visit Provider Internal Medicine Hematology & Oncology
DX: C34.31 Malignant neoplasm of lower lobe, right bronchus or lung (principal); C20 Malignant neoplasm of rectum; Z79.899 Other long term (current) drug therapy; Z45.2 Encounter for adjustment and management of vascular access device
CPT/HCPCS: 36591; 80053; 82378; 83735; 84439; 84443; 85025

== ENCOUNTER 2023-03-08 03:16 | Outpatient (RCR) | payer MEDICARE, SELFPAY ==
[2023-02-26 00:02] VITALS: BP 138/71; PULSE 79; RESP 20; TEMP 36.7
[2023-02-27 08:37] LABS: Abs Immature Grans 0.03 10^3/uL (0.0-0.06); Absolute Basophil Count 0.04 10^3/uL (0.0-0.2); Absolute Lymphocyte Count 0.67 10^3/uL (1.2-3.4); Absolute Monocyte Count 0.67 10^3/uL (0.1-0.8); Absolute Neutrophil Count 1.12 10^3/uL (1.2-6.7); Basophils % 1.5; Eosinophils % 7.3; HCT 34.9 % (36.0-46.0); HGB 11.3 g/dL (11.2-15.7); Immature Grans % 1.1; Lymphocytes % 24.5; MCHC 32.4 % (32.0-36.0); MCV 93 fL (80-95); MPV 10.1 fL (8.0-11.0); Monocytes % 24.5; Neutrophils % 41.1; Platelet Count 328 10^3/uL (130-400); RBC 3.77 10^6/uL (3.93-5.22); RDW-SD 53.2 fL; WBC 2.73 10^3/uL (4.4-10.8)
[2023-02-27] MEDS: Normal Saline Flush 10 ML SYR IVP (08:37)
[2023-02-27 09:07] LABS: ALT 17 U/L (14-59); AST 24 U/L (15-37); Albumin 3.4 g/dL (3.4-5.0); Alkaline Phosphatase 91 U/L (46-116); Anion Gap 9.6 mmol/L (3-11); BUN 11 mg/dL (7-18); Bilirubin, Total 0.4 mg/dL (0.2-1.0); CO2 27.4 mmol/L (21.0-32.0); CREATININE 1.2 mg/dL (0.55-1.02); Calcium 9.5 mg/dL (8.5-10.1); Chloride 105 mmol/L (98-107); Estimated GFR 46.33 (mL/min/1.73m2); FREE T4 1.13 ng/dL (0.76-1.46); Glucose 120 mg/dL (74-106); Potassium 3.8 mmol/L (3.5-5.1); Sodium 142 mmol/L (136-145); TSH 9.34 uIU/mL (0.36-3.74); Total Protein 7.1 g/dL (6.4-8.2)
[2023-02-27 21:53] LABS: CEA 2.2 ng/mL (See Note)
[2023-03-08 08:57] LABS: Abs Immature Grans 0.06 10^3/uL (0.0-0.06); Absolute Basophil Count 0.07 10^3/uL (0.0-0.2); Absolute Eosinophil Count 0.33 10^3/uL (0.0-0.7); Absolute Lymphocyte Count 0.76 10^3/uL (1.2-3.4); Absolute Monocyte Count 0.83 10^3/uL (0.1-0.8); Absolute Neutrophil Count 3.43 10^3/uL (1.2-6.7); Basophils % 1.3; HCT 36.2 % (36.0-46.0); HGB 12.1 g/dL (11.2-15.7); Immature Grans % 1.1; Lymphocytes % 13.9; MCH 30.9 pg (27.0-33.0); MCHC 33.4 % (32.0-36.0); MCV 92 fL (80-95); MPV 10.7 fL (8.0-11.0); Monocytes % 15.1; Neutrophils % 62.6; Platelet Count 262 10^3/uL (130-400); RBC 3.92 10^6/uL (3.93-5.22); RDW 15.8 % (11.7-14.6); RDW-SD 52.8 fL; WBC 5.48 10^3/uL (4.4-10.8)
[2023-03-08] MEDS: Normal Saline Flush 10 ML SYR IVP (09:08)
[2023-03-08 09:22] LABS: ALT 16 U/L (14-59); AST 23 U/L (15-37); Albumin 3.5 g/dL (3.4-5.0); Alkaline Phosphatase 101 U/L (46-116); Anion Gap 9.3 mmol/L (3-11); BUN 13 mg/dL (7-18); Bilirubin, Total 0.5 mg/dL (0.2-1.0); CO2 27.7 mmol/L (21.0-32.0); CREATININE 1.2 mg/dL (0.55-1.02); Calcium 9.7 mg/dL (8.5-10.1); Chloride 103 mmol/L (98-107); Estimated GFR 46.33 (mL/min/1.73m2); FREE T4 1.24 ng/dL (0.76-1.46); Glucose 112 mg/dL (74-106); Potassium 3.5 mmol/L (3.5-5.1); Sodium 140 mmol/L (136-145); TSH 6.44 uIU/mL (0.36-3.74); Total Protein 7.2 g/dL (6.4-8.2)
[2023-03-08 20:05] LABS: CEA 2.5 ng/mL (See Note)
== END 2023-03-28 23:59 | disposition home or self-care (01) ==
LOC: INF 03:16
PROVIDERS: PCP Family Medicine; Visit Provider Internal Medicine Hematology & Oncology
DX: C20 Malignant neoplasm of rectum (principal); C34.31 Malignant neoplasm of lower lobe, right bronchus or lung; Z79.899 Other long term (current) drug therapy; Z45.2 Encounter for adjustment and management of vascular access device
CPT/HCPCS: 36591; 80053; 82378; 83735; 84439; 84443; 85025

== ENCOUNTER 2023-04-19 01:07 | Outpatient (RCR) | payer MEDICARE, SELFPAY ==
[2023-03-29 00:03] VITALS: BP 138/71; PULSE 79; RESP 20; TEMP 36.7
[2023-03-30] MEDS: Normal Saline Flush 10 ML SYR IVP (08:57)
[2023-03-30 09:13] LABS: Abs Immature Grans 0.05 10^3/uL (0.0-0.06); Absolute Basophil Count 0.04 10^3/uL (0.0-0.2); Absolute Eosinophil Count 0.17 10^3/uL (0.0-0.7); Absolute Monocyte Count 0.75 10^3/uL (0.1-0.8); Absolute Neutrophil Count 1.42 10^3/uL (1.2-6.7); Basophils % 1.3; Eosinophils % 5.6; HCT 31.6 % (36.0-46.0); HGB 10.6 g/dL (11.2-15.7); Immature Grans % 1.7; Lymphocytes % 19.8; MCH 31.1 pg (27.0-33.0); MCHC 33.5 % (32.0-36.0); MCV 93 fL (80-95); MPV 10.3 fL (8.0-11.0); Monocytes % 24.8; Neutrophils % 46.8; Platelet Count 338 10^3/uL (130-400); RBC 3.41 10^6/uL (3.93-5.22); RDW 16.3 % (11.7-14.6); RDW-SD 52.9 fL; WBC 3.03 10^3/uL (4.4-10.8)
[2023-03-30 09:37] LABS: ALT 16 U/L (14-59); AST 25 U/L (15-37); Albumin 3.4 g/dL (3.4-5.0); Alkaline Phosphatase 97 U/L (46-116); Anion Gap 10.6 mmol/L (3-11); BUN 15 mg/dL (7-18); Bilirubin, Total 0.4 mg/dL (0.2-1.0); CO2 28.4 mmol/L (21.0-32.0); CREATININE 1.2 mg/dL (0.55-1.02); Calcium 9.5 mg/dL (8.5-10.1); Chloride 104 mmol/L (98-107); Estimated GFR 46.33 (mL/min/1.73m2); Glucose 103 mg/dL (74-106); Potassium 3.7 mmol/L (3.5-5.1); Sodium 143 mmol/L (136-145)
[2023-03-30 19:38] LABS: CEA 2.1 ng/mL (See Note)
[2023-04-19] MEDS: Normal Saline Flush 10 ML SYR IVP (08:13)
[2023-04-19 08:57] LABS: Abs Immature Grans 0.03 10^3/uL (0.0-0.06); Absolute Basophil Count 0.03 10^3/uL (0.0-0.2); Absolute Eosinophil Count 0.33 10^3/uL (0.0-0.7); Absolute Lymphocyte Count 0.56 10^3/uL (1.2-3.4); Absolute Monocyte Count 0.72 10^3/uL (0.1-0.8); Absolute Neutrophil Count 1.39 10^3/uL (1.2-6.7); Eosinophils % 10.8; HCT 30.8 % (36.0-46.0); Lymphocytes % 18.3; MCHC 32.5 % (32.0-36.0); MCV 95 fL (80-95); MPV 10.8 fL (8.0-11.0); Monocytes % 23.5; Neutrophils % 45.4; Platelet Count 276 10^3/uL (130-400); RBC 3.23 10^6/uL (3.93-5.22); RDW 17.1 % (11.7-14.6); RDW-SD 57.9 fL; WBC 3.06 10^3/uL (4.4-10.8)
[2023-04-19 09:22] LABS: ALT 14 U/L (14-59); AST 27 U/L (15-37); Albumin 3.6 g/dL (3.4-5.0); Alkaline Phosphatase 93 U/L (46-116); Anion Gap 9.4 mmol/L (3-11); BUN 15 mg/dL (7-18); Bilirubin, Total 0.4 mg/dL (0.2-1.0); CO2 26.6 mmol/L (21.0-32.0); CREATININE 1.2 mg/dL (0.55-1.02); Calcium 9.5 mg/dL (8.5-10.1); Chloride 106 mmol/L (98-107); Estimated GFR 46.33 (mL/min/1.73m2); FREE T4 1.15 ng/dL (0.76-1.46); Glucose 107 mg/dL (74-106); Potassium 3.5 mmol/L (3.5-5.1); Sodium 142 mmol/L (136-145); TSH 11.45 uIU/mL (0.36-3.74); Total Protein 6.9 g/dL (6.4-8.2)
[2023-04-19 18:58] LABS: CEA 1.9 ng/mL (See Note)
== END 2023-04-26 23:59 | disposition home or self-care (01) ==
LOC: INF 01:07
PROVIDERS: PCP Family Medicine; Visit Provider Internal Medicine Hematology & Oncology
DX: C20 Malignant neoplasm of rectum (principal); C34.31 Malignant neoplasm of lower lobe, right bronchus or lung; Z79.899 Other long term (current) drug therapy
CPT/HCPCS: 36591; 80053; 82378; 84439; 84443; 85025

== ENCOUNTER 2023-05-25 01:10 | Outpatient (RCR) | payer MEDICARE, SELFPAY ==
[2023-04-27 00:16] VITALS: BP 138/71; PULSE 79; RESP 20; TEMP 36.7
[2023-04-27] MEDS: Normal Saline Flush 10 ML SYR IVP (10:22)
[2023-04-27 10:23] LABS: Abs Immature Grans 0.03 10^3/uL (0.0-0.06); Absolute Basophil Count 0.04 10^3/uL (0.0-0.2); Absolute Lymphocyte Count 0.68 10^3/uL (1.2-3.4); Absolute Monocyte Count 0.75 10^3/uL (0.1-0.8); Absolute Neutrophil Count 2.97 10^3/uL (1.2-6.7); Basophils % 0.9; Eosinophils % 2.2; HGB 10.9 g/dL (11.2-15.7); Immature Grans % 0.7; Lymphocytes % 14.9; MCH 31.2 pg (27.0-33.0); MCV 95 fL (80-95); MPV 10.7 fL (8.0-11.0); Monocytes % 16.4; Neutrophils % 64.9; Platelet Count 251 10^3/uL (130-400); RBC 3.49 10^6/uL (3.93-5.22); RDW 16.7 % (11.7-14.6); RDW-SD 57.9 fL; WBC 4.57 10^3/uL (4.4-10.8)
[2023-04-27 10:36] LABS: ALT 14 U/L (14-59); AST 28 U/L (15-37); Albumin 3.5 g/dL (3.4-5.0); Alkaline Phosphatase 90 U/L (46-116); Anion Gap 8.3 mmol/L (3-11); BUN 15 mg/dL (7-18); Bilirubin, Total 0.4 mg/dL (0.2-1.0); CO2 28.7 mmol/L (21.0-32.0); CREATININE 1.1 mg/dL (0.55-1.02); Calcium 9.4 mg/dL (8.5-10.1); Chloride 105 mmol/L (98-107); Estimated GFR 51.43 (mL/min/1.73m2); Glucose 108 mg/dL (74-106); Potassium 3.4 mmol/L (3.5-5.1); Sodium 142 mmol/L (136-145); Total Protein 6.7 g/dL (6.4-8.2)
[2023-04-29] MEDS: Normal Saline Flush 10 ML SYR IVP (12:10)
[2023-05-11] MEDS: Normal Saline Flush 10 ML SYR IVP (07:05)
[2023-05-11 07:43] LABS: Abs Immature Grans 0.01 10^3/uL (0.0-0.06); Absolute Basophil Count 0.02 10^3/uL (0.0-0.2); Absolute Eosinophil Count 0.38 10^3/uL (0.0-0.7); Absolute Lymphocyte Count 0.61 10^3/uL (1.2-3.4); Absolute Monocyte Count 0.29 10^3/uL (0.1-0.8); Absolute Neutrophil Count 1.49 10^3/uL (1.2-6.7); Basophils % 0.7; Eosinophils % 13.6; HCT 31.7 % (36.0-46.0); HGB 10.5 g/dL (11.2-15.7); Immature Grans % 0.4; Lymphocytes % 21.8; MCHC 33.1 % (32.0-36.0); MCV 97 fL (80-95); MPV 10.4 fL (8.0-11.0); Monocytes % 10.4; Neutrophils % 53.1; Platelet Count 157 10^3/uL (130-400); RBC 3.28 10^6/uL (3.93-5.22); RDW 15.9 % (11.7-14.6); RDW-SD 54.4 fL
[2023-05-11 08:04] LABS: ALT 17 U/L (14-59); AST 27 U/L (15-37); Albumin 3.6 g/dL (3.4-5.0); Alkaline Phosphatase 88 U/L (46-116); Anion Gap 11.8 mmol/L (3-11); BUN 17 mg/dL (7-18); Bilirubin, Total 0.5 mg/dL (0.2-1.0); CO2 27.2 mmol/L (21.0-32.0); CREATININE 1.3 mg/dL (0.55-1.02); Calcium 9.2 mg/dL (8.5-10.1); Chloride 105 mmol/L (98-107); Estimated GFR 42.09 (mL/min/1.73m2); FREE T4 1.31 ng/dL (0.76-1.46); Glucose 114 mg/dL (74-106); Potassium 3.3 mmol/L (3.5-5.1); Sodium 144 mmol/L (136-145); TSH 9.01 uIU/Ml (0.36-3.74); Total Protein 6.8 g/dL (6.4-8.2)
[2023-05-11 08:12] VITALS: BP 138/71; PULSE 79; RESP 20; TEMP 36.7
[2023-05-11 18:41] LABS: CEA 2.5 ng/mL (See Note)
[2023-05-13] MEDS: Normal Saline Flush 10 ML SYR IVP ×2 (10:41→12:42)
[2023-05-25] MEDS: Normal Saline Flush 10 ML SYR IVP (10:48)
[2023-05-25 10:58] LABS: Absolute Basophil Count 0.02 10^3/uL (0.0-0.2); Absolute Eosinophil Count 0.11 10^3/uL (0.0-0.7); Absolute Lymphocyte Count 0.59 10^3/uL (1.2-3.4); Absolute Neutrophil Count 0.62 10^3/uL (1.2-6.7); Basophils % 1.2; Eosinophils % 6.7; HCT 31.9 % (36.0-46.0); HGB 10.6 g/dL (11.2-15.7); MCH 31.8 pg (27.0-33.0); MCHC 33.2 % (32.0-36.0); MCV 96 fL (80-95); MPV 10.6 fL (8.0-11.0); Monocytes % 18.3; Neutrophils % 37.8; Platelet Count 179 10^3/uL (130-400); RBC 3.33 10^6/uL (3.93-5.22); RDW 15.9 % (11.7-14.6); RDW-SD 53.2 fL
[2023-05-25 11:16] LABS: Diff Comment Diff Reviewed; RBC Morphology Normal
[2023-05-25 11:20] LABS: ALT 18 U/L (14-59); AST 25 U/L (15-37); Albumin 3.7 g/dL (3.4-5.0); Alkaline Phosphatase 105 U/L (46-116); Anion Gap 10.5 mmol/L (3-11); BUN 16 mg/dL (7-18); Bilirubin, Total 0.5 mg/dL (0.2-1.0); CO2 28.5 mmol/L (21.0-32.0); CREATININE 1.3 mg/dL (0.55-1.02); Calcium 9.5 mg/dL (8.5-10.1); Chloride 103 mmol/L (98-107); Estimated GFR 42.09 (mL/min/1.73m2); FREE T4 1.32 ng/dL (0.76-1.46); Glucose 109 mg/dL (74-106); Potassium 3.5 mmol/L (3.5-5.1); Sodium 142 mmol/L (136-145); TSH 12.02 uIU/Ml (0.36-3.74); WBC 1.64 10^3/uL (4.4-10.8)
[2023-05-25 18:35] LABS: CEA 2.7 ng/mL (See Note)
== END 2023-05-27 23:59 | disposition home or self-care (01) ==
LOC: INF 01:10
PROVIDERS: PCP Family Medicine; Visit Provider Internal Medicine Hematology & Oncology
DX: C34.31 Malignant neoplasm of lower lobe, right bronchus or lung (principal); C20 Malignant neoplasm of rectum; Z79.899 Other long term (current) drug therapy
CPT/HCPCS: 36591; 80053; 96523; 82378; 84439; 84443; 85025

== ENCOUNTER 2023-06-22 00:43 | Outpatient (RCR) | payer MEDICARE, SELFPAY ==
[2023-05-28 00:06] VITALS: BP 138/71; PULSE 79; RESP 20; TEMP 36.7
[2023-06-07] MEDS: Normal Saline Flush 10 ML SYR IVP (09:41)
[2023-06-07 10:01] LABS: Abs Immature Grans 0.04 10^3/uL (0.0-0.06); Absolute Basophil Count 0.03 10^3/uL (0.0-0.2); Absolute Eosinophil Count 0.19 10^3/uL (0.0-0.7); Absolute Lymphocyte Count 0.65 10^3/uL (1.2-3.4); Absolute Monocyte Count 0.76 10^3/uL (0.1-0.8); Basophils % 0.7; Eosinophils % 4.4; HCT 33.4 % (36.0-46.0); HGB 10.9 g/dL (11.2-15.7); Immature Grans % 0.9; Lymphocytes % 15.2; MCHC 32.6 % (32.0-36.0); MCV 98 fL (80-95); MPV 11.1 fL (8.0-11.0); Monocytes % 17.8; Platelet Count 215 10^3/uL (130-400); RBC 3.41 10^6/uL (3.93-5.22); RDW 16.2 % (11.7-14.6); RDW-SD 58.4 fL; WBC 4.27 10^3/uL (4.4-10.8)
[2023-06-07 10:27] LABS: ALT 14 U/L (14-59); AST 23 U/L (15-37); Albumin 3.6 g/dL (3.4-5.0); Alkaline Phosphatase 101 U/L (46-116); Anion Gap 10.3 mmol/L (3-11); BUN 18 mg/dL (7-18); Bilirubin, Total 0.5 mg/dL (0.2-1.0); CO2 27.7 mmol/L (21.0-32.0); CREATININE 1.2 mg/dL (0.55-1.02); Calcium 9.5 mg/dL (8.5-10.1); Chloride 104 mmol/L (98-107); Estimated GFR 46.33 (mL/min/1.73m2); Glucose 120 mg/dL (74-106); Potassium 3.7 mmol/L (3.5-5.1); Sodium 142 mmol/L (136-145); TSH 7.61 uIU/Ml (0.36-3.74)
[2023-06-07 18:26] LABS: CEA 2.1 ng/mL (See Note)
[2023-06-09] MEDS: Normal Saline Flush 10 ML SYR IVP (13:57)
[2023-06-09 14:57] VITALS: BP 141/64; PULSE 72; RESP 18; TEMP 35.7; O2SAT 95
[2023-06-22] MEDS: Normal Saline Flush 10 ML SYR IVP (09:35)
[2023-06-22 09:57] LABS: Abs Immature Grans 0.01 10^3/uL (0.0-0.06); Absolute Basophil Count 0.02 10^3/uL (0.0-0.2); Absolute Eosinophil Count 0.38 10^3/uL (0.0-0.7); Absolute Lymphocyte Count 0.61 10^3/uL (1.2-3.4); Absolute Neutrophil Count 1.05 10^3/uL (1.2-6.7); Basophils % 0.8; Immature Grans % 0.4; Lymphocytes % 25.7; MCH 32.1 pg (27.0-33.0); MCHC 33.3 % (32.0-36.0); MCV 96 fL (80-95); MPV 9.8 fL (8.0-11.0); Monocytes % 12.7; Neutrophils % 44.4; Platelet Count 194 10^3/uL (130-400); RBC 3.43 10^6/uL (3.93-5.22); RDW 15.3 % (11.7-14.6); RDW-SD 53.9 fL; WBC 2.37 10^3/uL (4.4-10.8)
[2023-06-22 10:15] LABS: ALT 17 U/L (14-59); AST 22 U/L (15-37); Albumin 3.8 g/dL (3.4-5.0); Alkaline Phosphatase 87 U/L (46-116); Anion Gap 10.6 mmol/L (3-11); BUN 17 mg/dL (7-18); Bilirubin, Total 0.6 mg/dL (0.2-1.0); CO2 27.4 mmol/L (21.0-32.0); CREATININE 1.2 mg/dL (0.55-1.02); Calcium 9.4 mg/dL (8.5-10.1); Chloride 105 mmol/L (98-107); Estimated GFR 46.33 (mL/min/1.73m2); Glucose 108 mg/dL (74-106); Potassium 3.9 mmol/L (3.5-5.1); Sodium 143 mmol/L (136-145); Total Protein 7.1 g/dL (6.4-8.2)
== END 2023-06-26 23:59 | disposition home or self-care (01) ==
LOC: INF 00:43
PROVIDERS: PCP Family Medicine; Visit Provider Internal Medicine Hematology & Oncology
DX: Z79.899 Other long term (current) drug therapy (principal); C34.31 Malignant neoplasm of lower lobe, right bronchus or lung; C20 Malignant neoplasm of rectum; Z45.2 Encounter for adjustment and management of vascular access device
CPT/HCPCS: 36591; 80053; 96523; 82378; 84439; 84443; 85025

== ENCOUNTER 2023-07-14 17:40 | Emergency (ER) | payer MEDICARE, SELFPAY ==
[2023-07-14 17:43] VITALS: BP 111/63; PULSE 91; RESP 15; TEMP 37.1; O2SAT 94
[2023-07-14 17:46] VITALS: BP 111/63; PULSE 91; RESP 15; TEMP 37.1; O2SAT 94
--- NOTE | 2023-07-14 18:15 | RT.EKG_ITS ---
APPROVED REPORT Exam: Resting ECG Reason for Exam: weakness Patient Location: E HR:75 bpm ECG Measurements Heart Rate 75 AXIS [place] 188 P 75 QRSd 77 QRS 58 QT 377 T 71 QTc 421 Conclusion Sinus rhythm 75 no stemi
--- NOTE | 2023-07-14 18:15 | DI.RAD_ITS ---
Exam(s) XR CHEST 2V PA LATERAL EXAM: XR CHEST 2V PA LATERAL CLINICAL HISTORY: shortness of breath, ca hx. TECHNIQUE: 2D digital imaging was performed. COMPARISON: CR XR CHEST 2V PA LATERAL from 01/24/2023 FINDINGS: 2 views: Distal tip of the right-sided Port-A-Cath is in the right atrium, unchanged. Heart size is normal. The mediastinum is not widened. Lungs are clear. No infiltrates nor pleural effusions. Infiltrate which was evident in the right lo wer lobe on 01/24/2023 has resolved. No ominous pulmonary nodules. No pleural effusions. IMPRESSION: No acute pulmonary findings.No infiltrates evident at this time. No pleural effusions. DATA REPOSITORY: RADIATION DOSE DELIVERED:
[2023-07-14 18:47] VITALS: PULSE 79
[2023-07-14 18:57] LABS: Lactate 1.3 mmol/L (0.6-1.4)
[2023-07-14 19:00] LABS: Abs Immature Grans 0.01 10^3/uL (0.0-0.06); HCT 33.5 % (36.0-46.0); MCH 32.2 pg (27.0-33.0); MCHC 32.8 % (32.0-36.0); MCV 98 fL (80-95); MPV 10.7 fL (8.0-11.0); Platelet Count 167 10^3/uL (130-400); RBC 3.42 10^6/uL (3.93-5.22); RDW 15.2 % (11.7-14.6); RDW-SD 54.2 fL
[2023-07-14] MEDS: Albuterol 2.5 MG/3 ML INH SOLN VIAL UPD (19:09)
[2023-07-14 19:20] LABS: ALT 18 U/L (14-59); AST 20 U/L (15-37); Albumin 3.7 g/dL (3.4-5.0); Alkaline Phosphatase 81 U/L (46-116); Anion Gap 10.5 mmol/L (3-11); BUN 14 mg/dL (7-18); Bilirubin, Total 0.9 mg/dL (0.2-1.0); CO2 28.5 mmol/L (21.0-32.0); CREATININE 1.5 mg/dL (0.55-1.02); Calcium 8.9 mg/dL (8.5-10.1); Chloride 102 mmol/L (98-107); Estimated GFR 35.23 (mL/min/1.73m2); Glucose 112 mg/dL (74-106); Sodium 141 mmol/L (136-145); Troponin I < 50 ng/L (< or =60)
[2023-07-14 19:33] LABS: Absolute Basophil Count 0.02 10^3/uL (0.0-0.2); Absolute Eosinophil Count 0.15 10^3/uL (0.0-0.7); Absolute Lymphocyte Count 0.31 10^3/uL (1.2-3.4); Absolute Monocyte Count 0.31 10^3/uL (0.1-0.8); Absolute Neutrophil Count 1.04 10^3/uL (1.2-6.7); Atypical Lymphocytes % 1 %; WBC 1.82 10^3/uL (4.4-10.8)
[2023-07-14 19:34] LABS: Diff Comment Diff Reviewed; RBC Morphology Normal
[2023-07-14 19:46] LABS: COVID-19 PCR Negative (Negative); Influenza A PCR Negative (Negative); Influenza B PCR Negative (Negative); RSV PCR Negative (Negative)
[2023-07-14 19:52] LABS: Source Nasopharynx
[2023-07-14 20:17] VITALS: BP 113/47; PULSE 75; RESP 17; TEMP 37.2; O2SAT 95
[2023-07-14] MEDS: Doxycycline Hyclate 100 MG, 2 CAPS/BTL PO (20:30)
--- NOTE | 2023-07-14 20:46 | DI.VRAD_ITS ---
PROCEDURE INFORMATION: Exam: XR Chest Exam date and time: 07/14/2023 7:32 PM Age: 78 years old Clinical indication: Other: Shortness of breath, CA HX TECHNIQUE: Imaging protocol: Radiologic exam of the chest. Views: 2 views. COMPARISON: CT CHEST PE CTA 01/25/2023 8:27 AM. 01/24/2023. FINDINGS: Limitations: Portions of the pulmonary parenchyma are obscured secondary to overlying medical equipment. Tubes, catheters and devices: There is a right-sided line with tip overlying SVC. Lungs: The patient has known emphysematous changes. There are mild heterogeneous opacities along the right heart border and in the left retrocardiac region that could represent pneumonia or aspiration. Pleural spaces: No pneumothorax. Heart/Mediastinum: The cardiomediastinal contours are within normal limits. There are vascular calcifications. Asymmetric left hilar prominence is unchanged. Bones/joints: Skeletal degenerative changes. IMPRESSION: 1. There are mild heterogeneous opacities along the right heart border and in the left retrocardiac region that could represent pneumonia or aspiration. 2. Other findings/details as above. If symptoms remain concerning, CT scan or CTA could be obtained. Dictated and Authenticated by: Verona Figueroa MD. Ordering:TOMAS Hidalgo MD
--- NOTE | 2023-07-14 22:47 | W.ED.GENAD ---
Discharge Plan Disposition Patient Disposition: Home Condition: Stable Discharge Details Clinical Impression: Neutropenia, Lung cancer, COPD (chronic obstructive pulmonary disease), Bronchitis Primary Care Provider: Roverto Ashby ED Provider: Gwen Coppola Home Meds and New Rx's Prescriptions: New doxycycline hyclate 100 mg capsule 100 mg PO BID Qty: 14 0RF Continued (DME) Oxygen Tank See Rx Instructions .Route Rx Instructions: As directed lorazepam [Ativan] 1 mg tablet 1 mg PO BID PRN (Reason: anxiety) Qty: 30 0RF levothyroxine 50 mcg capsule 50 mcg PO DAILY metoprolol succinate 50 mg tablet extended release 24 hr 50 mg PO DAILY Qty: 90 3RF furosemide [Lasix] 20 mg tablet 20 mg PO DAILY Qty: 90 3RF arformoterol 15 mcg/2 mL solution for nebulization 2 ml inhalation QAM Qty: 60 11RF budesonide 0.5 mg/2 mL suspension for nebulization 0.5 mg inhalation QAM Qty: 60 11RF Yupelri 175 mcg/3 mL solution for nebulization 175 mcg inhalation QAM Qty: 270 3RF amlodipine 10 mg tablet 10 mg PO DAILY Qty: 90 3RF Eliquis 5 mg Tablet See Rx Instructions .ROUTE .COMPLEX Qty: 70 0RF Rx Instructions: 10 mg (2 tabs) PO BID x 9 more doses, then 5 mg PO BID. potassium chloride [K-Tab] 20 mEq tablet extended release 20 meq PO BID Qty: 10 0RF ipratropium-albuterol 0.5 mg-3 mg(2.5 mg base)/3 mL solution for nebulization 3 ml IH QID PRN PRN (Reason: shortness of breath or wheezing) Qty: 180 0RF Discharge Instructions Instructions: Acute Bronchitis (ED), COPD (Chronic Obstructive Pulmonary Disease) (ED) Additional Instructions: Yogurt daily on antibiotics Use your albuterol inhaler as needed Continue on your prescribed inhalers Take the antibiotic until completed Return with fever, shortness of breath, weakness, or should you have any new or worsening complaints Have at least eight 8 ounce glasses of water daily and have your labs rechecked by your doctor. Talk to your oncologist this week and have them review your labs prior to receiving any chemotherapy Referrals: Roverto Ashby MD [Primary Care Provider] - 2 days HPI General Date/Time Provider Initiated Documentation: 07/14/23 17:51. HPI Narrative: This 78-year-old female with history of bronchitis, COPD, lung cancer, neutropenia, suspected pulmonary embolism anticoagulated, rectal mass and rectal cancer presents with report of sore throat and upper respiratory symptoms. Has had some mild shortness of breath per patient. Taking Eliquis as prescribed. Denies any calf pain or swelling. Last chemotherapy was 2 weeks prior to arrival. She reports she was neutropenic at this time. She denies any fever or chills at home. States she feels lightheaded. She denies any pain in her chest. She denies any blood in her sputum. She has been taking her inhalers as prescribed. She does have a history of COPD. She states her breathing is not significantly changed from her baseline. Related Data Home Medications Medication Instructions Recorded Confirmed Oxygen 11/14/21 07/14/23 lorazepam 1 mg tablet (Ativan) 1 mg PO BID PRN anxiety #30 tabs 12/06/22 07/14/23 apixaban 5 mg tablet (Eliquis) See Rx Instructions .Route 01/28/23 07/14/23 .COMPLEX #70 tabs ipratropium 0.5 mg-albuterol 3 mg 3 ml inhalation QID PRN PRN 01/28/23 07/14/23 (2.5 mg base)/3 mL nebulization shortness of breath or wheezing soln #180 mL potassium chloride 20 mEq 20 meq PO BID #10 tabs 01/28/23 07/14/23 tablet,extended release (K-Tab) furosemide 20 mg tablet (Lasix) 20 mg PO DAILY #90 tab-caps 02/08/23 07/14/23 metoprolol succinate 50 mg 50 mg PO DAILY #90 tabs 02/08/23 07/14/23 tablet,extended release 24 hr arformoterol 15 mcg/2 mL solution 2 ml inhalation QAM #60 mL 03/05/23 07/14/23 for nebulization budesonide 0.5 mg/2 mL suspension 0.5 mg (2 mL) inhalation QAM #60 mL 03/05/23 05/09/23 for nebulization revefenacin 175 mcg/3 mL solution 175 mcg (3 mL) inhalation QAM #270 03/05/23 07/14/23 for nebulization (Yupelri) mL amlodipine 10 mg tablet 10 mg PO DAILY #90 tabs 03/14/23 07/14/23 levothyroxine 50 mcg capsule 50 mcg PO DAILY 05/09/23 07/14/23 doxycycline hyclate 100 mg capsule 100 mg PO BID #14 caps 07/14/23 Previous Rx's Medication Instructions Recorded lorazepam 1 mg tablet (Ativan) 1 mg PO BID PRN anxiety #30 tabs 12/06/22 apixaban 5 mg tablet (Eliquis) See Rx Instructions .Route 01/28/23 .COMPLEX #70 tabs ipratropium 0.5 mg-albuterol 3 mg 3 ml inhalation QID PRN PRN 01/28/23 (2.5 mg base)/3 mL nebulization shortness of breath or wheezing soln #180 mL potassium chloride 20 mEq 20 meq PO BID #10 tabs 01/28/23 tablet,extended release (K-Tab) furosemide 20 mg tablet (Lasix) 20 mg PO DAILY #90 tab-caps 02/08/23 metoprolol succinate 50 mg 50 mg PO DAILY #90 tabs 02/08/23 tablet,extended release 24 hr arformoterol 15 mcg/2 mL solution 2 ml inhalation QAM #60 mL 03/05/23 for nebulization budesonide 0.5 mg/2 mL suspension 0.5 mg (2 mL) inhalation QAM #60 mL 03/05/23 for nebulization revefenacin 175 mcg/3 mL solution 175 mcg (3 mL) inhalation QAM #270 03/05/23 for nebulization (Yupelri) mL amlodipine 10 mg tablet 10 mg PO DAILY #90 tabs 03/14/23 doxycycline hyclate 100 mg capsule 100 mg PO BID #14 caps 07/14/23 Allergies Allergy/AdvReac Type Severity Reaction Status Date / Time lisinopril Allergy CAN'T Verified 05/09/23 10:09 REMEMBER Sulfa (Sulfonamide Allergy ? RASH Verified 05/09/23 10:09 Antibiotics) tiotropium bromide AdvReac Intermediate Chest Verified 05/09/23 10:09 [From Spiriva with tightness HandiHaler] and shakiness anastrozole AdvReac COUGH Verified 05/09/23 10:09 losartan AdvReac TACHYCARDIA Verified 05/09/23 10:09 Penicillins AdvReac Rash Verified 05/09/23 10:09 General Stated Complaint: Sorethroat FELIBERTO: 3 Exam Narrative Exam Narrative: Alert, oriented, chronically ill-appearing 78-year-old female pupils equal round reactive to light and accommodation, lungs with scant wheezing throughout, oropharynx patent, uvula midline, no erythema or significant swelling, no trismus, maintaining secretions, no respiratory distress, cardiac rate rhythm regular, no abdominal tenderness, alert and oriented x 3, no peripheral edema, Course Vital Signs Vital signs: Vital Signs Temperature 37.1 C 07/14/23 17:43 Pulse 91 H 07/14/23 17:43 Respiratory Rate 15 07/14/23 17:43 Blood Pressure 111/63 07/14/23 17:43 Pulse Oximetry 94 07/14/23 17:43 Temperature 37.2 C 07/14/23 20:17 Temperature Source Tympanic 07/14/23 17:46 Pulse 75 07/14/23 20:17 Respiratory Rate 17 07/14/23 20:17 Respiratory Effort Normal 07/14/23 17:46 Blood Pressure 113/47 L 07/14/23 20:17 Blood Pressure Position Sitting 07/14/23 17:46 Pulse Oximetry 95 07/14/23 20:17 Pain Level 0 07/14/23 20:17 Lab/Test Results Lab/Test Results: 07/14/23 19:20 Blood Blood Culture - Pending 07/14/23 18:38 Blood Blood Culture - Pending 07/14/23 17:48 Tonsil - Not Specified Group A Streptococcus Culture - Pending Laboratory Tests Range/Units 07/14/23 07/14/23 07/14/23 18:38 18:50 21:25 WBC (4.4-10.8) 10^3/uL 1.82 L* RBC (3.93-5.22) 10^6/uL 3.42 L Hgb (11.2-15.7) g/dL 11.0 L Hct (36.0-46.0) % 33.5 L MCV (80-95) fL 98 H MCH (27.0-33.0) pg 32.2 MCHC (32.0-36.0) % 32.8 RDW (11.7-14.6) % 15.2 H Plt Count (130-400) 10^3/uL 167 MPV (8.0-11.0) fL 10.7 Immature Gran % % 0.0 Neutrophils % % 57.0 Lymphocytes % % 16.0 Atypical Lymphs % % 1 Monocytes % % 17.0 Eosinophils % % 8.0 Basophils % % 1.0 Nucleated RBC % (0.0-0.3) % 0.0 Absolute Neutrophils (1.2-6.7) 10^3/uL 1.04 L Absolute Lymphocytes (1.2-3.4) 10^3/uL 0.31 L Absolute Monocytes (0.1-0.8) 10^3/uL 0.31 Absolute Eosinophils (0.0-0.7) 10^3/uL 0.15 Absolute Basophils (0.0-0.2) 10^3/uL 0.02 RBC Morphology Normal VBG Lactate (0.6-1.4) mmol/L 1.3 Sodium (136-145) mmol/L 141 Potassium (3.5-5.1) mmol/L 4.0 Chloride (98-107) mmol/L 102 Carbon Dioxide (21.0-32.0) mmol/L 28.5 Anion Gap (3-11) mmol/L 10.5 BUN (7-18) mg/dL 14 Creatinine (0.55-1.02) mg/dL 1.5 H Est GFR (CKD-EPI 2020) (mL/min/1.73m2) 35.23 Glucose (74-106) mg/dL 112 H Calcium (8.5-10.1) mg/dL 8.9 Total Bilirubin (0.2-1.0) mg/dL 0.9 AST (15-37) U/L 20 ALT (14-59) U/L 18 Alkaline Phosphatase (46-116) U/L 81 Troponin I (< or =60) ng/L < 50 Cancelled Total Protein (6.4-8.2) g/dL 7.0 Albumin (3.4-5.0) g/dL 3.7 COVID-19 Source Nasopharynx SARS-CoV-2 (PCR) (Negative) Negative Influenza Type A (PCR) (Negative) Negative Influenza Type B (PCR) (Negative) Negative RSV (PCR) (Negative) Negative POC Strep Test-NANCY(Rapid) Start: 07/14/23 17:46 Freq: .Rapid Strep Test Status: Active Protocol: Document 07/14/23 17:56 JIM (Rec: 07/14/23 17:56 [id number] [id number]) Strep test-NANCY(Rapid)-POC POC-Strep test-NANCY (Rapid) Negative POC-Strep test-NANCY (Rapid) Negative Medical Decision Making 78-year-old chronically unwell female with history of cancer undergoing current chemotherapy presents with upper respiratory symptoms and sore throat. Patient is in no acute distress, I did administer an albuterol neb and patient feels significant improvement. Patient has evidence of dehydration o labs, baseline chronic kidney disease and acute exacerbation encouraged to keep yourself hydrated. Chest x-ray without evidence of obvious pneumonia per radiology interpretation my review, will treat for bronchitis with doxycycline 2 times a day for 7 days. No hypoxia, vitals are stable, afebrile. Patient is neutropenic but does not have a fever associated with this. She is encouraged to talk to her oncologist before receiving any additional doses of chemotherapy. She is also encouraged to have her labs rechecked next week. I did consider placing patient on prednisone, however I think the risk outweighs the benefit as she is immunosuppressed at baseline. Her vitals are stable and she is feeling improvement at time of reassessment. I have low suspicion clinically for PE as patient is currently appropriately treated and has been taking her Eliquis as prescribed. Recommendation for recheck in 48 hours and return precautions reviewed and patient expressed understanding. Discharged home in the care of her family. Ambulatory steady gait. Quality:SDOH Health Related Social Needs: No Data to Display PFSH All Active Problems (Updated 07/14/23 @ 20:11 by OMAR Wallace) Bronchitis (Acute) COPD (chronic obstructive pulmonary disease) (Chronic) Lung cancer (Chronic) Neutropenia (Acute) Hypothyroidism (Chronic) Peripheral edema (Acute) Hypomagnesemia (Acute) Lung cancer (Chronic) Neutropenia (Acute) Suspected pulmonary embolism (Acute) Breath shortness (Acute) Hypokalemia (Acute) COPD exacerbation (Acute) Chronic obstructive lung disease (Acute) severe; PFT's 12/2020-PRN use of oxygen-2 L/min Essential hypertension (Acute 12/26/12) Polyp of colon (Acute) 11/05/12 tubovillous 10/04; adenoma 11/0802/07/17: 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 Patient advised not to drive Abnormal CT scan, chest 2018, persistent right lower lobe infiltrate 2020-persistent infiltrate nodule in right lower lobe. As of 01/2021 patient declines follow-up or repeat CT Pedal edema Gastroesophageal reflux disease Smoker Quit about 2014, about a [id number] history of smoking Tubular adenoma (04/11/17) Social isolation (07/13/16) Malignant neoplasm of female breast (07/26/11) Stage 1 left breast: invasive ductal cancer [place] [place] S/P lumpectomy and radiation, no hormonal tx Family history of colon cancer sister-in her 60's Dermatitis, unspecified (11/17/15) Depressive disorder Calcific tendinitis of shoulder (12/23/12) Anxiety and depression Neoplasm of breast Oxygen dependent Anxiety Essential hypertension COPD with exacerbation Surgical History Status post breast biopsy Status post breast lumpectomy Status post cholecystectomy Colonoscopy - MAC (04/11/17) Colonoscopy - MAC (02/07/17) Colonoscopy - MAC (11/05/12) Cholecystectomy (~05/2010) Breast, Lumpectomy left breast lumpectomy and radiation Biopsy of breast RIGHT X 2 Social History Smoking/Tobacco Use Status: Former Tobacco Use Smoking risk assessment performed?: Yes Alcohol Intake: never Drug use: Never Substance use type: does not use Housing: house Do you feel safe at home: Yes Do you feel safe in your relationship?: Yes Additional Social history: lives alone
== END 2023-07-14 20:30 | disposition home or self-care (01) ==
PROVIDERS: Emergency Provider Physician Assistant; PCP Family Medicine
DX: D70.9 Neutropenia, unspecified (principal); J44.0 Chronic obstructive pulmonary disease with (acute) lower respiratory infection; J44.1 Chronic obstructive pulmonary disease with (acute) exacerbation; C34.80 Malignant neoplasm of overlapping sites of unspecified bronchus and lung; C78.5 Secondary malignant neoplasm of large intestine and rectum; I10 Essential (primary) hypertension; Z79.84 Long term (current) use of oral hypoglycemic drugs; Z79.01 Long term (current) use of anticoagulants; Z85.3 Personal history of malignant neoplasm of breast; Z92.21 Personal history of antineoplastic chemotherapy; Z87.891 Personal history of nicotine dependence
CPT/HCPCS: 36415; 80053; 87040; 87637; 93005; 94640; 99285; 71046; 83605; 84484; 85025; 87081; 93010; 99284; J7613

== ENCOUNTER 2023-07-27 00:34 | Outpatient (RCR) | payer MEDICARE, SELFPAY ==
[2023-06-27 00:05] VITALS: BP 138/71; PULSE 79; RESP 20; TEMP 36.7
[2023-06-29] MEDS: Normal Saline Flush 10 ML SYR IVP (08:14)
[2023-06-29 08:35] LABS: Abs Immature Grans 0.02 10^3/uL (0.0-0.06); Absolute Basophil Count 0.03 10^3/uL (0.0-0.2); Absolute Eosinophil Count 0.21 10^3/uL (0.0-0.7); Absolute Lymphocyte Count 0.66 10^3/uL (1.2-3.4); Absolute Monocyte Count 0.76 10^3/uL (0.1-0.8); Absolute Neutrophil Count 1.28 10^3/uL (1.2-6.7); Eosinophils % 7.1 %; HCT 33.1 % (36.0-46.0); Immature Grans % 0.7 %; Lymphocytes % 22.3 %; MCH 32.6 pg (27.0-33.0); MCHC 33.2 % (32.0-36.0); MCV 98 fL (80-95); MPV 10.5 fL (8.0-11.0); Monocytes % 25.7 %; Neutrophils % 43.2 %; Platelet Count 214 10^3/uL (130-400); RBC 3.37 10^6/uL (3.93-5.22); RDW 15.2 % (11.7-14.6); RDW-SD 54.8 fL; WBC 2.96 10^3/uL (4.4-10.8)
[2023-06-29 08:50] LABS: ALT 15 U/L (14-59); AST 20 U/L (15-37); Albumin 3.6 g/dL (3.4-5.0); Alkaline Phosphatase 91 U/L (46-116); Anion Gap 7.8 mmol/L (3-11); BUN 16 mg/dL (7-18); Bilirubin, Total 0.5 mg/dL (0.2-1.0); CO2 29.2 mmol/L (21.0-32.0); CREATININE 1.2 mg/dL (0.55-1.02); Calcium 9.3 mg/dL (8.5-10.1); Chloride 104 mmol/L (98-107); Estimated GFR 46.33 (mL/min/1.73m2); Glucose 113 mg/dL (74-106); Potassium 3.9 mmol/L (3.5-5.1); Sodium 141 mmol/L (136-145); Total Protein 6.8 g/dL (6.4-8.2)
[2023-07-13 07:52] LABS: Abs Immature Grans 0.01 10^3/uL (0.0-0.06); Absolute Basophil Count 0.02 10^3/uL (0.0-0.2); Absolute Eosinophil Count 0.25 10^3/uL (0.0-0.7); Absolute Lymphocyte Count 0.49 10^3/uL (1.2-3.4); Absolute Monocyte Count 0.33 10^3/uL (0.1-0.8); Absolute Neutrophil Count 0.85 10^3/uL (1.2-6.7); Eosinophils % 12.8 %; HCT 31.5 % (36.0-46.0); HGB 10.6 g/dL (11.2-15.7); Immature Grans % 0.5 %; Lymphocytes % 25.1 %; MCH 32.1 pg (27.0-33.0); MCHC 33.7 % (32.0-36.0); MCV 96 fL (80-95); Monocytes % 16.9 %; Neutrophils % 43.7 %; Platelet Count 163 10^3/uL (130-400); RDW 15.1 % (11.7-14.6); RDW-SD 50.6 fL
[2023-07-13 08:07] LABS: Diff Comment Diff Reviewed; RBC Morphology Normal
[2023-07-13 08:09] LABS: ALT 19 U/L (14-59); AST 20 U/L (15-37); Albumin 3.6 g/dL (3.4-5.0); Alkaline Phosphatase 81 U/L (46-116); Anion Gap 9.2 mmol/L (3-11); BUN 16 mg/dL (7-18); Bilirubin, Total 0.6 mg/dL (0.2-1.0); CO2 29.8 mmol/L (21.0-32.0); CREATININE 1.2 mg/dL (0.55-1.02); Calcium 9.2 mg/dL (8.5-10.1); Chloride 104 mmol/L (98-107); Estimated GFR 46.05 (mL/min/1.73m2); Glucose 109 mg/dL (74-106); Potassium 3.9 mmol/L (3.5-5.1); Sodium 143 mmol/L (136-145); Total Protein 6.7 g/dL (6.4-8.2); WBC 1.95 10^3/uL (4.4-10.8)
[2023-07-13] MEDS: Normal Saline Flush 10 ML SYR IVP (08:30)
[2023-07-13 09:01] LABS: FREE T4 1.31 ng/dL (0.76-1.46); TSH 9.75 uIU/Ml (0.36-3.74)
[2023-07-27] MEDS: Normal Saline Flush 10 ML SYR IVP (07:24)
[2023-07-27 08:18] LABS: Abs Immature Grans 0.03 10^3/uL (0.0-0.06); Absolute Basophil Count 0.05 10^3/uL (0.0-0.2); Absolute Eosinophil Count 0.21 10^3/uL (0.0-0.7); Absolute Lymphocyte Count 0.72 10^3/uL (1.2-3.4); Absolute Monocyte Count 0.66 10^3/uL (0.1-0.8); Absolute Neutrophil Count 3.82 10^3/uL (1.2-6.7); Basophils % 0.9 %; Eosinophils % 3.8 %; HCT 32.7 % (36.0-46.0); Immature Grans % 0.5 %; Lymphocytes % 13.1 %; MCHC 33.6 % (32.0-36.0); MCV 95 fL (80-95); MPV 11.6 fL (8.0-11.0); Neutrophils % 69.7 %; Platelet Count 255 10^3/uL (130-400); RBC 3.44 10^6/uL (3.93-5.22); RDW 14.6 % (11.7-14.6); RDW-SD 50.9 fL; WBC 5.49 10^3/uL (4.4-10.8)
[2023-07-27 08:43] LABS: ALT 17 U/L (14-59); AST 18 U/L (15-37); Albumin 3.4 g/dL (3.4-5.0); Alkaline Phosphatase 77 U/L (46-116); BUN 16 mg/dL (7-18); Bilirubin, Total 0.5 mg/dL (0.2-1.0); CREATININE 1.3 mg/dL (0.55-1.02); Calcium 9.3 mg/dL (8.5-10.1); Chloride 105 mmol/L (98-107); Estimated GFR 41.83 (mL/min/1.73m2); FREE T4 1.41 ng/dL (0.76-1.46); Glucose 115 mg/dL (74-106); Potassium 3.4 mmol/L (3.5-5.1); Sodium 142 mmol/L (136-145); TSH 5.69 uIU/Ml (0.36-3.74); Total Protein 6.6 g/dL (6.4-8.2)
== END 2023-07-27 23:59 | disposition home or self-care (01) ==
LOC: INF 00:34
PROVIDERS: PCP Family Medicine; Visit Provider Internal Medicine Hematology & Oncology
DX: C34.31 Malignant neoplasm of lower lobe, right bronchus or lung (principal); Z79.899 Other long term (current) drug therapy; C20 Malignant neoplasm of rectum; C50.912 Malignant neoplasm of unspecified site of left female breast; Z45.2 Encounter for adjustment and management of vascular access device
CPT/HCPCS: 36591; 80053; 96523; 82378; 84439; 84443; 85025

== ENCOUNTER 2023-08-10 11:09 | Emergency (ER) | payer MEDICARE, SELFPAY ==
--- NOTE | 2023-08-10 11:00 | RT.EKG_ITS ---
APPROVED REPORT Exam: Resting ECG Reason for Exam: Dyspnea Patient Location: E HR:113 bpm ECG Measurements Heart Rate 113 AXIS NC [id number] P [id number] QRSd 74 QRS 83 QT 328 T 64 QTc 450 Conclusion poor baseline unable to determine rhythm
[2023-08-10 11:09] VITALS: BP 175/97; PULSE 107; RESP 16; TEMP 36.8; O2SAT 99
--- NOTE | 2023-08-10 11:15 | DI.RAD_ITS ---
Exam(s) XR PORTABLE CHEST AP EXAM: XR PORTABLE CHEST AP CLINICAL HISTORY: sob. TECHNIQUE: 2D digital imaging was performed. COMPARISON: CR,XR XR CHEST 2V PA LATERAL from 07/14/2023 FINDINGS: Single AP portable view. Distal tip of the right Port-A-Cath is again noted to be in the right atrium. Heart size is upper normal. The mediastinum is not widened. Lungs are clear. No infiltrates nor obvious pleural effusions. No significant lung nodules evident IMPRESSION: No acute pulmonary findings on this single AP portable view of the chest. DATA REPOSITORY: RADIATION DOSE DELIVERED:
[2023-08-10 11:46] LABS: BE (Venous) 1 mmol/L (-2-3); HCO3 (Venous) 26 mmol/L (23-28); O2 Sat (Venous) 77 %; TCO2 (Venous) 24 mmol/L (24-29); pCO2 (Venous) 48 mmHg (41-51); pH (Venous) 7.35 (7.31-7.41); pO2 (Venous) 44 mmHg
[2023-08-10 11:49] VITALS: PULSE 99; RESP 22; O2SAT 96
[2023-08-10 11:49] LABS: Abs Immature Grans 0.02 10^3/uL (0.0-0.06); Absolute Basophil Count 0.04 10^3/uL (0.0-0.2); Absolute Eosinophil Count 0.33 10^3/uL (0.0-0.7); Absolute Lymphocyte Count 0.71 10^3/uL (1.2-3.4); Absolute Monocyte Count 0.34 10^3/uL (0.1-0.8); Absolute Neutrophil Count 3.55 10^3/uL (1.2-6.7); Basophils % 0.8 %; Eosinophils % 6.6 %; HCT 36.6 % (36.0-46.0); HGB 12.1 g/dL (11.2-15.7); Immature Grans % 0.4 %; Lymphocytes % 14.2 %; MCHC 33.1 % (32.0-36.0); MCV 97 fL (80-95); MPV 10.9 fL (8.0-11.0); Monocytes % 6.8 %; Neutrophils % 71.2 %; Platelet Count 191 10^3/uL (130-400); RBC 3.78 10^6/uL (3.93-5.22); RDW 13.9 % (11.7-14.6); RDW-SD 49.5 fL; WBC 4.99 10^3/uL (4.4-10.8)
[2023-08-10] MEDS: Albuterol 2.5 MG/3 ML INH SOLN VIAL (11:49)
[2023-08-10 12:12] LABS: ALT 19 U/L (14-59); AST 34 U/L (15-37); Albumin 3.6 g/dL (3.4-5.0); Alkaline Phosphatase 84 U/L (46-116); Anion Gap 9.1 mmol/L (3-11); BUN 17 mg/dL (7-18); Bilirubin, Total 0.5 mg/dL (0.2-1.0); CO2 27.9 mmol/L (21.0-32.0); CREATININE 1.2 mg/dL (0.55-1.02); Chloride 106 mmol/L (98-107); Estimated GFR 46.05 (mL/min/1.73m2); Glucose 137 mg/dL (74-106); Magnesium 1.8 mg/dL (1.8-2.4); NT-proBNP 441 pg/mL (<300); Potassium 3.7 mmol/L (3.5-5.1); Sodium 143 mmol/L (136-145); Total Protein 7.1 g/dL (6.4-8.2); Troponin I < 50 ng/L (< or =60)
[2023-08-10 12:15] VITALS: TEMP 34
[2023-08-10 12:20] LABS: INR 1.1 (0.9-1.1); PTT Activated 28.3 sec (23.6-32.8); Prothrombin Time 10.6 sec (9.1-11.1)
--- NOTE | 2023-08-10 12:27 | ED.GENADUL_ITS ---
Discharge Plan Disposition Patient Disposition: Home Condition: Stable Discharge Details Clinical Impression: Breath shortness, Chronic obstructive lung disease Primary Care Provider: Roverto Ashby ED Provider: Joie Lang Home Meds and New Rx's Prescriptions: No Action (DME) Oxygen Tank See Rx Instructions .Route Rx Instructions: As directed lorazepam [Ativan] 1 mg tablet 1 mg PO BID PRN (Reason: anxiety) Qty: 30 0RF levothyroxine 50 mcg capsule 50 mcg PO DAILY metoprolol succinate 50 mg tablet extended release 24 hr 50 mg PO DAILY Qty: 90 3RF furosemide [Lasix] 20 mg tablet 20 mg PO DAILY Qty: 90 3RF benzonatate 100 mg capsule 100 mg PO TID PRN (Reason: cough) Qty: 30 0RF arformoterol 15 mcg/2 mL solution for nebulization 2 ml inhalation QAM Qty: 60 11RF budesonide 0.5 mg/2 mL suspension for nebulization 0.5 mg inhalation QAM Qty: 60 11RF Yupelri 175 mcg/3 mL solution for nebulization 175 mcg inhalation QAM Qty: 270 3RF amlodipine 10 mg tablet 10 mg PO DAILY Qty: 90 3RF Eliquis 5 mg Tablet See Rx Instructions .ROUTE .COMPLEX Qty: 70 0RF Rx Instructions: 10 mg (2 tabs) PO BID x 9 more doses, then 5 mg PO BID. potassium chloride [K-Tab] 20 mEq tablet extended release 20 meq PO BID Qty: 10 0RF ipratropium-albuterol 0.5 mg-3 mg(2.5 mg base)/3 mL solution for nebulization 3 ml IH QID PRN PRN (Reason: shortness of breath or wheezing) Qty: 180 0RF doxycycline hyclate 100 mg capsule 100 mg PO BID Qty: 14 0RF Discharge Instructions Instructions: Shortness of Breath, Adult ED Additional Instructions: shortness of breath likely from chemo infusion please follow up with PCP and oncoogy team return to the ED for worsening sob, chest pain or other concerns HPI General Date/Time Provider Initiated Documentation: 08/10/23 11:26 . Limitations to Documentation: physical limitation . Information obtained by: patient, RN/MD and EMS . HPI Narrative: 78-year-old female with past medical history of malignancy, rectal cancer, on chemotherapy presents for evaluation of acute onset shortness of breath. Patient was receiving chemotherapy when symptoms started. She states that she had just gotten up to go to the bathroom and felt short of breath. Today was her first day with this new chemotherapy and they suspected that she was having a reaction to it. They gave her albuterol, Benadryl and steroids prior to arrival. She reports improvement in her symptoms. EMS also gave a DuoNeb prior to arrival. She has not had any chest pain. Symptoms not associated with rash or nausea vomiting. Related Data Home Medications Medication Instructions Recorded Confirmed Oxygen 11/14/21 07/20/23 lorazepam 1 mg tablet (Ativan) 1 mg PO BID PRN anxiety #30 tabs 12/06/22 07/20/23 apixaban 5 mg tablet (Eliquis) See Rx Instructions .Route 01/28/23 07/20/23 .COMPLEX #70 tabs ipratropium 0.5 mg-albuterol 3 mg 3 ml inhalation QID PRN PRN 01/28/23 07/20/23 (2.5 mg base)/3 mL nebulization shortness of breath or wheezing soln #180 mL potassium chloride 20 mEq 20 meq PO BID #10 tabs 01/28/23 07/20/23 tablet,extended release (K-Tab) furosemide 20 mg tablet (Lasix) 20 mg PO DAILY #90 tab-caps 02/08/23 07/20/23 metoprolol succinate 50 mg 50 mg PO DAILY #90 tabs 02/08/23 07/20/23 tablet,extended release 24 hr arformoterol 15 mcg/2 mL solution 2 ml inhalation QAM #60 mL 03/05/23 07/20/23 for nebulization budesonide 0.5 mg/2 mL suspension 0.5 mg (2 mL) inhalation QAM #60 mL 03/05/23 07/20/23 for nebulization revefenacin 175 mcg/3 mL solution 175 mcg (3 mL) inhalation QAM #270 03/05/23 07/20/23 for nebulization (Yupelri) mL amlodipine 10 mg tablet 10 mg PO DAILY #90 tabs 03/14/23 07/20/23 levothyroxine 50 mcg capsule 50 mcg PO DAILY 05/09/23 07/20/23 doxycycline hyclate 100 mg capsule 100 mg PO BID #14 caps 07/14/23 07/20/23 benzonatate 100 mg capsule 100 mg PO TID PRN cough #30 caps 07/20/23 07/20/23 Previous Rx's Medication Instructions Recorded lorazepam 1 mg tablet (Ativan) 1 mg PO BID PRN anxiety #30 tabs 12/06/22 apixaban 5 mg tablet (Eliquis) See Rx Instructions .Route 01/28/23 .COMPLEX #70 tabs ipratropium 0.5 mg-albuterol 3 mg 3 ml inhalation QID PRN PRN 01/28/23 (2.5 mg base)/3 mL nebulization shortness of breath or wheezing soln #180 mL potassium chloride 20 mEq 20 meq PO BID #10 tabs 01/28/23 tablet,extended release (K-Tab) furosemide 20 mg tablet (Lasix) 20 mg PO DAILY #90 tab-caps 02/08/23 metoprolol succinate 50 mg 50 mg PO DAILY #90 tabs 02/08/23 tablet,extended release 24 hr arformoterol 15 mcg/2 mL solution 2 ml inhalation QAM #60 mL 03/05/23 for nebulization budesonide 0.5 mg/2 mL suspension 0.5 mg (2 mL) inhalation QAM #60 mL 03/05/23 for nebulization revefenacin 175 mcg/3 mL solution 175 mcg (3 mL) inhalation QAM #270 03/05/23 for nebulization (Yupelri) mL amlodipine 10 mg tablet 10 mg PO DAILY #90 tabs 03/14/23 doxycycline hyclate 100 mg capsule 100 mg PO BID #14 caps 07/14/23 benzonatate 100 mg capsule 100 mg PO TID PRN cough #30 caps 07/20/23 Allergies Allergy/AdvReac Type Severity Reaction Status Date / Time lisinopril Allergy CAN'T Verified 08/10/23 11:17 REMEMBER Sulfa (Sulfonamide Allergy ? RASH Verified 08/10/23 11:17 Antibiotics) tiotropium bromide AdvReac Intermediate Chest Verified 08/10/23 11:17 [From Spiriva with tightness HandiHaler] and shakiness anastrozole AdvReac COUGH Verified 08/10/23 11:17 losartan AdvReac TACHYCARDIA Verified 08/10/23 11:17 Penicillins AdvReac Rash Verified 08/10/23 11:17 General Stated Complaint: SOB/SuddenOnset FELIBERTO: 3 Exam Narrative Exam Narrative: Review of Systems: All systems reviewed & are unremarkable except as noted in HPI and below Ill-appearing, mild distress NCAT PERRL, normal conjunctiva Tachycardia Tachypnea, accessory muscle use, no hypoxia, coarse breath sounds bilaterally and diminished air movement without any wheezing appreciated. Nondistended abdomen Extremities w/o deformity, no cyanosis, no edema No rashes or lesions. no focal neurologic deficits Appropriate mood and affect Course Vital Signs Vital signs: Vital Signs Temperature 36.8 C 08/10/23 11:09 Pulse 107 H 08/10/23 11:09 Respiratory Rate 16 08/10/23 11:09 Blood Pressure 175/97 H 08/10/23 11:09 Pulse Oximetry 99 08/10/23 11:09 Temperature 36.8 C 08/10/23 11:09 Temperature Source Skin 08/10/23 11:09 Pulse 99 H 08/10/23 11:49 Respiratory Rate 22 08/10/23 11:49 Blood Pressure 175/97 H 08/10/23 11:09 Blood Pressure Position Sitting 08/10/23 11:09 Pulse Oximetry 96 08/10/23 11:49 Oxygen Delivery Method Room Air 08/10/23 11:49 Oxygen Flow Rate 0 08/10/23 11:49 Pain Level 0 08/10/23 11:09 Lab/Test Results Lab/Test Results: Laboratory Tests Range/Units 08/10/23 11:39 WBC (4.4-10.8) 10^3/uL 4.99 RBC (3.93-5.22) 10^6/uL 3.78 L Hgb (11.2-15.7) g/dL 12.1 Hct (36.0-46.0) % 36.6 MCV (80-95) fL 97 H MCH (27.0-33.0) pg 32.0 MCHC (32.0-36.0) % 33.1 RDW (11.7-14.6) % 13.9 Plt Count (130-400) 10^3/uL 191 MPV (8.0-11.0) fL 10.9 Immature Gran % % 0.4 Neutrophils % % 71.2 Lymphocytes % % 14.2 Monocytes % % 6.8 Eosinophils % % 6.6 Basophils % % 0.8 Nucleated RBC % (0.0-0.3) % 0.0 Absolute Neutrophils (1.2-6.7) 10^3/uL 3.55 Absolute Lymphocytes (1.2-3.4) 10^3/uL 0.71 L Absolute Monocytes (0.1-0.8) 10^3/uL 0.34 Absolute Eosinophils (0.0-0.7) 10^3/uL 0.33 Absolute Basophils (0.0-0.2) 10^3/uL 0.04 PT (9.1-11.1) sec 10.6 INR (0.9-1.1) 1.1 APTT (23.6-32.8) sec 28.3 VBG pH (7.31-7.41) 7.35 VBG pCO2 (41-51) mmHg 48 VBG pO2 mmHg 44 VBG HCO3 (23-28) mmol/L 26 VBG Total CO2 (24-29) mmol/L 24 VBG O2 Saturation % 77 VBG Base Excess (-2-3) mmol/L 1 Sodium (136-145) mmol/L 143 Potassium (3.5-5.1) mmol/L 3.7 Chloride (98-107) mmol/L 106 Carbon Dioxide (21.0-32.0) mmol/L 27.9 Anion Gap (3-11) mmol/L 9.1 BUN (7-18) mg/dL 17 Creatinine (0.55-1.02) mg/dL 1.2 H Est GFR (CKD-EPI 2020) (mL/min/1.73m2) 46.05 Glucose (74-106) mg/dL 137 H Calcium (8.5-10.1) mg/dL 9.0 Magnesium (1.8-2.4) mg/dL 1.8 Total Bilirubin (0.2-1.0) mg/dL 0.5 AST (15-37) U/L 34 ALT (14-59) U/L 19 Alkaline Phosphatase (46-116) U/L 84 Troponin I (< or =60) ng/L < 50 NT-Pro-B Natriuret Pep (<300) pg/mL 441 H Total Protein (6.4-8.2) g/dL 7.1 Albumin (3.4-5.0) g/dL 3.6 Medical Decision Making Emergent evaluation of acute onset shortness of breath. Initial differential includes allergic reaction to chemotherapy. Side effect to chemotherapy. Pulmonary embolism. ACS. Patient is on Eliquis, but symptoms are highly suspicious for pulmonary embolism given the acute onset of the symptoms. Given her increased work of breathing, will put her on high flow and see how she responds to this. She is oxygenating well and does not appear to be need supplemental oxygen. Lab work reviewed, she has no elevation in her white cell count, no anemia. Normal platelet count. Her VBG is unremarkable. Her electrolytes are not deranged. Creatinine is at her baseline. Troponin level is negative. proBNP is only slightly elevated I do not suspect that she is having acute CHF causing her symptoms. After time on high flow, her respiratory rate has decreased. However the patient does not wish to continue high flow. Her chest x-ray does not demonstrate focal consolidation or pneumothorax. A CTA was obtained and I discussed the findings with the radiologist. There is no evidence of pulmonary embolism or dissection. The patient on reevaluation states that she feels fine and would like to go home now she has a television program that she enjoys watching. She does not want to stay in the hospital. I advised that the symptoms may have been secondary to an issue with the chemotherapy and that right reuse of that chemotherapy agent would be at the discretion of the oncology team. Return precautions advised, recommend close follow-up with PCP and oncology team. Medical Records Medical records reviewed: Yes I reviewed the patient's medical records. Lab Data Lab results reviewed: Yes I reviewed the patient's lab results. Quality:SDOH Health Related Social Needs: No Data to Display PFSH All Active Problems Bronchitis (Acute) COPD (chronic obstructive pulmonary disease) (Chronic) Lung cancer (Chronic) Neutropenia (Acute) Hypothyroidism (Chronic) Peripheral edema (Acute) Hypomagnesemia (Acute) Lung cancer (Chronic) Neutropenia (Acute) Suspected pulmonary embolism (Acute) Breath shortness (Acute) Hypokalemia (Acute) COPD exacerbation (Acute) Chronic obstructive lung disease (Acute) severe; PFT's 12/2020-PRN use of oxygen-2 L/min Essential hypertension (Acute 12/26/12) Polyp of colon (Acute) 11/05/12 tubovillous 10/04; adenoma 11/0802/07/17: Villous Adenoma 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 Patient advised not to drive Abnormal CT scan, chest 2018, persistent right lower lobe infiltrate 2020-persistent infiltrate nodule in right lower lobe. As of 01/2021 patient declines follow-up or repeat CT Pedal edema Gastroesophageal reflux disease Smoker Quit about 2014, about a [id number] history of smoking Tubular adenoma (04/11/17) Social isolation (07/13/16) Malignant neoplasm of female breast (07/26/11) Stage 1 left breast: invasive ductal cancer ([facility] – [place] S/P lumpectomy and radiation, no hormonal tx Family history of colon cancer sister-in her 60's Dermatitis, unspecified (11/17/15) Depressive disorder Calcific tendinitis of shoulder (12/23/12) Anxiety and depression Neoplasm of breast Oxygen dependent Anxiety Essential hypertension COPD with exacerbation Surgical History Status post breast biopsy Status post breast lumpectomy Status post cholecystectomy Colonoscopy - MAC (04/11/17) Colonoscopy - MAC (02/07/17) Colonoscopy - MAC (11/05/12) Cholecystectomy (~05/2010) Breast, Lumpectomy left breast lumpectomy and radiation Biopsy of breast RIGHT X 2 Social History Smoking/Tobacco Use Status: Former Tobacco Use Smoking risk assessment performed?: Yes Alcohol Intake: never Drug use: Never Substance use type: does not use Housing: house Do you feel safe at home: Yes Do you feel safe in your relationship?: Yes Additional Social history: lives alone
--- NOTE | 2023-08-10 12:30 | RT.EKG_ITS ---
APPROVED REPORT Exam: Resting ECG Reason for Exam: SOB Patient Location: E HR:101 bpm ECG Measurements Heart Rate 101 AXIS LA 224 P 82 QRSd 77 QRS 73 QT 346 T 73 QTc 444 Conclusion Sinus rhythm 101 no stemi
[2023-08-10] MEDS: Omnipaque 350 MG/ML 500 ML BTL-Imaging package 65 ML IJ (12:53)
--- NOTE | 2023-08-10 12:56 | DI.CT_ITS ---
Exam(s) CT CHEST PE CTA EXAM: CT CHEST PE CTA CLINICAL HISTORY: sob, cancer. TECHNIQUE: Imaging Protocol: CT angiography of the chest was performed using pulmonary embolus ruy col. Multi planar reconstructions were performed. CONTRAST MATERIAL: Intravenous: Omnipaque 350 Contrast volume: 100 cc COMPARISON: No exams were available for comparison FINDINGS: CHEST: PULMONARY ARTERIES: There are no intraluminal filling defects to suggest acute pulmonary emboli. LUNGS: COPD findings but no confluent infiltrates nor pleural effusions. No ominous pulmonary nodule s.. MEDIASTINUM: There is no hilar nor mediastinal adenopathy. Visualized thyroid unremarkable. CARDIAC: Heart size is upper normal. There is no pericardial effusion.Caliber of the thoracic aorta is within normal limits. No evidence of aortic dissection. There is no significant shift of the inte rventricular septum. PARTIALLY VISUALIZED UPPERMOST ABDOMEN: No adrenal masses. There is a partially included 5 cm cyst i n the left kidney. Hepatic steatosis. Incidentally noted is independent origin of the splenic arter y and common hepatic arteries [id number] off the anterior abdominal aorta (instead of a common alicia ac trunk). OSSEOUS: No significant osseous lesions.. OTHER: Distal tip of Port-A-Cath is in the lower right atrium. IMPRESSION: 1. No evidence of acute pulmonary emboli. No evidence of pulmonary infarction.No pleural effusions. No infiltrates nor ominous pulmonary nodules. 2. No evidence of aortic dissection nor pericardial effusion. 3. No intrathoracic adenopathy. Distal tip of the Port-A-Cath is in the lower right atrium Called by myself to ER physician. RADIATION DOSE DELIVERED: Total DLP DATA REPOSITORY: All CT scans at this facility are submitted to the National Radiology Data Registry (NRDR) Dose Index Registry (DIR) with the [employer] (A[employer]). RADIATION OPTIMIZATION: All CT scans at this facility use at least one of these dose optimization te chniques: automated exposure control; mA and/or kV adjustment per patient size (includes targeted exa ms where dose is matched to clinical indication); or iterative reconstruction.
[2023-08-10 13:28] VITALS: BP 128/45; PULSE 90; RESP 19; O2SAT 93
[2023-08-10 13:34] VITALS: RESP 28
[2023-08-10 13:39] VITALS: BP 128/45; PULSE 90; RESP 28; TEMP 36.8; O2SAT 93
== END 2023-08-10 13:35 | disposition home or self-care (01) ==
PROVIDERS: Emergency Provider Emergency Medicine; PCP Family Medicine
DX: J44.9 Chronic obstructive pulmonary disease, unspecified (principal); I10 Essential (primary) hypertension; C20 Malignant neoplasm of rectum; Z92.21 Personal history of antineoplastic chemotherapy; Z87.891 Personal history of nicotine dependence
CPT/HCPCS: 36591; 71275; 80053; 82805; 93005; 94640; 99285; 71045; 83735; 83880; 84439; 84443; 84484; 85025; 85610; 85730; 93010; 99284; J7613

== ENCOUNTER 2023-08-24 01:11 | Outpatient (RCR) | payer MEDICARE, SELFPAY ==
[2023-07-28 00:19] VITALS: BP 138/71; PULSE 79; RESP 20; TEMP 36.7
[2023-08-10] MEDS: Normal Saline Flush 10 ML SYR IVP (07:17)
[2023-08-10 07:58] LABS: Abs Immature Grans 0.01 10^3/uL (0.0-0.06); Absolute Basophil Count 0.04 10^3/uL (0.0-0.2); Absolute Eosinophil Count 0.39 10^3/uL (0.0-0.7); Absolute Lymphocyte Count 0.69 10^3/uL (1.2-3.4); Absolute Monocyte Count 0.61 10^3/uL (0.1-0.8); Absolute Neutrophil Count 2.34 10^3/uL (1.2-6.7); Eosinophils % 9.6 %; HCT 34.1 % (36.0-46.0); HGB 11.3 g/dL (11.2-15.7); Immature Grans % 0.2 %; Lymphocytes % 16.9 %; MCH 31.5 pg (27.0-33.0); MCHC 33.1 % (32.0-36.0); MCV 95 fL (80-95); MPV 10.9 fL (8.0-11.0); Neutrophils % 57.3 %; Platelet Count 201 10^3/uL (130-400); RBC 3.59 10^6/uL (3.93-5.22); RDW 13.9 % (11.7-14.6); RDW-SD 48.4 fL; WBC 4.08 10^3/uL (4.4-10.8)
[2023-08-10 08:21] LABS: ALT 17 U/L (14-59); AST 19 U/L (15-37); Albumin 3.4 g/dL (3.4-5.0); Alkaline Phosphatase 76 U/L (46-116); Anion Gap 6.8 mmol/L (3-11); BUN 20 mg/dL (7-18); Bilirubin, Total 0.5 mg/dL (0.2-1.0); CO2 29.2 mmol/L (21.0-32.0); CREATININE 1.2 mg/dL (0.55-1.02); Calcium 9.4 mg/dL (8.5-10.1); Chloride 106 mmol/L (98-107); Estimated GFR 46.05 (mL/min/1.73m2); FREE T4 1.11 ng/dL (0.76-1.46); Glucose 107 mg/dL (74-106); Potassium 3.7 mmol/L (3.5-5.1); Sodium 142 mmol/L (136-145); TSH 9.44 uIU/Ml (0.36-3.74); Total Protein 6.7 g/dL (6.4-8.2)
[2023-08-24 09:26] LABS: Abs Immature Grans 0.01 10^3/uL (0.0-0.06); Absolute Basophil Count 0.04 10^3/uL (0.0-0.2); Absolute Eosinophil Count 0.34 10^3/uL (0.0-0.7); Absolute Lymphocyte Count 0.51 10^3/uL (1.2-3.4); Absolute Monocyte Count 0.51 10^3/uL (0.1-0.8); Absolute Neutrophil Count 3.01 10^3/uL (1.2-6.7); Basophils % 0.9 %; Eosinophils % 7.7 %; HCT 35.8 % (36.0-46.0); Immature Grans % 0.2 %; Lymphocytes % 11.5 %; MCH 31.7 pg (27.0-33.0); MCHC 33.5 % (32.0-36.0); MCV 95 fL (80-95); MPV 10.9 fL (8.0-11.0); Monocytes % 11.5 %; Neutrophils % 68.2 %; Platelet Count 220 10^3/uL (130-400); RBC 3.79 10^6/uL (3.93-5.22); RDW 13.6 % (11.7-14.6); RDW-SD 47.3 fL; WBC 4.42 10^3/uL (4.4-10.8)
[2023-08-24 09:50] LABS: ALT 17 U/L (14-59); AST 22 U/L (15-37); Albumin 3.5 g/dL (3.4-5.0); Alkaline Phosphatase 83 U/L (46-116); BUN 12 mg/dL (7-18); Bilirubin, Total 0.66 mg/dL (0.2-1.0); CREATININE 1.2 mg/dL (0.55-1.02); Calcium 9.3 mg/dL (8.5-10.1); Chloride 105 mmol/L (98-107); Estimated GFR 46.05 (mL/min/1.73m2); FREE T4 1.24 ng/dL (0.76-1.46); Glucose 102 mg/dL (74-106); Magnesium 1.8 mg/dL (1.8-2.4); Potassium 3.6 mmol/L (3.5-5.1); Sodium 142 mmol/L (136-145); TSH 10.14 uIU/Ml (0.36-3.74)
== END 2023-08-26 23:59 | disposition home or self-care (01) ==
LOC: INF 01:11
PROVIDERS: PCP Family Medicine; Visit Provider Internal Medicine Hematology & Oncology
DX: C34.31 Malignant neoplasm of lower lobe, right bronchus or lung (principal); Z79.899 Other long term (current) drug therapy; C20 Malignant neoplasm of rectum; Z45.2 Encounter for adjustment and management of vascular access device
CPT/HCPCS: 36591; 80053; 82378; 83735; 84439; 84443; 85025

== ENCOUNTER 2023-08-27 10:23 | Emergency (ER) | payer MEDICARE, SELFPAY ==
[2023-08-27 10:33] VITALS: BP 107/52; PULSE 101; RESP 20; TEMP 36.4; O2SAT 94
--- NOTE | 2023-08-27 11:15 | RT.EKG_ITS ---
APPROVED REPORT Exam: Resting ECG Reason for Exam: Shortness of breath Patient Location: E HR:90 bpm ECG Measurements Heart Rate 90 AXIS NJ 164 P 74 QRSd 81 QRS 48 QT 358 T 66 QTc 439 Conclusion Sinus rhythm. 90 +artifact
[2023-08-27 11:17] VITALS: RESP 20
[2023-08-27 11:48] LABS: Abs Immature Grans 0.02 10^3/uL (0.0-0.06); Absolute Basophil Count 0.05 10^3/uL (0.0-0.2); Absolute Eosinophil Count 0.27 10^3/uL (0.0-0.7); Absolute Lymphocyte Count 0.57 10^3/uL (1.2-3.4); Absolute Monocyte Count 0.57 10^3/uL (0.1-0.8); Basophils % 0.9 %; Eosinophils % 4.9 %; HCT 35.7 % (36.0-46.0); HGB 11.6 g/dL (11.2-15.7); Immature Grans % 0.4 %; Lymphocytes % 10.4 %; MCH 31.2 pg (27.0-33.0); MCHC 32.5 % (32.0-36.0); MCV 96 fL (80-95); MPV 10.5 fL (8.0-11.0); Monocytes % 10.4 %; Platelet Count 193 10^3/uL (130-400); RBC 3.72 10^6/uL (3.93-5.22); RDW 13.8 % (11.7-14.6); RDW-SD 48.7 fL; WBC 5.48 10^3/uL (4.4-10.8)
--- NOTE | 2023-08-27 11:56 | DI.RAD_ITS ---
Exam(s) XR CHEST 2V PA LATERAL EXAM: XR CHEST 2V PA LATERAL CLINICAL HISTORY: Shortness of Breath. TECHNIQUE: 2D digital imaging was performed. COMPARISON: CR XR PORTABLE CHEST AP from 08/10/2023 FINDINGS: 2 views: Distal tip of the right supra clavi in Port-A-Cath is in the upper right atrium, unchanged. Heart size is normal. The mediastinum is not widened. Bilateral hyperinflation but no infiltrates nor pleural effusions. No pulmonary edema. No CHF. IMPRESSION: No acute pulmonary findings. DATA REPOSITORY: RADIATION DOSE DELIVERED:
[2023-08-27 12:11] LABS: ALT 10 U/L (14-59); AST 12 U/L (15-37); Albumin 3.5 g/dL (3.4-5.0); Alkaline Phosphatase 85 U/L (46-116); Anion Gap 7.4 mmol/L (3-11); BUN 19 mg/dL (7-18); Bilirubin, Total 1.02 mg/dL (0.2-1.0); CO2 29.6 mmol/L (21.0-32.0); CREATININE 1.5 mg/dL (0.55-1.02); Calcium 9.4 mg/dL (8.5-10.1); Chloride 103 mmol/L (98-107); Estimated GFR 35.23 (mL/min/1.73m2); Glucose 134 mg/dL (74-106); Magnesium 1.9 mg/dL (1.8-2.4); Potassium 4.2 mmol/L (3.5-5.1); Sodium 140 mmol/L (136-145); Total Protein 6.9 g/dL (6.4-8.2); Troponin I < 50 ng/L (< or =60)
[2023-08-27 12:31] VITALS: BP 106/62; PULSE 94; RESP 18; O2SAT 93
--- NOTE | 2023-08-27 12:36 | ED.GENADUL_ITS ---
Discharge Plan Disposition Patient Disposition: Home Discharge Details Clinical Impression: Adverse drug reaction Primary Care Provider: Roverto Ashby ED Provider: Lorenzo Adamson Home Meds and New Rx's Prescriptions: No Action (DME) Oxygen Tank See Rx Instructions .Route Rx Instructions: As directed lorazepam [Ativan] 1 mg tablet 1 mg PO BID PRN (Reason: anxiety) Qty: 30 0RF levothyroxine 50 mcg capsule 50 mcg PO DAILY metoprolol succinate 50 mg tablet extended release 24 hr 50 mg PO DAILY Qty: 90 3RF furosemide [Lasix] 20 mg tablet 20 mg PO DAILY Qty: 90 3RF benzonatate 100 mg capsule 100 mg PO TID PRN (Reason: cough) Qty: 30 0RF arformoterol 15 mcg/2 mL solution for nebulization 2 ml inhalation QAM Qty: 60 11RF budesonide 0.5 mg/2 mL suspension for nebulization 0.5 mg inhalation QAM Qty: 60 11RF Yupelri 175 mcg/3 mL solution for nebulization 175 mcg inhalation QAM Qty: 270 3RF amlodipine 10 mg tablet 10 mg PO DAILY Qty: 90 3RF Eliquis 5 mg Tablet See Rx Instructions .ROUTE .COMPLEX Qty: 70 0RF Rx Instructions: 10 mg (2 tabs) PO BID x 9 more doses, then 5 mg PO BID. potassium chloride [K-Tab] 20 mEq tablet extended release 20 meq PO BID Qty: 10 0RF ipratropium-albuterol 0.5 mg-3 mg(2.5 mg base)/3 mL solution for nebulization 3 ml IH QID PRN PRN (Reason: shortness of breath or wheezing) Qty: 180 0RF doxycycline hyclate 100 mg capsule 100 mg PO BID Qty: 14 0RF Discharge Instructions Instructions: Adverse Drug Reactions, Adult ED Additional Instructions: At this time your labs show some signs of dehydration. Otherwise I feel that your symptoms are more than likely a adverse reaction to the chemo that you took. Please follow-up with Dr. Boland or your primary care provider for further discussion of continued plan of care for your cancer Feel free to return to the emergency department for any new or significant worsening of your symptoms Referrals: Roverto Ashby MD [Primary Care Provider] - Discharge Data Discharge Date/Time-TO BE ENTERED AT DEPARTURE: 08/27/23 13:01 HPI General Mode of arrival: wheelchair . Date/Time Provider Initiated Documentation: 08/27/23 10:39 . Limitations to Documentation: no limitations . Information obtained by: patient, family and RN notes reviewed . History of Present Illness 78 year old F presents to the emergency department with the chief complaint of not feeling well with some aching and fatigue after taking , Patient started experiencing this day(s) (2) and it has been now resolved. Medication worsens symptoms . Patient notes no other symptoms.. Patient did receive the following treatments prior to arrival, none Related Data Home Medications Medication Instructions Recorded Confirmed Oxygen 11/14/21 08/22/23 lorazepam 1 mg tablet (Ativan) 1 mg PO BID PRN anxiety #30 tabs 12/06/22 08/22/23 apixaban 5 mg tablet (Eliquis) See Rx Instructions .Route 01/28/23 08/22/23 .COMPLEX #70 tabs ipratropium 0.5 mg-albuterol 3 mg 3 ml inhalation QID PRN PRN 01/28/23 08/22/23 (2.5 mg base)/3 mL nebulization shortness of breath or wheezing soln #180 mL potassium chloride 20 mEq 20 meq PO BID #10 tabs 01/28/23 08/22/23 tablet,extended release (K-Tab) furosemide 20 mg tablet (Lasix) 20 mg PO DAILY #90 tab-caps 02/08/23 08/22/23 metoprolol succinate 50 mg 50 mg PO DAILY #90 tabs 02/08/23 08/22/23 tablet,extended release 24 hr arformoterol 15 mcg/2 mL solution 2 ml inhalation QAM #60 mL 03/05/23 08/22/23 for nebulization budesonide 0.5 mg/2 mL suspension 0.5 mg (2 mL) inhalation QAM #60 mL 03/05/23 08/22/23 for nebulization revefenacin 175 mcg/3 mL solution 175 mcg (3 mL) inhalation QAM #270 03/05/23 08/22/23 for nebulization (Yupelri) mL amlodipine 10 mg tablet 10 mg PO DAILY #90 tabs 03/14/23 08/22/23 levothyroxine 50 mcg capsule 50 mcg PO DAILY 05/09/23 08/22/23 doxycycline hyclate 100 mg capsule 100 mg PO BID #14 caps 07/14/23 08/22/23 benzonatate 100 mg capsule 100 mg PO TID PRN cough #30 caps 07/20/23 08/22/23 Previous Rx's Medication Instructions Recorded lorazepam 1 mg tablet (Ativan) 1 mg PO BID PRN anxiety #30 tabs 12/06/22 apixaban 5 mg tablet (Eliquis) See Rx Instructions .Route 01/28/23 .COMPLEX #70 tabs ipratropium 0.5 mg-albuterol 3 mg 3 ml inhalation QID PRN PRN 01/28/23 (2.5 mg base)/3 mL nebulization shortness of breath or wheezing soln #180 mL potassium chloride 20 mEq 20 meq PO BID #10 tabs 01/28/23 tablet,extended release (K-Tab) furosemide 20 mg tablet (Lasix) 20 mg PO DAILY #90 tab-caps 02/08/23 metoprolol succinate 50 mg 50 mg PO DAILY #90 tabs 02/08/23 tablet,extended release 24 hr arformoterol 15 mcg/2 mL solution 2 ml inhalation QAM #60 mL 03/05/23 for nebulization budesonide 0.5 mg/2 mL suspension 0.5 mg (2 mL) inhalation QAM #60 mL 03/05/23 for nebulization revefenacin 175 mcg/3 mL solution 175 mcg (3 mL) inhalation QAM #270 03/05/23 for nebulization (Yupelri) mL amlodipine 10 mg tablet 10 mg PO DAILY #90 tabs 03/14/23 doxycycline hyclate 100 mg capsule 100 mg PO BID #14 caps 07/14/23 benzonatate 100 mg capsule 100 mg PO TID PRN cough #30 caps 07/20/23 Allergies Allergy/AdvReac Type Severity Reaction Status Date / Time lisinopril Allergy CAN'T Verified 08/27/23 11:21 REMEMBER Sulfa (Sulfonamide Allergy ? RASH Verified 08/27/23 11:21 Antibiotics) tiotropium bromide AdvReac Intermediate Chest Verified 08/27/23 11:21 [From Spiriva with tightness HandiHaler] and shakiness anastrozole AdvReac COUGH Verified 08/27/23 11:21 losartan AdvReac TACHYCARDIA Verified 08/27/23 11:21 Penicillins AdvReac Rash Verified 08/27/23 11:21 General Stated Complaint: GenMedical FELIBERTO: 3 Review of Systems Constitutional Constitutional: Denies chills, Denies fever(s) and Denies headache(s) ENT Ears, Nose, Mouth, and Throat: Denies headache(s) Cardiovascular Cardiovascular: Denies chest pain, Reports rapid heart rate and Reports dyspnea Respiratory Respiratory: Reports dyspnea Gastrointestinal Gastrointestinal: Denies abdominal pain, Reports nausea and Denies vomiting Genitourinary Genitourinary: Reports system reviewed and no additional complaints, except as documented Neurologic Neurologic: Denies headache(s) Exam Const General: cooperative, no acute distress and not ill appearing Orientation: alert, awake and oriented x3 HENMT Mouth: moist mucous membranes Resp Effort & Inspection: normal respiratory effort, able to speak in complete sentences and no respiratory distress Auscultation: diminished lung sounds bilaterally in the lower lung swanson Cardio Rate: regular rate Rhythm: regular rhythm Skin General skin exam: no rashes or lesions noted Neuro General: patient alert, patient awake, patient oriented x3, moves all extre mities and no focal motor deficits Sensory Exam: no sensory deficits noted Course Vital Signs Vital signs: Vital Signs Temperature 36.4 C L 08/27/23 10:33 Pulse 101 H 08/27/23 10:33 Respiratory Rate 20 08/27/23 10:33 Blood Pressure 107/52 L 08/27/23 10:33 Pulse Oximetry 94 08/27/23 10:33 Temperature 36.4 C L 08/27/23 10:33 Temperature Source Temporal Artery Scan 08/27/23 10:33 Pulse 94 H 08/27/23 12:31 Respiratory Rate 18 08/27/23 12:31 Respiratory Effort Normal, Non-Labored 08/27/23 11:17 Respiratory Depth Normal 08/27/23 11:17 Respiratory Pattern Normal 08/27/23 11:17 Blood Pressure 106/62 08/27/23 12:31 Blood Pressure Position Sitting 08/27/23 10:33 Pulse Oximetry 93 08/27/23 12:31 Oxygen Delivery Method Room Air 08/27/23 12:31 Oxygen Flow Rate 0 08/27/23 12:31 Lab/Test Results Lab/Test Results: Laboratory Tests Range/Units 08/27/23 08/27/23 11:42 11:42 WBC (4.4-10.8) 10^3/uL 5.48 RBC (3.93-5.22) 10^6/uL 3.72 L Hgb (11.2-15.7) g/dL 11.6 Hct (36.0-46.0) % 35.7 L MCV (80-95) fL 96 H MCH (27.0-33.0) pg 31.2 MCHC (32.0-36.0) % 32.5 RDW (11.7-14.6) % 13.8 Plt Count (130-400) 10^3/uL 193 MPV (8.0-11.0) fL 10.5 Immature Gran % % 0.4 Neutrophils % % 73.0 Lymphocytes % % 10.4 Monocytes % % 10.4 Eosinophils % % 4.9 Basophils % % 0.9 Nucleated RBC % (0.0-0.3) % 0.0 Absolute Neutrophils (1.2-6.7) 10^3/uL 4.00 Absolute Lymphocytes (1.2-3.4) 10^3/uL 0.57 L Absolute Monocytes (0.1-0.8) 10^3/uL 0.57 Absolute Eosinophils (0.0-0.7) 10^3/uL 0.27 Absolute Basophils (0.0-0.2) 10^3/uL 0.05 Sodium (136-145) mmol/L 140 Potassium (3.5-5.1) mmol/L 4.2 Chloride (98-107) mmol/L 103 Carbon Dioxide (21.0-32.0) mmol/L 29.6 Anion Gap (3-11) mmol/L 7.4 BUN (7-18) mg/dL 19 H Creatinine (0.55-1.02) mg/dL 1.5 H Est GFR (CKD-EPI 2020) (mL/min/1.73m2) 35.23 Glucose (74-106) mg/dL 134 H Calcium (8.5-10.1) mg/dL 9.4 Magnesium (1.8-2.4) mg/dL 1.9 Total Bilirubin (0.2-1.0) mg/dL 1.02 H AST (15-37) U/L 12 L ALT (14-59) U/L 10 L Alkaline Phosphatase (46-116) U/L 85 Troponin I (< or =60) ng/L < 50 Cancelled Total Protein (6.4-8.2) g/dL 6.9 Albumin (3.4-5.0) g/dL 3.5 Medical Decision Making Patient presenting to the emergency department for chief complaint of not feeling well after taking chemotherapy pills and antibiotics on Sunday. Patient states that shortly after taking these she did not feel well. She did not continue to take any of these medications and called oncology today which told her to come to the emergency department for reassessment. Patient denies any fever or chills, states chronic shortness of breath that is slightly increased, states low p.o. intake but otherwise states all other symptoms have resolved. Patient does have what she reports a small amount of lung cancer and colon cancer. Physical exam shows diminished lung sounds in bases but otherwise clear lung sounds, mild tachycardia but otherwise benign exam. Will plan on checking patient's labs chest x-ray and EKG. Reviewed patient's labs which showed no significant neutropenia and otherwise nondiagnostic CBC. CMP shows decreased renal function that is slightly worse than patient's baseline but not emergent, slightly elevated bilirubin with low AST and ALT negative troponin although the labs within normal values. Did discuss with patient hydration and patient states that she would prefer to go home and hydrate at home compared to stay for fluids which I feel is reasonable otherwise given no other worrisome findings I do feel the patient can be safely discharged as she states resolution of majority of symptoms prior to arrival. After discussion of diagnosis and plan of care patient and son has no further needs, questions, or concerns and states clear understanding to return to the emergency department for any worsening symptoms. This documentation was generated using [employer] dictation system, please disregard any oddities of phrase or misspellings. Imaging Data Radiologic Study: Imaging: X-Ray Radiologist's impression: Exam(s) XR CHEST 2V PA LATERAL EXAM: XR CHEST 2V PA LATERAL CLINICAL HISTORY: Shortness of Breath. TECHNIQUE: 2D digital imaging was performed. COMPARISON: CR XR PORTABLE CHEST AP from 08/10/2023 FINDINGS: 2 views: Distal tip of the right supra clavi in Port-A-Cath is in the upper right atrium, unchanged. Heart size is normal. The mediastinum is not widened. Bilateral hyperinflation but no infiltrates nor pleural effusions. No pulmonary edema. No CHF. Lab Data Lab results reviewed: Yes I reviewed the patient's lab results. Quality:SDOH Health Related Social Needs: No Data to Display PFSH All Active Problems Adverse drug reaction (Acute) Hypothyroidism (Chronic) Peripheral edema (Acute) Hypomagnesemia (Acute) Lung cancer (Chronic) Neutropenia (Acute) Suspected pulmonary embolism (Acute) Breath shortness (Acute) Hypokalemia (Acute) COPD exacerbation (Acute) Chronic obstructive lung disease (Acute) severe; PFT's 12/2020-PRN use of oxygen-2 L/min Essential hypertension (Acute 12/26/12) Polyp of colon (Acute) 11/05/12 tubovillous 10/04; adenoma 11/0802/07/17: Villous Adenoma 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 Patient advised not to drive Abnormal CT scan, chest 2018, persistent right lower lobe infiltrate 2020-persistent infiltrate nodule in right lower lobe. As of 01/2021 patient declines follow-up or repeat CT Pedal edema Gastroesophageal reflux disease Smoker Quit about 2014, about a [id number] history of smoking Tubular adenoma (04/11/17) Social isolation (07/13/16) Malignant neoplasm of female breast (07/26/11) Stage 1 left breast: invasive ductal cancer ([facility]) S/P lumpectomy and radiation, no hormonal tx Family history of colon cancer sister-in her 60's Dermatitis, unspecified (11/17/15) Depressive disorder Calcific tendinitis of shoulder (12/23/12) Anxiety and depression Neoplasm of breast Oxygen dependent Anxiety Essential hypertension COPD with exacerbation Surgical History Status post breast biopsy Status post breast lumpectomy Status post cholecystectomy Colonoscopy - MAC (04/11/17) Colonoscopy - MAC (02/07/17) Colonoscopy - MAC (11/05/12) Cholecystectomy (~05/2010) Breast, Lumpectomy left breast lumpectomy and radiation Biopsy of breast RIGHT X 2 Social History Smoking/Tobacco Use Status: Former Tobacco Use Smoking risk assessment performed?: Yes Alcohol Intake: never Drug use: Never Substance use type: does not use Housing: house Do you feel safe at home: Yes Do you feel safe in your relationship?: Yes Additional Social history: lives alone; one son very involved and supportive
== END 2023-08-27 13:01 | disposition home or self-care (01) ==
PROVIDERS: Emergency Provider Nurse Practitioner Family; PCP Family Medicine
DX: T50.995A Adverse effect of other drugs, medicaments and biological substances, initial encounter (principal)
CPT/HCPCS: 36415; 80053; 93005; 99285; 71046; 83735; 84484; 85025; 93010; 99284

== ENCOUNTER 2023-09-20 10:00 | Outpatient (RCR) | payer MEDICARE, SELFPAY ==
[2023-08-27 00:06] VITALS: BP 138/71; PULSE 79; RESP 20; TEMP 36.7
[2023-09-07 09:52] LABS: HCT 35.5 % (36.0-46.0); HGB 11.8 g/dL (11.2-15.7); MCH 30.5 pg (27.0-33.0); MCHC 33.2 % (32.0-36.0); MCV 92 fL (80-95); Platelet Count 265 10^3/uL (130-400); RBC 3.87 10^6/uL (3.93-5.22); RDW 13.2 % (11.7-14.6); RDW-SD 44.2 fL; WBC 4.57 10^3/uL (4.4-10.8)
[2023-09-07 09:53] LABS: Abs Immature Grans 0.02 10^3/uL (0.0-0.06); Absolute Basophil Count 0.04 10^3/uL (0.0-0.2); Absolute Eosinophil Count 0.42 10^3/uL (0.0-0.7); Absolute Monocyte Count 0.43 10^3/uL (0.1-0.8); Absolute Neutrophil Count 2.66 10^3/uL (1.2-6.7); Basophils % 0.9 %; Eosinophils % 9.2 %; Immature Grans % 0.4 %; Lymphocytes % 21.9 %; MPV 10.6 fL (8.0-11.0); Monocytes % 9.4 %; Neutrophils % 58.2 %
[2023-09-07 10:17] LABS: ALT 16 U/L (14-59); AST 21 U/L (15-37); Albumin 3.5 g/dL (3.4-5.0); Alkaline Phosphatase 79 U/L (46-116); Anion Gap 6.5 mmol/L (3-11); BUN 15 mg/dL (7-18); Bilirubin, Total 0.42 mg/dL (0.2-1.0); CO2 29.5 mmol/L (21.0-32.0); CREATININE 1.2 mg/dL (0.55-1.02); Calcium 9.6 mg/dL (8.5-10.1); Chloride 104 mmol/L (98-107); Estimated GFR 46.05 (mL/min/1.73m2); FREE T4 1.32 ng/dL (0.76-1.46); Glucose 106 mg/dL (74-106); Magnesium 1.8 mg/dL (1.8-2.4); Potassium 3.6 mmol/L (3.5-5.1); Sodium 140 mmol/L (136-145); TSH 8.01 uIU/Ml (0.36-3.74)
[2023-09-07] MEDS: Normal Saline Flush 10 ML SYR IVP (10:28)
[2023-09-20] MEDS: Normal Saline Flush 10 ML SYR IVP (10:15)
[2023-09-20 10:37] LABS: Abs Immature Grans 0.05 10^3/uL (0.0-0.06); Absolute Basophil Count 0.04 10^3/uL (0.0-0.2); Absolute Eosinophil Count 0.47 10^3/uL (0.0-0.7); Absolute Lymphocyte Count 0.85 10^3/uL (1.2-3.4); Absolute Monocyte Count 0.63 10^3/uL (0.1-0.8); Absolute Neutrophil Count 2.85 10^3/uL (1.2-6.7); Basophils % 0.8 %; Eosinophils % 9.6 %; HCT 35.7 % (36.0-46.0); HGB 11.6 g/dL (11.2-15.7); Lymphocytes % 17.4 %; MCH 29.8 pg (27.0-33.0); MCHC 32.5 % (32.0-36.0); MCV 92 fL (80-95); MPV 10.3 fL (8.0-11.0); Monocytes % 12.9 %; Neutrophils % 58.3 %; Platelet Count 268 10^3/uL (130-400); RBC 3.89 10^6/uL (3.93-5.22); RDW 13.3 % (11.7-14.6); RDW-SD 44.8 fL; WBC 4.89 10^3/uL (4.4-10.8)
[2023-09-20 11:13] LABS: ALT 12 U/L (14-59); AST 13 U/L (15-37); Albumin 3.3 g/dL (3.4-5.0); Alkaline Phosphatase 68 U/L (46-116); Anion Gap 9.1 mmol/L (3-11); BUN 13 mg/dL (7-18); Bilirubin, Total 0.36 mg/dL (0.2-1.0); CO2 26.9 mmol/L (21.0-32.0); Calcium 9.1 mg/dL (8.5-10.1); Chloride 106 mmol/L (98-107); Estimated GFR 57.31 (mL/min/1.73m2); FREE T4 1.36 ng/dL (0.76-1.46); Glucose 94 mg/dL (74-106); Potassium 3.6 mmol/L (3.5-5.1); Sodium 142 mmol/L (136-145); TSH 6.35 uIU/Ml (0.36-3.74); Total Protein 6.9 g/dL (6.4-8.2)
[2023-09-20 12:10] LABS: Magnesium 1.8 mg/dL (1.8-2.4)
[2023-09-20 13:14] VITALS: BP 138/71; PULSE 79; RESP 20; TEMP 36.7
== END 2023-09-26 23:59 | disposition home or self-care (01) ==
LOC: INF 10:00
PROVIDERS: PCP Family Medicine; Visit Provider Internal Medicine Hematology & Oncology
DX: C34.31 Malignant neoplasm of lower lobe, right bronchus or lung (principal); Z79.899 Other long term (current) drug therapy; C20 Malignant neoplasm of rectum; Z45.2 Encounter for adjustment and management of vascular access device
CPT/HCPCS: 36591; 80053; 82378; 83735; 84439; 84443; 85025

== ENCOUNTER 2023-10-19 00:28 | Outpatient (RCR) | payer MEDICARE, SELFPAY ==
[2023-09-27 00:26] VITALS: BP 138/71; PULSE 79; RESP 20; TEMP 36.7
[2023-10-05 13:52] LABS: Abs Immature Grans 0.03 10^3/uL (0.0-0.06); Absolute Basophil Count 0.04 10^3/uL (0.0-0.2); Absolute Eosinophil Count 0.43 10^3/uL (0.0-0.7); Absolute Lymphocyte Count 0.94 10^3/uL (1.2-3.4); Absolute Monocyte Count 0.61 10^3/uL (0.1-0.8); Absolute Neutrophil Count 3.25 10^3/uL (1.2-6.7); Basophils % 0.8 %; Eosinophils % 8.1 %; HCT 35.5 % (36.0-46.0); HGB 11.7 g/dL (11.2-15.7); Immature Grans % 0.6 %; Lymphocytes % 17.7 %; MCH 29.3 pg (27.0-33.0); MCV 89 fL (80-95); MPV 10.9 fL (8.0-11.0); Monocytes % 11.5 %; Neutrophils % 61.3 %; Platelet Count 214 10^3/uL (130-400); RBC 3.99 10^6/uL (3.93-5.22); RDW 13.2 % (11.7-14.6); RDW-SD 43.2 fL
[2023-10-05 14:31] LABS: ALT 9 U/L (14-59); AST 13 U/L (15-37); Albumin 3.6 g/dL (3.4-5.0); Alkaline Phosphatase 65 U/L (46-116); Anion Gap 8.3 mmol/L (3-11); BUN 13 mg/dL (7-18); Bilirubin, Total 0.42 mg/dL (0.2-1.0); CO2 28.7 mmol/L (21.0-32.0); CREATININE 1.2 mg/dL (0.55-1.02); Calcium 9.6 mg/dL (8.5-10.1); Chloride 106 mmol/L (98-107); Estimated GFR 46.05 (mL/min/1.73m2); FREE T4 1.29 ng/dL (0.76-1.46); Glucose 97 mg/dL (74-106); Potassium 3.6 mmol/L (3.5-5.1); Sodium 143 mmol/L (136-145); TSH 7.95 uIU/Ml (0.36-3.74); Total Protein 7.1 g/dL (6.4-8.2)
[2023-10-05 14:55] LABS: Magnesium 1.8 mg/dL (1.8-2.4)
[2023-10-05 23:01] LABS: CEA 1.7 ng/mL (See Note)
[2023-10-19 12:16] LABS: Abs Immature Grans 0.03 10^3/uL (0.0-0.06); Absolute Basophil Count 0.04 10^3/uL (0.0-0.2); Absolute Eosinophil Count 0.36 10^3/uL (0.0-0.7); Absolute Lymphocyte Count 0.73 10^3/uL (1.2-3.4); Absolute Monocyte Count 0.58 10^3/uL (0.1-0.8); Absolute Neutrophil Count 2.99 10^3/uL (1.2-6.7); Basophils % 0.8 %; Eosinophils % 7.6 %; HCT 36.9 % (36.0-46.0); HGB 11.8 g/dL (11.2-15.7); Immature Grans % 0.6 %; Lymphocytes % 15.4 %; MCH 28.5 pg (27.0-33.0); MCV 89 fL (80-95); MPV 10.6 fL (8.0-11.0); Monocytes % 12.3 %; Neutrophils % 63.3 %; Platelet Count 227 10^3/uL (130-400); RBC 4.14 10^6/uL (3.93-5.22); RDW 13.7 % (11.7-14.6); RDW-SD 44.2 fL; WBC 4.73 10^3/uL (4.4-10.8)
[2023-10-19] MEDS: Normal Saline Flush 10 ML SYR IVP (12:31)
[2023-10-19 12:40] LABS: ALT 9 U/L (14-59); AST 12 U/L (15-37); Albumin 3.5 g/dL (3.4-5.0); Alkaline Phosphatase 61 U/L (46-116); Anion Gap 8.6 mmol/L (3-11); BUN 17 mg/dL (7-18); Bilirubin, Total 0.38 mg/dL (0.2-1.0); CO2 27.4 mmol/L (21.0-32.0); CREATININE 1.4 mg/dL (0.55-1.02); Calcium 9.4 mg/dL (8.5-10.1); Chloride 104 mmol/L (98-107); Estimated GFR 38.27 (mL/min/1.73m2); FREE T4 1.22 ng/dL (0.76-1.46); Glucose 123 mg/dL (74-106); Magnesium 1.8 mg/dL (1.8-2.4); Potassium 3.5 mmol/L (3.5-5.1); Sodium 140 mmol/L (136-145); TSH 11.03 uIU/Ml (0.36-3.74); Total Protein 7.1 g/dL (6.4-8.2)
[2023-10-19 22:25] LABS: CEA 1.3 ng/mL (See Note)
== END 2023-10-27 23:59 | disposition home or self-care (01) ==
LOC: INF 00:28
PROVIDERS: PCP Family Medicine; Visit Provider Internal Medicine Hematology & Oncology
DX: C20 Malignant neoplasm of rectum (principal); Z79.899 Other long term (current) drug therapy; C34.31 Malignant neoplasm of lower lobe, right bronchus or lung
CPT/HCPCS: 36591; 80053; 82378; 83735; 84439; 84443; 85025

== ENCOUNTER 2023-11-16 00:58 | Outpatient (RCR) | payer MEDICARE, SELFPAY ==
[2023-10-28 00:10] VITALS: BP 138/71; PULSE 79; RESP 20; TEMP 36.7
[2023-11-02 12:46] LABS: Abs Immature Grans 0.03 10^3/uL (0.0-0.06); Absolute Basophil Count 0.05 10^3/uL (0.0-0.2); Absolute Eosinophil Count 0.32 10^3/uL (0.0-0.7); Absolute Lymphocyte Count 0.78 10^3/uL (1.2-3.4); Absolute Monocyte Count 0.62 10^3/uL (0.1-0.8); Absolute Neutrophil Count 3.08 10^3/uL (1.2-6.7); Eosinophils % 6.6 %; HCT 35.6 % (36.0-46.0); HGB 11.5 g/dL (11.2-15.7); Immature Grans % 0.6 %; MCH 28.1 pg (27.0-33.0); MCHC 32.3 % (32.0-36.0); MCV 87 fL (80-95); MPV 10.2 fL (8.0-11.0); Monocytes % 12.7 %; Neutrophils % 63.1 %; Platelet Count 207 10^3/uL (130-400); RBC 4.09 10^6/uL (3.93-5.22); RDW 14.1 % (11.7-14.6); RDW-SD 45.1 fL; WBC 4.88 10^3/uL (4.4-10.8)
[2023-11-02] MEDS: Normal Saline Flush 10 ML SYR IVP (13:09)
[2023-11-02 13:10] LABS: ALT 8 U/L (14-59); AST 13 U/L (15-37); Albumin 3.5 g/dL (3.4-5.0); Alkaline Phosphatase 70 U/L (46-116); Anion Gap 8.5 mmol/L (3-11); BUN 17 mg/dL (7-18); Bilirubin, Total 0.38 mg/dL (0.2-1.0); CO2 27.5 mmol/L (21.0-32.0); CREATININE 1.3 mg/dL (0.55-1.02); Calcium 9.6 mg/dL (8.5-10.1); Chloride 102 mmol/L (98-107); Estimated GFR 41.83 (mL/min/1.73m2); FREE T4 1.09 ng/dL (0.76-1.46); Glucose 111 mg/dL (74-106); Magnesium 2.1 mg/dL (1.8-2.4); Potassium 3.6 mmol/L (3.5-5.1); Sodium 138 mmol/L (136-145); TSH 8.51 uIU/Ml (0.36-3.74); Total Protein 7.2 g/dL (6.4-8.2)
[2023-11-16 13:52] VITALS: BP 138/71; PULSE 79; RESP 20; TEMP 36.7
[2023-11-16] MEDS: Normal Saline Flush 10 ML SYR IVP (13:53)
[2023-11-16 14:22] LABS: Abs Immature Grans 0.04 10^3/uL (0.0-0.06); Absolute Basophil Count 0.04 10^3/uL (0.0-0.2); Absolute Eosinophil Count 0.37 10^3/uL (0.0-0.7); Absolute Lymphocyte Count 0.78 10^3/uL (1.2-3.4); Absolute Neutrophil Count 3.04 10^3/uL (1.2-6.7); Basophils % 0.8 %; Eosinophils % 7.6 %; HCT 35.2 % (36.0-46.0); HGB 11.2 g/dL (11.2-15.7); Immature Grans % 0.8 %; MCH 26.9 pg (27.0-33.0); MCHC 31.8 % (32.0-36.0); MCV 84 fL (80-95); MPV 10.9 fL (8.0-11.0); Monocytes % 12.3 %; Neutrophils % 62.5 %; Platelet Count 265 10^3/uL (130-400); RBC 4.17 10^6/uL (3.93-5.22); RDW 14.3 % (11.7-14.6); RDW-SD 43.8 fL; WBC 4.87 10^3/uL (4.4-10.8)
[2023-11-16 14:45] LABS: ALT 11 U/L (14-59); AST 11 U/L (15-37); Albumin 3.3 g/dL (3.4-5.0); Alkaline Phosphatase 68 U/L (46-116); Anion Gap 8.7 mmol/L (3-11); BUN 15 mg/dL (7-18); Bilirubin, Total 0.41 mg/dL (0.2-1.0); CO2 28.3 mmol/L (21.0-32.0); CREATININE 1.3 mg/dL (0.55-1.02); Calcium 9.3 mg/dL (8.5-10.1); Chloride 104 mmol/L (98-107); Estimated GFR 41.83 (mL/min/1.73m2); FREE T4 1.17 ng/dL (0.76-1.46); Glucose 91 mg/dL (74-106); Magnesium 1.9 mg/dL (1.8-2.4); Potassium 3.7 mmol/L (3.5-5.1); Sodium 141 mmol/L (136-145); TSH 7.26 uIU/Ml (0.36-3.74); Total Protein 7.2 g/dL (6.4-8.2)
[2023-11-19 09:19] LABS: CEA 1.4 ng/mL (See Note)
== END 2023-11-26 23:59 | disposition home or self-care (01) ==
LOC: INF 00:58
PROVIDERS: PCP Family Medicine; Visit Provider Internal Medicine Hematology & Oncology
DX: C34.31 Malignant neoplasm of lower lobe, right bronchus or lung (principal); Z79.899 Other long term (current) drug therapy; C20 Malignant neoplasm of rectum
CPT/HCPCS: 36591; 80053; 82378; 83735; 84439; 84443; 85025

== ENCOUNTER 2023-12-06 11:14 | Emergency (ER) | payer MEDICARE, SELFPAY ==
[2023-12-06 11:25] VITALS: BP 117/67; PULSE 89; RESP 16; TEMP 36.6; O2SAT 95
[2023-12-06 11:35] VITALS: BP 117/67; PULSE 89; RESP 16; TEMP 36.6; O2SAT 95
--- NOTE | 2023-12-06 12:00 | DI.RAD_ITS ---
Exam(s) XR FINGER LT INDEX EXAM: XR FINGER LT INDEX CLINICAL HISTORY: pain, at DIP for weeks to months, suspect OA. TECHNIQUE: 2D digital imaging was performed. COMPARISON: No exams were available for comparison FINDINGS: Four views No evidence of fracture nor dislocation. There are erosive degenerative changes of the DIP joint fay dent. The proximal interphalangeal joint of this finger appears unremarkable. The metacarpophalange al joint also appears unremarkable. No radiopaque foreign bodies. No osseous lesions IMPRESSION: Advanced degenerative rows of changes of the DIP joint of the left 2nd-index finger. DATA REPOSITORY: RADIATION DOSE DELIVERED:
--- NOTE | 2023-12-06 12:10 | W.ED.GENAD ---
Discharge Plan Disposition Patient Disposition: Home Condition: Improving Discharge Details Chief Complaint: GenMedical Clinical Impression: Lymph node symptom, Osteoarthritis of finger Primary Care Provider: Roverto Ashby ED Provider: Braydon Aldrich Home Meds and New Rx's Prescriptions: No Action (DME) Oxygen Tank See Rx Instructions .Route Rx Instructions: As directed lorazepam [Ativan] 1 mg tablet 1 mg PO BID PRN (Reason: anxiety) Qty: 30 0RF levothyroxine 50 mcg capsule 50 mcg PO DAILY metoprolol succinate 50 mg tablet extended release 24 hr 50 mg PO DAILY Qty: 90 3RF folic acid 0.8 mg capsule 0.8 mg PO DAILY furosemide [Lasix] 20 mg tablet 10 mg PO DAILY arformoterol 15 mcg/2 mL solution for nebulization 2 ml inhalation QAM Qty: 60 11RF budesonide 0.5 mg/2 mL suspension for nebulization 0.5 mg inhalation QAM Qty: 60 11RF Yupelri 175 mcg/3 mL solution for nebulization 175 mcg inhalation QAM Qty: 270 3RF amlodipine 10 mg tablet 10 mg PO DAILY Qty: 90 3RF Eliquis 5 mg Tablet See Rx Instructions .ROUTE .COMPLEX Qty: 70 0RF Rx Instructions: 10 mg (2 tabs) PO BID x 9 more doses, then 5 mg PO BID. potassium chloride [K-Tab] 20 mEq tablet extended release 20 meq PO BID Qty: 10 0RF ipratropium-albuterol 0.5 mg-3 mg(2.5 mg base)/3 mL solution for nebulization 3 ml IH QID PRN PRN (Reason: shortness of breath or wheezing) Qty: 180 0RF fluconazole 100 mg tablet 100 mg PO DAILY Patient Comments: TAKE 2 TABLETS BY MOUTH ON THE FIRST DAY, THEN 1 TABLET DAILY UNTIL FINISHED Discharge Instructions Instructions: Osteoarthritis Additional Instructions: Please follow-up with your primary care physician and oncologist. Please return to the emergency department for any worsening symptoms HPI General Date/Time Provider Initiated Documentation: 12/06/23 11:39. HPI Narrative: 78-year-old female history of rectal cancer currently undergoing chemotherapy presents with discomfort to left cervical lymph node some congestion and chronic left index finger pain. Related Data Home Medications ?Medication ?Instructions ?Recorded ?Confirmed Oxygen 11/14/21 12/06/23 lorazepam 1 mg tablet (Ativan) 1 mg PO BID PRN anxiety #30 tabs 12/06/22 12/06/23 apixaban 5 mg tablet (Eliquis) See Rx Instructions .Route 01/28/23 12/06/23 .COMPLEX #70 tabs ipratropium 0.5 mg-albuterol 3 mg 3 ml inhalation QID PRN PRN 01/28/23 12/06/23 (2.5 mg base)/3 mL nebulization shortness of breath or wheezing soln #180 mL potassium chloride 20 mEq 20 meq PO BID #10 tabs 01/28/23 12/06/23 tablet,extended release (K-Tab) metoprolol succinate 50 mg 50 mg PO DAILY #90 tabs 02/08/23 12/06/23 tablet,extended release 24 hr arformoterol 15 mcg/2 mL solution 2 ml inhalation QAM #60 mL 03/05/23 12/06/23 for nebulization budesonide 0.5 mg/2 mL suspension 0.5 mg (2 mL) inhalation QAM #60 mL 03/05/23 12/06/23 for nebulization revefenacin 175 mcg/3 mL solution 175 mcg (3 mL) inhalation QAM #270 03/05/23 12/06/23 for nebulization (Yupelri) mL amlodipine 10 mg tablet 10 mg PO DAILY #90 tabs 03/14/23 12/06/23 levothyroxine 50 mcg capsule 50 mcg PO DAILY 05/09/23 12/06/23 folic acid 0.8 mg capsule 0.8 mg PO DAILY 10/30/23 12/06/23 furosemide 20 mg tablet (Lasix) 10 mg PO DAILY 10/31/23 12/06/23 fluconazole 100 mg tablet 100 mg PO DAILY 12/06/23 12/06/23 Previous Rx's ?Medication ?Instructions ?Recorded lorazepam 1 mg tablet (Ativan) 1 mg PO BID PRN anxiety #30 tabs 12/06/22 apixaban 5 mg tablet (Eliquis) See Rx Instructions .Route 01/28/23 .COMPLEX #70 tabs ipratropium 0.5 mg-albuterol 3 mg 3 ml inhalation QID PRN PRN 01/28/23 (2.5 mg base)/3 mL nebulization shortness of breath or wheezing soln #180 mL potassium chloride 20 mEq 20 meq PO BID #10 tabs 01/28/23 tablet,extended release (K-Tab) metoprolol succinate 50 mg 50 mg PO DAILY #90 tabs 02/08/23 tablet,extended release 24 hr arformoterol 15 mcg/2 mL solution 2 ml inhalation QAM #60 mL 03/05/23 for nebulization budesonide 0.5 mg/2 mL suspension 0.5 mg (2 mL) inhalation QAM #60 mL 03/05/23 for nebulization revefenacin 175 mcg/3 mL solution 175 mcg (3 mL) inhalation QAM #270 03/05/23 for nebulization (Yupelri) mL amlodipine 10 mg tablet 10 mg PO DAILY #90 tabs 03/14/23 Allergies Allergy/AdvReac Type Severity Reaction Status Date / Time lisinopril Allergy CAN'T Verified 12/06/23 11:34 REMEMBER Sulfa (Sulfonamide Allergy ? RASH Verified 12/06/23 11:34 Antibiotics) tiotropium bromide (From AdvReac Intermediate Chest Verified 12/06/23 11:34 Spiriva with HandiHaler) tightness and shakiness anastrozole AdvReac COUGH Verified 12/06/23 11:34 losartan AdvReac TACHYCARDIA Verified 12/06/23 11:34 Penicillins AdvReac Rash Verified 12/06/23 11:34 General Stated Complaint: GenMedical FELIBERTO: 3 Exam Narrative Exam Narrative: Alert oriented interactive Moist mucous membranes tolerating secretions Normal voice no stridor, no oropharyngeal lesions TMs clear bilaterally Small left cervical lymphadenopathy soft nonadherent nonfluctuant Lungs clear bilaterally no wheezes rales or rhonchi Normal heart sounds no murmurs rubs or gallops Abdomen soft nontender nondistended Left index finger DIP joint displays signs of chronic osteoarthritis, held in slight flexion, sensation and mobility intact with full flexion and extension, good capillary refill median radial and ulnar nerve sensory distribution intact radial pulse intact Alert oriented interactive moving all extremities without deficit Course Vital Signs Vital signs: Vital Signs Temperature 36.6 C 12/06/23 11:25 Pulse 89 12/06/23 11:25 Respiratory Rate 16 12/06/23 11:25 Blood Pressure 117/67 12/06/23 11:25 Pulse Oximetry 95 12/06/23 11:25 Temperature 36.6 C 12/06/23 11:35 Temperature Source Oral 10/10/24 11:35 Pulse 89 12/06/23 11:35 Respiratory Rate 16 12/06/23 11:35 Blood Pressure 117/67 12/06/23 11:35 Blood Pressure Position Sitting 12/06/23 11:35 Pulse Oximetry 95 12/06/23 11:35 Oxygen Delivery Method Room Air 12/06/23 11:35 Oxygen Flow Rate 0 12/06/23 11:35 Pain Level 7 12/06/23 11:35 Medical Decision Making 78-year-old female history of rectal cancer currently undergoing chemotherapy per patient presents with discomfort at left cervical lymph node as well as chronic left index finger discomfort and deformity over the last several months, patient does have mobile soft nonfluctuant lymphadenopathy to left cervical region single node palpated, nonfirm nonadherent, lungs clear bilaterally no wheezes rales or rhonchi, normal oropharynx without erythema or exudate, normal TMs bilaterally, speaking full sentences tolerate secretions normal voice, hemodynamically stable afebrile nontoxic nonhypoxic nontachycardic, index finger examination consistent with chronic osteoarthritis of DIP joint, lower suspicion for acute fracture dislocation lower suspicion for septic joint given no erythema warmth fluctuance or pain upon palpation or passive range of motion, neurovascular exam of limb intact, neurologically intact. Offered patient viral swab and strep swab however patient declined. Patient would like to receive an x-ray of her finger, have placed order for x-ray of left index finger. Low suspicion for pneumonia ACS PE pneumothorax pleural effusion or aortic pathology given history and physical, low suspicion for traumatic injury to finger or septic joint given history and physical. Patient will receive x-ray, will be given home care instructions and return precautions will follow-up closely with primary care and oncology team. 13: 39 patient resting comfortably no acute distress. Evidence of osteoarthritis of DIP joint of left index finger. Hemodynamically stable no acute distress. Will follow-up closely with oncologist and primary care Quality:SDOH Health Related Social Needs: No Data to Display PFSH All Active Problems (Updated 12/06/23 @ 13:41 by Braydon Aldrich MD) Osteoarthritis of finger (Acute) Lymph node symptom (Acute) DNR (do not resuscitate) (Acute) 10/30/2023 COLST: DNI/DNI, + admit to hospital for treatment, +Abx, +IV fluids, No feeding tube Advanced care planning/counseling discussion (Acute) Palliative care patient (Acute) History of breast cancer (Acute) 2011, lumpectomy and radiation, [place]+, [place]+, Her-; Stage 3 severe COPD by GOLD classification (Acute) Chronic respiratory failure with hypoxia, on home O2 therapy (Acute) Breast cancer, left (Acute) Non-small cell cancer of right lung (Acute) Hypothyroidism (Chronic) Peripheral edema (Acute) Hypomagnesemia (Acute) Lung cancer (Chronic) Neutropenia (Acute) Suspected pulmonary embolism (Acute) Breath shortness (Acute) Hypokalemia (Acute) COPD exacerbation (Acute) Chronic obstructive lung disease (Acute) severe; PFT's 12/2020-PRN use of oxygen-2 L/min Essential hypertension (Acute 12/26/12) Polyp of colon (Acute) 11/05/12 tubovillous 10/04; adenoma 11/0802/07/17: Villous Adenoma 04/11/17: mixed tubulovillous adenoma/traditional serrated adenoma, CDanielson Rectal cancer (Acute) Rectal mass (Acute) Hearing decreased (Acute) Tremor (Acute) Abnormal weight loss (Acute) Medical History Abnormal CT scan, chest 2018, persistent right lower lobe infiltrate 2020-persistent infiltrate nodule in right lower lobe. As of 01/2021 patient declines follow-up or repeat CT Anxiety Anxiety and depression Calcific tendinitis of shoulder (12/23/12) COPD with exacerbation Depressive disorder Dermatitis, unspecified (11/17/15) Essential hypertension Family history of colon cancer sister-in her 60's Gastroesophageal reflux disease Hyperglycemia Malignant neoplasm of female breast (07/26/11) Stage 1 left breast: invasive ductal cancer ([facility] [place]) S/P lumpectomy and radiation, no hormonal tx Neoplasm of breast Oxygen dependent Pedal edema Smoker Quit about 2014, about a [id number] history of smoking Social isolation (07/13/16) Tubular adenoma (04/11/17) Vision loss 12/2020, poor vision both eyes-20-200 bilaterally MyChart. Patient advised not to drive Surgical History Biopsy of breast RIGHT X 2 Breast, Lumpectomy left breast lumpectomy and radiation Cholecystectomy (~05/2010) Colonoscopy - MAC (11/05/12) Colonoscopy - MAC (02/07/17) Colonoscopy - MAC (04/11/17) Status post breast biopsy Status post breast lumpectomy Status post cholecystectomy Social History Smoking/Tobacco Use Status: Former Tobacco Use Smoking risk assessment performed?: Yes Alcohol Intake: never Drug use: Never Substance use type: does not use Housing: house Do you feel safe at home: Yes Do you feel safe in your relationship?: Yes Additional Social history: lives alone; one son very involved and supportive
== END 2023-12-06 13:49 | disposition home or self-care (01) ==
PROVIDERS: Emergency Provider Emergency Medicine; PCP Family Medicine
DX: R59.0 Localized enlarged lymph nodes (principal); M19.042 Primary osteoarthritis, left hand; R05.3 Chronic cough; J44.9 Chronic obstructive pulmonary disease, unspecified; I10 Essential (primary) hypertension; C20 Malignant neoplasm of rectum; Z85.118 Personal history of other malignant neoplasm of bronchus and lung; Z92.21 Personal history of antineoplastic chemotherapy; Z79.01 Long term (current) use of anticoagulants; Z99.81 Dependence on supplemental oxygen; Z87.891 Personal history of nicotine dependence
CPT/HCPCS: 99283; 73140

== ENCOUNTER 2023-12-14 00:48 | Outpatient (RCR) | payer MEDICARE, SELFPAY ==
[2023-11-27 00:21] VITALS: BP 138/71; PULSE 79; RESP 20; TEMP 36.7
[2023-11-30] MEDS: Normal Saline Flush 10 ML SYR IVP (07:51)
[2023-11-30 08:12] LABS: Abs Immature Grans 0.05 10^3/uL (0.0-0.06); Absolute Basophil Count 0.05 10^3/uL (0.0-0.2); Absolute Eosinophil Count 0.32 10^3/uL (0.0-0.7); Absolute Lymphocyte Count 0.56 10^3/uL (1.2-3.4); Absolute Monocyte Count 0.53 10^3/uL (0.1-0.8); Absolute Neutrophil Count 5.16 10^3/uL (1.2-6.7); Basophils % 0.7 %; Eosinophils % 4.8 %; HCT 32.8 % (36.0-46.0); HGB 10.3 g/dL (11.2-15.7); Immature Grans % 0.7 %; Lymphocytes % 8.4 %; MCH 26.6 pg (27.0-33.0); MCHC 31.4 % (32.0-36.0); MCV 85 fL (80-95); MPV 10.8 fL (8.0-11.0); Monocytes % 7.9 %; Neutrophils % 77.5 %; Platelet Count 270 10^3/uL (130-400); RBC 3.87 10^6/uL (3.93-5.22); RDW 14.6 % (11.7-14.6); RDW-SD 45.3 fL; WBC 6.67 10^3/uL (4.4-10.8)
[2023-11-30 08:37] LABS: ALT < 6 U/L (14-59); AST 11 U/L (15-37); Albumin 2.9 g/dL (3.4-5.0); Alkaline Phosphatase 62 U/L (46-116); Anion Gap 8.3 mmol/L (3-11); BUN 16 mg/dL (7-18); Bilirubin, Total 0.33 mg/dL (0.2-1.0); CO2 27.7 mmol/L (21.0-32.0); CREATININE 1.4 mg/dL (0.55-1.02); Calcium 9.1 mg/dL (8.5-10.1); Chloride 105 mmol/L (98-107); Estimated GFR 38.27 (mL/min/1.73m2); FREE T4 1.12 ng/dL (0.76-1.46); Glucose 164 mg/dL (74-106); Magnesium 1.8 mg/dL (1.8-2.4); Potassium 3.7 mmol/L (3.5-5.1); Sodium 141 mmol/L (136-145); TSH 6.47 uIU/Ml (0.36-3.74); Total Protein 6.8 g/dL (6.4-8.2)
[2023-12-14] MEDS: Normal Saline Flush 10 ML SYR IVP (07:53)
[2023-12-14 08:11] LABS: Abs Immature Grans 0.05 10^3/uL (0.0-0.06); Absolute Basophil Count 0.06 10^3/uL (0.0-0.2); Absolute Eosinophil Count 0.32 10^3/uL (0.0-0.7); Absolute Lymphocyte Count 0.83 10^3/uL (1.2-3.4); Absolute Monocyte Count 0.63 10^3/uL (0.1-0.8); Absolute Neutrophil Count 4.26 10^3/uL (1.2-6.7); Eosinophils % 5.2 %; HCT 33.2 % (36.0-46.0); HGB 10.2 g/dL (11.2-15.7); Immature Grans % 0.8 %; Lymphocytes % 13.5 %; MCH 25.8 pg (27.0-33.0); MCHC 30.7 % (32.0-36.0); MCV 84 fL (80-95); MPV 10.2 fL (8.0-11.0); Monocytes % 10.2 %; Neutrophils % 69.3 %; Platelet Count 280 10^3/uL (130-400); RBC 3.96 10^6/uL (3.93-5.22); RDW 15.1 % (11.7-14.6); RDW-SD 45.8 fL; WBC 6.15 10^3/uL (4.4-10.8)
[2023-12-14 08:44] LABS: ALT 10 U/L (14-59); AST 11 U/L (15-37); Albumin 3.1 g/dL (3.4-5.0); Alkaline Phosphatase 60 U/L (46-116); Anion Gap 8.3 mmol/L (3-11); BUN 19 mg/dL (7-18); Bilirubin, Total 0.31 mg/dL (0.2-1.0); CO2 26.7 mmol/L (21.0-32.0); CREATININE 1.4 mg/dL (0.55-1.02); Calcium 9.3 mg/dL (8.5-10.1); Chloride 106 mmol/L (98-107); Estimated GFR 38.27 (mL/min/1.73m2); FREE T4 0.86 ng/dL (0.76-1.46); Glucose 104 mg/dL (74-106); Potassium 4.2 mmol/L (3.5-5.1); Sodium 141 mmol/L (136-145); TSH 39.45 uIU/mL (0.36-3.74); Total Protein 7.1 g/dL (6.4-8.2)
[2023-12-14 18:05] LABS: CEA 1.1 ng/mL (See Note)
== END 2023-12-27 23:59 | disposition home or self-care (01) ==
LOC: INF 00:48
PROVIDERS: PCP Family Medicine; Visit Provider Internal Medicine Hematology & Oncology
DX: C34.31 Malignant neoplasm of lower lobe, right bronchus or lung (principal); Z79.899 Other long term (current) drug therapy; C20 Malignant neoplasm of rectum; Z45.2 Encounter for adjustment and management of vascular access device
CPT/HCPCS: 36591; 80053; 82378; 83735; 84439; 84443; 85025

== ENCOUNTER 2024-01-22 01:50 | Outpatient (RCR) | payer MEDICARE, SELFPAY ==
[2023-12-28 00:12] VITALS: BP 138/71; PULSE 79; RESP 20; TEMP 36.7
[2023-12-28] MEDS: Normal Saline Flush 10 ML SYR IVP (13:25)
[2023-12-28 13:46] LABS: Abs Immature Grans 0.06 10^3/uL (0.0-0.06); Absolute Basophil Count 0.04 10^3/uL (0.0-0.2); Absolute Lymphocyte Count 1.02 10^3/uL (1.2-3.4); Absolute Neutrophil Count 3.38 10^3/uL (1.2-6.7); Basophils % 0.7 %; Eosinophils % 8.9 %; HCT 33.5 % (36.0-46.0); HGB 10.5 g/dL (11.2-15.7); Immature Grans % 1.1 %; Lymphocytes % 18.2 %; MCH 25.9 pg (27.0-33.0); MCHC 31.3 % (32.0-36.0); MCV 83 fL (80-95); MPV 10.4 fL (8.0-11.0); Monocytes % 10.7 %; Neutrophils % 60.4 %; Platelet Count 241 10^3/uL (130-400); RBC 4.06 10^6/uL (3.93-5.22); RDW 16.5 % (11.7-14.6); RDW-SD 49.1 fL
[2023-12-28 13:58] LABS: Iron 46 ug/dL (50-170); Total Iron Binding Capacity 311 ug/dL (250-450); Transferrin Sat 15 % (15-50)
[2023-12-28 14:04] LABS: ALT 10 U/L (14-59); AST 14 U/L (15-37); Albumin 3.5 g/dL (3.4-5.0); Alkaline Phosphatase 67 U/L (46-116); Anion Gap 11.5 mmol/L (3-11); BUN 16 mg/dL (7-18); CO2 27.5 mmol/L (21.0-32.0); CREATININE 1.3 mg/dL (0.55-1.02); Calcium 9.6 mg/dL (8.5-10.1); Chloride 105 mmol/L (98-107); Estimated GFR 41.83 (mL/min/1.73m2); FREE T4 0.72 ng/dL (0.76-1.46); Glucose 99 mg/dL (74-106); Potassium 3.9 mmol/L (3.5-5.1); Sodium 144 mmol/L (136-145); TSH 91.24 uIU/mL (0.36-3.74); Total Protein 7.3 g/dL (6.4-8.2)
[2023-12-28 14:09] LABS: Ferritin 23 ng/mL (8-252)
[2023-12-28 23:01] LABS: CEA 1.7 ng/mL (See Note)
[2024-01-10] MEDS: Normal Saline Flush 10 ML SYR IVP (09:06)
[2024-01-10 10:42] LABS: ALT 12 U/L (14-59); AST 13 U/L (15-37); Albumin 3.6 g/dL (3.4-5.0); Alkaline Phosphatase 73 U/L (46-116); Anion Gap 11.2 mmol/L (3-11); BUN 18 mg/dL (7-18); Bilirubin, Total 0.36 mg/dL (0.2-1.0); CO2 26.8 mmol/L (21.0-32.0); CREATININE 1.6 mg/dL (0.55-1.02); Calcium 9.3 mg/dL (8.5-10.1); Chloride 104 mmol/L (98-107); Glucose 125 mg/dL (74-106); Magnesium 2.1 mg/dL (1.8-2.4); Potassium 4.1 mmol/L (3.5-5.1); Sodium 142 mmol/L (136-145); Total Protein 7.3 g/dL (6.4-8.2)
[2024-01-10 11:05] LABS: Abs Immature Grans 0.06 10^3/uL (0.0-0.06); Absolute Basophil Count 0.06 10^3/uL (0.0-0.2); Absolute Eosinophil Count 0.48 10^3/uL (0.0-0.7); Absolute Lymphocyte Count 0.96 10^3/uL (1.2-3.4); Absolute Neutrophil Count 3.73 10^3/uL (1.2-6.7); HCT 34.4 % (36.0-46.0); HGB 10.6 g/dL (11.2-15.7); MCH 26.1 pg (27.0-33.0); MCHC 30.8 % (32.0-36.0); MCV 85 fL (80-95); Monocytes % 11.7 %; Neutrophils % 62.3 %; Platelet Count 240 10^3/uL (130-400); RBC 4.06 10^6/uL (3.93-5.22); RDW 17.2 % (11.7-14.6); RDW-SD 53.1 fL; WBC 5.99 10^3/uL (4.4-10.8)
[2024-01-10 11:13] LABS: TSH 111.85 uIU/mL (0.36-3.74)
[2024-01-10 18:27] LABS: CEA 1.8 ng/mL (See Note)
[2024-01-22 09:18] LABS: Abs Immature Grans 0.04 10^3/uL (0.0-0.06); Absolute Basophil Count 0.06 10^3/uL (0.0-0.2); Absolute Eosinophil Count 0.39 10^3/uL (0.0-0.7); Absolute Lymphocyte Count 0.86 10^3/uL (1.2-3.4); Absolute Monocyte Count 0.62 10^3/uL (0.1-0.8); Absolute Neutrophil Count 3.49 10^3/uL (1.2-6.7); Basophils % 1.1 %; Eosinophils % 7.1 %; HCT 34.5 % (36.0-46.0); HGB 10.6 g/dL (11.2-15.7); Immature Grans % 0.7 %; Lymphocytes % 15.8 %; MCH 25.9 pg (27.0-33.0); MCHC 30.7 % (32.0-36.0); MCV 84 fL (80-95); MPV 10.9 fL (8.0-11.0); Monocytes % 11.4 %; Neutrophils % 63.9 %; Platelet Count 239 10^3/uL (130-400); RBC 4.09 10^6/uL (3.93-5.22); RDW 17.5 % (11.7-14.6); RDW-SD 54.3 fL; WBC 5.46 10^3/uL (4.4-10.8)
[2024-01-22 09:55] LABS: ALT 10 U/L (14-59); AST 8 U/L (15-37); Albumin 3.6 g/dL (3.4-5.0); Alkaline Phosphatase 73 U/L (46-116); Anion Gap 9.4 mmol/L (3-11); BUN 19 mg/dL (7-18); Bilirubin, Total 0.38 mg/dL (0.2-1.0); CO2 26.6 mmol/L (21.0-32.0); CREATININE 1.4 mg/dL (0.55-1.02); Calcium 9.2 mg/dL (8.5-10.1); Chloride 108 mmol/L (98-107); Estimated GFR 38.27 (mL/min/1.73m2); FREE T4 1.08 ng/dL (0.76-1.46); Glucose 91 mg/dL (74-106); Potassium 4.2 mmol/L (3.5-5.1); Sodium 144 mmol/L (136-145); TSH 38.21 uIU/mL (0.36-3.74); Total Protein 7.3 g/dL (6.4-8.2)
[2024-01-22 18:01] LABS: CEA 1.7 ng/mL (See Note)
== END 2024-01-26 23:59 | disposition home or self-care (01) ==
LOC: INF 01:50
PROVIDERS: Nurse Practitioner Family; PCP Family Medicine; Visit Provider Internal Medicine Hematology & Oncology
DX: Z79.899 Other long term (current) drug therapy (principal); C34.31 Malignant neoplasm of lower lobe, right bronchus or lung; C20 Malignant neoplasm of rectum; D64.9 Anemia, unspecified
CPT/HCPCS: 36591; 80053; 96523; 82378; 82728; 83540; 83550; 83735; 84439; 84443; 85025

== ENCOUNTER 2024-02-21 00:19 | Outpatient (RCR) | payer MEDICARE, SELFPAY ==
[2024-01-27 00:05] VITALS: BP 138/71; PULSE 79; RESP 20; TEMP 36.7
[2024-02-07] MEDS: Normal Saline Flush 10 ML SYR IVP (13:22)
[2024-02-07 13:31] LABS: Abs Immature Grans 0.03 10^3/uL (0.0-0.06); Absolute Basophil Count 0.06 10^3/uL (0.0-0.2); Absolute Eosinophil Count 0.43 10^3/uL (0.0-0.7); Absolute Lymphocyte Count 0.87 10^3/uL (1.2-3.4); Absolute Monocyte Count 0.65 10^3/uL (0.1-0.8); Absolute Neutrophil Count 4.16 10^3/uL (1.2-6.7); Eosinophils % 6.9 %; HCT 34.2 % (36.0-46.0); HGB 10.6 g/dL (11.2-15.7); Immature Grans % 0.5 %; MCH 25.9 pg (27.0-33.0); MCV 84 fL (80-95); Monocytes % 10.5 %; Neutrophils % 67.1 %; Platelet Count 237 10^3/uL (130-400); RBC 4.09 10^6/uL (3.93-5.22); RDW 17.1 % (11.7-14.6); RDW-SD 52.2 fL
[2024-02-07 13:55] LABS: ALT 7 U/L (14-59); AST 12 U/L (15-37); Albumin 3.7 g/dL (3.4-5.0); Alkaline Phosphatase 77 U/L (46-116); Anion Gap 11.3 mmol/L (3-11); BUN 25 mg/dL (7-18); Bilirubin, Total 0.27 mg/dL (0.2-1.0); CO2 25.7 mmol/L (21.0-32.0); CREATININE 1.4 mg/dL (0.55-1.02); Calcium 9.3 mg/dL (8.5-10.1); Chloride 106 mmol/L (98-107); Estimated GFR 38.27 (mL/min/1.73m2); FREE T4 1.03 ng/dL (0.76-1.46); Glucose 121 mg/dL (74-106); Potassium 3.8 mmol/L (3.5-5.1); Sodium 143 mmol/L (136-145); TSH 43.82 uIU/mL (0.36-3.74); Total Protein 7.4 g/dL (6.4-8.2)
[2024-02-07 22:52] LABS: CEA 1.4 ng/mL (See Note)
[2024-02-21] MEDS: Normal Saline Flush 10 ML SYR IVP (12:45)
[2024-02-21 13:03] LABS: Abs Immature Grans 0.01 10^3/uL (0.0-0.06); Absolute Basophil Count 0.06 10^3/uL (0.0-0.2); Absolute Eosinophil Count 0.33 10^3/uL (0.0-0.7); Absolute Lymphocyte Count 0.87 10^3/uL (1.2-3.4); Absolute Monocyte Count 0.62 10^3/uL (0.1-0.8); Absolute Neutrophil Count 2.36 10^3/uL (1.2-6.7); Basophils % 1.4 %; Eosinophils % 7.8 %; HCT 34.4 % (36.0-46.0); HGB 10.8 g/dL (11.2-15.7); Immature Grans % 0.2 %; Lymphocytes % 20.5 %; MCHC 31.4 % (32.0-36.0); MCV 83 fL (80-95); MPV 10.7 fL (8.0-11.0); Monocytes % 14.6 %; Neutrophils % 55.5 %; Platelet Count 210 10^3/uL (130-400); RBC 4.15 10^6/uL (3.93-5.22); RDW 16.5 % (11.7-14.6); WBC 4.25 10^3/uL (4.4-10.8)
[2024-02-21 13:18] LABS: Magnesium 2.1 mg/dL (1.8-2.4)
[2024-02-21 13:33] LABS: ALT 8 U/L (14-59); AST 12 U/L (15-37); Albumin 3.5 g/dL (3.4-5.0); Alkaline Phosphatase 82 U/L (46-116); Anion Gap 8.9 mmol/L (3-11); BUN 21 mg/dL (7-18); Bilirubin, Total 0.29 mg/dL (0.2-1.0); CO2 28.1 mmol/L (21.0-32.0); CREATININE 1.5 mg/dL (0.55-1.02); Calcium 8.9 mg/dL (8.5-10.1); Chloride 106 mmol/L (98-107); Estimated GFR 35.23 (mL/min/1.73m2); FREE T4 1.06 ng/dL (0.76-1.46); Glucose 153 mg/dL (74-106); Potassium 3.5 mmol/L (3.5-5.1); Sodium 143 mmol/L (136-145); TSH 37.29 uIU/mL (0.36-3.74)
[2024-02-21 21:24] LABS: CEA 1.8 ng/mL (See Note)
== END 2024-02-26 23:59 | disposition home or self-care (01) ==
LOC: INF 00:19
PROVIDERS: Nurse Practitioner Family; PCP Family Medicine; Visit Provider Internal Medicine Hematology & Oncology
DX: C20 Malignant neoplasm of rectum (principal); Z79.899 Other long term (current) drug therapy; C34.31 Malignant neoplasm of lower lobe, right bronchus or lung; Z45.2 Encounter for adjustment and management of vascular access device
CPT/HCPCS: 36591; 80053; 82378; 83735; 84439; 84443; 85025

== ENCOUNTER 2024-03-27 03:26 | Outpatient (RCR) | payer MEDICARE, SELFPAY ==
[2024-02-27 00:05] VITALS: BP 138/71; PULSE 79; RESP 20; TEMP 36.7
[2024-03-06] MEDS: Normal Saline Flush 10 ML SYR IVP (07:44)
[2024-03-06 07:51] LABS: Abs Immature Grans 0.03 10^3/uL (0.0-0.06); Absolute Basophil Count 0.05 10^3/uL (0.0-0.2); Absolute Eosinophil Count 0.25 10^3/uL (0.0-0.7); Absolute Lymphocyte Count 0.64 10^3/uL (1.2-3.4); Absolute Monocyte Count 0.66 10^3/uL (0.1-0.8); Absolute Neutrophil Count 2.27 10^3/uL (1.2-6.7); Basophils % 1.3 %; Eosinophils % 6.4 %; HCT 33.2 % (36.0-46.0); HGB 10.5 g/dL (11.2-15.7); Immature Grans % 0.8 %; Lymphocytes % 16.4 %; MCHC 31.6 % (32.0-36.0); MCV 82 fL (80-95); MPV 10.3 fL (8.0-11.0); Monocytes % 16.9 %; Neutrophils % 58.2 %; Platelet Count 218 10^3/uL (130-400); RBC 4.04 10^6/uL (3.93-5.22); RDW 16.5 % (11.7-14.6); RDW-SD 49.4 fL
[2024-03-06 08:09] LABS: Magnesium 2.1 mg/dL (1.8-2.4)
[2024-03-06 08:22] LABS: ALT 9 U/L (14-59); AST 14 U/L (15-37); Albumin 3.4 g/dL (3.4-5.0); Alkaline Phosphatase 77 U/L (46-116); Anion Gap 8.4 mmol/L (3-11); BUN 16 mg/dL (7-18); CO2 27.6 mmol/L (21.0-32.0); CREATININE 1.3 mg/dL (0.55-1.02); Calcium 9.4 mg/dL (8.5-10.1); Chloride 106 mmol/L (98-107); Estimated GFR 41.83 (mL/min/1.73m2); FREE T4 1.06 ng/dL (0.76-1.46); Glucose 110 mg/dL (74-106); Potassium 4.2 mmol/L (3.5-5.1); Sodium 142 mmol/L (136-145); TSH 28.59 uIU/mL (0.36-3.74); Total Protein 6.8 g/dL (6.4-8.2)
[2024-03-06 20:42] LABS: CEA 1.5 ng/mL (See Note)
[2024-03-27 08:56] LABS: Abs Immature Grans 0.03 10^3/uL (0.0-0.06); Absolute Basophil Count 0.03 10^3/uL (0.0-0.2); Absolute Eosinophil Count 0.39 10^3/uL (0.0-0.7); Absolute Lymphocyte Count 0.78 10^3/uL (1.2-3.4); Absolute Monocyte Count 0.73 10^3/uL (0.1-0.8); Absolute Neutrophil Count 2.57 10^3/uL (1.2-6.7); Basophils % 0.7 %; Eosinophils % 8.6 %; HCT 30.7 % (36.0-46.0); HGB 9.7 g/dL (11.2-15.7); Immature Grans % 0.7 %; Lymphocytes % 17.2 %; MCH 25.3 pg (27.0-33.0); MCHC 31.6 % (32.0-36.0); MCV 80 fL (80-95); MPV 10.5 fL (8.0-11.0); Monocytes % 16.1 %; Neutrophils % 56.7 %; Platelet Count 208 10^3/uL (130-400); RBC 3.83 10^6/uL (3.93-5.22); RDW-SD 46.2 fL; WBC 4.53 10^3/uL (4.4-10.8)
[2024-03-27] MEDS: Normal Saline Flush 10 ML SYR IVP (09:14)
[2024-03-27 09:20] LABS: Iron 29 ug/dL (50-170); Total Iron Binding Capacity 367 ug/dL (250-450); Transferrin Sat 8 % (15-50)
[2024-03-27 09:32] LABS: ALT 12 U/L (14-59); AST 18 U/L (15-37); Albumin 3.3 g/dL (3.4-5.0); Alkaline Phosphatase 79 U/L (46-116); Anion Gap 5.5 mmol/L (3-11); BUN 19 mg/dL (7-18); Bilirubin, Total 0.33 mg/dL (0.2-1.0); CO2 27.5 mmol/L (21.0-32.0); CREATININE 1.4 mg/dL (0.55-1.02); Calcium 9.1 mg/dL (8.5-10.1); Chloride 106 mmol/L (98-107); Estimated GFR 38.27 (mL/min/1.73m2); FREE T4 0.96 ng/dL (0.76-1.46); Ferritin 15 ng/mL (8-252); Glucose 134 mg/dL (74-106); Potassium 3.9 mmol/L (3.5-5.1); Sodium 139 mmol/L (136-145); TSH 51.18 uIU/mL (0.36-3.74); Total Protein 6.8 g/dL (6.4-8.2)
[2024-03-27 10:11] LABS: Folate 9.4 ng/mL (8.6-20.0); Vitamin B12 281 pg/mL (193-986)
[2024-03-27 21:27] LABS: CEA 1.5 ng/mL (See Note)
== END 2024-03-28 23:59 | disposition home or self-care (01) ==
LOC: INF 03:26
PROVIDERS: Nurse Practitioner Family; PCP Family Medicine; Visit Provider Internal Medicine Hematology & Oncology
DX: C34.31 Malignant neoplasm of lower lobe, right bronchus or lung (principal); C20 Malignant neoplasm of rectum; Z79.899 Other long term (current) drug therapy; D64.9 Anemia, unspecified
CPT/HCPCS: 36591; 80053; 82378; 82607; 82728; 82746; 83540; 83550; 83735; 84439; 84443; 85025

== ENCOUNTER 2024-04-11 19:44 | Outpatient (REF) | payer MEDICARE, SELFPAY ==
[2024-04-11 13:15] LABS: Bilirubin Negative (Negative); Blood Negative (Negative); Clarity Clear (Clear); Glucose Negative (Negative); Ketones Negative (Negative); Leukocyte Esterase Negative (Negative); Nitrite Negative (Negative); Urobilinogen 0.2 mg/dL (Up to 0.2)
== END 2024-04-11 19:45 | disposition home or self-care (01) ==
LOC: LBN 19:44
PROVIDERS: PCP Family Medicine; Visit Provider Nurse Practitioner Family
DX: R30.0 Dysuria (principal)
CPT/HCPCS: 81003

== ENCOUNTER 2024-04-24 02:42 | Outpatient (RCR) | payer MEDICARE, SELFPAY ==
[2024-04-10 13:11] LABS: Abs Immature Grans 0.04 10^3/uL (0.0-0.06); Absolute Basophil Count 0.04 10^3/uL (0.0-0.2); Absolute Eosinophil Count 0.32 10^3/uL (0.0-0.7); Absolute Lymphocyte Count 0.69 10^3/uL (1.2-3.4); Absolute Monocyte Count 0.57 10^3/uL (0.1-0.8); Absolute Neutrophil Count 3.53 10^3/uL (1.2-6.7); Basophils % 0.8 %; Eosinophils % 6.2 %; HCT 35.2 % (36.0-46.0); HGB 11.1 g/dL (11.2-15.7); Immature Grans % 0.8 %; Lymphocytes % 13.3 %; MCH 27.2 pg (27.0-33.0); MCHC 31.5 % (32.0-36.0); MCV 86 fL (80-95); MPV 10.7 fL (8.0-11.0); Neutrophils % 67.9 %; Platelet Count 186 10^3/uL (130-400); RBC 4.08 10^6/uL (3.93-5.22); RDW 19.3 % (11.7-14.6); RDW-SD 60.7 fL; WBC 5.19 10^3/uL (4.4-10.8)
[2024-04-10 13:34] LABS: ALT 13 U/L (14-59); AST 10 U/L (15-37); Albumin 3.8 g/dL (3.4-5.0); Alkaline Phosphatase 73 U/L (46-116); Anion Gap 6.2 mmol/L (3-11); BUN 19 mg/dL (7-18); Bilirubin, Total 0.36 mg/dL (0.2-1.0); CO2 29.8 mmol/L (21.0-32.0); CREATININE 1.3 mg/dL (0.55-1.02); Calcium 9.6 mg/dL (8.5-10.1); Chloride 105 mmol/L (98-107); Estimated GFR 41.83 (mL/min/1.73m2); Glucose 115 mg/dL (74-106); Potassium 3.9 mmol/L (3.5-5.1); Sodium 141 mmol/L (136-145); Total Protein 7.3 g/dL (6.4-8.2)
[2024-04-10] MEDS: Normal Saline Flush 10 ML SYR IVP (14:14)
[2024-04-10 23:15] LABS: CEA 1.2 ng/mL (See Note)
[2024-04-24 09:16] LABS: Abs Immature Grans 0.04 10^3/uL (0.0-0.06); Absolute Basophil Count 0.05 10^3/uL (0.0-0.2); Absolute Eosinophil Count 0.35 10^3/uL (0.0-0.7); Absolute Lymphocyte Count 0.97 10^3/uL (1.2-3.4); Absolute Monocyte Count 0.74 10^3/uL (0.1-0.8); Absolute Neutrophil Count 3.19 10^3/uL (1.2-6.7); Basophils % 0.9 %; Eosinophils % 6.6 %; HCT 35.7 % (36.0-46.0); HGB 11.1 g/dL (11.2-15.7); Immature Grans % 0.7 %; Lymphocytes % 18.2 %; MCH 27.3 pg (27.0-33.0); MCHC 31.1 % (32.0-36.0); MCV 88 fL (80-95); MPV 10.2 fL (8.0-11.0); Monocytes % 13.9 %; Neutrophils % 59.7 %; Platelet Count 213 10^3/uL (130-400); RBC 4.06 10^6/uL (3.93-5.22); RDW 19.6 % (11.7-14.6); RDW-SD 63.2 fL; WBC 5.34 10^3/uL (4.4-10.8)
[2024-04-24 09:29] LABS: Magnesium 2.2 mg/dL (1.8-2.4)
[2024-04-24] MEDS: Normal Saline Flush 10 ML SYR IVP (09:41)
[2024-04-24 09:49] LABS: ALT 12 U/L (14-59); AST 12 U/L (15-37); Albumin 3.6 g/dL (3.4-5.0); Alkaline Phosphatase 69 U/L (46-116); Anion Gap 9.5 mmol/L (3-11); BUN 21 mg/dL (7-18); CO2 29.5 mmol/L (21.0-32.0); CREATININE 1.4 mg/dL (0.55-1.02); Calcium 9.9 mg/dL (8.5-10.1); Chloride 104 mmol/L (98-107); Estimated GFR 38.27 (mL/min/1.73m2); FREE T4 1.26 ng/dL (0.76-1.46); Glucose 102 mg/dL (74-106); Sodium 143 mmol/L (136-145); TSH 25.48 uIU/mL (0.36-3.74); Total Protein 6.9 g/dL (6.4-8.2)
[2024-04-24 22:01] LABS: CEA 1.5 ng/mL (See Note)
== END 2024-04-25 23:59 | disposition home or self-care (01) ==
LOC: INF 02:42
PROVIDERS: Nurse Practitioner Family; PCP Family Medicine; Visit Provider Internal Medicine Hematology & Oncology
DX: C34.31 Malignant neoplasm of lower lobe, right bronchus or lung (principal); C20 Malignant neoplasm of rectum; Z79.899 Other long term (current) drug therapy
CPT/HCPCS: 36591; 80053; 82378; 83735; 84439; 84443; 85025

== ENCOUNTER 2024-05-15 01:29 | Outpatient (RCR) | payer MEDICARE, SELFPAY ==
[2024-05-15 13:18] LABS: Abs Immature Grans 0.05 10^3/uL (0.0-0.06); Absolute Basophil Count 0.06 10^3/uL (0.0-0.2); Absolute Eosinophil Count 0.38 10^3/uL (0.0-0.7); Absolute Lymphocyte Count 0.82 10^3/uL (1.2-3.4); Absolute Monocyte Count 0.89 10^3/uL (0.1-0.8); Absolute Neutrophil Count 2.86 10^3/uL (1.2-6.7); Basophils % 1.2 %; Eosinophils % 7.5 %; HCT 36.5 % (36.0-46.0); HGB 11.7 g/dL (11.2-15.7); Lymphocytes % 16.2 %; MCH 28.1 pg (27.0-33.0); MCHC 32.1 % (32.0-36.0); MCV 88 fL (80-95); MPV 10.3 fL (8.0-11.0); Monocytes % 17.6 %; Neutrophils % 56.5 %; Platelet Count 197 10^3/uL (130-400); RBC 4.16 10^6/uL (3.93-5.22); RDW 18.2 % (11.7-14.6); RDW-SD 58.9 fL; WBC 5.06 10^3/uL (4.4-10.8)
[2024-05-15] MEDS: Normal Saline Flush 10 ML SYR IVP (13:29)
[2024-05-15 13:41] LABS: ALT 20 U/L (14-59); AST 26 U/L (15-37); Albumin 3.6 g/dL (3.4-5.0); Alkaline Phosphatase 84 U/L (46-116); Anion Gap 8.9 mmol/L (3-11); BUN 18 mg/dL (7-18); Bilirubin, Total 0.4 mg/dL (0.2-1.0); CO2 27.1 mmol/L (21.0-32.0); CREATININE 1.4 mg/dL (0.55-1.02); Calcium 9.5 mg/dL (8.5-10.1); Chloride 105 mmol/L (98-107); Estimated GFR 38.27 (mL/min/1.73m2); Glucose 107 mg/dL (74-106); Magnesium 2.1 mg/dL (1.8-2.4); Sodium 141 mmol/L (136-145); TSH 23.79 uIU/mL (0.36-3.74); Total Protein 7.2 g/dL (6.4-8.2)
[2024-05-15 23:01] LABS: T4, Free 1.3 ng/dL (0.8-2.2)
[2024-05-15 23:18] LABS: CEA 1.4 ng/mL (See Note)
== END 2024-05-26 23:59 | disposition home or self-care (01) ==
LOC: INF 01:29
PROVIDERS: PCP Family Medicine; Visit Provider Internal Medicine Hematology & Oncology
DX: Z79.899 Other long term (current) drug therapy (principal); C34.31 Malignant neoplasm of lower lobe, right bronchus or lung; C20 Malignant neoplasm of rectum
CPT/HCPCS: 36591; 80053; 82378; 83735; 84439; 84443; 85025

== ENCOUNTER 2024-06-12 00:54 | Outpatient (RCR) | payer MEDICARE, SELFPAY ==
[2024-05-29] MEDS: Normal Saline Flush 10 ML SYR IVP (09:14)
[2024-05-29 09:48] LABS: Abs Immature Grans 0.04 10^3/uL (0.0-0.06); Absolute Basophil Count 0.07 10^3/uL (0.0-0.2); Absolute Eosinophil Count 0.37 10^3/uL (0.0-0.7); Absolute Lymphocyte Count 0.81 10^3/uL (1.2-3.4); Absolute Monocyte Count 0.73 10^3/uL (0.1-0.8); Absolute Neutrophil Count 4.07 10^3/uL (1.2-6.7); Basophils % 1.1 %; Eosinophils % 6.1 %; HCT 35.7 % (36.0-46.0); HGB 11.4 g/dL (11.2-15.7); Immature Grans % 0.7 %; Lymphocytes % 13.3 %; MCH 28.5 pg (27.0-33.0); MCHC 31.9 % (32.0-36.0); MCV 89 fL (80-95); MPV 10.6 fL (8.0-11.0); Neutrophils % 66.8 %; Platelet Count 219 10^3/uL (130-400); RDW 17.2 % (11.7-14.6); RDW-SD 56.2 fL; WBC 6.09 10^3/uL (4.4-10.8)
[2024-05-29 10:11] LABS: Magnesium 2.1 mg/dL (1.8-2.4)
[2024-05-29 10:26] LABS: ALT 10 U/L (14-59); AST 9 U/L (15-37); Albumin 3.5 g/dL (3.4-5.0); Alkaline Phosphatase 70 U/L (46-116); Anion Gap 8.2 mmol/L (3-11); BUN 17 mg/dL (7-18); Bilirubin, Total 0.4 mg/dL (0.2-1.0); CO2 28.8 mmol/L (21.0-32.0); CREATININE 1.3 mg/dL (0.55-1.02); Calcium 9.5 mg/dL (8.5-10.1); Chloride 106 mmol/L (98-107); Estimated GFR 41.83 (mL/min/1.73m2); FREE T4 1.25 ng/dL (0.76-1.46); Glucose 117 mg/dL (74-106); Potassium 3.7 mmol/L (3.5-5.1); Sodium 143 mmol/L (136-145); TSH 23.14 uIU/mL (0.36-3.74); Total Protein 6.9 g/dL (6.4-8.2)
[2024-05-29 18:54] LABS: CEA 1.3 ng/mL (See Note)
[2024-06-12 12:27] LABS: Abs Immature Grans 0.04 10^3/uL (0.0-0.06); Absolute Basophil Count 0.05 10^3/uL (0.0-0.2); Absolute Eosinophil Count 0.38 10^3/uL (0.0-0.7); Absolute Monocyte Count 0.76 10^3/uL (0.1-0.8); Absolute Neutrophil Count 4.04 10^3/uL (1.2-6.7); Basophils % 0.8 %; Eosinophils % 6.2 %; HCT 36.8 % (36.0-46.0); HGB 11.9 g/dL (11.2-15.7); Immature Grans % 0.6 %; Lymphocytes % 14.6 %; MCH 28.3 pg (27.0-33.0); MCHC 32.3 % (32.0-36.0); MCV 87 fL (80-95); MPV 10.6 fL (8.0-11.0); Monocytes % 12.3 %; Neutrophils % 65.5 %; Platelet Count 230 10^3/uL (130-400); RBC 4.21 10^6/uL (3.93-5.22); RDW-SD 51.2 fL; WBC 6.17 10^3/uL (4.4-10.8)
[2024-06-12 12:35] LABS: Magnesium 2.1 mg/dL (1.8-2.4)
[2024-06-12 12:50] LABS: ALT 9 U/L (14-59); AST 10 U/L (15-37); Albumin 3.7 g/dL (3.4-5.0); Alkaline Phosphatase 74 U/L (46-116); Anion Gap 7.4 mmol/L (3-11); BUN 16 mg/dL (7-18); Bilirubin, Total 0.3 mg/dL (0.2-1.0); CO2 28.6 mmol/L (21.0-32.0); CREATININE 1.2 mg/dL (0.55-1.02); Calcium 9.8 mg/dL (8.5-10.1); Chloride 106 mmol/L (98-107); Estimated GFR 46.05 (mL/min/1.73m2); FREE T4 1.29 ng/dL (0.76-1.46); Glucose 110 mg/dL (74-106); Potassium 3.7 mmol/L (3.5-5.1); Sodium 142 mmol/L (136-145); TSH 16.34 uIU/mL (0.36-3.74); Total Protein 7.1 g/dL (6.4-8.2)
[2024-06-12] MEDS: Normal Saline Flush 10 ML SYR IVP (13:09)
[2024-06-12 22:19] LABS: CEA 1.6 ng/mL (See Note)
== END 2024-06-25 23:59 | disposition home or self-care (01) ==
LOC: INF 00:54
PROVIDERS: Nurse Practitioner Family; PCP Family Medicine; Visit Provider Internal Medicine Hematology & Oncology
DX: Z79.899 Other long term (current) drug therapy (principal); C34.31 Malignant neoplasm of lower lobe, right bronchus or lung; C20 Malignant neoplasm of rectum; Z45.2 Encounter for adjustment and management of vascular access device
CPT/HCPCS: 36591; 80053; 82378; 83735; 84439; 84443; 85025

== ENCOUNTER 2024-06-13 08:44 | Outpatient (CLI) | payer MEDICARE, SELFPAY ==
--- NOTE | 2024-06-13 | DI.RAD_ITS ---
Exam(s) XR SHOULDER LT COMPLETE 2+V EXAM: XR SHOULDER LT COMPLETE 2+V CLINICAL HISTORY: M25.512 Acute pain LT shoulder, Recent PET Negative for Cancer Metastasis. TECHNIQUE: 2D digital imaging was performed. Three views. COMPARISON: CR LEFT SHOULDER COMPLETE from 12/23/2012 FINDINGS: BONES: No acute fracture is present. No bony destructive lesion is seen. JOINTS: No dislocation present. Mild spurring at the AC joint. Glenohumeral joint space is maintain ed. SOFT TISSUE: Central venous catheter, partially visualized. IMPRESSION: Mild degenerative changes. DATA REPOSITORY: RADIATION DOSE DELIVERED:
== END 2024-06-13 09:04 ==
LOC: DI 08:45
PROVIDERS: PCP Family Medicine; Visit Provider Nurse Practitioner Family
DX: M25.512 Pain in left shoulder (principal)
CPT/HCPCS: 73030

== ENCOUNTER 2024-06-21 10:14 | Emergency (ER) | payer MEDICARE, SELFPAY ==
[2024-06-21 10:29] VITALS: BP 125/63; PULSE 83; RESP 20; O2SAT 98
--- NOTE | 2024-06-21 11:24 | ED.GENADUL_ITS ---
Discharge Plan Disposition Patient Disposition: Home Condition: Stable Discharge Details Clinical Impression: Osteoarthritis of left acromioclavicular joint Primary Care Provider: Roverto Ashby ED Provider: Anna Brown Home Meds and New Rx's Prescriptions: New lidocaine 5 % adhesive patch,medicated 1 patch topical DAILY Qty: 15 0RF Rx Instructions: leave on most painful area for up to 12 hours then remove for 12 hours Continued (DME) Oxygen Tank See Rx Instructions .Route Rx Instructions: As directed levothyroxine 50 mcg capsule 50 mcg PO DAILY arformoterol 15 mcg/2 mL solution for nebulization 2 ml inhalation QAM Qty: 60 11RF budesonide 0.5 mg/2 mL suspension for nebulization 0.5 mg inhalation QAM Qty: 60 11RF Yupelri 175 mcg/3 mL solution for nebulization 175 mcg inhalation QAM Qty: 270 3RF lorazepam [Ativan] 1 mg tablet 1 mg PO BID PRN (Reason: anxiety) Qty: 30 0RF metoprolol succinate 50 mg tablet extended release 24 hr 50 mg PO DAILY Qty: 90 3RF amlodipine 10 mg tablet 10 mg PO DAILY Qty: 90 3RF furosemide 20 mg tablet See Rx Instructions .ROUTE .COMPLEX Qty: 90 3RF Dose Instruction: TAKE 1 TABLET BY MOUTH DAILY Rx Instructions: TAKE 1 TABLET BY MOUTH DAILY Eliquis 5 mg Tablet See Rx Instructions .ROUTE .COMPLEX Qty: 70 0RF Rx Instructions: 10 mg (2 tabs) PO BID x 9 more doses, then 5 mg PO BID. potassium chloride [K-Tab] 20 mEq tablet extended release 20 meq PO BID Qty: 10 0RF ipratropium-albuterol 0.5 mg-3 mg(2.5 mg base)/3 mL solution for nebulization 3 ml IH QID PRN PRN (Reason: shortness of breath or wheezing) Qty: 180 0RF Discharge Instructions Instructions: Osteoarthritis Additional Instructions: Left AC joint shows some bone spurring. You have some mild degenerative changes which is also known as arthritis. Wear the sling as needed for comfort. Use the lidocaine patches as prescribed. Prescription was sent to the pharmacy on file for you. Continue taking the Tylenol as previously directed. Follow up with primary care provider in 3-5 days. Return to ED sooner if any worsening or concerns. Thank you for allowing us to care for you today. Referrals: Roverto Ashby MD [Primary Care Provider] - 5 days Discharge Data Discharge Date/Time-TO BE ENTERED AT DEPARTURE: 06/21/24 11:47 HPI General Mode of arrival: ambulatory . Date/Time Provider Initiated Documentation: 06/21/24 10:34 . Limitations to Documentation: no limitations . Information obtained by: patient, family, RN notes reviewed and old records reviewed . HPI Narrative: 78-year-old female presents to the ER with a chief complaint of shoulder pain after a pulling type motion while trying to open a door that was blown open by the wind. She had a x-ray done of her left shoulder approximately a week ago. It showed spurring in the AC joint and mild degenerative changes. She has been trying Tylenol with little to no relief. She does have increased pain with abduction movements and external rotation. She does have a history of cancer, hyperglycemia, hypertension and COPD. Denies any chest pain shortness of breath or any other associated symptoms. Related Data Home Medications ?Medication ?Instructions ?Recorded ?Confirmed Oxygen 11/14/21 06/21/24 apixaban 5 mg tablet (Eliquis) See Rx Instructions .Route 01/28/23 06/21/24 .COMPLEX #70 tabs ipratropium 0.5 mg-albuterol 3 mg 3 ml inhalation QID PRN PRN 01/28/23 06/21/24 (2.5 mg base)/3 mL nebulization shortness of breath or wheezing soln #180 mL potassium chloride 20 mEq 20 meq PO BID #10 tabs 01/28/23 06/21/24 tablet,extended release (K-Tab) arformoterol 15 mcg/2 mL solution 2 ml inhalation QAM #60 mL 03/05/23 06/21/24 for nebulization budesonide 0.5 mg/2 mL suspension 0.5 mg (2 mL) inhalation QAM #60 mL 03/05/23 06/21/24 for nebulization revefenacin 175 mcg/3 mL solution 175 mcg (3 mL) inhalation QAM #270 03/05/23 06/21/24 for nebulization (Yupelri) mL levothyroxine 50 mcg capsule 50 mcg PO DAILY 05/09/23 06/21/24 lorazepam 1 mg tablet (Ativan) 1 mg PO BID PRN anxiety #30 tabs 01/08/24 06/21/24 amlodipine 10 mg tablet 10 mg PO DAILY #90 tabs 03/03/24 06/21/24 metoprolol succinate 50 mg 50 mg PO DAILY #90 tabs 03/03/24 06/21/24 tablet,extended release 24 hr furosemide 20 mg tablet See Rx Instructions .Route 04/10/24 06/21/24 .COMPLEX #90 tabs lidocaine 5 % topical patch 1 patch topical DAILY #15 ea 06/21/24 Previous Rx's ?Medication ?Instructions ?Recorded apixaban 5 mg tablet (Eliquis) See Rx Instructions .Route 01/28/23 .COMPLEX #70 tabs ipratropium 0.5 mg-albuterol 3 mg 3 ml inhalation QID PRN PRN 01/28/23 (2.5 mg base)/3 mL nebulization shortness of breath or wheezing soln #180 mL potassium chloride 20 mEq 20 meq PO BID #10 tabs 01/28/23 tablet,extended release (K-Tab) arformoterol 15 mcg/2 mL solution 2 ml inhalation QAM #60 mL 03/05/23 for nebulization budesonide 0.5 mg/2 mL suspension 0.5 mg (2 mL) inhalation QAM #60 mL 03/05/23 for nebulization revefenacin 175 mcg/3 mL solution 175 mcg (3 mL) inhalation QAM #270 03/05/23 for nebulization (Yupelri) mL lorazepam 1 mg tablet (Ativan) 1 mg PO BID PRN anxiety #30 tabs 01/08/24 amlodipine 10 mg tablet 10 mg PO DAILY #90 tabs 03/03/24 metoprolol succinate 50 mg 50 mg PO DAILY #90 tabs 03/03/24 tablet,extended release 24 hr furosemide 20 mg tablet See Rx Instructions .Route 04/10/24 .COMPLEX #90 tabs lidocaine 5 % topical patch 1 patch topical DAILY #15 ea 06/21/24 Allergies Allergy/AdvReac Type Severity Reaction Status Date / Time lisinopril Allergy CAN'T Verified 06/21/24 10:32 REMEMBER Sulfa (Sulfonamide Allergy ? RASH Verified 06/21/24 10:32 Antibiotics) tiotropium bromide (From AdvReac Intermediate Chest Verified 06/21/24 10:32 Spiriva with HandiHaler) tightness and shakiness anastrozole AdvReac COUGH Verified 06/21/24 10:32 losartan AdvReac TACHYCARDIA Verified 06/21/24 10:32 Penicillins AdvReac Rash Verified 06/21/24 10:32 General Stated Complaint: Orthopedic FELIBERTO: 4 Review of Systems All systems reviewed & are unremarkable except as noted in HPI and below Musculoskeletal Musculoskeletal: Reports as per HPI and Reports arthralgias Exam Narrative Exam Narrative: Constitutional: Alert and oriented x3. Appears stated age. Normal body habitus. Head: Normocephalic, no trauma. Eyes: Eyelids symmetrical without lesions, discharge, or swelling. Resp: Lungs clear to auscultation bilaterally, no wheezes, rales, or rhonchi. Musculoskeletal: Patient has pain with abduction and external rotation of left shoulder. Skin: No suspicious rashes or lesions. Capillary refill less than 2 sec. Neurologic: Cranial nerves II-XII intact. Alert and oriented x 3. Motor: No deficits noted. Sensory: Intact bilaterally all 4 extremities. Hematologic/Lymphatic: No ecchymosis, no lymphadenopathy. Course Vital Signs Vital signs: Vital Signs Pulse 83 06/21/24 10:29 Respiratory Rate 20 06/21/24 10:29 Blood Pressure 125/63 06/21/24 10:29 Pulse Oximetry 98 06/21/24 10:29 Pulse 83 06/21/24 10:29 Respiratory Rate 20 06/21/24 10:29 Blood Pressure 125/63 06/21/24 10:29 Pulse Oximetry 98 06/21/24 10:29 Pain Level 5 06/21/24 11:10 Medical Decision Making 78-year-old female presents to the ER with a chief complaint of shoulder pain after a pulling type motion while trying to open a door that was blown open by the wind. She had a x-ray done of her left shoulder approximately a week ago. It showed spurring in the AC joint and mild degenerative changes. She has been trying Tylenol with little to no relief. She does have increased pain with abduction movements and external rotation. She does have a history of cancer, hyperglycemia, hypertension and COPD. Denies any chest pain shortness of breath or any other associated symptoms. Discussed x-ray results at length with patient and family they verbalized understanding. Will give a lidocaine patch and a sling. Will give a prescription for lidocaine patch and instructed follow-up with PCP. This text was generated using [employer] system, please disregard any oddities of phrase or misspellings. Medical Records Medical records reviewed: Yes I reviewed the patient's medical records. Medical records narrative: X-ray shows AC spurring and mild degenerative changes. Quality:SDOH Health Related Social Needs: No Data to Display PFSH All Active Problems (Updated 06/21/24 @ 11:29 by Anna Brown NP) Osteoarthritis of left acromioclavicular joint (Acute) DNR (do not resuscitate) (Acute) 10/30/2023 COLST: DNI/DNI, + admit to hospital for treatment, +Abx, +IV fluids, No feeding tube Advanced care planning/counseling discussion (Acute) History of breast cancer (Acute) 2011, lumpectomy and radiation, [place]+, [place]+, Her-; Stage 3 severe COPD by GOLD classification (Acute) Chronic respiratory failure with hypoxia, on home O2 therapy (Acute) Breast cancer, left (Acute) Non-small cell cancer of right lung (Acute) Hypothyroidism (Chronic) Peripheral edema (Acute) Hypomagnesemia (Acute) Lung cancer (Chronic) Neutropenia (Acute) Suspected pulmonary embolism (Acute) Breath shortness (Acute) Hypokalemia (Acute) COPD exacerbation (Acute) Chronic obstructive lung disease (Acute) severe; PFT's 12/2020-PRN use of oxygen-2 L/min Essential hypertension (Acute 12/26/12) Polyp of colon (Acute) 11/05/12 tubovillous 10/04; adenoma 11/0802/07/17: Villous Adenoma 04/11/17: mixed tubulovillous adenoma/traditional serrated adenoma, CDanielson Rectal cancer (Acute) Rectal mass (Acute) Hearing decreased (Acute) Tremor (Acute) Abnormal weight loss (Acute) Medical History Palliative care patient Hyperglycemia Vision loss 12/2020, poor vision both eyes-20-200 bilaterally MyChart. Patient advised not to drive Abnormal CT scan, chest 2018, persistent right lower lobe infiltrate 2020-persistent infiltrate nodule in right lower lobe. As of 01/2021 patient declines follow-up or repeat CT Pedal edema Gastroesophageal reflux disease Smoker Quit about 2014, about a 57-ccpl-zasm history of smoking Tubular adenoma (04/11/17) Social isolation (07/13/16) Malignant neoplasm of female breast (07/26/11) Stage 1 left breast: invasive ductal cancer ([facility] [place]) S/P lumpectomy and radiation, no hormonal tx Family history of colon cancer sister-in her 60's Dermatitis, unspecified (11/17/15) Depressive disorder Calcific tendinitis of shoulder (12/23/12) Anxiety and depression Neoplasm of breast Oxygen dependent Anxiety Essential hypertension COPD with exacerbation Surgical History Status post breast biopsy Status post breast lumpectomy Status post cholecystectomy Colonoscopy - MAC (04/11/17) Colonoscopy - MAC (02/07/17) Colonoscopy - MAC (11/05/12) Cholecystectomy (~05/2010) Breast, Lumpectomy left breast lumpectomy and radiation Biopsy of breast RIGHT X 2 Social History Smoking/Tobacco Use Status: Former Tobacco Use Smoking risk assessment performed?: Yes Alcohol Intake: never Drug use: Never Substance use type: does not use Housing: house Do you feel safe at home: Yes Do you feel safe in your relationship?: Yes Additional Social history: lives alone; one son very involved and supportive
[2024-06-21] MEDS: Lidocaine 5% Patch 1 PATCH TP (11:29)
--- NOTE | 2024-06-22 09:35 | NUR.NOTE ---
Access chart to get the PCP to send prior authorization to them to review and address. For Lidocaine 5% patches prescription. Nursing Note:
== END 2024-06-21 11:47 | disposition home or self-care (01) ==
PROVIDERS: Emergency Provider Registered Nurse Emergency; PCP Family Medicine
DX: M19.012 Primary osteoarthritis, left shoulder (principal); I10 Essential (primary) hypertension; J44.9 Chronic obstructive pulmonary disease, unspecified; E03.9 Hypothyroidism, unspecified; Z79.01 Long term (current) use of anticoagulants; Z87.891 Personal history of nicotine dependence; Z99.81 Dependence on supplemental oxygen
CPT/HCPCS: 99283

== ENCOUNTER 2024-07-24 02:58 | Outpatient (RCR) | payer MEDICARE, SELFPAY ==
[2024-06-26] MEDS: Normal Saline Flush 10 ML SYR IVP (12:39)
[2024-06-26 13:17] LABS: Abs Immature Grans 0.04 10^3/uL (0.0-0.06); Absolute Basophil Count 0.05 10^3/uL (0.0-0.2); Absolute Eosinophil Count 0.38 10^3/uL (0.0-0.7); Absolute Lymphocyte Count 0.98 10^3/uL (1.2-3.4); Absolute Monocyte Count 0.76 10^3/uL (0.1-0.8); Absolute Neutrophil Count 3.21 10^3/uL (1.2-6.7); Basophils % 0.9 %; HCT 34.8 % (36.0-46.0); HGB 11.6 g/dL (11.2-15.7); Immature Grans % 0.7 %; Lymphocytes % 18.1 %; MCH 28.8 pg (27.0-33.0); MCHC 33.3 % (32.0-36.0); MCV 86 fL (80-95); MPV 11.1 fL (8.0-11.0); Neutrophils % 59.3 %; Platelet Count 254 10^3/uL (130-400); RBC 4.03 10^6/uL (3.93-5.22); RDW 15.5 % (11.7-14.6); RDW-SD 48.9 fL; WBC 5.42 10^3/uL (4.4-10.8)
[2024-06-26 13:57] LABS: ALT 10 U/L (14-59); AST 14 U/L (15-37); Albumin 3.6 g/dL (3.4-5.0); Alkaline Phosphatase 76 U/L (46-116); Anion Gap 8.7 mmol/L (3-11); BUN 22 mg/dL (7-18); Bilirubin, Total 0.3 mg/dL (0.2-1.0); CO2 28.3 mmol/L (21.0-32.0); CREATININE 1.3 mg/dL (0.55-1.02); Calcium 9.4 mg/dL (8.5-10.1); Chloride 107 mmol/L (98-107); Estimated GFR 41.83 (mL/min/1.73m2); Glucose 121 mg/dL (74-106); Magnesium 2.2 mg/dL (1.8-2.4); Potassium 3.8 mmol/L (3.5-5.1); Sodium 144 mmol/L (136-145)
[2024-06-26 23:11] LABS: CEA 1.5 ng/mL (See Note)
[2024-07-10] MEDS: Normal Saline Flush 10 ML SYR IVP (13:41)
[2024-07-10 13:54] LABS: Abs Immature Grans 0.06 10^3/uL (0.0-0.06); Absolute Basophil Count 0.07 10^3/uL (0.0-0.2); Absolute Eosinophil Count 0.32 10^3/uL (0.0-0.7); Absolute Lymphocyte Count 0.98 10^3/uL (1.2-3.4); Absolute Monocyte Count 0.85 10^3/uL (0.1-0.8); Absolute Neutrophil Count 2.93 10^3/uL (1.2-6.7); Basophils % 1.3 %; Eosinophils % 6.1 %; HCT 35.5 % (36.0-46.0); HGB 11.6 g/dL (11.2-15.7); Immature Grans % 1.2 %; Lymphocytes % 18.8 %; MCH 28.1 pg (27.0-33.0); MCHC 32.7 % (32.0-36.0); MCV 86 fL (80-95); MPV 10.4 fL (8.0-11.0); Monocytes % 16.3 %; Neutrophils % 56.3 %; Platelet Count 231 10^3/uL (130-400); RBC 4.13 10^6/uL (3.93-5.22); RDW 15.3 % (11.7-14.6); RDW-SD 47.7 fL; WBC 5.21 10^3/uL (4.4-10.8)
[2024-07-10 14:21] LABS: ALT 10 U/L (14-59); AST 17 U/L (15-37); Albumin 3.7 g/dL (3.4-5.0); Alkaline Phosphatase 75 U/L (46-116); Anion Gap 8.4 mmol/L (3-11); BUN 17 mg/dL (7-18); Bilirubin, Total 0.3 mg/dL (0.2-1.0); CO2 26.6 mmol/L (21.0-32.0); CREATININE 1.2 mg/dL (0.55-1.02); Calcium 9.5 mg/dL (8.5-10.1); Chloride 106 mmol/L (98-107); Estimated GFR 45.76 (mL/min/1.73m2); FREE T4 1.28 ng/dL (0.76-1.46); Glucose 104 mg/dL (74-106); Potassium 3.8 mmol/L (3.5-5.1); Sodium 141 mmol/L (136-145); TSH 7.07 uIU/mL (0.36-3.74); Total Protein 7.2 g/dL (6.4-8.2)
[2024-07-11 09:14] LABS: CEA 1.8 ng/mL (See Note)
[2024-07-24] MEDS: Normal Saline Flush 10 ML SYR IVP (13:24)
[2024-07-24 13:28] LABS: Abs Immature Grans 0.04 10^3/uL (0.0-0.06); Absolute Basophil Count 0.07 10^3/uL (0.0-0.2); Absolute Eosinophil Count 0.32 10^3/uL (0.0-0.7); Absolute Lymphocyte Count 0.65 10^3/uL (1.2-3.4); Absolute Monocyte Count 0.73 10^3/uL (0.1-0.8); Absolute Neutrophil Count 3.37 10^3/uL (1.2-6.7); Basophils % 1.4 %; Eosinophils % 6.2 %; HCT 34.5 % (36.0-46.0); HGB 11.2 g/dL (11.2-15.7); Immature Grans % 0.8 %; Lymphocytes % 12.5 %; MCH 28.1 pg (27.0-33.0); MCHC 32.5 % (32.0-36.0); MCV 87 fL (80-95); MPV 10.1 fL (8.0-11.0); Monocytes % 14.1 %; Platelet Count 230 10^3/uL (130-400); RBC 3.98 10^6/uL (3.93-5.22); RDW 15.5 % (11.7-14.6); RDW-SD 49.2 fL; WBC 5.18 10^3/uL (4.4-10.8)
[2024-07-24 14:01] LABS: ALT 12 U/L (14-59); AST 17 U/L (15-37); Albumin 3.6 g/dL (3.4-5.0); Alkaline Phosphatase 76 U/L (46-116); Anion Gap 9.7 mmol/L (3-11); BUN 19 mg/dL (7-18); Bilirubin, Total 0.3 mg/dL (0.2-1.0); CO2 26.3 mmol/L (21.0-32.0); CREATININE 1.3 mg/dL (0.55-1.02); Calcium 9.5 mg/dL (8.5-10.1); Chloride 105 mmol/L (98-107); Estimated GFR 41.57 (mL/min/1.73m2); FREE T4 1.14 ng/dL (0.76-1.46); Glucose 108 mg/dL (74-106); Magnesium 2.1 mg/dL (1.8-2.4); Sodium 141 mmol/L (136-145); TSH 8.75 uIU/mL (0.36-3.74); Total Protein 7.1 g/dL (6.4-8.2)
[2024-07-24 23:21] LABS: CEA 1.6 ng/mL (See Note)
== END 2024-07-26 23:59 | disposition home or self-care (01) ==
LOC: INF 02:58
PROVIDERS: Nurse Practitioner Family; PCP Family Medicine; Visit Provider Internal Medicine Hematology & Oncology
DX: C34.31 Malignant neoplasm of lower lobe, right bronchus or lung (principal); C20 Malignant neoplasm of rectum; Z79.899 Other long term (current) drug therapy; Z45.2 Encounter for adjustment and management of vascular access device
CPT/HCPCS: 36591; 80053; 82378; 83735; 84439; 84443; 85025

== ENCOUNTER 2024-08-08 09:25 | Emergency (ER) | payer MEDICARE, SELFPAY ==
[2024-08-08 09:33] VITALS: BP 125/62; PULSE 78; RESP 18; TEMP 36.5; O2SAT 97
--- NOTE | 2024-08-08 09:45 | DI.RAD_ITS ---
Exam(s) XR HUMERUS LT EXAM: XR HUMERUS LT CLINICAL HISTORY: pain and swelling soft tissue. TECHNIQUE: 2D digital imaging was performed. COMPARISON: No exams were available for comparison FINDINGS: Two views. No evidence of fracture of the humerus. No dislocation. Bone density is age- appropriate. No osseous lesions. No soft tissue findings. No adjacent rib fractures. IMPRESSION: No significant radiograph findings in left humerus. DATA REPOSITORY: RADIATION DOSE DELIVERED:
--- NOTE | 2024-08-08 10:00 | ED.GENADUL_ITS ---
Discharge Plan Disposition Patient Disposition: Home Condition: Stable Discharge Details Clinical Impression: Left arm pain, Localized soft tissue swelling Primary Care Provider: Roverto Ashby ED Provider: Nahum Aparicio Home Meds and New Rx's Prescriptions: New diclofenac sodium [Voltaren Arthritis Pain] 1 % gel 2 g topical QID Qty: 50 0RF Rx Instructions: apply to single elbow, wrist or hand; for hand includes palm/fingers/back of hand Continued (DME) Oxygen Tank See Rx Instructions .Route Rx Instructions: As directed levothyroxine 50 mcg capsule 50 mcg PO DAILY arformoterol 15 mcg/2 mL solution for nebulization 2 ml inhalation QAM Qty: 60 11RF budesonide 0.5 mg/2 mL suspension for nebulization 0.5 mg inhalation QAM Qty: 60 11RF Yupelri 175 mcg/3 mL solution for nebulization 175 mcg inhalation QAM Qty: 270 3RF lorazepam [Ativan] 1 mg tablet 1 mg PO BID PRN (Reason: anxiety) Qty: 30 0RF metoprolol succinate 50 mg tablet extended release 24 hr 50 mg PO DAILY Qty: 90 3RF amlodipine 10 mg tablet 10 mg PO DAILY Qty: 90 3RF furosemide 20 mg tablet See Rx Instructions .ROUTE .COMPLEX Qty: 90 3RF Dose Instruction: TAKE 1 TABLET BY MOUTH DAILY Rx Instructions: TAKE 1 TABLET BY MOUTH DAILY lidocaine 5 % adhesive patch,medicated 1 patch topical DAILY Qty: 15 0RF Rx Instructions: leave on most painful area for up to 12 hours then remove for 12 hours Eliquis 5 mg Tablet See Rx Instructions .ROUTE .COMPLEX Qty: 70 0RF Rx Instructions: 10 mg (2 tabs) PO BID x 9 more doses, then 5 mg PO BID. potassium chloride [K-Tab] 20 mEq tablet extended release 20 meq PO BID Qty: 10 0RF ipratropium-albuterol 0.5 mg-3 mg(2.5 mg base)/3 mL solution for nebulization 3 ml IH QID PRN PRN (Reason: shortness of breath or wheezing) Qty: 180 0RF albuterol sulfate 90 mcg/actuation HFA aerosol inhaler 2 inh INHALATION Q4H PRN Patient Comments: INHALE 2 PUFFS BY MOUTH INTO THE LUNGS EVERY 4 HOURS NEEDED FOR WHEEZING; USE WITH SPACER Discharge Instructions Additional Instructions: Please use Voltaren gel to painful area 2-3 times a day for the next 1 week. Use lidocaine patches. Dose according to label. Use your sling to support your arm and help with pain. Please follow-up with your primary care physician to be seen for reevaluation next week. Should pain and swelling persist, additional outpatient diagnostic testing is indicated. Return to the emergency department immediately for any worsening or new concerning symptoms. Referrals: Roverto Ashby MD [Primary Care Provider, Medicine] Discharge Data Discharge Date/Time-TO BE ENTERED AT DEPARTURE: 08/08/24 17:40 HPI General Mode of arrival: ambulatory . Date/Time Provider Initiated Documentation: 08/08/24 09:37 . Limitations to Documentation: no limitations . Information obtained by: patient and family . HPI Narrative: 79yo female with history of multiple medical problems including with rectal cancer, undergoing chemotherapy, non-small cell lung cancer right lung, COPD, here with left upper arm pain and swelling. Patient notes that she was seen here in the emergency department for left shoulder pain on 06/21/2024. She notes at that time she sustained an injury with a door blocking open and catching her arm. She had an x-ray of the shoulder and was diagnosed with osteoarthritis. She notes she only used her sling for about a day and has continued to have pain. Patient now localizing the pain to upper lateral arm and specifically in area with focal soft tissue swelling. She also notes some discomfort and weakness in her left hand. Related Data Home Medications ?Medication ?Instructions ?Recorded ?Confirmed Oxygen 11/14/21 08/14/24 apixaban 5 mg tablet (Eliquis) See Rx Instructions .Ro [place] 01/28/23 08/14/24 .COMPLEX #70 tabs ipratropium 0.5 mg-albuterol 3 mg 3 ml inhalation QID PRN PRN 01/28/23 08/14/24 (2.5 mg base)/3 mL nebulization shortness of breath or wheezing soln #180 mL potassium chloride 20 mEq 20 meq PO BID #10 tabs 01/2808/14/24 tablet,extended release (K-Tab) arformoterol 15 mcg/2 mL solution 2 ml inhalation QAM #60 mL 03/05/23 08/14/24 for nebulization budesonide 0.5 mg/2 mL suspension 0.5 mg (2 mL) inhala tion QAM #60 mL 03/05/23 08/14/24 for nebulization revefenacin 175 mcg/3 mL solution 175 mcg (3 mL) inhal ation QAM #270 03/05/23 08/14/24 for nebulization (Yupelri) mL levothyroxine 50 mcg capsule 50 mcg PO DAILY 05/09/23 08/14/24 lorazepam 1 mg tablet (Ativan) 1 mg PO BID PRN anxiety #30 tabs 01/08/24 08/14/24 amlodipine 10 mg tablet 10 mg PO DAILY #90 tabs 08/2008/14/24 metoprolol succinate 50 mg 50 mg PO DAILY #90 tabs 08/2008/14/24 tablet,extended release 24 hr furosemide 20 mg tablet See Rx Instructions .Route 0 04/10/24 08/14/24 .COMPLEX #90 tabs lidocaine 5 % topical patch 1 patch topical DAILY #15 ea 06/21/24 08/14/24 albuterol sulfate 90 mcg/actuation 2 inh inhalation Q4 H PRN 08/08/24 08/14/24 aerosol inhaler diclofenac sodium 1 % topical gel 2 g topical QID #50 grams 08/08/24 08/14/24 (Voltaren Arthritis Pain) Previous Rx's ?Medication ?Instructions ?Recorded apixaban 5 mg tablet (Eliquis) See Rx Instructions .Ro [place] 01/28/23 .COMPLEX #70 tabs ipratropium 0.5 mg-albuterol 3 mg 3 ml inhalation QID PRN PRN 01/28/23 (2.5 mg base)/3 mL nebulization shortness of breath or wheezing soln #180 mL potassium chloride 20 mEq 20 meq PO BID #10 tabs 01/28 tablet,extended release (K-Tab) arformoterol 15 mcg/2 mL solution 2 ml inhalation QAM #60 mL 03/05/23 for nebulization budesonide 0.5 mg/2 mL suspension 0.5 mg (2 mL) inhala tion QAM #60 mL 03/05/23 for nebulization revefenacin 175 mcg/3 mL solution 175 mcg (3 mL) inhal ation QAM #270 03/05/23 for nebulization (Yupelri) mL lorazepam 1 mg tablet (Ativan) 1 mg PO BID PRN anxiety #30 tabs 01/08/24 amlodipine 10 mg tablet 10 mg PO DAILY #90 tabs 08/20 metoprolol succinate 50 mg 50 mg PO DAILY #90 tabs 08/20 tablet,extended release 24 hr furosemide 20 mg tablet See Rx Instructions .Route 0 04/10/24 .COMPLEX #90 tabs lidocaine 5 % topical patch 1 patch topical DAILY #15 ea 06/21/24 diclofenac sodium 1 % topical gel 2 g topical QID #50 grams 08/08/24 (Voltaren Arthritis Pain) Allergies Allergy/AdvReac Type Severity Reaction Status Date / Time lisinopril Allergy CAN'T Verified 08/14/24 08:55 REMEMBER Sulfa (Sulfonamide Allergy ? RASH Verified 08/14/24 08:55 Antibiotics) tiotropium bromide (From AdvReac Intermediate Chest Verified 08/14/24 08:55 Spiriva with HandiHaler) tightness and shakiness anastrozole AdvReac COUGH Verified 08/14/24 08:55 losartan AdvReac TACHYCARDIA Verified 08/14/24 08:55 Penicillins AdvReac Rash Verified 08/14/24 08:55 General Stated Complaint: Orthopedic FELIBERTO: 3 Review of Systems Musculoskeletal Musculoskeletal: Reports as per HPI Neurologic Neurologic: Reports as per HPI Exam Cardio Rate: regular rate Rhythm: regular rhythm Pulses: radial pulses present on the left 2+ Extrem Left upper extremity: no joint enlargement, shoulder/upper arm Details: tenderness Location: of the mid-shaft humerus (Over area of swelling) and swelling Location: of the mid-shaft humerus (Focal area of soft tissue swelling); no ecchymosis and no unsual warmth, elbow/forearm Details: normal to inspection, wrist Details: normal to inspection and hand Details: neurosensory exam normal and other (Weakness with piccoloist strength and extending her fingers) Course Vital Signs Vital signs: Vital Signs Temperature 36.5 C 08/08/24 09:33 Pulse 78 08/08/24 09:33 Respiratory Rate 18 08/08/24 09:33 Blood Pressure 125/62 08/08/24 09:33 Pulse Oximetry 97 08/08/24 09:33 Temperature 36.5 C 08/08/24 09:33 Pulse 78 08/08/24 09:33 Respiratory Rate 18 08/08/24 09:33 Blood Pressure 125/62 08/08/24 09:33 Pulse Oximetry 97 08/08/24 09:33 Medical Decision Making 1009 --79-year-old female with multiple medical problems including history of rectal cancer, on chemotherapy, non-small cell lung cancer, here with focal pain and swelling left upper arm as well as discomfort and weakness in her left hand over the past 1 month. Patient was seen here about a month ago after sustaining injury grasping a door that blew open, had x-ray of her left shoulder that showed mild degenerative changes. She subsequently developed the area of focal swelling and tenderness. Xray of the shoulder 06/13/2024 interpreted by radiology: BONES: No acute fracture is present. No bony destructive lesion is seen. JOINTS: No dislocation present. Mild spurring at the AC joint. Glenohumeral joint space is maintained. Consider bony lesion versus muscle strain. Consider ulnar nerve entrapment. Plan to treat pain with Voltaren gel and lidocaine patch. I will obtain x-ray of the humerus. 1118 --x-ray was interpreted by radiology: No significant radiograph findings in left humerus. Plan to treat with sling, Voltaren gel and lidocaine patches. Plan to have her follow-up with her primary care physician for reassessment and consider additional imaging to assess soft tissue mass. Patient has had challenges arranging timely outpatient appointment with PCP. I will ask clinical technology support analyst to assist. Usual and customary discharge instructions were reviewed with the patient. PFSH All Active Problems Localized soft tissue swelling (Acute) Left arm pain (Acute) DNR (do not resuscitate) (Acute) 10/30/2023 COLST: DNI/DNI, + admit to hospital for treatment, +Abx, +IV fluids, No feeding tube Advanced care planning/counseling discussion (Acute) History of breast cancer (Acute) 2011, lumpectomy and radiation, ER+, GA+, Her-; Stage 3 severe COPD by GOLD classification (Acute) Chronic respiratory failure with hypoxia, on home O2 therapy (Acute) Breast cancer, left (Acute) Non-small cell cancer of right lung (Acute) Hypothyroidism (Chronic) Peripheral edema (Acute) Hypomagnesemia (Acute) Lung cancer (Chronic) Neutropenia (Acute) Suspected pulmonary embolism (Acute) Breath shortness (Acute) Hypokalemia (Acute) COPD exacerbation (Acute) Chronic obstructive lung disease (Acute) severe; PFT's 12/2020-PRN use of oxygen-2 L/min Essential hypertension (Acute 12/26/12) Polyp of colon (Acute) 11/05/12 tubovillous 10/04; adenoma 11/0802/07/17: Villous Adenoma 04/11/17: mixed tubulovillous adenoma/traditional serrated adenoma, CDanielson Rectal cancer (Acute) Rectal mass (Acute) Hearing decreased (Acute) Tremor (Acute) Abnormal weight loss (Acute) Medical History Palliative care patient Hyperglycemia Vision loss 12/2020, poor vision both eyes-20-200 bilaterally MyChart. Patient advised not to drive Abnormal CT scan, chest 2018, persistent right lower lobe infiltrate 2020-persistent infiltrate nodule in right lower lobe. As of 01/2021 patient declines follow-up or repeat CT Pedal edema Gastroesophageal reflux disease Smoker Quit about 2014, about a [id number] history of smoking Tubular adenoma (04/11/17) Social isolation (07/13/16) Malignant neoplasm of female breast (07/26/11) Stage 1 left breast: invasive ductal cancer [place] [place] S/P lumpectomy and radiation, no hormonal tx Family history of colon cancer sister-in her 60's Dermatitis, unspecified (11/17/15) Depressive disorder Calcific tendinitis of shoulder (12/23/12) Anxiety and depression Neoplasm of breast Oxygen dependent Anxiety Essential hypertension COPD with exacerbation Surgical History Status post breast biopsy Status post breast lumpectomy Status post cholecystectomy Colonoscopy - MAC (04/11/17) Colonoscopy - MAC (02/07/17) Colonoscopy - MAC (11/05/12) Cholecystectomy (~05/2010) Breast, Lumpectomy left breast lumpectomy and radiation Biopsy of breast RIGHT X 2 Social History Smoking/Tobacco Use Status: Former Tobacco Use Smoking risk assessment performed?: Yes Alcohol Intake: never Drug use: Never Substance use type: does not use Housing: house Do you feel safe at home: Yes Do you feel safe in your relationship?: Yes Additional Social history: lives alone; one son very involved and supportive
[2024-08-08] MEDS: Diclofenac 1% Gel 100 GM TUBE TP (10:08)
[2024-08-08] MEDS: Lidocaine 5% Patch 1 PATCH TP (10:08)
[2024-08-08 11:32] VITALS: BP 115/65; PULSE 78; RESP 16; TEMP 36.5; O2SAT 99
== END 2024-08-08 17:40 | disposition home or self-care (01) ==
PROVIDERS: Emergency Provider Student in an Organized Health Care Education/Training Program; PCP Family Medicine
DX: M79.602 Pain in left arm (principal); M79.89 Other specified soft tissue disorders; I10 Essential (primary) hypertension; J44.9 Chronic obstructive pulmonary disease, unspecified; C20 Malignant neoplasm of rectum; C34.91 Malignant neoplasm of unspecified part of right bronchus or lung; Z79.01 Long term (current) use of anticoagulants; Z92.21 Personal history of antineoplastic chemotherapy; Z99.81 Dependence on supplemental oxygen; Z87.891 Personal history of nicotine dependence
CPT/HCPCS: 99283; 73060

== ENCOUNTER 2024-08-21 00:58 | Outpatient (RCR) | payer MEDICARE, SELFPAY ==
[2024-08-07 12:57] LABS: Abs Immature Grans 0.05 10^3/uL (0.0-0.06); Absolute Basophil Count 0.05 10^3/uL (0.0-0.2); Absolute Eosinophil Count 0.32 10^3/uL (0.0-0.7); Absolute Lymphocyte Count 0.83 10^3/uL (1.2-3.4); Absolute Monocyte Count 0.87 10^3/uL (0.1-0.8); Absolute Neutrophil Count 5.16 10^3/uL (1.2-6.7); Basophils % 0.7 %; Eosinophils % 4.4 %; HCT 31.9 % (36.0-46.0); HGB 10.2 g/dL (11.2-15.7); Immature Grans % 0.7 %; Lymphocytes % 11.4 %; MCH 27.7 pg (27.0-33.0); MCV 87 fL (80-95); MPV 10.5 fL (8.0-11.0); Neutrophils % 70.8 %; Platelet Count 254 10^3/uL (130-400); RBC 3.68 10^6/uL (3.93-5.22); RDW 15.9 % (11.7-14.6); RDW-SD 50.2 fL; WBC 7.28 10^3/uL (4.4-10.8)
[2024-08-07] MEDS: Normal Saline Flush 10 ML SYR IVP (13:46)
[2024-08-07 13:50] LABS: ALT 14 U/L (14-59); AST 14 U/L (15-37); Albumin 3.5 g/dL (3.4-5.0); Alkaline Phosphatase 78 U/L (46-116); Anion Gap 8.8 mmol/L (3-11); BUN 19 mg/dL (7-18); Bilirubin, Total 0.3 mg/dL (0.2-1.0); CO2 27.2 mmol/L (21.0-32.0); CREATININE 1.2 mg/dL (0.55-1.02); Calcium 8.9 mg/dL (8.5-10.1); Chloride 104 mmol/L (98-107); Estimated GFR 45.76 (mL/min/1.73m2); FREE T4 1.44 ng/dL (0.76-1.46); Glucose 120 mg/dL (74-106); Magnesium 1.7 mg/dL (1.8-2.4); Potassium 3.3 mmol/L (3.5-5.1); Sodium 140 mmol/L (136-145); TSH 3.57 uIU/mL (0.36-3.74); Total Protein 6.9 g/dL (6.4-8.2)
[2024-08-07 23:13] LABS: CEA 1.4 ng/mL (See Note)
[2024-08-21] MEDS: Normal Saline Flush 10 ML SYR IVP (08:27)
[2024-08-21 08:35] LABS: Abs Immature Grans 0.05 10^3/uL (0.0-0.06); Absolute Basophil Count 0.06 10^3/uL (0.0-0.2); Absolute Eosinophil Count 0.33 10^3/uL (0.0-0.7); Absolute Lymphocyte Count 0.61 10^3/uL (1.2-3.4); Absolute Monocyte Count 0.92 10^3/uL (0.1-0.8); Absolute Neutrophil Count 3.91 10^3/uL (1.2-6.7); Eosinophils % 5.6 %; HCT 32.2 % (36.0-46.0); HGB 10.4 g/dL (11.2-15.7); Immature Grans % 0.9 %; Lymphocytes % 10.4 %; MCH 28.3 pg (27.0-33.0); MCHC 32.3 % (32.0-36.0); MCV 88 fL (80-95); MPV 10.6 fL (8.0-11.0); Monocytes % 15.6 %; Neutrophils % 66.5 %; Platelet Count 259 10^3/uL (130-400); RBC 3.67 10^6/uL (3.93-5.22); RDW 16.3 % (11.7-14.6); RDW-SD 52.3 fL; WBC 5.88 10^3/uL (4.4-10.8)
[2024-08-21 09:20] LABS: ALT 11 U/L (14-59); AST 14 U/L (15-37); Albumin 3.5 g/dL (3.4-5.0); Alkaline Phosphatase 75 U/L (46-116); Anion Gap 9.5 mmol/L (3-11); BUN 16 mg/dL (7-18); Bilirubin, Total 0.4 mg/dL (0.2-1.0); CO2 25.5 mmol/L (21.0-32.0); CREATININE 1.1 mg/dL (0.55-1.02); Calcium 9.2 mg/dL (8.5-10.1); Chloride 104 mmol/L (98-107); FREE T4 1.45 ng/dL (0.76-1.46); Glucose 110 mg/dL (74-106); Magnesium 2.1 mg/dL (1.8-2.4); Potassium 4.1 mmol/L (3.5-5.1); Sodium 139 mmol/L (136-145); TSH 3.84 uIU/mL (0.36-3.74); Total Protein 6.9 g/dL (6.4-8.2)
[2024-08-21 18:21] LABS: CEA 1.5 ng/mL (See Note)
== END 2024-08-25 23:59 | disposition home or self-care (01) ==
LOC: INF 00:58
PROVIDERS: Nurse Practitioner Family; PCP Family Medicine; Visit Provider Internal Medicine Hematology & Oncology
DX: C34.31 Malignant neoplasm of lower lobe, right bronchus or lung (principal); C20 Malignant neoplasm of rectum; Z79.899 Other long term (current) drug therapy; Z45.2 Encounter for adjustment and management of vascular access device
CPT/HCPCS: 36591; 80053; 82378; 83735; 84439; 84443; 85025

== ENCOUNTER → 2024-08-26 09:49 | Outpatient (BNVA) | payer MEDICARE, SELFPAY | PROVIDERS: PCP Family Medicine; Referring Provider Family Medicine; Visit Provider Student in an Organized Health Care Education/Training Program | DX: M12.812 Other specific arthropathies, not elsewhere classified, left shoulder (principal); Z79.01 Long term (current) use of anticoagulants; I10 Essential (primary) hypertension; J44.9 Chronic obstructive pulmonary disease, unspecified | CPT/HCPCS: 99213 ==

== ENCOUNTER 2024-09-04 14:04 | Outpatient (RCR) | payer MEDICARE, SELFPAY ==
[2024-09-04] MEDS: Normal Saline Flush 10 ML SYR IVP (12:40)
[2024-09-04 13:05] LABS: Abs Immature Grans 0.07 10^3/uL (0.0-0.06); HCT 31.0 % (36.0-46.0); HGB 10.0 g/dL (11.2-15.7); Immature Grans % 1.0 %; MCH 27.9 pg (27.0-33.0); MCHC 32.3 % (32.0-36.0); MCV 86 fL (80-95); MPV 10.3 fL (8.0-11.0); Platelet Count 293 10^3/uL (130-400); RBC 3.59 10^6/uL (3.93-5.22); RDW 15.9 % (11.7-14.6); RDW-SD 50.4 fL; WBC 7.23 10^3/uL (4.4-10.8)
[2024-09-04 13:55] LABS: ALT 12 U/L (14-59); AST 14 U/L (15-37); Albumin 3.6 g/dL (3.4-5.0); Alkaline Phosphatase 76 U/L (46-116); Anion Gap 10.6 mmol/L (3-11); BUN 15 mg/dL (7-18); Bilirubin, Total 0.3 mg/dL (0.2-1.0); CO2 25.4 mmol/L (21.0-32.0); Calcium 9.4 mg/dL (8.5-10.1); Chloride 104 mmol/L (98-107); Estimated GFR 56.95 (mL/min/1.73m2); Glucose 106 mg/dL (74-106); Magnesium 2.1 mg/dL (1.8-2.4); Potassium 3.8 mmol/L (3.5-5.1); Sodium 140 mmol/L (136-145); TSH 7.93 uIU/mL (0.36-3.74); Total Protein 7.0 g/dL (6.4-8.2)
[2024-09-05 08:46] LABS: CEA 1.8 ng/mL (See Note)
== END 2024-09-25 23:59 | disposition home or self-care (01) ==
LOC: INF 14:04
PROVIDERS: PCP Family Medicine; Visit Provider Internal Medicine Hematology & Oncology
DX: C34.31 Malignant neoplasm of lower lobe, right bronchus or lung (principal); C20 Malignant neoplasm of rectum; Z79.899 Other long term (current) drug therapy; Z45.2 Encounter for adjustment and management of vascular access device
CPT/HCPCS: 36591; 80053; 82378; 83735; 84439; 84443; 85025

== ENCOUNTER 2024-09-16 09:40 | Outpatient (RCR) | payer MEDICARE, SELFPAY ==
[2024-09-16 09:56] LABS: Abs Immature Grans 0.02 10^3/uL (0.0-0.06); HCT 29.3 % (36.0-46.0); HGB 9.2 g/dL (11.2-15.7); Immature Grans % 0.4 %; MCH 27.1 pg (27.0-33.0); MCHC 31.4 % (32.0-36.0); MCV 86 fL (80-95); MPV 10.2 fL (8.0-11.0); Platelet Count 248 10^3/uL (130-400); RBC 3.40 10^6/uL (3.93-5.22); RDW 15.7 % (11.7-14.6); RDW-SD 49.3 fL; WBC 4.66 10^3/uL (4.4-10.8)
[2024-09-16] MEDS: Normal Saline Flush 10 ML SYR IVP (10:00)
[2024-09-16 10:22] LABS: ALT 10 U/L (14-59); AST 15 U/L (15-37); Albumin 3.4 g/dL (3.4-5.0); Alkaline Phosphatase 71 U/L (46-116); Anion Gap 8.0 mmol/L (3-11); BUN 14 mg/dL (7-18); Bilirubin, Total 0.3 mg/dL (0.2-1.0); CO2 26.0 mmol/L (21.0-32.0); Calcium 9.2 mg/dL (8.5-10.1); Chloride 104 mmol/L (98-107); Estimated GFR 56.95 (mL/min/1.73m2); Glucose 96 mg/dL (74-106); Magnesium 2.1 mg/dL (1.8-2.4); Potassium 3.8 mmol/L (3.5-5.1); Sodium 138 mmol/L (136-145); TSH 5.80 uIU/mL (0.36-3.74); Total Protein 6.8 g/dL (6.4-8.2)
[2024-09-16 18:23] LABS: CEA 1.4 ng/mL (See Note)
== END 2024-09-25 23:59 | disposition home or self-care (01) ==
LOC: INF 09:40
PROVIDERS: Nurse Practitioner Family; PCP Family Medicine; Visit Provider Internal Medicine Hematology & Oncology
DX: C20 Malignant neoplasm of rectum (principal); C34.31 Malignant neoplasm of lower lobe, right bronchus or lung; Z79.899 Other long term (current) drug therapy; Z45.2 Encounter for adjustment and management of vascular access device
CPT/HCPCS: 36591; 80053; 82378; 83735; 84439; 84443; 85025

== ENCOUNTER 2024-10-16 00:41 | Outpatient (RCR) | payer MEDICARE, SELFPAY ==
[2024-10-02] MEDS: Normal Saline Flush 10 ML SYR IVP (11:01)
[2024-10-02 11:08] LABS: Abs Immature Grans 0.06 10^3/uL (0.0-0.06); HCT 29.4 % (36.0-46.0); HGB 9.3 g/dL (11.2-15.7); Immature Grans % 0.8 %; MCH 26.9 pg (27.0-33.0); MCHC 31.6 % (32.0-36.0); MCV 85 fL (80-95); MPV 10.6 fL (8.0-11.0); Platelet Count 309 10^3/uL (130-400); RBC 3.46 10^6/uL (3.93-5.22); RDW 15.3 % (11.7-14.6); RDW-SD 47.7 fL; WBC 7.63 10^3/uL (4.4-10.8)
[2024-10-02 11:28] LABS: Iron 23 ug/dL (50-170); Total Iron Binding Capacity 361 ug/dL (250-450); Transferrin Sat 6 % (15-50)
[2024-10-02 11:48] LABS: ALT 9 U/L (14-59); AST 12 U/L (15-37); Albumin 3.4 g/dL (3.4-5.0); Alkaline Phosphatase 76 U/L (46-116); Anion Gap 7.3 mmol/L (3-11); BUN 13 mg/dL (7-18); Bilirubin, Total 0.3 mg/dL (0.2-1.0); CO2 26.7 mmol/L (21.0-32.0); Calcium 9.3 mg/dL (8.5-10.1); Chloride 104 mmol/L (98-107); Estimated GFR 50.80 (mL/min/1.73m2); Ferritin 12 ng/mL (8-252); Glucose 96 mg/dL (74-106); Magnesium 2.2 mg/dL (1.8-2.4); Potassium 3.8 mmol/L (3.5-5.1); Sodium 138 mmol/L (136-145); TSH 3.02 uIU/mL (0.36-3.74); Total Protein 6.9 g/dL (6.4-8.2)
[2024-10-02 19:02] LABS: CEA 1.5 ng/mL (See Note)
[2024-10-16] MEDS: Normal Saline Flush 10 ML SYR IVP (12:14)
[2024-10-16 12:53] LABS: Abs Immature Grans 0.05 10^3/uL (0.0-0.06); HCT 30.1 % (36.0-46.0); HGB 9.3 g/dL (11.2-15.7); Immature Grans % 0.8 %; MCH 25.7 pg (27.0-33.0); MCHC 30.9 % (32.0-36.0); MCV 83 fL (80-95); MPV 10.7 fL (8.0-11.0); Platelet Count 341 10^3/uL (130-400); RBC 3.62 10^6/uL (3.93-5.22); RDW 15.2 % (11.7-14.6); RDW-SD 45.8 fL; WBC 6.49 10^3/uL (4.4-10.8)
[2024-10-16 13:23] LABS: ALT 8 U/L (14-59); AST 13 U/L (15-37); Albumin 3.5 g/dL (3.4-5.0); Alkaline Phosphatase 75 U/L (46-116); Anion Gap 10.1 mmol/L (3-11); BUN 15 mg/dL (7-18); Bilirubin, Total 0.3 mg/dL (0.2-1.0); CO2 26.9 mmol/L (21.0-32.0); Calcium 8.9 mg/dL (8.5-10.1); Chloride 103 mmol/L (98-107); Estimated GFR 56.95 (mL/min/1.73m2); Ferritin 12 ng/mL (8-252); Glucose 108 mg/dL (74-106); Magnesium 2.1 mg/dL (1.8-2.4); Potassium 3.9 mmol/L (3.5-5.1); Sodium 140 mmol/L (136-145); Total Protein 7.2 g/dL (6.4-8.2)
[2024-10-16 15:10] LABS: Iron 21 ug/dL (50-170); Total Iron Binding Capacity 403 ug/dL (250-450); Transferrin Sat 5 % (15-50)
[2024-10-16 22:51] LABS: CEA 1.4 ng/mL (See Note)
== END 2024-10-26 23:59 | disposition home or self-care (01) ==
LOC: INF 00:41
PROVIDERS: Nurse Practitioner Family; PCP Family Medicine; Visit Provider Internal Medicine Hematology & Oncology
DX: D50.0 Iron deficiency anemia secondary to blood loss (chronic) (principal); Z79.899 Other long term (current) drug therapy; C20 Malignant neoplasm of rectum; Z45.2 Encounter for adjustment and management of vascular access device
CPT/HCPCS: 36591; 80053; 82378; 82728; 83540; 83550; 83735; 84439; 84443; 85025

== ENCOUNTER 2024-11-13 00:20 | Outpatient (RCR) | payer MEDICARE, SELFPAY ==
[2024-10-30 13:01] LABS: Abs Immature Grans 0.03 10^3/uL (0.0-0.06); HCT 29.5 % (36.0-46.0); HGB 9.1 g/dL (11.2-15.7); Immature Grans % 0.4 %; MCH 25.4 pg (27.0-33.0); MCHC 30.8 % (32.0-36.0); MCV 82 fL (80-95); MPV 10.5 fL (8.0-11.0); Platelet Count 310 10^3/uL (130-400); RBC 3.58 10^6/uL (3.93-5.22); RDW 15.2 % (11.7-14.6); RDW-SD 46.0 fL; WBC 7.04 10^3/uL (4.4-10.8)
[2024-10-30] MEDS: Normal Saline Flush 10 ML SYR IVP (13:09)
[2024-10-30 13:19] LABS: ALT 10 U/L (14-59); AST 11 U/L (15-37); Albumin 3.5 g/dL (3.4-5.0); Alkaline Phosphatase 73 U/L (46-116); Anion Gap 8.3 mmol/L (3-11); BUN 20 mg/dL (7-18); Bilirubin, Total 0.2 mg/dL (0.2-1.0); CO2 25.7 mmol/L (21.0-32.0); Calcium 9.3 mg/dL (8.5-10.1); Chloride 105 mmol/L (98-107); Estimated GFR 41.57 (mL/min/1.73m2); Glucose 119 mg/dL (74-106); Magnesium 2.0 mg/dL (1.8-2.4); Potassium 3.9 mmol/L (3.5-5.1); Sodium 139 mmol/L (136-145); Total Protein 7.0 g/dL (6.4-8.2)
[2024-10-30 13:28] LABS: Iron 20 ug/dL (50-170); Total Iron Binding Capacity 376 ug/dL (250-450); Transferrin Sat 5 % (15-50)
[2024-10-30 13:59] LABS: Ferritin 10 ng/mL (8-252)
[2024-10-30 22:15] LABS: CEA 1.1 ng/mL (See Note)
[2024-10-31 05:03] LABS: TSH 3.60 uIU/mL (0.36-3.74)
[2024-11-13 13:15] LABS: Abs Immature Grans 0.05 10^3/uL (0.0-0.06); HCT 28.3 % (36.0-46.0); HGB 8.6 g/dL (11.2-15.7); Immature Grans % 0.7 %; MCH 24.2 pg (27.0-33.0); MCHC 30.4 % (32.0-36.0); MCV 80 fL (80-95); MPV 10.7 fL (8.0-11.0); Platelet Count 308 10^3/uL (130-400); RBC 3.55 10^6/uL (3.93-5.22); RDW 15.7 % (11.7-14.6); RDW-SD 45.2 fL; WBC 7.17 10^3/uL (4.4-10.8)
[2024-11-13 13:42] LABS: Hypochromasia 2+
[2024-11-13 13:44] LABS: ALT 10 U/L (14-59); AST 14 U/L (15-37); Albumin 3.5 g/dL (3.4-5.0); Alkaline Phosphatase 71 U/L (46-116); Anion Gap 9.8 mmol/L (3-11); BUN 23 mg/dL (7-18); Bilirubin, Total 0.3 mg/dL (0.2-1.0); CO2 25.2 mmol/L (21.0-32.0); Calcium 9.2 mg/dL (8.5-10.1); Chloride 104 mmol/L (98-107); Estimated GFR 41.57 (mL/min/1.73m2); Glucose 125 mg/dL (74-106); Magnesium 2.0 mg/dL (1.8-2.4); Potassium 3.8 mmol/L (3.5-5.1); Sodium 139 mmol/L (136-145); TSH 2.61 uIU/mL (0.36-3.74); Total Protein 7.1 g/dL (6.4-8.2)
[2024-11-13] MEDS: Normal Saline Flush 10 ML SYR IVP (13:56)
[2024-11-14 09:17] LABS: CEA 1.6 ng/mL (See Note)
== END 2024-11-25 23:59 | disposition home or self-care (01) ==
LOC: INF 00:20
PROVIDERS: Nurse Practitioner Family; PCP Family Medicine; Visit Provider Internal Medicine Hematology & Oncology
DX: C20 Malignant neoplasm of rectum (principal); C34.31 Malignant neoplasm of lower lobe, right bronchus or lung; Z79.899 Other long term (current) drug therapy; Z45.2 Encounter for adjustment and management of vascular access device
CPT/HCPCS: 36591; 80053; 82378; 82728; 83540; 83550; 83735; 84439; 84443; 85025

== ENCOUNTER 2024-12-25 00:06 | Outpatient (RCR) | payer MEDICARE, SELFPAY ==
[2024-11-27] MEDS: Normal Saline Flush 10 ML SYR IVP (13:20)
[2024-11-27 13:35] LABS: Abs Immature Grans 0.04 10^3/uL (0.0-0.06); HCT 28.4 % (36.0-46.0); HGB 8.6 g/dL (11.2-15.7); Immature Grans % 0.5 %; MCH 24.4 pg (27.0-33.0); MCHC 30.3 % (32.0-36.0); MCV 81 fL (80-95); MPV 10.5 fL (8.0-11.0); Platelet Count 348 10^3/uL (130-400); RBC 3.53 10^6/uL (3.93-5.22); RDW 16.0 % (11.7-14.6); RDW-SD 47.0 fL; WBC 8.04 10^3/uL (4.4-10.8)
[2024-11-27 13:56] LABS: ALT 8 U/L (14-59); AST 11 U/L (15-37); Albumin 3.4 g/dL (3.4-5.0); Alkaline Phosphatase 78 U/L (46-116); Anion Gap 11.2 mmol/L (3-11); BUN 16 mg/dL (7-18); Bilirubin, Total 0.2 mg/dL (0.2-1.0); CO2 25.8 mmol/L (21.0-32.0); Calcium 9.0 mg/dL (8.5-10.1); Chloride 105 mmol/L (98-107); Glucose 129 mg/dL (74-106); Potassium 3.4 mmol/L (3.5-5.1); Sodium 142 mmol/L (136-145); Total Protein 7.1 g/dL (6.4-8.2)
[2024-11-27 14:41] LABS: Magnesium 2.2 mg/dL (1.8-2.4); TSH 4.97 uIU/mL (0.36-3.74)
[2024-11-27 22:11] LABS: CEA 1.3 ng/mL (See Note)
[2024-12-11] MEDS: Normal Saline Flush 10 ML SYR IVP (12:44)
[2024-12-11 13:00] LABS: Abs Immature Grans 0.03 10^3/uL (0.0-0.06); HCT 29.5 % (36.0-46.0); HGB 8.9 g/dL (11.2-15.7); Immature Grans % 0.4 %; MCH 23.7 pg (27.0-33.0); MCHC 30.2 % (32.0-36.0); MCV 79 fL (80-95); MPV 10.7 fL (8.0-11.0); Platelet Count 344 10^3/uL (130-400); RBC 3.75 10^6/uL (3.93-5.22); RDW 16.4 % (11.7-14.6); RDW-SD 47.0 fL; WBC 8.17 10^3/uL (4.4-10.8)
[2024-12-11 13:14] LABS: ALT 9 U/L (14-59); AST 13 U/L (15-37); Albumin 3.4 g/dL (3.4-5.0); Alkaline Phosphatase 82 U/L (46-116); Anion Gap 9.0 mmol/L (3-11); BUN 17 mg/dL (7-18); Bilirubin, Total 0.3 mg/dL (0.2-1.0); CO2 26.0 mmol/L (21.0-32.0); Calcium 9.1 mg/dL (8.5-10.1); Chloride 106 mmol/L (98-107); Glucose 116 mg/dL (74-106); Magnesium 2.3 mg/dL (1.8-2.4); Potassium 4.1 mmol/L (3.5-5.1); Sodium 141 mmol/L (136-145); Total Protein 7.0 g/dL (6.4-8.2)
[2024-12-11 13:23] LABS: Anisocytosis 1+; Hypochromasia 1+; Microcytosis 1+; Ovalocytes 2+
[2024-12-11 14:28] LABS: TSH 2.21 uIU/mL (0.36-3.74)
[2024-12-11 22:38] LABS: CEA 1.5 ng/mL (See Note)
[2024-12-25] MEDS: Normal Saline Flush 10 ML SYR IVP (12:58)
[2024-12-25 13:03] LABS: Abs Immature Grans 0.04 10^3/uL (0.0-0.06); HCT 29.2 % (36.0-46.0); HGB 8.6 g/dL (11.2-15.7); Immature Grans % 0.6 %; MCH 22.6 pg (27.0-33.0); MCHC 29.5 % (32.0-36.0); MCV 77 fL (80-95); MPV 10.1 fL (8.0-11.0); Platelet Count 356 10^3/uL (130-400); RBC 3.80 10^6/uL (3.93-5.22); RDW 16.3 % (11.7-14.6); RDW-SD 45.9 fL; WBC 6.76 10^3/uL (4.4-10.8)
[2024-12-25 13:27] LABS: ALT 8 U/L (14-59); AST 11 U/L (15-37); Albumin 3.4 g/dL (3.4-5.0); Alkaline Phosphatase 82 U/L (46-116); Anion Gap 11.3 mmol/L (3-11); BUN 18 mg/dL (7-18); Bilirubin, Total 0.2 mg/dL (0.2-1.0); CO2 25.7 mmol/L (21.0-32.0); Calcium 9.0 mg/dL (8.5-10.1); Chloride 104 mmol/L (98-107); Glucose 111 mg/dL (74-106); Magnesium 2.2 mg/dL (1.8-2.4); Potassium 4.1 mmol/L (3.5-5.1); Sodium 141 mmol/L (136-145); TSH 3.03 uIU/mL (0.36-3.74); Total Protein 7.3 g/dL (6.4-8.2)
[2024-12-26 09:26] LABS: CEA 1.6 ng/mL (See Note)
== END 2024-12-26 23:59 | disposition home or self-care (01) ==
LOC: INF 00:06
PROVIDERS: Nurse Practitioner Family; PCP Family Medicine; Visit Provider Internal Medicine Hematology & Oncology
DX: C20 Malignant neoplasm of rectum (principal); C34.31 Malignant neoplasm of lower lobe, right bronchus or lung; Z79.899 Other long term (current) drug therapy; Z45.2 Encounter for adjustment and management of vascular access device
CPT/HCPCS: 36591; 80053; 82378; 83735; 84439; 84443; 85025

== ENCOUNTER 2025-01-23 02:03 | Outpatient (RCR) | payer MEDICARE, SELFPAY ==
[2025-01-08] MEDS: Normal Saline Flush 10 ML SYR IVP (13:19)
[2025-01-08 13:34] LABS: Abs Immature Grans 0.05 10^3/uL (0.0-0.06); HCT 27.8 % (36.0-46.0); HGB 8.1 g/dL (11.2-15.7); Immature Grans % 0.7 %; MCH 21.9 pg (27.0-33.0); MCHC 29.1 % (32.0-36.0); MCV 75 fL (80-95); MPV 10.3 fL (8.0-11.0); Platelet Count 333 10^3/uL (130-400); RBC 3.70 10^6/uL (3.93-5.22); RDW 16.8 % (11.7-14.6); RDW-SD 45.7 fL; WBC 7.13 10^3/uL (4.4-10.8)
[2025-01-08 14:05] LABS: TSH 4.37 uIU/mL (0.55-4.78)
[2025-01-08 14:12] LABS: AST 13 U/L (<34); Albumin 4.2 g/dL (3.4-5.0); Alkaline Phosphatase 67 U/L (46-116); Anion Gap 10.5 mmol/L (3-11); BUN 20 mg/dL (9-23); Bilirubin, Total 0.30 mg/dL (0.2-1.2); CO2 24.5 mmol/L (20.0-31.0); Calcium 9.0 mg/dL (8.3-10.6); Chloride 107 mmol/L (98-107); Glucose 103 mg/dL (74-106); Potassium 3.9 mmol/L (3.5-5.1); Sodium 142 mmol/L (136-145); Total Protein 6.8 g/dL (5.7-8.2)
[2025-01-08 14:13] LABS: ALT < 7 U/L (10-49)
[2025-01-08 15:27] LABS: Magnesium 2.1 mg/dL (1.6-2.6)
[2025-01-08 22:28] LABS: CEA 1.4 ng/mL (See Note)
[2025-01-23 12:50] LABS: Abs Immature Grans 0.04 10^3/uL (0.0-0.06); HCT 27.3 % (36.0-46.0); HGB 8.0 g/dL (11.2-15.7); Immature Grans % 0.7 %; MCH 21.3 pg (27.0-33.0); MCHC 29.3 % (32.0-36.0); MCV 73 fL (80-95); MPV 11.2 fL (8.0-11.0); Platelet Count 312 10^3/uL (130-400); RBC 3.76 10^6/uL (3.93-5.22); RDW 17.2 % (11.7-14.6); RDW-SD 45.5 fL; WBC 5.52 10^3/uL (4.4-10.8)
[2025-01-23 13:12] LABS: Magnesium 2.0 mg/dL (1.6-2.6); TSH 3.91 uIU/mL (0.55-4.78)
[2025-01-23 13:14] LABS: Anisocytosis 1+; Hypochromasia 1+; Microcytosis 2+; Ovalocytes 2+
[2025-01-23] MEDS: Normal Saline Flush 10 ML SYR IVP (13:35)
[2025-01-23 13:36] LABS: ALT < 7 U/L (10-49); AST 17 U/L (<34); Albumin 3.9 g/dL (3.2-5.0); Alkaline Phosphatase 65 U/L (46-116); Anion Gap 8.7 mmol/L (3-11); BUN 16 mg/dL (9-23); Bilirubin, Total 0.40 mg/dL (0.2-1.2); CO2 24.3 mmol/L (20.0-31.0); Calcium 8.8 mg/dL (8.3-10.6); Chloride 107 mmol/L (98-107); Glucose 116 mg/dL (74-106); Potassium 3.8 mmol/L (3.5-5.1); Sodium 140 mmol/L (136-145); Total Protein 6.7 g/dL (5.7-8.2)
[2025-01-23 22:16] LABS: CEA 2.0 ng/mL (See Note)
== END 2025-01-25 23:59 | disposition home or self-care (01) ==
LOC: INF 02:03
PROVIDERS: Nurse Practitioner Family; PCP Family Medicine; Visit Provider Internal Medicine Hematology & Oncology
DX: C20 Malignant neoplasm of rectum (principal); Z79.899 Other long term (current) drug therapy; Z45.2 Encounter for adjustment and management of vascular access device
CPT/HCPCS: 36591; 80053; 82378; 83735; 84439; 84443; 85025

== ENCOUNTER 2025-02-25 02:11 | Outpatient (RCR) | payer MEDICARE, SELFPAY ==
[2025-02-05 12:26] LABS: Abs Immature Grans 0.02 10^3/uL (0.0-0.06); HCT 28.4 % (36.0-46.0); HGB 8.3 g/dL (11.2-15.7); Immature Grans % 0.3 %; MCH 21.0 pg (27.0-33.0); MCHC 29.2 % (32.0-36.0); MCV 72 fL (80-95); MPV 10.2 fL (8.0-11.0); Platelet Count 371 10^3/uL (130-400); RBC 3.96 10^6/uL (3.93-5.22); RDW 17.3 % (11.7-14.6); RDW-SD 45.1 fL; WBC 6.24 10^3/uL (4.4-10.8)
[2025-02-05 12:36] LABS: Magnesium 2.0 mg/dL (1.6-2.6)
[2025-02-05 12:42] LABS: Ferritin 7 ng/mL (7-271); TSH 3.42 uIU/mL (0.55-4.78)
[2025-02-05 12:44] LABS: Iron 12 ug/dL (50-170); Total Iron Binding Capacity 355 ug/dL (250-425); Transferrin Sat 3 % (15-50)
[2025-02-05 12:49] LABS: ALT < 7 U/L (10-49); AST 15 U/L (<34); Albumin 4.2 g/dL (3.2-5.0); Alkaline Phosphatase 70 U/L (46-116); Anion Gap 9.6 mmol/L (3-11); BUN 15 mg/dL (9-23); Bilirubin, Total 0.4 mg/dL (0.2-1.2); CO2 25.4 mmol/L (20.0-31.0); Calcium 9.3 mg/dL (8.3-10.6); Chloride 106 mmol/L (98-107); Glucose 127 mg/dL (74-106); Potassium 3.8 mmol/L (3.5-5.1); Sodium 141 mmol/L (136-145); Total Protein 7.1 g/dL (5.7-8.2)
[2025-02-05 12:57] LABS: Anisocytosis 2+; Hypochromasia 1+; Microcytosis 2+; Ovalocytes 2+; Polychromasia Present
[2025-02-05] MEDS: Normal Saline Flush 10 ML SYR IVP (13:58)
[2025-02-05 23:18] LABS: CEA 1.5 ng/mL (See Note)
[2025-02-18] MEDS: Normal Saline Flush 10 ML SYR IVP (09:03)
[2025-02-18 09:26] LABS: Abs Immature Grans 0.07 10^3/uL (0.0-0.06); HCT 29.0 % (36.0-46.0); HGB 8.3 g/dL (11.2-15.7); Immature Grans % 0.7 %; MCH 20.8 pg (27.0-33.0); MCHC 28.6 % (32.0-36.0); MCV 73 fL (80-95); MPV 11.0 fL (8.0-11.0); Platelet Count 303 10^3/uL (130-400); RBC 3.99 10^6/uL (3.93-5.22); RDW 18.9 % (11.7-14.6); RDW-SD 48.5 fL; WBC 9.71 10^3/uL (4.4-10.8)
[2025-02-18 09:44] LABS: ALT 10 U/L (10-49); AST 16 U/L (<34); Albumin 4.1 g/dL (3.2-5.0); Alkaline Phosphatase 74 U/L (46-116); Anion Gap 9.9 mmol/L (3-11); BUN 22 mg/dL (9-23); Bilirubin, Total 0.3 mg/dL (0.2-1.2); CO2 25.1 mmol/L (20.0-31.0); Calcium 9.0 mg/dL (8.3-10.6); Chloride 108 mmol/L (98-107); Glucose 112 mg/dL (74-106); Potassium 3.7 mmol/L (3.5-5.1); Sodium 143 mmol/L (136-145); Total Protein 6.9 g/dL (5.7-8.2)
[2025-02-18 10:15] LABS: Anisocytosis 2+; Hypochromasia 2+; Microcytosis 2+; Ovalocytes 2+; Poikilocytes 1+; Polychromasia Present; Schistocytes 1+
[2025-02-19 09:28] LABS: CEA 1.9 ng/mL (See Note)
[2025-02-25] MEDS: Normal Saline Flush 10 ML SYR IVP (07:57)
[2025-02-25 08:11] LABS: Abs Immature Grans 0.06 10^3/uL (0.0-0.06); HCT 30.4 % (36.0-46.0); HGB 8.9 g/dL (11.2-15.7); Immature Grans % 0.7 %; MCH 22.1 pg (27.0-33.0); MCHC 29.3 % (32.0-36.0); MCV 75 fL (80-95); MPV 10.5 fL (8.0-11.0); Platelet Count 284 10^3/uL (130-400); RBC 4.03 10^6/uL (3.93-5.22); RDW 21.8 % (11.7-14.6); RDW-SD 55.9 fL; WBC 8.57 10^3/uL (4.4-10.8)
[2025-02-25 08:25] LABS: Anisocytosis 2+; Hypochromasia 1+
[2025-02-25 08:32] LABS: ALT 9 U/L (10-49); AST 16 U/L (<34); Albumin 4.0 g/dL (3.2-5.0); Alkaline Phosphatase 75 U/L (46-116); Anion Gap 10.6 mmol/L (3-11); BUN 22 mg/dL (9-23); Bilirubin, Total 0.5 mg/dL (0.2-1.2); CO2 25.4 mmol/L (20.0-31.0); Calcium 9.0 mg/dL (8.3-10.6); Chloride 108 mmol/L (98-107); Glucose 101 mg/dL (74-106); Potassium 3.9 mmol/L (3.5-5.1); Sodium 144 mmol/L (136-145); TSH 3.70 uIU/mL (0.55-4.78); Total Protein 6.5 g/dL (5.7-8.2)
== END 2025-02-25 23:59 | disposition home or self-care (01) ==
LOC: INF 02:11
PROVIDERS: Nurse Practitioner Family; PCP Family Medicine; Visit Provider Internal Medicine Hematology & Oncology
DX: D50.9 Iron deficiency anemia, unspecified (principal); C20 Malignant neoplasm of rectum; Z79.899 Other long term (current) drug therapy; Z45.2 Encounter for adjustment and management of vascular access device
CPT/HCPCS: 36591; 80053; 82378; 82728; 83540; 83550; 83735; 84439; 84443; 85025